=== PATIENT | male | born 1955 | race Caucasian/White ===

== ENCOUNTER → 2016-07-01 | Outpatient (REF) | payer MEDICARE ==
[~2016-07-01] MED LIST: AMLO5TAB2 PO; ASPI1TAB PO; CEPH500C PO; CIPR500T89 PO; CLEO150C PO; CLEO300C2 PO; CLON0.2T PO; DOXY150C PO; INSUHUMDS SC; INSULADS SC; JANU100T PO; LOVE1INJ SC; METF750T PO; METO50TA2 PO; MULT1TAB8 PO; MULTCAP PO; NEXI20CA PO; PERCOCET PO; SIMV40TA2 PO; SITA50TAB PO; ZOSY3INJ2 IV
== END ==
LOC: M LAB REF 16:57
PROVIDERS: ATTEND Surgery
DX: L02.611 Cutaneous abscess of right foot (principal)
CPT/HCPCS: 10060; 87070; 87077; 87186; 97597; G0463

== ENCOUNTER → 2016-10-14 | Outpatient (CLI) | payer MEDICARE ==
[~2016-10-14] MED LIST changes: +ISOVUE-300 61% 50ML VIAL (Q9967) As Ordered ONE; +LIDOCAINE 2% MDV 20 ML VIAL As Ordered ONE; +LIDOCAINE W/EPINEPHRINE 1% 20ML VIAL As Ordered ONE; +SODIUM BICARBONATE 4 % INJ 2.4MEQ 5 ML VIAL (THIS HAS A PRESERVATIVE) As Ordered ONE; +ceFAZolin 1GM INJ (J0690) As Ordered ONE; +fentaNYL 100 MCG/2 ML INJECTION (J3010) As Ordered ONE
--- NOTE | 2016-10-14 18:33 | REPKIM ---
CLINICAL HISTORY: Patient with diabetes, PVD, leg ulcer and multiple surgeries in the past has a right IJ [id number]-j-rfye over 4 years placed at an outside institution. Patient recently was seen in [place] surgical office for chest port removal. The catheter was found to be adherent and could not be removed. The referring service has asked the right IJ chest port removal/adherent catheter removal in the jugular vein. PROCEDURE PERFORMED: 1. Chest Port Removal 2. Endovascular Foreign Body Removal INTERVENTIONALIST: Queta Parks MD STRATEGIC SOURCING CONSULTANT: Gary Churchill MD MEDICATIONS: Local Lidocaine, Ancef 1gm IV and Fentanyl 125 mcg IV. Independent trained observer was present during the entire duration of the procedure for monitoring. EBL: 20 mL FLUORO TIME: 14.9 minutes DEVICES USED: [id number] Javid FURNITURE RENTAL CONSULTANT balloon, 3mm x 30mm Javid FURNITURE RENTAL CONSULTANT balloon, Lot#[id number] CONSENT: The risks, benefits and alternatives to the procedure were explained to the patient and informed written consent was obtained. PROCEDURE/FINDINGS: The patient was brought to the interventional radiology suite and was positioned supine on the table. Time out procedure was performed. The right neck and upper chest were prepped and draped in the usual sterile fashion. Fluoroscopy of the chest showed the existing chest port with its tip at the right brachiocephalic vein. The subcutaneous portion of the catheter is looped in the upper chest. There is a second looping of the catheter at the base of the neck region. The right upper chest and neck was prepped and draped in the usual sterile fashion. Local anesthesia was administered to the overlying skin and surrounding deep tissue around the existing port. Then a skin incision was made in the upper chest. The port was bluntly dissected free from the surrounding soft tissues. The catheter was confirmed to be severely adherent in the neck. A second incision was then made in the right neck. Using blunt dissection the catheter was then grasped from the neck incision site. Then the existing port was removed. The free end of the catheter in the subcutaneous tissue tract was bluntly dissected and brought out in the neck skin incision. The catheter was found to be firmly attached to the jugular vein. I dissected scar tissues to the jugular vein access site however I was not able to remove it in a conventional fashion. Multiple attempts were made to dissect the scar tissues along the catheter in the jugular vein with peelaway sheath and vascular sheath without success. Decision was then made to dilate the tract using FURNITURE RENTAL CONSULTANT balloon. A guidewire was then advanced via the catheter, into the right IJ, across the right atrium into the IVC. A javid FURNITURE RENTAL CONSULTANT balloon was then advanced coaxially via the catheter over the guidewire. With Dr. Whitley assistance, the right IJ catheter/track was dilated using 3mm Javid FURNITURE RENTAL CONSULTANT balloon. Following this, the firmly attached catheter in the right IJ/brachiocephalic was removed in its entirety over a guidewire. The catheter was confirmed to be removed in its entirety. The right upper chest deep tissue was closed with interrupted 2-0 Vicryl suture. The skin incision was closed with a running subcuticular suture of 4-0 Vicryl. The incision in the neck was closed with 4-0 Vicryl suture. Mastisol and Steri-Strips were applied. The patient tolerated the procedure well with no immediate complications. This procedure was performed using fluoroscopy. IMPRESSION: Right IJ [id number]-[id number]; with its catheter severely adherent to the right IJ vein and base of the neck region. Successful ezqdck-i-iraj removal using blunt dissection and endovascular FURNITURE RENTAL CONSULTANT technique as discussed above. Dr. Parks was present for the entire procedure as documented in the progress notes. cc: Gary Rico MD [facility]ITALKim
== END | disposition home or self-care (01) ==
LOC: M IRPRO 12:54
PROVIDERS: ATTEND Surgery
DX: T82.9XXA Unspecified complication of cardiac and vascular prosthetic device, implant and graft, initial encounter (principal); I73.9 Peripheral vascular disease, unspecified; E11.621 Type 2 diabetes mellitus with foot ulcer; L02.611 Cutaneous abscess of right foot; L97.412 Non-pressure chronic ulcer of right heel and midfoot with fat layer exposed
CPT/HCPCS: 29445; 36590; 37248; C1725; C1769; C1894; J0690; J3010; Q9967

== ENCOUNTER 2017-01-12 12:05 | Day surgery (SDC) | payer MEDICARE ==
[~2017-01-12] VITALS: Ht 177.8 cm; Wt 97.5 kg
[~2017-01-12 12:05] MED LIST changes: +ACETAMINOPHEN 325 MG TAB PO PRN; +ACETYLCHOLINE OPHTH SOLN 1% 2ML (MIOCHOL-E) As Ordered ONE; +BALANCED SALT IRRIGATION SOLUTION 500ML BAG (FOR OR EYE MACHINE) As Ordered ONE; +CEFUROXIME 1MG/0.1ML INTRACAMERAL INJ As Ordered ONE; +CIPR-249 PO; -CIPR500T89 PO; +CYCLOPENTOLATE 2% OPHTH SOLN 2ML BTL OS ONE; +HEALON DUET (HEALON 10MG/ML 0.55ML & HEALON ENDOCOAT 30MG/ML 0.85ML) As Ordered ONE; +INSUH10VL SC; +INSULADS INJ; +IRON65TA PO; -ISOVUE-300 61% 50ML VIAL (Q9967) As Ordered ONE; +LIDOCAINE 1% SDV 5 ML VIAL As Ordered ONE; -LIDOCAINE 2% MDV 20 ML VIAL As Ordered ONE; +LIDOCAINE 3.5 % 1ML OPHTH TOPICAL GEL OU ONE; -LIDOCAINE W/EPINEPHRINE 1% 20ML VIAL As Ordered ONE; +LOSA50TA20 PO; -METO50TA2 PO; +METO50TA7 PO; +OFLOXACIN 0.3 % (OCUFLOX) OPTH SOL 5ML OS ONE; +PHENYLEPHRINE 2.5% OPHTH SOL 2ML OS ONE; +POVIDONE-IODINE 5% OPHTH PREP SOL 30ML As Ordered ONE; +PROPARACAINE 0.5% OPHTH SOL 15ML OS PRN; -SODIUM BICARBONATE 4 % INJ 2.4MEQ 5 ML VIAL (THIS HAS A PRESERVATIVE) As Ordered ONE; +TROPICAMIDE 1% OPHTH SOLN 2ML OS ONE; +[UNRECOGNIZED DRUG - CODE] PO; -ceFAZolin 1GM INJ (J0690) As Ordered ONE; -fentaNYL 100 MCG/2 ML INJECTION (J3010) As Ordered ONE
[2017-01-12] MEDS ORDERED: LR 1,000 ML IV ONE (12:15)
[2017-01-12] MEDS ORDERED: fentaNYL 100 MCG/2 ML INJECTION (J3010) As Ordered ONE (13:59)
[2017-01-12] MEDS ORDERED: MIDAZOLAM INJ 2 MG/2 ML VIAL (J2250) As Ordered ONE (13:59)
[2017-01-12 14:30] VITALS: BP 123/74
[2017-01-12] MEDS ORDERED: AcetaZOLAMIDE 500 MG ER CAP PO ONE (14:30)
[2017-01-12] MEDS ORDERED: KETOROLAC 0.5% OPHTH SOLN OS ONE (14:30)
[2017-01-12] MEDS ORDERED: TRIMETHOBENZAMIDE 300 MG CAP PO PRN (14:30)
--- NOTE | 2017-01-12 17:40 | RO ---
DATE OF PROCEDURE: 01/12/2017 PREPROCEDURE DIAGNOSIS: Age-related nuclear cataract left eye. POSTPROCEDURE DIAGNOSIS: Age-related nuclear cataract left eye. PROCEDURE: Femtosecond cataract with posterior chamber intraocular lens implantation. SURGEON: Edwige Garzon MD TOLL RELIEF OPERATOR: ANESTHESIA: Topical with sedation. LENS USED: [id number] 21.0 diopter. DESCRIPTION OF PROCEDURE: The patient was brought to the operating room and put under the Femtosecond laser. A lid speculum was placed between the lids and the laser was lowered on. Docking was achieved with good suction. The laser procedure was performed with no difficulty. The laser was then removed from the eye and the lid speculum was removed. The laser was moved over to the operating microscope and prepped and draped in the usual fashion. A lid speculum was placed between the lids. The eye was fixated. The side-port incision was opened up with a spatula. 1% non-preservative Lidocaine was instilled; then viscoelastic was instilled. The main incision was then opened with the spatula. The capsulorrhexis was removed from the eye with the Utrata forceps. The lens then hydrodissected and a phacoemulsification was used to make a groove in the nucleus and one meridian. The nucleus was cracked into four quadrants and then each quadrant was removed with the phacoemulsification unit. Any remaining cortex was removed with the I and A unit. The capsular bag was refilled with viscoelastic. A posterior chamber intraocular lens was placed in the capsular bag. The remaining viscoelastic was removed. The wound was hydrated. Miochol and cefuroxime were instilled. The wound was water-tight. The patient tolerated the procedure well and went to the recovery room in stable condition.
== END 2017-01-12 14:45 | disposition home or self-care (01) ==
LOC: M SDC 12:05
PROVIDERS: ATTEND Ophthalmology
DX: H25.12 Age-related nuclear cataract, left eye (principal); I12.9 Hypertensive chronic kidney disease with stage 1 through stage 4 chronic kidney disease, or unspecified chronic kidney disease; E78.2 Mixed hyperlipidemia; I73.9 Peripheral vascular disease, unspecified; E10.621 Type 1 diabetes mellitus with foot ulcer; E10.40 Type 1 diabetes mellitus with diabetic neuropathy, unspecified; H43.12 Vitreous hemorrhage, left eye; K21.9 Gastro-esophageal reflux disease without esophagitis; D64.9 Anemia, unspecified; M86.8X7 Other osteomyelitis, ankle and foot; E66.3 Overweight; R06.02 Shortness of breath; M12.9 Arthropathy, unspecified; N18.3 Chronic kidney disease, stage 3 (moderate); D63.8 Anemia in other chronic diseases classified elsewhere; J34.2 Deviated nasal septum; K59.00 Constipation, unspecified; B35.9 Dermatophytosis, unspecified; N40.0 Benign prostatic hyperplasia without lower urinary tract symptoms; Z91.041 Radiographic dye allergy status; Z79.899 Other long term (current) drug therapy; Z79.4 Long term (current) use of insulin; Z79.82 Long term (current) use of aspirin; Z72.0 Tobacco use
CPT/HCPCS: 66984; J2250; J3010; V2632

== ENCOUNTER → 2017-01-20 | Outpatient (REF) | payer MEDICARE ==
[~2017-01-20] MED LIST changes: -ACETAMINOPHEN 325 MG TAB PO PRN; -ACETYLCHOLINE OPHTH SOLN 1% 2ML (MIOCHOL-E) As Ordered ONE; -BALANCED SALT IRRIGATION SOLUTION 500ML BAG (FOR OR EYE MACHINE) As Ordered ONE; -CEFUROXIME 1MG/0.1ML INTRACAMERAL INJ As Ordered ONE; -CYCLOPENTOLATE 2% OPHTH SOLN 2ML BTL OS ONE; -HEALON DUET (HEALON 10MG/ML 0.55ML & HEALON ENDOCOAT 30MG/ML 0.85ML) As Ordered ONE; -LIDOCAINE 1% SDV 5 ML VIAL As Ordered ONE; -LIDOCAINE 3.5 % 1ML OPHTH TOPICAL GEL OU ONE; -OFLOXACIN 0.3 % (OCUFLOX) OPTH SOL 5ML OS ONE; -PHENYLEPHRINE 2.5% OPHTH SOL 2ML OS ONE; -POVIDONE-IODINE 5% OPHTH PREP SOL 30ML As Ordered ONE; -PROPARACAINE 0.5% OPHTH SOL 15ML OS PRN; -TROPICAMIDE 1% OPHTH SOLN 2ML OS ONE
== END ==
LOC: M LAB REF 12:26
PROVIDERS: ATTEND Surgery
DX: E11.621 Type 2 diabetes mellitus with foot ulcer (principal)

== ENCOUNTER → 2017-01-27 | Outpatient (CLI) | payer MEDICARE | LOC: M RAD 10:49 | PROVIDERS: ATTEND Surgery | DX: L97.412 Non-pressure chronic ulcer of right heel and midfoot with fat layer exposed (principal); E11.621 Type 2 diabetes mellitus with foot ulcer; Z53.9 Procedure and treatment not carried out, unspecified reason ==

== ENCOUNTER → 2017-01-28 | Outpatient (CLI) | payer MEDICARE ==
--- NOTE | 2017-01-28 14:54 | REP ---
BILATERAL LOWER EXTREMITY ARTERIAL DOPPLER ULTRASOUND: History: Nonhealing ulcers bilateral feet. Peripheral vascular disease with graft on the right. Findings: The arterial vessels in the lower extremity are noncompressible therefore ankle brachial indices could not be obtained on either side. There is a greater saphenous in situ graft at the proximal superficial femoral artery to the distal tibial peroneal trunk on the right side. Monophasic flow is present within this graft at 39 cm/sec proximally, 21 cm/sec at mid graft level, and 18 cm/sec at the distal graft level. There is moderate intimal thickening seen in the graft with the lumen diameter down to 2.2 mm proximally. There is evidence of a significant "3:1 velocity" stenosis at the proximal anterior tibial artery level on the right. Triphasic flow is observed in the common femoral artery and profunda femoral artery on the right and in the superficial femoral artery on the right. Biphasic flow is seen in the popliteal and monophasic flow is seen in the tibioperoneal trunk and the distal posterior and anterior tibial arteries. Velocity chart right lower extremity: Right BUILDINGS AND GROUNDS SUPERINTENDENT 129 cm/sec, right profunda 63 cm/sec, proximal SFA 74 mid SFA 70, distal SFA 71, popliteal 63, proximal CECI 165, tibial peroneal trunk 41, proximal FRONT OFFICE ATTENDANT 35, distal FRONT OFFICE ATTENDANT 76, distal CECI 7. On the left, there is evidence of a "3:1 velocity" stenosis in the distal SFA. Biphasic flow waveforms are seen to most of the left lower extremity with monophasic in the distal posterior tibial artery and distal anterior tibial artery on the left. Significant calcifications are seen in bilateral extremity vessels. Velocity chart left lower extremity: Left BUILDINGS [employer] GROUNDS SUPERINTENDENT 104 cm/sec, profunda 115 proximal SFA 59, mid SFA 68, distal SFA 197, popliteal 171, anterior tibial artery proximal 53, tibial peroneal trunk 56, proximal FRONT OFFICE ATTENDANT 58, distal FRONT OFFICE ATTENDANT 92, distal CECI 10. Impression: 1. Patent greater saphenous vein graft from proximal SFA to distal tibial peroneal trunk. Diffuse intimal thickening moderate in degree. 2. 3:1 velocity stenosis, 50-99%, right proximal anterior tibial artery. 3. 3:1 velocity stenosis distal superficial femoral artery on the left. 4. Noncompressible vessels diffuse atherosclerotic change. Signed by Marcial Dailey MD 01/28/2017 03:05 P
== END ==
LOC: M RAD 11:16
PROVIDERS: ATTEND Surgery
DX: L97.412 Non-pressure chronic ulcer of right heel and midfoot with fat layer exposed (principal); E11.621 Type 2 diabetes mellitus with foot ulcer

== ENCOUNTER → 2017-02-07 | Outpatient (REF) | payer MEDICARE ==
[2017-02-07 13:10] LABS: BASO # 0.1 10^3/uL (0.0-0.2); BASO % 0.6 % (0.0-1.0); EOS # 0.7 10^3/uL (0.0-0.50); EOS % 5.8 % (0.0-3.0); IMMATURE GRANULOCYTE % 0.8 % (0-0); LYMPH % 25.4 % (24.0-44.0); MEAN CORPUSCULAR HEMOGLOBIN 29.3 pg (27.0-33.0); MEAN CORPUSCULAR HGB CONC 33.9 g/dl (32.0-36.5); MEAN CORPUSCULAR VOLUME 86.6 fl (80.0-96.0); MONO # 0.9 10^3/uL (0.0-0.8); MONO % 7.7 % (0.0-5.0); NEUTROPHILS % 59.7 % (36.0-66.0); PLATELET COUNT, AUTOMATED 308 10^3/uL (150-450); RED CELL DISTRIBUTION WIDTH 13.2 % (11.5-14.5); WHITE BLOOD COUNT 11.7 10^3/uL (4.0-10.0)
[2017-02-07 13:45] LABS: ERYTHROCYTE SEDIMENTATION RATE 62 mm/hr (0-20)
== END ==
LOC: M SFHCPLAZ 11:58
PROVIDERS: ATTEND Internal Medicine Infectious Disease
DX: E11.621 Type 2 diabetes mellitus with foot ulcer (principal); L97.429 Non-pressure chronic ulcer of left heel and midfoot with unspecified severity; L97.412 Non-pressure chronic ulcer of right heel and midfoot with fat layer exposed; Z28.21 Immunization not carried out because of patient refusal; Z79.4 Long term (current) use of insulin
CPT/HCPCS: 36415; 85025; 85652; 86140; G0463

== ENCOUNTER → 2017-04-14 | Outpatient (REF) | payer MEDICARE | LOC: M SFHCWAGY 14:24 | PROVIDERS: ATTEND Surgery | DX: E11.621 Type 2 diabetes mellitus with foot ulcer (principal); L97.412 Non-pressure chronic ulcer of right heel and midfoot with fat layer exposed; L97.429 Non-pressure chronic ulcer of left heel and midfoot with unspecified severity ==

== ENCOUNTER 2017-06-17 06:50 | Day surgery (SDC) | payer MEDICARE ==
[2017-06-17] MEDS ORDERED: SIMETHICONE 40MG/0.6ML DROPS 30ML As Ordered (06:55)
[2017-06-17] MEDS: NS 1,000 ML IV (07:15)
[2017-06-17] MEDS ORDERED: LIDOCAINE 2% INJ 100 MG/5 ML SDV (FOR ANES.) As Ordered (08:02)
[2017-06-17] MEDS ORDERED: PROPOFOL 500 MG/50 ML VIAL As Ordered (08:02)
[2017-06-17] MEDS ORDERED: ePHEDrine INJ 50 MG/ML VIAL As Ordered (08:14)
== END 2017-06-17 09:20 | disposition home or self-care (01) ==
LOC: M OPP 06:50
DX: D50.9 Iron deficiency anemia, unspecified (principal); R19.5 Other fecal abnormalities; D12.5 Benign neoplasm of sigmoid colon; K64.8 Other hemorrhoids; I12.9 Hypertensive chronic kidney disease with stage 1 through stage 4 chronic kidney disease, or unspecified chronic kidney disease; E78.5 Hyperlipidemia, unspecified; E10.9 Type 1 diabetes mellitus without complications; R12 Heartburn; K21.9 Gastro-esophageal reflux disease without esophagitis; L97.412 Non-pressure chronic ulcer of right heel and midfoot with fat layer exposed; M19.90 Unspecified osteoarthritis, unspecified site; G47.8 Other sleep disorders; R06.83 Snoring; I73.9 Peripheral vascular disease, unspecified; N18.3 Chronic kidney disease, stage 3 (moderate); R35.1 Nocturia; F17.220 Nicotine dependence, chewing tobacco, uncomplicated; Z95.820 Peripheral vascular angioplasty status with implants and grafts; Z91.041 Radiographic dye allergy status; Z79.82 Long term (current) use of aspirin; Z79.899 Other long term (current) drug therapy
CPT/HCPCS: 45385

== ENCOUNTER 2017-10-24 06:35 | Day surgery (SDC) | payer MEDICARE ==
[2017-10-24] MEDS ORDERED: LIDOCAINE 2% INJ 100 MG/5 ML SDV (FOR ANES.) As Ordered (07:06)
[2017-10-24] MEDS ORDERED: PROPOFOL 200 MG/20 ML VIAL As Ordered (07:06)
[2017-10-24] MEDS: NS 1,000 ML IV (07:08)
[2017-10-24] MEDS ORDERED: PHENYLephrine HCL 500 MCG/5 ML (100MCG/ML) SYRINGE (J2370) As Ordered (08:22)
== END 2017-10-24 08:39 | disposition home or self-care (01) ==
LOC: M OPP 06:35
DX: R19.5 Other fecal abnormalities (principal); K64.8 Other hemorrhoids; D12.2 Benign neoplasm of ascending colon; D12.7 Benign neoplasm of rectosigmoid junction; K57.30 Diverticulosis of large intestine without perforation or abscess without bleeding; Z86.010 Personal history of colon polyps; E10.40 Type 1 diabetes mellitus with diabetic neuropathy, unspecified; E78.5 Hyperlipidemia, unspecified; N18.3 Chronic kidney disease, stage 3 (moderate); I73.9 Peripheral vascular disease, unspecified; I12.9 Hypertensive chronic kidney disease with stage 1 through stage 4 chronic kidney disease, or unspecified chronic kidney disease; N40.0 Benign prostatic hyperplasia without lower urinary tract symptoms; F17.220 Nicotine dependence, chewing tobacco, uncomplicated; Z79.4 Long term (current) use of insulin; Z79.82 Long term (current) use of aspirin; Z79.899 Other long term (current) drug therapy; Z91.041 Radiographic dye allergy status; Z91.89 Other specified personal risk factors, not elsewhere classified; Z89.422 Acquired absence of other left toe(s); Z89.421 Acquired absence of other right toe(s); L97.412 Non-pressure chronic ulcer of right heel and midfoot with fat layer exposed; Z80.7 Family history of other malignant neoplasms of lymphoid, hematopoietic and related tissues; Z83.3 Family history of diabetes mellitus; Z86.79 Personal history of other diseases of the circulatory system; Z80.2 Family history of malignant neoplasm of other respiratory and intrathoracic organs
CPT/HCPCS: 45380

== ENCOUNTER → 2017-12-21 | Outpatient (CLI) | payer MEDICARE | LOC: M RAD 07:11 | DX: E11.621 Type 2 diabetes mellitus with foot ulcer (principal); L97.519 Non-pressure chronic ulcer of other part of right foot with unspecified severity; Z89.421 Acquired absence of other right toe(s) | CPT/HCPCS: 73718 ==

== ENCOUNTER → 2018-10-12 | Outpatient (REF) | payer MEDICARE ==
[~2018-10-12] MED LIST changes: -AMLO5TAB2 PO; +AMLO5TAB6 PO; -ASPI1TAB PO; +ASPI81TA26 PO; +COLA100C5 PO; -LOSA50TA20 PO; +LOSA50TA88 PO; -METF750T PO; +METF750T36 PO; +METO1TAB7 PO; +MIRA3350 PO; -SIMV40TA2 PO; +SIMV40TA20 PO; +TRES1INJ2 SC
== END ==
LOC: M LAB REF 16:39
PROVIDERS: ATTEND Physician Assistant
DX: E11.621 Type 2 diabetes mellitus with foot ulcer (principal)

== ENCOUNTER → 2018-12-12 | Outpatient (CLI) | payer MEDICARE ==
[~2018-12-12] MED LIST changes: +METF750T PO; -METF750T36 PO; +SIMV40TA2 PO; -SIMV40TA20 PO
--- NOTE | 2018-12-12 08:30 | REP ---
Clinical: Nonhealing ulcer. Technique: AP and lateral views of the right foot. Findings: Visualized portions of the ankle and calcaneus as well as talus demonstrate age-related changes. No prior examinations available for comparison. The osseous structures of the midfoot are completely irregular in appearance and demonstrate presumed prior amputation along with a regular heterotopic ossification and chronic erosive changes. Lateral view demonstrates subcutaneous foci of gas primarily along the underlying soft tissues below the midfoot consistent with the given history of nonhealing ulcers. Cellulitis as well as osteomyelitis cannot definitively be excluded. Impression: Irregular findings as described above. Cellulitis as well as osteomyelitis cannot be excluded. Electronically Signed by Davidson Galindo MD 12/12/2018 08:21 A
== END ==
LOC: M RAD 06:38
PROVIDERS: ATTEND Surgery
DX: L97.412 Non-pressure chronic ulcer of right heel and midfoot with fat layer exposed (principal); M79.671 Pain in right foot

== ENCOUNTER → 2018-12-12 | Outpatient (CLI) | payer MEDICARE ==
--- NOTE | 2018-12-12 08:55 | REP ---
Clinical: Type 2 diabetes with non healing ulcers . Technique: Elise scale and color Doppler evaluation using linear high frequency transducer including reflux evaluation. Findings: Ultrasound examination of the right and left lower extremity deep venous structures from the common femoral vein to the popliteal vein demonstrates normal compressibility flow and wave patterns in response to respiration and augmentation. There is no evidence for deep venous thrombosis. There is evidence for a a right lower extremity bypass graft from the proximal superficial femoral artery to the posterior tibial artery. Reflux examination was performed with the patient in the reverse Trendelenburg position as the patient was not able to stand for examination. Right lower extremity demonstrates no evidence for reflux through the deep venous system. The right greater saphenous vein is used as bypass from the proximal superficial femoral artery to the proximal posterior tibial artery and appears occluded. Left lower extremity demonstrates no evidence for reflux through the deep or superficial venous systems, and only mild reflux was noted in the mid to distal portions of the deep femoral vein. Impression: 1. No evidence for deep venous thrombosis. 2. Right greater saphenous vein being used as bypass graft from the superficial femoral artery to the proximal tibial artery and appears occluded. 3. No significant reflux disease. As above. Electronically Signed by Davidson Galindo MD 12/12/2018 08:47 A
== END ==
LOC: M RAD 06:44
PROVIDERS: ATTEND Physician Assistant
DX: E11.621 Type 2 diabetes mellitus with foot ulcer (principal); E11.610 Type 2 diabetes mellitus with diabetic neuropathic arthropathy; L97.412 Non-pressure chronic ulcer of right heel and midfoot with fat layer exposed; L97.421 Non-pressure chronic ulcer of left heel and midfoot limited to breakdown of skin; M79.671 Pain in right foot; M79.672 Pain in left foot

== ENCOUNTER → 2018-12-19 | Outpatient (POV) | payer MEDICARE ==
[~2018-12-19] VITALS: Ht 175.3 cm; Wt 102.2 kg
[2018-12-19 11:20] VITALS: BP 136/63
--- NOTE | 2018-12-19 13:30 | IRCOV ---
[facility] IR Consult Office Visit IR Consult Office Visit DATE: Dec 19, 2018 REASON FOR CONSULTATION/CHIEF COMPLAINT: Nonhealing ulcer right heel. HISTORY OF PRESENT ILLNESS: 63 male with hypertension, coronary artery disease, diabetes and peripheral vascular disease presents with clotted bypass graft and nonhealing ulcer on the heel of the right foot. Nonhealing ulcer has been an issue for 5 years. Patient had SFA to tibioperoneal trunk graft performed 7 years ago. This was performed due to the nonhealing ulcer. Patient complains of increasing leg pain since bypass graft; reports he can walk a few yards before he gets increased swelling and pain in the legs. This goes away with rest. No new ulcers since bypass graft. No new wounds since clotting of bypass graft. However, has noticed some skin color changes in the extremity in the last couple months. Denies chest pain. Denies shortness of breath. Denies orthopnea. No heart attacks or strokes in the past. ALLERGIES: Please see below. HOME MEDICATIONS: Please see below. PAST MEDICAL HISTORY: 1. Diabetes. 2. Hypertension. 3. Coronary artery disease. 4. PAD. PAST SURGICAL HISTORY: 1. SFA to tibioperoneal trunk venous bypass graft performed 7 years ago. 2. Bilateral toe amputations. FAMILY HISTORY: Heart disease. SOCIAL HISTORY: Chews tobacco. No alcohol. Independent with activities of daily living. REVIEW OF SYSTEMS: Otherwise negative. PHYSICAL EXAMINATION: VITAL SIGNS: Please see below. GENERAL APPEARANCE: Appears well. No apparent distress. HEENT: No scleral icterus. RESPIRATORY: Normal breath sounds at rest. CARDIOVASCULAR: Normal rate. ABDOMEN: Non-distended. Soft nontender. EXTREMITIES: Bilateral toe amputations. Walks unaided. Left lower extremity: S kin temperature normal. Color normal. Faint dorsalis pedis pulse. Popliteal pulse present. Right lower extremity: Toe amputations. Skin temperature normal.: Normal. Faint dorsalis pedis pulse. Popliteal pulse present. Nonhealing ulcer noted. NEUROLOGICAL: Alert and oriented. PSYCHIATRIC: Appropriate to circumstance. LABORATORY DATA: Please see below. Imaging: I personally reviewed the most recent ultrasound of the lower extremities done for venous purposes. There is occlusion of the right leg bypass graft. I also reviewed prior MRA imaging and note the right bypass graft extending from the SFA to the tibioperoneal trunk. ASSESSMENT/PLAN: 63 male with peripheral arterial disease status post bilateral toe amputations presents with nonhealing right heel ulcer and occluded right lower extremity bypass graft. This would be amenable to pharmacomechanical thrombectomy. We will schedule the patient for this procedure to be done under monitored sedation. I spent 30 minutes in consultation with the patient. Thank you for this referral. Allergies Coded Allergies: Contrast Media (Unverified Adverse Reaction, Intermediate, poor kidney function-can't have, 10/21/17) Home Medications Scheduled Aspirin (Aspirin EC), 81 MG PO DAILY, (Reported) Insulin Degludec (Tresiba Flextouch U-100), 65 UNIT SC QPM, (Reported) Insulin Human Lispro (Novolog), Unknown Dose SC AC, (Reported) Losartan Potassium (Losartan Potassium), 50 MG PO DAILY, (Reported) Metoprolol Succinate (Metoprolol Succinate), 50 MG PO QHS, (Reported) Multivitamin (Multivitamins), 1 CAP PO DAILY, (Reported) Simvastatin (Simvastatin), 40 MG PO QHS, (Reported) Scheduled PRN Polyethylene Glycol 3350 (Miralax), 17 GM PO DAILY PRN for CONSTIPATION, (Reported) VS, I&O, 24H, Fishbone Vital Signs/I&O Vital Signs Date Time Temp Pulse Resp B/P (MAP) Pulse Ox O2 Delivery O2 Flow Rate FiO2 12/19/18 11:20 97.7 76 18 136/63 (87) 97 AIDEN BERGMAN MD Dec 19, 2018 13:30
== END ==
LOC: M IRPOV 10:43
PROVIDERS: ATTEND Radiology Diagnostic Radiology
DX: I82.401 Acute embolism and thrombosis of unspecified deep veins of right lower extremity (principal); L97.418 Non-pressure chronic ulcer of right heel and midfoot with other specified severity; I73.9 Peripheral vascular disease, unspecified; I10 Essential (primary) hypertension; I25.10 Atherosclerotic heart disease of native coronary artery without angina pectoris; E11.621 Type 2 diabetes mellitus with foot ulcer; E11.51 Type 2 diabetes mellitus with diabetic peripheral angiopathy without gangrene; Z72.0 Tobacco use

== ENCOUNTER 2018-12-29 06:34 | Outpatient (CLI) | payer MEDICARE ==
[2018-12-29 07:20] LABS: HEMATOCRIT 36.1 % (42.0-52.0); MEAN CORPUSCULAR HEMOGLOBIN 28.1 pg (27.0-33.0); MEAN CORPUSCULAR HGB CONC 33.2 g/dl (32.0-36.5); MEAN CORPUSCULAR VOLUME 84.5 fl (80.0-96.0); PLATELET COUNT, AUTOMATED 230 10^3/uL (150-450); RED BLOOD COUNT 4.27 10^6/uL (4.30-6.10)
[2018-12-29] MEDS ORDERED: LIDOCAINE 1% MDV 20ML VIAL As Ordered ONE (07:23)
[2018-12-29] MEDS ORDERED: ISOVUE-300 61% 50ML VIAL (Q9967) As Ordered ONE ×2 (07:23→09:31)
[2018-12-29] MEDS ORDERED: diphenhydrAMINE INJ 50MG/ML VIAL (J1200) As Ordered ONE (07:24)
[2018-12-29] MEDS ORDERED: fentaNYL 100 MCG/2 ML INJECTION (J3010) As Ordered ONE ×2 (07:24→09:43)
[2018-12-29] MEDS ORDERED: MIDAZOLAM INJ 2 MG/2 ML VIAL (J2250) As Ordered ONE ×2 (07:25→09:43)
--- NOTE | 2018-12-29 07:32 | IRMSE ---
[facility] IR Moderate Sedation Eval. Date and Time Date: Dec 29, 2018 Time: 07:31 ASA Classification ASA Classification: III-Severe systemic dis. Mallampati Score: II NPO: Yes Obstructive Sleep Apnea: No Interval Plan: moderate sedation AIDEN BERGMAN MD Dec 29, 2018 07:32
[2018-12-29 07:34] LABS: INR 0.99; PROTHROMBIN TIME 12.8 SECONDS (11.8-14.0)
[2018-12-29 07:43] LABS: CREATININE FOR GFR 2.36 MG/DL (0.70-1.30); GLOMERULAR FILTRATION RATE 29.8 (>49); POTASSIUM SERUM 3.7 MEQ/L (3.5-5.1)
[2018-12-29] MEDS ORDERED: HEPARIN 1,000 UNITS/ML 10ML VIAL (FOR RADIOLOGY& DIALYSIS ONLY) As Ordered ONE (07:56)
--- NOTE | 2018-12-29 10:52 | POST-OPPD ---
Postoperative Procedure Note Date Of Procedure: Dec 29, 2018 Time Of Procedure: 10:48 PREOPERATIVE DIAGNOSIS: PAD POSTOPERATIVE DIAGNOSIS: PAD FINDINGS: Patent right common iliac, external iliac and common femoral artery. Multi focal stenosis in but patent SFA. Patent popliteal artery with occlusion of AT and TP trunk. Distal reconstitution of one vessel run off to foot through collaterals. PROCEDURE: right leg angiogram and angioplasty of popliteal, SFA and CF junction SURGEON: Nilsa ANESTHESIA: moderate sedation ESTIMATED BLOOD LOSS: < 15 ml COMPLICATIONS: none POSTOPERATIVE CONDITION: stable AIDEN BERGMAN MD Dec 29, 2018 10:52
--- NOTE | 2018-12-29 14:25 | REP ---
IR right leg angiogram. Selective right external iliac artery catheterization. Selective right superficial femoral artery catheterization. Sub selective right popliteal artery micro catheterization. Sub selective right anterior tibial artery micro catheterization. Superficial femoral artery angioplasty. Popliteal artery angioplasty. Common femoral artery angioplasty. Clinical Information: Non healing right foot ulcer. Prior SFA to tibioperoneal bypass graft performed 7 years ago which is occluded on recent ultrasound. Physician: Dr Ash.Procedure: The patient was advised of the benefits, risks, and alternatives of the procedure and informed consent was obtained.A time out was performed with verification of the patient's name, MRN, site of procedure, and type of procedure to be performed. The patient was positioned in the supine position on the angiographic table. The site was prepped and draped in the usual sterile fashion.Moderate sedation was performed by the physician including the presence of an independent trained observer who assisted in monitoring the patient's level of consciousness and physiological status. Following the administration of Fentanyl and Versed, the physician spent 90 minutes of continuous lqnt-xk-jpky time with the patient. A agile test lead radiograph reveals atherosclerotic calcifications along the SFA in the right thigh. Surgical clips in the soft tissues of the medial thigh. Amputation of the right mid foot. Ultrasound left groin demonstrates patent left common femoral artery. The left femoral artery was accessed using ultrasound guidance, with a micropuncture kit. A Thrive Metricsson wire was advanced into the aorta. The micropuncture sheath was exchanged over the wire for a a 5-Cambodian vascular sheath. A 5-Cambodian flush catheter was advanced over the wire and used to catheterize the abdominal aorta. A pelvic arteriogram was performed with the flush catheter located in the distal abdominal aorta. This demonstrates unremarkable distal abdominal aorta and aortic bifurcation. Patent bilateral common iliac arteries. Patent bilateral external and internal iliac arteries. There is stenosis at the origin of the right profunda femoris with post stenotic dilation and antegrade flow. Atherosclerotic disease of the left profunda femoris with irregularity. The Wilson wire in conjunction with the diagnostic catheter was used to selectively catheterize the right superficial femoral artery. An arteriogram was performed and this demonstrates multi segment stenosis within the right superficial femoral artery both proximally and distally. The right SFA is patent. The diagnostic catheter in conjunction with a Glidewire was used to selectively catheterize the distal SFA and popliteal artery. An arteriogram was performed and this demonstrates patent proximal popliteal artery. Irregularity and stenosis of the mid popliteal artery. There is distal popliteal artery occlusion and hypertrophied geniculate collaterals with resultant reconstitution of the mid anterior tibial artery. This reconstituted vessel then runs off as a single-vessel to the right foot. A micro catheter and micro wire were inserted through the diagnostic catheter and used to sub selectively catheterize the distal popliteal artery. Under fluoroscopy guidance, an attempt was made to recanaliize the occluded proximal anterior tibial artery but proved unsuccessful. The reconstituted mid and distal anterior tibial artery remains patent. In order to improve flow in the proximal right leg and collaterals, and to treat the multi focal stenosis, a 6 mm x 200 mm angioplasty balloon was advanced over the wire under fluoroscopy guidance. The angioplasty balloon was positioned at the distal SFA and popliteal artery. The vessel was angioplastied under fluoroscopy guidance. Five thousand units of heparin was administered. Under fluoroscopy guidance the angioplasty balloon was deflated and repositioned into the mid and proximal superficial femoral artery. Repeat angioplasty was performed. The angioplasty balloon was deflated under fluoroscopy guidance and retracted into the proximal superficial femoral and common femoral artery. Repeat angioplasty was performed under fluoroscopy guidance. The angioplasty balloon was removed over the wire. The diagnostic catheter was advanced over the wire to the popliteal artery and a post angioplasty arteriogram was performed. This demonstrates improved flow within the distal SFA and geniculate collaterals with reconstitution of the distal anterior tibial artery. The popliteal artery remains patent. No occlusion of distal run off vessel or collaterals. The diagnostic catheter was retracted back into the superficial femoral artery and post angioplasty arteriogram was performed, this demonstrates good forward flow in the SFA, geniculate and proximal popliteal artery. No extravasation. The catheter, wire and sheath were removed, pressure held and hemostasis achieved. A sterile dressing was applied to the site. Patient tolerated the procedure well and was transferred to PRU in stable condition. Complications: None. Estimated blood loss: Less than 15 ml. Impression: 1. Pelvic arteriogram demonstrates patent bilateral common iliac, internal and external iliac arteries. 2. Right leg angiogram demonstrates patent common femoral, superficial femoral and popliteal artery with multiple short segment stenosis within the superficial femoral artery. 3. Complete occlusion of the distal popliteal artery, proximal anterior tibial, posterior tibial and peroneal arteries with distal reconstitution of the mid anterior tibial artery through large geniculate branches. 4. Single reconstituted anterior tibial vessel run off to the foot. 5. Successful angioplasty of the common femoral, superficial femoral and popliteal artery with improved forward flow through squaxin and collateral vessels. Failed recanalization of the proximal anterior tibial artery on this occasion. 4. Patient to follow-up in IR clinic in 2 weeks. Thank you for this referral. Electronically Signed by Mis Ash MD 12/29/2018 02:23 P
[2018-12-29 16:23] VITALS: BP 155/72
== END 2018-12-29 16:25 | disposition home or self-care (01) ==
LOC: M IRPRO 06:34
PROVIDERS: ATTEND Radiology Diagnostic Radiology
DX: Z89.421 Acquired absence of other right toe(s) (principal); Z89.411 Acquired absence of right great toe
CPT/HCPCS: 37224; 75716; 75774; 80048; 85027; 85610; 99152; 99153; C1725; C1769; C1887; C1894; J2250; J3010; Q9967

== ENCOUNTER → 2019-01-09 | Outpatient (POV) | payer MEDICARE ==
[~2019-01-09] VITALS: Ht 176.5 cm; Wt 104.5 kg
[~2019-01-09] MED LIST changes: -METF750T PO; +METF750T36 PO; -SIMV40TA2 PO; +SIMV40TA20 PO
[2019-01-09 14:35] VITALS: BP 147/73
--- NOTE | 2019-01-10 10:53 | IPNPDOC ---
Text Note Date of Service The patient was seen on 01/09/19. NOTE 63-year-old male with diabetes, hyperlipidemia, hypertension and peripheral arterial disease with nonhealing ulcer of right foot. Patient has had a bypass graft several years ago but 5 years of chronic nonhealing wound of the right foot. Recent ultrasound demonstrated occluded bypass graft and angiogram was performed which demonstrated patent but stenosed SFA and proximal and mid poplit eal artery with complete occlusion of the P3 segment of the popliteal artery. There is distal reconstitution of the distal anterior tibial artery through collaterals and single vessel flow into the right foot. SFA and popliteal stenosis was treated with angioplasty. Recanalization of the P3 segment of the popliteal artery and proximal runoff was unsuccessful on that occasion. On examination: No apparent distress. Heart rate normal. Symmetric breath sounds. Lower extremities: Right lower extremity: Femoral pulse 2+ popliteal pulse 1+ Left lower extremity: Femoral pulse 2+ popliteal pulse 2+ Impression: 2 weeks status post right leg angioplasty. Will monitor the wound for a few more weeks and reattempt popliteal artery recanalization if appropriate. Follow-up in IR and wound care clinic as scheduled. Thank you for this referral. VS,Chipbone, I+O VS, Fishbone, I+O Vital Signs Date Time Temp Pulse Resp B/P (MAP) Pulse Ox O2 Delivery O2 Flow Rate FiO2 01/09/19 14:35 97.0 76 18 147/73 (97) 97 AIDEN BERGMAN MD Jan 10, 2019 10:53
== END ==
LOC: M IRPOV 14:20
PROVIDERS: ATTEND Radiology Diagnostic Radiology
DX: I70.235 Atherosclerosis of native arteries of right leg with ulceration of other part of foot (principal); L97.519 Non-pressure chronic ulcer of other part of right foot with unspecified severity; E11.51 Type 2 diabetes mellitus with diabetic peripheral angiopathy without gangrene; E78.5 Hyperlipidemia, unspecified; I10 Essential (primary) hypertension; Z98.62 Peripheral vascular angioplasty status

== ENCOUNTER → 2019-02-20 | Outpatient (POV) | payer MEDICARE ==
[~2019-02-20] VITALS: Ht 177.8 cm; Wt 104.1 kg
[~2019-02-20] MED LIST changes: +SIMV40TA2 PO; -SIMV40TA20 PO
[2019-02-20 08:15] VITALS: BP 126/62
--- NOTE | 2019-02-20 08:55 | IRPN ---
[facility] IR Progress Note IR Progress Note DATE: Feb 20, 2019 FOLLOW-UP: 2 months status post right leg diagnostic and interventional angiogram. Patient had SFA angioplasty. 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 Nonhealing right foot wound continues the same. Right leg intermittent claudication. No rest pain. On Plavix and aspirin. ON EXAMINATION: Right lower extremity: Edema 1+. Warm to touch. Hairless. Femoral pulse 2+ popliteal pulse + DP/PT negative. all toes amputated. Nonhealing ulcer on the pad of the right foot. No gangrene. Left lower extremity: No edema. Warm to touch. Hairless. Femoral pulse 2+ popliteal pulse + DP/PT negative. All toes amputated. Superficial ulcer pad of foot. IMPRESSION: Doing well status post above-knee intervention. Still requires below knee revascularization. We will schedule the patient for below-knee intervention under moderate sedation. Thank you for this referral. Allergies Coded Allergies: Contrast Media (Unverified Adverse Reaction, Intermediate, poor kidney function-can't have, 10/21/17) VS,Fishbone, I+O VS, Fishbone, I+O Vital Signs Date Time Temp Pulse Resp B/P (MAP) Pulse Ox O2 Delivery O2 Flow Rate FiO2 02/20/19 08:15 97.7 74 18 126/62 (83) 97 AIDEN BERGMAN MD Feb 20, 2019 08:55
== END ==
LOC: M IRPOV 07:57
PROVIDERS: ATTEND Radiology Diagnostic Radiology
DX: I70.211 Atherosclerosis of native arteries of extremities with intermittent claudication, right leg (principal); I70.235 Atherosclerosis of native arteries of right leg with ulceration of other part of foot; Z79.01 Long term (current) use of anticoagulants; Z79.82 Long term (current) use of aspirin

== ENCOUNTER → 2019-06-28 | Outpatient (REF) | payer MEDICARE ==
[~2019-06-28] MED LIST changes: -SIMV40TA2 PO; +SIMV40TA20 PO
== END ==
LOC: M LAB REF 12:15
PROVIDERS: ATTEND Physician Assistant
DX: E11.621 Type 2 diabetes mellitus with foot ulcer (principal); L02.612 Cutaneous abscess of left foot

== ENCOUNTER → 2019-10-26 | Outpatient (REF) | payer MEDICARE ==
[2019-11-01 08:13] LABS: PSA TOTAL 13.3 ng/mL (0.0-4.0)
== END ==
LOC: M LAB REF 17:56
PROVIDERS: ATTEND Nurse Practitioner Family
DX: N39.0 Urinary tract infection, site not specified (principal); N40.1 Benign prostatic hyperplasia with lower urinary tract symptoms; R97.20 Elevated prostate specific antigen [PSA]

== ENCOUNTER → 2019-10-29 | Outpatient (CLI) | payer MEDICARE ==
--- NOTE | 2019-10-29 12:39 | REP ---
REASON: Acute kidney injury. COMPARISON: None. Right kidney measures 14.1 x 5.3 x 6 cm. Left 13.8 x 5.7 x 6.2 cm. Mild to moderate hydronephrosis was seen bilaterally. There are no cystic or solid masses. IMPRESSION: Bilateral hydronephrosis. Electronically Signed by Lance Muro DO 10/29/2019 04:06 P
--- NOTE | 2019-10-29 12:45 | REP ---
LIMITED PELVIC ULTRASOUND: Assess urinary bladder. REASON: Acute kidney injury. The pre-void urinary bladder volume calculation is 638 mL and the post-void calculation is 532 mL. Low level echoes were seen throughout the urinary bladder particularly in the dependent portion representing a combination of debris and reverberation artifact through the technique. This could obscure a significant mucosal lesion which cannot be ruled out by ultrasound. IMPRESSION: Findings as described above. Transvesical imaging of the prostate gland showed evidence to suggest prostatomegaly and irregularity. This examination does not suffice as a dedicated prostate ultrasound examination. Consider prostate MRI. Electronically Signed by Lance Muro DO 10/29/2019 04:06 P
== END ==
LOC: M RAD 09:53
PROVIDERS: ATTEND Nurse Practitioner Family
DX: N17.9 Acute kidney failure, unspecified (principal); N40.1 Benign prostatic hyperplasia with lower urinary tract symptoms; N13.30 Unspecified hydronephrosis

== ENCOUNTER → 2019-11-09 | Outpatient (REF) | payer MEDICARE ==
[~2019-11-09] MED LIST changes: +AMLO1TAB24 PO; -AMLO5TAB6 PO; +CLOP75TA2 PO; +DOXY100C PO; +FLOM0.4C39 PO; +LEVO250T12 PO; +LEVO500T3 PO; +LORA-436 PO; +LOSA25TA14 PO; +MACR100C43 PO; +NEOM1SUS10 AU; +PHEN-593 PO; +ROSU10TA6 PO; +SODI650T PO; +TAMS1CAP17 PO; +TESS100C PO
[2019-11-09 19:10] LABS: APPEARANCE, URINE CLEAR (CLEAR); BACTERIA, URINE AUTO NEGATIVE (NEGATIVE); BILIRUBIN, URINE AUTO NEGATIVE (NEGATIVE); BLOOD, URINE BLOOD 1+ (NEGATIVE); COLOR, URINE STRAW (YELLOW); GLUCOSE, URINE (UA) AUTO 2+ mg/dL (NEGATIVE); KETONE, URINE AUTO NEGATIVE (NEGATIVE); LEUKOCYTE ESTERASE, URINE AUTO NEGATIVE (NEGATIVE); MUCUS, URINE SMALL (NEGATIVE); NITRITE, URINE AUTO NEGATIVE (NEGATIVE); PROTEIN, URINE AUTO 2+ mg/dL (NEGATIVE); RBC, URINE AUTO 1 /HPF (0-3); SPECIFIC GRAVITY URINE AUTO 1.009 (1.002-1.035); SQUAMOUS EPITHELIAL CELL UR AU 0 /HPF (0-6); UROBILINOGEN, URINE AUTO 0.2 mg/dL (0.0-2.0); WBC, URINE AUTO 0 /HPF (0-3)
== END ==
LOC: M SMT 16:41
PROVIDERS: ATTEND Nurse Practitioner Women's Health
DX: N28.89 Other specified disorders of kidney and ureter (principal)
CPT/HCPCS: 51703; 51798; 81001; 87088; 87186; G0463

== ENCOUNTER → 2019-11-21 | Outpatient (REF) | payer MEDICARE ==
[~2019-11-21] MED LIST changes: -DOXY100C PO; -LEVO250T12 PO
== END ==
LOC: M LAB REF 18:01
PROVIDERS: ATTEND Nurse Practitioner Women's Health
DX: R97.20 Elevated prostate specific antigen [PSA] (principal)

== ENCOUNTER → 2019-12-04 | Outpatient (CLI) | payer MEDICARE ==
[~2019-12-04] MED LIST changes: +DOXY100C PO; +LEVO250T12 PO
--- NOTE | 2019-12-04 12:07 | REPPI ---
Prostate sonography: History: Elevated PSA. Sonographic findings: Trans rectal prostate sonography demonstrates unremarkable seminal vesicles. Prostate gland is heterogeneously enlarged with calcifications and cystic changes noted. Glandular dimensions are measured at 5.7 x 5.4 x 6.0 cm with a calculated glandular volume of 96.4 ml. Two nodules are identified one on the right posteriorly measuring 1.2 cm and the other right lateral measuring 1.2 cm in diameter. Transrectal sonographic guidance is provided to Dr. Pinto who performed trans rectal ultrasound guided needle biopsy procedure . Electronically Signed by Marcial Dailey MD 12/04/2019 11:52 A
== END ==
LOC: M SMT PRO 09:07
PROVIDERS: ATTEND Urology
DX: R97.20 Elevated prostate specific antigen [PSA] (principal)
CPT/HCPCS: 76872; 76942; G0416

== ENCOUNTER → 2020-01-19 | Outpatient (CLI) | payer MEDICARE | LOC: M LABSMTC 08:51 | PROVIDERS: ATTEND Anesthesiology | DX: Z01.812 Encounter for preprocedural laboratory examination (principal); Z20.828 Contact with and (suspected) exposure to other viral communicable diseases | CPT/HCPCS: C9803; U0003 ==

== ENCOUNTER 2020-01-24 10:10 | Day surgery (SDC) | payer MEDICARE ==
[~2020-01-24] VITALS: Ht 175.3 cm; Wt 94.8 kg
[~2020-01-24 10:10] MED LIST changes: -DOXY100C PO; -FLOM0.4C39 PO; -LEVO250T12 PO; -LEVO500T3 PO; -LORA-436 PO; +LR 1,000 ML IV ONE; -MACR100C43 PO; -NEOM1SUS10 AU; -PHEN-593 PO; -TESS100C PO; +ceFAZolin SOD 2 GM in IV 1 EA IV ONE
[2020-01-24] MEDS ORDERED: ceFAZolin 2 GM/D5W 50 ML IV BAG (J0690 PER 500MG) As Ordered ONE (10:31)
[2020-01-24] MEDS ORDERED: LEVO500T3 PO (10:40)
[2020-01-24] MEDS ORDERED: ceFAZolin SOD 2 GM in IV 1 EA IV ONE (11:00)
[2020-01-24] MEDS ORDERED: MIDAZOLAM INJ 2MG/2ML VIAL (J2250 PER 1MG) As Ordered ONE (11:14)
[2020-01-24] MEDS ORDERED: fentaNYL 100 MCG/2 ML INJECTION (J3010) As Ordered ONE ×2 (11:15→13:02)
[2020-01-24] MEDS ORDERED: LIDOCAINE 2% 100MG/5ML SDV (FOR ANES.) As Ordered ONE (11:17)
[2020-01-24] MEDS ORDERED: HumaLOG INSULIN (NovoLOG) PER UNIT As Ordered ONE (11:39)
[2020-01-24] MEDS ORDERED: ROCURONIUM BROMIDE 50 MG/5 ML VIAL As Ordered ONE (11:51)
[2020-01-24] MEDS ORDERED: GLYCOPYRROLATE INJ 0.2 MG/ML 2 ML VIAL As Ordered ONE (12:58)
[2020-01-24] MEDS ORDERED: NEOSTIGMINE 10MG/10ML VIAL (J2710 PER 0.5MG) As Ordered ONE (12:59)
[2020-01-24] MEDS ORDERED: HumaLOG INSULIN (NovoLOG) PER UNIT SC ONE (13:00)
[2020-01-24] MEDS ORDERED: ONDANSETRON 4MG/2ML VIAL As Ordered ONE ×2 (13:00→15:34)
[2020-01-24] MEDS ORDERED: PHENYLephrine HCL 500 MCG/5 ML (100MCG/ML) SYRINGE (J2370) As Ordered ONE (13:31)
[2020-01-24] MEDS ORDERED: FUROSEMIDE 100MG/10ML VIAL (J1940) As Ordered ONE (14:34)
--- NOTE | 2020-01-24 15:12 | ROOPDOC ---
[facility] Report Of Operation Report of Operation DATE OF PROCEDURE: 01/24/20 PREPROCEDURE DIAGNOSIS: Benign prostatic hyperplasia with urinary retention. POSTPROCEDURE DIAGNOSIS: Benign prostatic hyperplasia with urinary retention. PROCEDURE: Cystoscopy, button transurethral electrovaporization of the prostate. SURGEON: Don Garrison MD NET WEB APPLICATION DEVELOPER: None. ANESTHESIA: General. OPERATIVE INDICATIONS: This is a 64 year-old male with benign prostatic hyperplasia and urinary retention who was brought to the operating room today for treatment. DESCRIPTION OF PROCEDURE: The patient was brought to the operating room and general anesthesia was induced. Prophylactic antibiotics were infused. He was placed in the dorsal lithotomy position and prepped and draped in the usual sterile fashion. At this point, I inserted a resectoscope into the urethral meatus using a visual obturator. I then advanced the resectoscope into the urethra and into the bladder. Of note, the patient had bilobar benign prostatic hyperplasia. I made note of the location of both ureteral orifices, as well as the verumontanum. At this point, I began vaporizing hyperplastic circumferentially at the bladder neck. I then vaporized hyperplastic tissue on both lateral lobes. I kept doing this until there was a clear channel established. Once there was a clear channel established, hemostasis was obtained using the coagulation current. Throughout the procedure I made sure not to vaporize close to the ureteral orifices or distal to the verumontanum. Once satisfied with hemostasis, the resectoscope was removed and an 18-Amharic Colbert catheter was inserted into the bladder. The balloon was filled with 15 mL of sterile water and then the catheter was connected to gravity drainage. This marked the conclusion of the procedure. The patient was taken out of the dorsal lithotomy position, awakened from anesthesia and transported to the recovery room in stable condition. Estimated blood loss:15 mL. Complications: None. Specimens: None. PLAN: The patient will followup in the clinic in approximately 1 week for catheter removal and a voiding trial. DON GARRISON MD Jan 24, 2020 15:12
[2020-01-24] MEDS ORDERED: PERCOCET 5MG/325MG TAB As Ordered ONE (15:34)
[2020-01-24] MEDS: PERCOCET 5MG/325MG TAB PO PRN ×2 (15:37→16:12)
[2020-01-24] MEDS ORDERED: ACETAMINOPHEN TAB 650MG DOSE (2X325MG) PO PRN (15:45)
[2020-01-24] MEDS ORDERED: METOCLOPRAMIDE INJ 10MG/2ML VIAL (J2765 PER 1) IV PRN (15:45)
[2020-01-24] MEDS ORDERED: fentaNYL 100 MCG/2 ML INJECTION (J3010) IV PRN (15:45)
[2020-01-24] MEDS ORDERED: ONDANSETRON 4MG/2ML VIAL IV PRN (15:45)
[2020-01-24] MEDS ORDERED: LR 1,000 ML IV SCH (15:45)
[2020-01-24 18:25] VITALS: BP 113/59
== END 2020-01-24 18:25 | disposition home or self-care (01) ==
LOC: M SDC 10:10
PROVIDERS: ATTEND Urology
DX: N40.1 Benign prostatic hyperplasia with lower urinary tract symptoms (principal); R33.9 Retention of urine, unspecified; R35.1 Nocturia; I12.9 Hypertensive chronic kidney disease with stage 1 through stage 4 chronic kidney disease, or unspecified chronic kidney disease; E78.5 Hyperlipidemia, unspecified; E11.319 Type 2 diabetes mellitus with unspecified diabetic retinopathy without macular edema; E11.40 Type 2 diabetes mellitus with diabetic neuropathy, unspecified; E11.22 Type 2 diabetes mellitus with diabetic chronic kidney disease; E11.51 Type 2 diabetes mellitus with diabetic peripheral angiopathy without gangrene; E11.621 Type 2 diabetes mellitus with foot ulcer; D63.1 Anemia in chronic kidney disease; N18.3 Chronic kidney disease, stage 3 (moderate); N25.81 Secondary hyperparathyroidism of renal origin; K59.00 Constipation, unspecified; K21.9 Gastro-esophageal reflux disease without esophagitis; L97.529 Non-pressure chronic ulcer of other part of left foot with unspecified severity; L97.519 Non-pressure chronic ulcer of other part of right foot with unspecified severity; R06.83 Snoring; Z79.4 Long term (current) use of insulin; Z79.82 Long term (current) use of aspirin; Z79.899 Other long term (current) drug therapy; Z86.14 Personal history of Methicillin resistant Staphylococcus aureus infection; Z87.891 Personal history of nicotine dependence; Z91.041 Radiographic dye allergy status
CPT/HCPCS: 52601; G0463; J0690; J1940; J2250; J2370; J2405; J2710; J3010

== ENCOUNTER → 2020-03-20 | Outpatient (REF) | payer MEDICARE ==
[~2020-03-20] MED LIST changes: +DOXY100C PO; +FLOM0.4C39 PO; +LEVO250T12 PO; +LEVO500T3 PO; +LORA-436 PO; -LR 1,000 ML IV ONE; +MACR100C43 PO; +NEOM1SUS10 AU; +PHEN-593 PO; +TESS100C PO; -ceFAZolin SOD 2 GM in IV 1 EA IV ONE
[2020-03-20 14:12] LABS: APPEARANCE, URINE CLOUDY (CLEAR); BACTERIA, URINE AUTO NEGATIVE (NEGATIVE); BILIRUBIN, URINE AUTO NEGATIVE (NEGATIVE); BLOOD, URINE BLOOD 2+ (NEGATIVE); COLOR, URINE YELLOW (YELLOW); GLUCOSE, URINE (UA) AUTO 3+ mg/dL (NEGATIVE); KETONE, URINE AUTO NEGATIVE (NEGATIVE); LEUKOCYTE ESTERASE, URINE AUTO 3+ (NEGATIVE); NITRITE, URINE AUTO NEGATIVE (NEGATIVE); PROTEIN, URINE AUTO 3+ mg/dL (NEGATIVE); RBC, URINE AUTO 13 /HPF (0-3); SPECIFIC GRAVITY URINE AUTO 1.011 (1.002-1.035); SQUAMOUS EPITHELIAL CELL UR AU 0 /HPF (0-6); UROBILINOGEN, URINE AUTO 0.2 mg/dL (0.0-2.0); WBC, URINE AUTO TNTC /HPF (0-3)
== END ==
LOC: M SMT 13:06
PROVIDERS: ATTEND Nurse Practitioner Women's Health
DX: N28.89 Other specified disorders of kidney and ureter (principal)

== ENCOUNTER 2020-03-25 19:31 | Inpatient (IN) | payer MEDICARE ==
[~2020-03-25] VITALS: Ht 175.3 cm; Wt 98.9 kg
[~2020-03-25 19:31] MED LIST changes: -DOXY100C PO; -FLOM0.4C39 PO; -LEVO250T12 PO; -LORA-436 PO; -MACR100C43 PO; -NEOM1SUS10 AU; -PHEN-593 PO; -TESS100C PO
[2020-03-25] MEDS ORDERED: NS 1,000 ML IV ONE (22:15)
[2020-03-25 22:27] LABS: BASO # 0.1 10^3/uL (0.0-0.2); BASO % 0.2 % (0.0-1.0); HEMATOCRIT 30.9 % (42.0-52.0); HEMOGLOBIN 10.3 g/dl (13.5-17.5); LYMPH # 1.8 10^3/uL (1.5-5.0); LYMPH % 6.4 % (24.0-44.0); MEAN CORPUSCULAR HEMOGLOBIN 27.2 pg (27.0-33.0); MEAN CORPUSCULAR HGB CONC 33.3 g/dl (32.0-36.5); MEAN CORPUSCULAR VOLUME 81.5 fl (80.0-96.0); MONO # 1.8 10^3/uL (0.0-0.8); MONO % 6.6 % (0.0-5.0); NEUTROPHILS # 23.6 10^3/uL (1.5-8.5); NEUTROPHILS % 85.4 % (36.0-66.0); PLATELET COUNT, AUTOMATED 332 10^3/uL (150-450); RED BLOOD COUNT 3.79 10^6/uL (4.30-6.10); WHITE BLOOD COUNT 27.7 10^3/uL (4.0-10.0)
[2020-03-25 23:13] LABS: ALBUMIN 2.1 GM/DL (3.2-5.2); ALT/SGPT 16 U/L (12-78); BILIRUBIN,DIRECT 0.1 MG/DL (0.0-0.2); BILIRUBIN,TOTAL 0.4 MG/DL (0.2-1.0); BLOOD UREA NITROGEN 61 MG/DL (7-18); CALCIUM LEVEL 8.7 MG/DL (8.8-10.2); CARBON DIOXIDE LEVEL 19 MEQ/L (21-32); CHLORIDE LEVEL 90 MEQ/L (98-107); CK-MB VALUE MASS < 1.0 NG/ML (<3.6); CPK CREATINE PHOSPHOKINASE 93 U/L (39-308); CREATININE FOR GFR 3.15 MG/DL (0.70-1.30); GLOMERULAR FILTRATION RATE 21.3 (>49); GLUCOSE, FASTING 475 MG/DL (70-100); LIPASE 145 U/L (73-393); MB/CK RELATIVE INDEX 1.08 (< OR =4); NT-PRO BNP 1571 PG/ML (<125); POTASSIUM SERUM 4.2 MEQ/L (3.5-5.1); SODIUM LEVEL 123 MEQ/L (136-145); TOTAL PROTEIN 6.9 GM/DL (6.4-8.2); TROPONIN I < 0.02 NG/ML (< 0.10)
--- NOTE | 2020-03-25 23:55 | REPVR ---
PROCEDURE INFORMATION: Exam: XR Chest, 1 View Exam date and time: 03/25/2020 11:34 PM Age: 64 years old Clinical indication: Cough; Additional info: Dyspnea/cough TECHNIQUE: Imaging protocol: XR of the chest Views: 1 view. COMPARISON: CR Chest, 1 view 08/28/2014 8:24 PM FINDINGS: Tubes, catheters and devices: A right Port-A-Cath has been removed since the prior study. Lungs: There is decreased inflation of the lungs. Minimal left base curvilinear scar which is unchanged from the prior study. No interval infiltrates. Pleural space: Unremarkable. No pleural effusion. No pneumothorax. Heart/Mediastinum: Unremarkable. No cardiomegaly. Bones/joints: Unremarkable. Soft tissues: There are generous overlying soft tissues. IMPRESSION: 1. Removal of right Port-A-Cath since 08/28/2014. 2. Otherwise essentially stable poor inspiratory chest. No acute interval process is identified. Electronically signed by: Kirby Patricio On 03/25/2020 23:55:01 PM
[2020-03-26] VITALS (7 sets, daily range): BP systolic 132–160; BP diastolic 68–78
[2020-03-26] MEDS ORDERED: PIPERACILLIN/TAZOBACTAM SOD 3.375 GM in D5W MINI-BAG PLUS 50 ML IV ONE (02:30)
[2020-03-26] MEDS ORDERED: HumaLOG INSULIN (NovoLOG) PER UNIT SC STA (02:48)
[2020-03-26] MEDS ORDERED: NS 1,000 ML IV ONE (03:00)
[2020-03-26] MEDS ORDERED: LEVEMIR (INSULIN DETEMIR) 1 UNITS/0.01ML SC ONE (03:00)
[2020-03-26 03:07] LABS: ACETONE/KETONE 11.46 MG/DL (<2.81)
[2020-03-26 03:11] LABS: HEMOGLOBIN A1c 11.8 %
[2020-03-26] MEDS ORDERED: SODI650T PO (03:31)
[2020-03-26] MEDS ORDERED: TESS100C PO (03:31)
[2020-03-26] MEDS ORDERED: INSUH10VL SC (03:31)
[2020-03-26] MEDS ORDERED: PHEN-593 PO (03:31)
[2020-03-26] MEDS ORDERED: MACR100C43 PO (03:31)
[2020-03-26] MEDS ORDERED: ROSU10TA6 PO (03:31)
[2020-03-26] MEDS ORDERED: LORA-436 PO (03:31)
[2020-03-26] MEDS ORDERED: FLOM0.4C39 PO (03:31)
[2020-03-26] MEDS ORDERED: NEOM1SUS10 AU (03:31)
--- NOTE | 2020-03-26 04:09 | HPEPDOC ---
[facility] Medical History & Physical Date of Admission Mar 26, 2020 Date of Service: Mar 26, 2020 History and Physical CHIEF COMPLAINT: "I feel like I'm going to ." HISTORY OF PRESENT ILLNESS: 64 y/o male with CKD3 baseline creatinine 2, UTI, DM, BPH, HTN, PAD, left LE angioplasty was in his usual state of health until a week ago when he was having urine retention, sent to urology and found to have a UTI, treated with macrodantin and pyridium. Then, 3 days ago pt c/o malaise, generalized weakness, decreased appetite, cold chills, diaphoresis, unable to get out of bed due to malaise, and uncontrolled sugar at home. In the ER, pt was found to have white count of 27, abnormal ua and stage 4 renal failure with creatinine 3 from baseline of 2, given IV zosyn. cxr: negative. Hospitalist was called to admit for sepsis due to UTI, acute on CKD now stage 4 from baseline stage 3, and uncontrolled DM2 with glucose >400. He c/o suprapubic pain, dysuria, urgency, frequency, but denies fever or malodorous urine. He denies NSAID use, sob, or LE edema. PAST MEDICAL HISTORY: DM, CKD3, UTI, HTN, dyslipidemia, PAD, angioplasty Left LE, urine retention, bph PAST SURGICAL HISTORY: left le angioplasty, rt foot transmetatarsal amuputation, left great toe amputation, left eye cataract removal, tonsillectomy, femoral artery bypass, chest wall lipoma, cystoscopy, TRUS biopsy prostate HOME MEDICATIONS: SEE BELOW ALLERGIES: SEE BELOW SOCIAL HISTORY: high school graduate, denies recreational drug use, ETOH abuse. chews tobacco FAMILY HISTORY: mother dm sister kidney problems REVIEW OF SYSTEMS: 10 point ROS negative aside from + findings on HPI. HOME MEDICATIONS: Please see below. PHYSICAL EXAMINATION: VITAL SIGNS: see below GENERAL APPEARANCE: AAOx3. no respiratory distress. able to speak in full sent ences HEENT: no JVD anicteric no jvd or cervical LAD moist mm CARDIOVASCULAR: S1S2 RRR LUNGS: AEBE CTAB ABDOMEN: soft +BS x 4quadrants. slightly tender suprapubic area. no CVAT EXTREMITIES: no pitting edema. right foot transmetatarsal amputation, left toes amputated. well healed scars in LLE LABORATORY DATA: See below. IMAGING: MICROBIOLOGY: Please see below. ASSESSMENT/PLAN: 64 y/o male with CKD3 baseline creatinine 2, UTI, DM, HTN, PAD, left LE angioplasty was in his usual state of health until a week ago when he was having urine retention, sent to urology and found to have a UTI, treated with macrodantin. Then, 3 days ago pt c/o malaise, generalized weakness, decreased appetite, cold chills, diaphoresis, unable to get out of bed due to malaise, and uncontrolled sugar at home. In the ER, pt was found to have white count of 27, abnormal ua and stage 4 renal failure with creatinine 3 from baseline of 2, given IV zosyn. Sepsis due to UTI -s/p iv zosyn. urine and blood cxs obtained. continue on iv ceftriaxone, serial cbc w diff and de-escalate abx once cx finalized. UTI -s/p iv zosyn in ER. Previous cultures grp B strep. on iv ceftriaxone. Acute on CKD due to obstructive uropathy and nephrotoxins-macrodantin. -iv fluid trial. r/o obstruction by checking renal us. strict i/o. renally dose meds, and avoid nephrotoxins. nephrology consult if clinically worsens DM, uncontrolled -start on longacting insulin and sliding scale, consistent carbs renal diet. check a1c and serum ketones. if no improvement, will need iv insulin gtt for better glycemic control HTN -controlled. PAD -chronic BPH/Urine retention -pvr residual monitoring, bladder scan. if persistent and with hydronephrosis on us renal, may need khan Pseudohyponatremia due to Uncontrolled DM -asymptomatic. correct uncontrolled DM2, but my need insulin iv gtt if no significant change. Metabolic Acidosis due to Acute on CKD -monitor w serial mp. DVT Prophylaxis -compression stockings. Vital Signs Vital Signs Date Time Temp Pulse Resp B/P (MAP) Pulse Ox O2 Delivery O2 Flow Rate FiO2 03/26/20 02:15 134/65 (88) 03/26/20 02:01 78 96 03/25/20 19:32 99.9 14 Room Air Laboratory Data Labs 24H Laboratory Tests 2 03/25/20 22:15: Immature Granulocyte % (Auto) 1.4, Neutrophils (%) (Auto) 85.4H, Lymphocytes (%) (Auto) 6.4L, Monocytes (%) (Auto) 6.6H, Eosinophils (%) (Auto) 0.0, Basophils (%) (Auto) 0.2, Neutrophils # (Auto) 23.6H, Lymphocytes # (Auto) 1.8, Monocytes # (Auto) 1.8H, Eosinophils # (Auto) 0.0, Basophils # (Auto) 0.1, Nucleated Red Blood Cells % (auto) 0.0, Anion Gap 14, Glomerular Filtration Rate 21.3L, Estimated Mean Plasma Glucose 292H, Hemoglobin A1c 11.8, Lactic Acid Level 1.2, Calcium Level 8.7L, Total Bilirubin 0.4, Direct Bilirubin 0.1, Aspartate Amino Transf (AST/SGOT) 9, Alanine Aminotransferase (ALT/SGPT) 16, Alkaline Phosphatase 148H, Total Creatine Kinase 93, Creatine Kinase MB < 1.0, Creatine Kinase MB Relative Index 1.08, Troponin I < 0.02, GR-Cfa-N-Type Natriuretic Peptide 1571H, Total Protein 6.9, Albumin 2.1L, Albumin/Globulin Ratio 0.4, Lipase 145, B-Hydroxybutyrate 11.46H 03/26/20 00:53: Urine Color YELLOW, Urine Appearance CLOUDYH, Urine pH 5.0, Urine Specific [place] 1.013, Urine Protein 3+H, Urine Glucose (UA) 3+H, Urine Ketones TRACEH, Urine Blood 2+H, Urine Nitrite NEGATIVE, Urine Bilirubin NEGATIVE, Urine Urobilinogen 0.2, Urine Leukocyte Esterase 2+H, Urine WBC (Auto) TNTCH, Urine RBC (Auto) 5H, Urine Hyaline Casts (Auto) 0, Urine Bacteria (Auto) NEGATIVE, Urine Squamous Epithelial Cells 0, Urine Mucus (Auto) SMALL, Urine Yeast-Like Cells (Auto) SMALLH, Urine Sperm (Auto) CBC/BMP Laboratory Tests 03/25/20 22:15 Microbiology Microbiology 03/26/20 Urine Culture, Received Pending 03/25/20 Respiratory Virus Panel (PCR) (EWA) - Final, Complete 03/25/20 Blood Culture, Received Pending 03/25/20 Blood Culture, Received Pending Home Medications Scheduled Clopidogrel Bisulfate (Clopidogrel) 75 Mg Tablet, 75 MG PO QHS Insulin Degludec (Tresiba Flextouch U-100) 100 Unit/Ml Inj, 70 UNIT SC QHS Insulin Human Lispro (Novolog) 100 Unit/1 Ml Vial, 1 DOSE SC AC PER SLIDING SCALE Loratadine (Loratadine) 10 Mg Tablet, 10 MG PO DAILY Metoprolol Succinate (Metoprolol Succinate) 50 Mg Tab, 50 MG PO QHS Neomycin/Polymyxin B/Hydrocort (Vapqpycy-Bobklggan-Yf Ear Susp) 10 Ml Drops.susp, 4 DROP AU QID Nitrofurantoin Monohyd/M-Cryst (Macrobid 100 mg Capsule) 100 Mg Capsule, 100 MG PO BID Phenazopyridine HCl (Phenazopyridine HCl) 100 Mg Tablet, 100 MG PO PC Rosuvastatin Calcium (Rosuvastatin Calcium) 10 Mg Tablet, 10 MG PO QHS Sodium Bicarbonate (Sodium Bicarbonate) 650 Mg Tablet, 650 MG PO BID Tamsulosin HCl (Flomax) 0.4 Mg Capsule, 0.4 MG PO DAILY Scheduled PRN Benzonatate (Tessalon Perle) 100 Mg Capsule, 100 MG PO TID PRN for COUGH Allergies Coded Allergies: Contrast Media (Unverified Adverse Reaction, Intermediate, poor kidney function-can't have, 01/24/20) A-FIB/CHADSVASC A-FIB History Current/History of A-Fib/PAF?: No Current PO Anticoag Therapy: No Age/Risk Factor Scoring CHADSVASC: CHADSVASC Response (Comments) Value Age Risk Factor Age < 65 years old 0 Gender Risk Factor Male 0 Hx of CHF No 0 Hx of HTN Yes 1 Hx of Stroke/TIA/or VTE No 0 Hx of Diabetes Yes 1 Hx of Vascular Disease Yes 1 Total 3 Treatment Treatment ordered: NONE PENELOPE SY MD Mar 26, 2020 04:05
[2020-03-26] MEDS ORDERED: DEXTROSE 50% 50 ML SYRINGE IV PRN (04:15)
[2020-03-26] MEDS ORDERED: GLUCOSE 4GM CHEW TABLET PO PRN (04:15)
[2020-03-26] MEDS ORDERED: GLUCAGON INJ 1MG VIAL SC PRN (04:15)
--- NOTE | 2020-03-26 05:07 | REPVR ---
PROCEDURE INFORMATION: Exam: US Retroperitoneal Limited, Kidneys Exam date and time: 03/26/2020 4:54 AM Age: 64 years old Clinical indication: Abnormal findings; Abnormal lab test; Abnormal kidney function lab tests; Additional info: Acute on ckd TECHNIQUE: Imaging protocol: Real-time ultrasound of the retroperitoneum with image documentation. Examination was focused on the kidneys. COMPARISON: RENAL US 10/29/2019 10:33 AM FINDINGS: Right kidney: The right kidney measures 14.2 cm in its cephalocaudad dimension and 5.6 x 5.2 cm in diameter. No mass, cyst or hydronephrosis. Left kidney: The left kidney measures 14.1 cm in its cephalocaudad dimension and 7.5 x 5.7 cm in diameter. No mass, cyst or hydronephrosis. Bladder: The urinary bladder is unremarkable. IMPRESSION: Negative renal sonogram. No hydronephrosis. Electronically signed by: Kirby Patricio On 03/26/2020 05:07:17 AM
[2020-03-26] MEDS ORDERED: ACETAMINOPHEN TAB 650MG DOSE (2X325MG) PO PRN (06:30)
[2020-03-26] MEDS ORDERED: PERCOCET 5MG/325MG TAB PO PRN (06:30)
[2020-03-26] MEDS ORDERED: BENZONATATE 100 MG CAP PO PRN (06:30)
[2020-03-26 06:40] LABS: BASO # 0.1 10^3/uL (0.0-0.2); BASO % 0.3 % (0.0-1.0); EOS # 0.1 10^3/uL (0.0-0.5); EOS % 0.6 % (0.0-3.0); HEMATOCRIT 30.3 % (42.0-52.0); HEMOGLOBIN 10.2 g/dl (13.5-17.5); LYMPH # 1.8 10^3/uL (1.5-5.0); LYMPH % 8.4 % (24.0-44.0); MEAN CORPUSCULAR HEMOGLOBIN 27.6 pg (27.0-33.0); MEAN CORPUSCULAR HGB CONC 33.7 g/dl (32.0-36.5); MEAN CORPUSCULAR VOLUME 81.9 fl (80.0-96.0); MONO # 1.5 10^3/uL (0.0-0.8); MONO % 6.8 % (0.0-5.0); NEUTROPHILS # 18.2 10^3/uL (1.5-8.5); NEUTROPHILS % 82.7 % (36.0-66.0); PLATELET COUNT, AUTOMATED 349 10^3/uL (150-450)
[2020-03-26 06:55] LABS: CALCIUM LEVEL 8.2 MG/DL (8.8-10.2); CREATININE FOR GFR 2.94 MG/DL (0.70-1.30); GLOMERULAR FILTRATION RATE 23.1 (>49); POTASSIUM SERUM 3.4 MEQ/L (3.5-5.1)
[2020-03-26] MEDS: HumaLOG INSULIN (NovoLOG) PER UNIT SC SCH ×3 (07:42→18:17)
[2020-03-26] MEDS ORDERED: POTASSIUM CHLORIDE 10 MEQ SR TABLET PO ONE (08:00)
[2020-03-26] MEDS: LEVEMIR (INSULIN DETEMIR) 1 UNITS/0.01ML SC SCH ×2 (08:39→20:17)
[2020-03-26] MEDS: PHENAZOPYRIDINE 100 MG TAB PO SCH ×3 (08:41→18:25)
[2020-03-26] MEDS: TAMSULOSIN 0.4 MG CAP PO SCH (08:42)
[2020-03-26] MEDS: SODIUM BICARBONATE 325 MG TAB PO SCH ×2 (08:43→20:19)
[2020-03-26] MEDS: LORATADINE 10 MG TAB PO SCH (08:43)
[2020-03-26] MEDS ORDERED: cefTRIAXone SOD 2 GM in D5W MINI-BAG PLUS 50 ML IV SCH (09:00)
[2020-03-26 10:27] LABS: MAGNESIUM LEVEL 1.9 MG/DL (1.8-2.4)
[2020-03-26] MEDS ORDERED: CALCIUM CARBONATE 500 MG CHEW U/D PO PRN (12:30)
[2020-03-26] MEDS: HEPARIN SOD (PORCINE) 5000UNITS/ML 1ML VIAL/SYRINGE SQ SCH ×2 (12:52→20:20)
[2020-03-26] MEDS ORDERED: CHLORASEPTIC SPRAY MT PRN (15:45)
--- NOTE | 2020-03-26 17:49 | IPNPDOC ---
Subjective Date Seen The patient was seen on 03/26/20. Subjective Chief Complaint/HPI Mr. Kirby is a 64 year old male with DM, BPH, HTN and PAD who is here for UTI. This morning, he was still not feeling well. Reports sore throat, cough, and generalized malaise. Objective Physical Examination General Exam: Positive: Alert, Cooperative Eye Exam: Positive: EOMI; Negative: Sclera icteric ENT Exam: Positive: Atraumatic Neck Exam: Positive: Supple Chest Exam: Positive: Diminished Heart Exam: Positive: Rate Normal, Regular Rhythm Abdomen Exam: Positive: Normal bowel sounds, Soft; Negative: Tenderness Extremity Exam: Negative: Cyanosis Neuro Exam: Positive: Cranial Nerves 3-12 NL Psych Exam: Positive: Mental status NL, Mood NL Assessment /Plan Assessment Mr. Kirby is a 64 year old male with uncontrolled DM and HTN here with UTI. UA culture is pending. Until then, he will be on empiric antibiotic with ceftriaxone. Otherwise, we will work on controlling his glucose and monitor renal function. Unknown what is baseline creatinine is at this time. Plan/VTE VTE Prophylaxis Ordered?: Yes Plan 1. UTI -pending cultures -empirically on ceftriaxone 2. Uncontrolled DM -HbA1c 11.8 -Levemir BID and sliding scale insulin 3. Peripheral vascular disease -Continue clopidogrel, rosuvastatin 4. BPH -Continue tamsulosin 5. DVT ppx -Heparin VS, I&O, 24H, Fishbone Vital Signs/I&O Vital Signs Date Time Temp Pulse Resp B/P (MAP) Pulse Ox O2 Delivery O2 Flow Rate FiO2 03/26/20 16:00 98.9 95 20 146/75 (98) 96 Room Air I&O- Last 24 Hours up to 6 AM 03/26/20 06:00 Intake Total 1610 ml Output Total 500 ml Balance 1110 ml Laboratory Data 24H LABS Laboratory Tests 2 03/25/20 22:15: Immature Granulocyte % (Auto) 1.4, Neutrophils (%) (Auto) 85.4H, Lymphocytes (%) (Auto) 6.4L, Monocytes (%) (Auto) 6.6H, Eosinophils (%) (Auto) 0.0, Basophils (%) (Auto) 0.2, Neutrophils # (Auto) 23.6H, Lymphocytes # (Auto) 1.8, Monocytes # (Auto) 1.8H, Eosinophils # (Auto) 0.0, Basophils # (Auto) 0.1, Nucleated Red Blood Cells % (auto) 0.0, Anion Gap 14, Glomerular Filtration Rate 21.3L, Estimated Mean Plasma Glucose 292H, Hemoglobin A1c 11.8, Lactic Acid Level 1.2, Calcium Level 8.7L, Total Bilirubin 0.4, Direct Bilirubin 0.1, Aspartate Amino Transf (AST/SGOT) 9, Alanine Aminotransferase (ALT/SGPT) 16, Alkaline Phosphatase 148H, Total Creatine Kinase 93, Creatine Kinase MB < 1.0, Creatine Kinase MB Relative Index 1.08, Troponin I < 0.02, PY-Xpf-M-Type Natriuretic Peptide 1571H, Total Protein 6.9, Albumin 2.1L, Albumin/Globulin Ratio 0.4, Lipase 145, B-Hydroxybutyrate 11.46H 03/26/20 00:53: Urine Color YELLOW, Urine Appearance CLOUDYH, Urine pH 5.0, Urine Specific [place] 1.013, Urine Protein 3+H, Urine Glucose (UA) 3+H, Urine Ketones TRACEH, Urine Blood 2+H, Urine Nitrite NEGATIVE, Urine Bilirubin NEGATIVE, Urine Urobilinogen 0.2, Urine Leukocyte Esterase 2+H, Urine WBC (Auto) TNTCH, Urine RBC (Auto) 5H, Urine Hyaline Casts (Auto) 0, Urine Bacteria (Auto) NEGATIVE, Urine Squamous Epithelial Cells 0, Urine Mucus (Auto) SMALL, Urine Yeast-Like Cells (Auto) SMALLH, Urine Sperm (Auto) 03/26/20 04:59: Bedside Glucose (Misc Panel) 351H 03/26/20 06:24: Immature Granulocyte % (Auto) 1.2, Neutrophils (%) (Auto) 82.7H, Lymphocytes (%) (Auto) 8.4L, Monocytes (%) (Auto) 6.8H, Eosinophils (%) (Auto) 0.6, Basophils (%) (Auto) 0.3, Neutrophils # (Auto) 18.2H, Lymphocytes # (Auto) 1.8, Monocytes # (Auto) 1.5H, Eosinophils # (Auto) 0.1, Basophils # (Auto) 0.1, Nucleated Red Blood Cells % (auto) 0.0, Anion Gap 12, Glomerular Filtration Rate 23.1L, Calcium Level 8.2L, Magnesium Level 1.9 03/26/20 07:32: Bedside Glucose (Misc Panel) 197H 03/26/20 12:33: Bedside Glucose (Misc Panel) 187H CBC/BMP Laboratory Tests 03/25/20 22:15 03/26/20 06:24 Microbiology Microbiology 03/26/20 Urine Culture, Received Pending 03/25/20 Respiratory Virus Panel (PCR) (EWA) - Final, Complete 03/25/20 Blood Culture, Received Pending 03/25/20 Blood Culture, Received Pending COBY RAY DO Mar 26, 2020 17:48
[2020-03-26] MEDS ORDERED: VANCOMYCIN HCL 1,000 MG, VIAL MATE ADAPTER 1 EACH in D5W 250 ML IV SCH (18:30)
[2020-03-26] MEDS: PIPERACILLIN/TAZOBACTAM SOD 2.25 GM in D5W MINI-BAG PLUS 50 ML IV SCH (19:37)
[2020-03-26] MEDS ORDERED: VANCOMYCIN HCL 1,000 MG, VIAL MATE ADAPTER 1 EACH in D5W 250 ML IV ONE (20:00)
[2020-03-26] MEDS ORDERED: ROSUVASTATIN 10 MG TAB (CRESTOR) PO SCH (21:00)
[2020-03-26] MEDS ORDERED: METOPROLOL SUCC (TopROL XL) 50MG **XL** TAB PO SCH (21:00)
[2020-03-26] MEDS ORDERED: CLOPIDOGREL 75 MG TAB PO SCH (21:00)
[2020-03-26] MEDS ORDERED: LEVEMIR (INSULIN DETEMIR) 1 UNITS/0.01ML SC SCH (21:00)
[2020-03-26] MEDS ORDERED: HumaLOG INSULIN (NovoLOG) PER UNIT SC SCH (21:00)
--- NOTE | 2020-03-26 23:01 | REPVR ---
PROCEDURE INFORMATION: Exam: US Duplex Right Lower Extremity Veins, Limited Exam date and time: 03/26/2020 10:57 PM Age: 64 years old Clinical indication: Swelling (edema) of limb; Lower extremity, right; Additional info: Erythema and swelling on right leg, R/O dvt TECHNIQUE: Imaging protocol: Real-time Duplex ultrasound of the Right Lower Extremity with 2-D massey scale, color Doppler flow and spectral waveform analysis with image documentation. Limited exam was focused on the right lower extremity veins. COMPARISON: US Duplex, Ext LOWER veins, bilat 12/12/2018 7:01 AM FINDINGS: Right deep veins: Unremarkable. The common femoral, femoral, proximal profunda femoral and popliteal veins are patent without thrombus. Normal Doppler waveforms. Normal compressibility and/or augmentation response. Right superficial veins: Unremarkable. Saphenofemoral junction is patent without thrombus. Soft tissues: Edema. IMPRESSION: Edema. No DVT. Electronically signed by: Jimmie Barbosa On 03/26/2020 23:01:11 PM
[2020-03-27] VITALS: BP 143/85
[2020-03-27] MEDS: PIPERACILLIN/TAZOBACTAM SOD 2.25 GM in D5W MINI-BAG PLUS 50 ML IV SCH ×3 (00:16→12:07)
[2020-03-27 04:00] VITALS: BP 158/86
[2020-03-27 05:58] LABS: BASO # 0.1 10^3/uL (0.0-0.2); BASO % 0.3 % (0.0-1.0); EOS # 0.2 10^3/uL (0.0-0.5); EOS % 1.3 % (0.0-3.0); HEMATOCRIT 28.5 % (42.0-52.0); HEMOGLOBIN 9.5 g/dl (13.5-17.5); LYMPH # 1.8 10^3/uL (1.5-5.0); LYMPH % 10.6 % (24.0-44.0); MEAN CORPUSCULAR HEMOGLOBIN 27.6 pg (27.0-33.0); MEAN CORPUSCULAR HGB CONC 33.3 g/dl (32.0-36.5); MEAN CORPUSCULAR VOLUME 82.8 fl (80.0-96.0); MONO # 1.4 10^3/uL (0.0-0.8); NEUTROPHILS # 13.3 10^3/uL (1.5-8.5); NEUTROPHILS % 78.6 % (36.0-66.0); PLATELET COUNT, AUTOMATED 345 10^3/uL (150-450); RED BLOOD COUNT 3.44 10^6/uL (4.30-6.10)
[2020-03-27 06:19] LABS: CALCIUM LEVEL 8.2 MG/DL (8.8-10.2); CREATININE FOR GFR 2.78 MG/DL (0.70-1.30); GLOMERULAR FILTRATION RATE 24.6 (>49); POTASSIUM SERUM 3.6 MEQ/L (3.5-5.1)
[2020-03-27] MEDS ORDERED: VANCOMYCIN HCL 750 MG, VIAL MATE ADAPTER 1 EACH in D5W 250 ML IV SCH (07:00)
[2020-03-27 08:00] VITALS: BP 158/77
[2020-03-27] MEDS: LORATADINE 10 MG TAB PO SCH (08:00)
[2020-03-27] MEDS: TAMSULOSIN 0.4 MG CAP PO SCH (08:00)
[2020-03-27] MEDS: PHENAZOPYRIDINE 100 MG TAB PO SCH ×2 (08:00→12:07)
[2020-03-27] MEDS: HumaLOG INSULIN (NovoLOG) PER UNIT SC SCH ×2 (08:00→12:06)
[2020-03-27] MEDS: HEPARIN SOD (PORCINE) 5000UNITS/ML 1ML VIAL/SYRINGE SQ SCH (08:01)
[2020-03-27] MEDS ORDERED: amLODIPine 5 MG TAB PO SCH (09:00)
[2020-03-27] MEDS: LEVEMIR (INSULIN DETEMIR) 1 UNITS/0.01ML SC SCH (10:04)
[2020-03-27] MEDS: SODIUM BICARBONATE 325 MG TAB PO SCH (10:04)
[2020-03-27 12:00] VITALS: BP 168/96
[2020-03-27 12:55] VITALS: BP 168/96
--- NOTE | 2020-03-27 13:21 | IPNPDOC ---
Subjective Date Seen The patient was seen on 03/27/20. Subjective Chief Complaint/HPI Mr. Kirby is a 64 year old male with DM, BPH, HTN and PAD who is here for UTI and diabetic foot ulcer with cellulitis of right leg. He was started on IV Vancomycin and Zosyn last night since there was report of green pus. This morning, his right leg looks better and less erythematous. I spoke with him about obtaining MRI, but patient declined. He wanted to let Dr. Rico manage it. Otherwise, denies fever, chest pain, or abdominal pain. Objective Physical Examination General Exam: Positive: Alert, Cooperative Eye Exam: Positive: EOMI ENT Exam: Positive: Atraumatic Neck Exam: Positive: Supple Chest Exam: Positive: Diminished Heart Exam: Positive: Rate Normal, Regular Rhythm Abdomen Exam: Positive: Normal bowel sounds, Soft Extremity Exam: Negative: Cyanosis Neuro Exam: Positive: Cranial Nerves 3-12 NL Psych Exam: Positive: Mental status NL, Mood NL Assessment /Plan Assessment Mr. Kirby is a 64 year old male with DM, BPH, HTN and PAD who is here for UTI and diabetic foot ulcer with cellulitis of right leg. Urine culture reported no growth of clinical significance. Wound gram stain demonstrated WBC and many gram positive cocci in pairs, chains, and clusters. US of right leg was negative for DVT. Once culture results return, will tailor antibiotics to specific pathogen. Plan/VTE VTE Prophylaxis Ordered?: Yes Plan 1. Diabetic foot ulcer with cellulitis of the right leg -Erythematous, warm, and swollen when compared to left leg -US LE negative for DVT -IV zosyn and IV vancomycin until culture results return 2. UTI -Culture resulted in no growth of clinical significance -IV zosyn 3. Uncontrolled DM -HbA1c 11.8 -Levemir BID and sliding scale insulin 4. Peripheral vascular disease -Continue clopidogrel, rosuvastatin 5. BPH -Continue tamsulosin 6. DVT ppx -Heparin VS, I&O, 24H, Fishbone Vital Signs/I&O Vital Signs Date Time Temp Pulse Resp B/P (MAP) Pulse Ox O2 Delivery O2 Flow Rate FiO2 03/27/20 12:55 168/96 03/27/20 12:00 96.8 64 18 96 Room Air 03/26/20 17:10 93.0 I&O- Last 24 Hours up to 6 AM 03/27/20 05:59 Intake Total 2110 ml Output Total 2650 ml Balance -540 ml Laboratory Data 24H LABS Laboratory Tests 2 03/26/20 17:13: Bedside Glucose (Misc Panel) 242H 03/26/20 19:47: Bedside Glucose (Misc Panel) 253H 03/27/20 05:37: Immature Granulocyte % (Auto) 1.2, Neutrophils (%) (Auto) 78.6H, Lymphocytes (%) (Auto) 10.6L, Monocytes (%) (Auto) 8.0H, Eosinophils (%) (Auto) 1.3, Basophils (%) (Auto) 0.3, Neutrophils # (Auto) 13.3H, Lymphocytes # (Auto) 1.8, Monocytes # (Auto) 1.4H, Eosinophils # (Auto) 0.2, Basophils # (Auto) 0.1, Nucleated Red Blood Cells % (auto) 0.0, Anion Gap 11, Glomerular Filtration Rate 24.6L, Calcium Level 8.2L 03/27/20 07:49: Bedside Glucose (Misc Panel) 198H 03/27/20 11:52: Bedside Glucose (Misc Panel) 197H CBC/BMP Laboratory Tests 03/27/20 05:37 Microbiology Microbiology 03/26/20 Gram Stain - Final, Resulted 03/26/20 Wound Culture, Resulted Pending 03/26/20 Urine Culture - Final, Complete 03/25/20 Respiratory Virus Panel (PCR) (EWA) - Final, Complete 03/25/20 Blood Culture - Preliminary, Resulted No growth after 24 hours . All specim... 03/25/20 Blood Culture - Preliminary, Resulted No growth after 24 hours . All specim... COBY RAY DO Mar 27, 2020 13:21
[2020-03-27] MEDS ORDERED: AMLO1TAB24 PO (15:29)
[2020-03-27] MEDS ORDERED: LEVO250T12 PO (15:29)
[2020-03-27] MEDS ORDERED: DOXY100C PO (15:29)
[2020-03-27 16:00] VITALS: BP 184/90
--- NOTE | 2020-03-27 18:47 | ECGEPIP ---
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
--- NOTE | 2020-03-27 22:09 | DS.PDOC ---
Discharge Summary General Date of Admission Mar 26, 2020 at 02:49 Date of Discharge Mar 27, 2020 Attending Physician: COBY RAY DO Discharge Summary PROCEDURES PERFORMED DURING STAY: None ADMITTING DIAGNOSES: 1. UTI 2. JELANI on CKD 3. Uncontrolled DM 4. HTN 5. PAD 6. BPH DISCHARGE DIAGNOSES: 1. Right foot diabetic ulcer with cellulitis 2. UTI 3. JELANI on CKD 4. Uncontrolled DM 5. HTN 6. PAD 7. BPH COMPLICATIONS/CHIEF COMPLAINT: Urinary Tract Infection. HISTORY OF PRESENT ILLNESS: Mr. Kirby is a 64-year-old male with diabetes mellitus, CKD stage III, hypertension, and BPH who is here for not feeling well. He is in his usual state of health until one week ago when he was having urinary retention. He was sent to urology and found to have a UTI. He was treated with Macrodantin and Pyridium. Then about 3 days ago, he started having malaise, generalized weakness, decreased appetite, cold chills, diaphoresis, and he was unable to get out of bed. His blood sugar was uncontrolled. Patient was admitted for UTI HOSPITAL COURSE: That morning I saw him, he still not feeling well. Later that evening, the nurse called me to look at as ulcer. Nurse reported that there is green pus coming from it. Comparing the right and the left leg, the right leg was red and warmer than the left. Antibiotics was switched for diabetic foot ulcer and cellulitis which was vancomycin and Zosyn. The following day, he was feeling much better. His right leg resumed normal color and his leukocytosis has started downtrending. Wound Gram stain demonstrated many gram-positive cocci in pairs, chains, and clusters. Patient was anxious to go home and see Dr. Rico as he has been managing his foot. Physical therapy cleared him for home. Patient requested help for managing medications at home. Home health referral was made. His last right foot wound culture grew MSSA, pansensitive Escherichia coli, and group B strep. I placed patient on doxycycline to cover for MSSA and group B strep as well as a possibility for MRSA. I placed patient on levofloxacin for the Escherichia coli and to cover for Pseudomonas. Levofloxacin is renally dosed. Patient was subsequently sent home DISCHARGE MEDICATIONS: Please see below. ALLERGIES: Please see below. PHYSICAL EXAMINATION ON DISCHARGE: VITAL SIGNS: Please see below. GENERAL: Comfortable, in no apparent distress. HEENT: Head normocephalic/atraumatic, EOMI, sclera clear. NECK: Supple RESPIRATORY: Diminished but otherwise clear CARDIOVASCULAR: Regular rate and rhythm. ABDOMEN: Soft, nontender, no guarding or rebound tenderness. Normal bowel sounds. MUSCLE SKELETAL: Muscle strength 5/5 in all extremities. NEUROLOGICAL: CN 312 grossly intact, no focal deficits noted. PSYCHOLOGICAL: Normal mood and affect LABORATORY DATA: Please see below. IMAGING: Ultrasound right leg Edema. No DVT. PROGNOSIS: Stable ACTIVITY: As tolerated DIET: Carbohydrate consistent DISCHARGE PLAN: Home DISPOSITION: Home, Self-Care. DISCHARGE INSTRUCTIONS: 1. Follow with her PCP within 5 days 2[address] Follow with Dr. Rico as soon as possible ITEMS TO FOLLOWUP ON ON OUTPATIENT: 1. Wound culture DISCHARGE CONDITION: Stable. Total time spent on discharge planning, discharge summary, and medication reconciliation: 45 minutes Vital Signs/I&Os Vital Signs Date Time Temp Pulse Resp B/P (MAP) Pulse Ox O2 Delivery O2 Flow Rate FiO2 03/27/20 16:00 97.1 77 20 184/90 (121) 95 Room Air 03/26/20 17:10 93.0 I&O- Last 24 Hours up to 6 AM 03/27/20 06:00 Intake Total 2050 ml Output Total 2550 ml Balance -500 ml Laboratory Data Labs 24H Laboratory Tests 2 03/27/20 05:37: Immature Granulocyte % (Auto) 1.2, Neutrophils (%) (Auto) 78.6H, Lymphocytes (%) (Auto) 10.6L, Monocytes (%) (Auto) 8.0H, Eosinophils (%) (Auto) 1.3, Basophils (%) (Auto) 0.3, Neutrophils # (Auto) 13.3H, Lymphocytes # (Auto) 1.8, Monocytes # (Auto) 1.4H, Eosinophils # (Auto) 0.2, Basophils # (Auto) 0.1, Nucleated Red Blood Cells % (auto) 0.0, Anion Gap 11, Glomerular Filtration Rate 24.6L, Calciu m Level 8.2L 03/27/20 07:49: Bedside Glucose (Misc Panel) 198H 03/27/20 11:52: Bedside Glucose (Misc Panel) 197H CBC/BMP Laboratory Tests 03/27/20 05:37 FSBS Laboratory Tests Test 03/27/20 07:49 03/27/20 11:52 Range/Units Bedside Glucose (Misc Panel) 198 197 80-115 MG/DL Microbiology Microbiology 03/26/20 Gram Stain - Final, Resulted 03/26/20 Wound Culture, Resulted Pending 03/26/20 Urine Culture - Final, Complete 03/25/20 Respiratory Virus Panel (PCR) (EWA) - Final, Complete 03/25/20 Blood Culture - Preliminary, Resulted No growth after 24 hours . All specim... 03/25/20 Blood Culture - Preliminary, Resulted No growth after 24 hours . All specim... Discharge Medications Scheduled Amlodipine Besylate (Amlodipine Besylate) 5 Mg Tablet, 5 MG PO DAILY Clopidogrel Bisulfate (Clopidogrel) 75 Mg Tablet, 75 MG PO QHS, (Reported) Doxycycline Hyclate (Doxycycline Hyclate) 100 Mg Capsule, 100 MG PO BID Insulin Degludec (Tresiba Flextouch U-100) 100 Unit/Ml Inj, 70 UNIT SC QHS, ( Reported) Insulin Human Lispro (Novolog) 100 Unit/1 Ml Vial, 1 DOSE SC AC, (Reported) PER SLIDING SCALE Levofloxacin (Levofloxacin) 250 Mg Tablet, 250 MG PO DAILY Take 2 tablets (500mg in total) on the first day, then 1 tablet daily until completion Loratadine (Loratadine) 10 Mg Tablet, 10 MG PO DAILY, (Reported) Metoprolol Succinate (Metoprolol Succinate) 50 Mg Tab, 50 MG PO QHS, (Reported) Neomycin/Polymyxin B/Hydrocort (Qmyotxsh-Avhsghixv-Le Ear Susp) 10 Ml Drops.susp, 4 DROP AU QID, (Reported) Phenazopyridine HCl (Phenazopyridine HCl) 100 Mg Tablet, 100 MG PO PC, (Reported) Rosuvastatin Calcium (Rosuvastatin Calcium) 10 Mg Tablet, 10 MG PO QHS, (Reported) Sodium Bicarbonate (Sodium Bicarbonate) 650 Mg Tablet, 650 MG PO BID, (Reported) Tamsulosin HCl (Flomax) 0.4 Mg Capsule, 0.4 MG PO DAILY, (Reported) Scheduled PRN Benzonatate (Tessalon Perle) 100 Mg Capsule, 100 MG PO TID PRN for COUGH, (Reported) Allergies Coded Allergies: Contrast Media (Unverified Adverse Reaction, Intermediate, poor kidney function-can't have, 01/24/20) COBY RAY DO Mar 27, 2020 22:09
[2020-03-28] MEDS ORDERED: AMLO1TAB24 PO (16:08)
[2020-03-28] MEDS ORDERED: LEVO250T12 PO (16:08)
[2020-03-28] MEDS ORDERED: DOXY100C PO (16:08)
== END 2020-03-27 17:33 | disposition home or self-care (01) | DRG 872 ==
LOC: M ED 19:31 → M ED INP 03-26 02:49 → ENRESERV 03-26 04:26 → M ICU 03-26 05:46 → M PCU 03-26 17:10
PROVIDERS: ADMIT General Practice; ATTEND Internal Medicine
DX: A41.9 Sepsis, unspecified organism (principal); N39.0 Urinary tract infection, site not specified; E87.2 Acidosis; N17.9 Acute kidney failure, unspecified; E87.1 Hypo-osmolality and hyponatremia; L03.115 Cellulitis of right lower limb; E11.621 Type 2 diabetes mellitus with foot ulcer; L97.519 Non-pressure chronic ulcer of other part of right foot with unspecified severity; N40.0 Benign prostatic hyperplasia without lower urinary tract symptoms; N18.30 Chronic kidney disease, stage 3 unspecified; I12.9 Hypertensive chronic kidney disease with stage 1 through stage 4 chronic kidney disease, or unspecified chronic kidney disease; B95.61 Methicillin susceptible Staphylococcus aureus infection as the cause of diseases classified elsewhere; B96.29 Other Escherichia coli [E. coli] as the cause of diseases classified elsewhere; B95.5 Unspecified streptococcus as the cause of diseases classified elsewhere; B96.5 Pseudomonas (aeruginosa) (mallei) (pseudomallei) as the cause of diseases classified elsewhere; Z79.899 Other long term (current) drug therapy; Z79.4 Long term (current) use of insulin; Z91.041 Radiographic dye allergy status

== ENCOUNTER 2020-03-28 12:03 | Inpatient (IN) | payer MEDICARE ==
[~2020-03-28] VITALS: Ht 175.3 cm; Wt 101.6 kg
[~2020-03-28 12:03] MED LIST changes: +DOXY100C PO; +FLOM0.4C39 PO; +LEVO250T12 PO; +LORA-436 PO; +MACR100C43 PO; +NEOM1SUS10 AU; +PHEN-593 PO; +TESS100C PO
[2020-03-28 14:20] VITALS: BP 145/79
[2020-03-28] MEDS ORDERED: GLUCAGON INJ 1MG VIAL SC PRN (15:15)
[2020-03-28] MEDS ORDERED: GLUCOSE 4GM CHEW TABLET PO PRN (15:15)
[2020-03-28] MEDS ORDERED: DEXTROSE 50% 50 ML SYRINGE IV PRN (15:15)
[2020-03-28] MEDS ORDERED: BENZONATATE 100 MG CAP PO PRN (16:00)
[2020-03-28] MEDS: CORTISPORIN OTIC SOLN 10 ML BTL AU SCH ×2 (16:00→20:29)
[2020-03-28] MEDS ORDERED: LEVO250T12 PO (16:08)
[2020-03-28] MEDS ORDERED: AMLO1TAB24 PO (16:08)
[2020-03-28] MEDS ORDERED: DOXY100C PO (16:08)
[2020-03-28] MEDS ORDERED: CHLORASEPTIC SPRAY MT PRN (16:45)
[2020-03-28] MEDS ORDERED: CALCIUM CARBONATE 500 MG CHEW U/D PO PRN (16:45)
[2020-03-28 17:01] LABS: HEMATOCRIT 30.7 % (42.0-52.0); MEAN CORPUSCULAR HEMOGLOBIN 27.2 pg (27.0-33.0); MEAN CORPUSCULAR HGB CONC 32.6 g/dl (32.0-36.5); MEAN CORPUSCULAR VOLUME 83.4 fl (80.0-96.0); PLATELET COUNT, AUTOMATED 393 10^3/uL (150-450); RED BLOOD COUNT 3.68 10^6/uL (4.30-6.10); WHITE BLOOD COUNT 14.4 10^3/uL (4.0-10.0)
--- NOTE | 2020-03-28 17:06 | REP ---
INDICATION: infection, charcot, history of amputation. COMPARISON: December 12, 2018.. TECHNIQUE: Four views. FINDINGS: Four views of the right ankle demonstrate transmetatarsal amputations of all 5 digits. There are surgical drains in the medial and volar soft tissues. There is soft tissue swelling and irregularity along the heel mild in degree. Some postoperative soft tissue gas is seen in the dorsal soft tissues. No acute erosive changes appreciated. Vascular calcification is noted in the distal calf.. . No opaque foreign body noted. IMPRESSION: Surgical drains in the soft tissues at the midfoot. Transmetatarsal amputation all 5 digits. Soft tissue swelling.. <Electronically signed by Bart Dailey > 03/28/20 [id number]
[2020-03-28 17:14] LABS: ALBUMIN 1.9 GM/DL (3.2-5.2); BILIRUBIN,TOTAL 0.4 MG/DL (0.2-1.0); C REACTIVE PROTEIN QUANTITATIV 12.6 MG/DL (0.00-0.30); CALCIUM LEVEL 8.5 MG/DL (8.8-10.2); CREATININE FOR GFR 2.51 MG/DL (0.70-1.30); GLOMERULAR FILTRATION RATE 27.7 (>49); POTASSIUM SERUM 4.3 MEQ/L (3.5-5.1); TOTAL PROTEIN 6.6 GM/DL (6.4-8.2)
[2020-03-28 18:02] LABS: ERYTHROCYTE SEDIMENTATION RATE 125 mm/hr (0-20)
[2020-03-28] MEDS: HumaLOG INSULIN (NovoLOG) PER UNIT SC SCH ×2 (18:23→20:45)
--- NOTE | 2020-03-28 19:34 | HPEPDOC ---
General Date of Admission Mar 28, 2020 at 14:07 Date of Service: Mar 28, 2020 Chief Complaint The patient is a 64-year-old male admitted with a reason for visit of Diabetic Foot Ulcer. Source: Patient History of Present Illness Mr. Kirby is a 64-year-old male with diabetes mellitus, CKD stage III, hypertension, and BPH who was sent here for right foot diabetic infection from Dr. Rico's office. Patient was recently here from 03/26/2020 to 03/27/2020 being treated with UTI, but then found to have right foot diabetic infection. The infection improved with IV antibiotics and he wanted to go Dr. Rico. He went to Dr. Rico's office where he did aggressive debridement of necrotic tissue. He was then recommended to return to the hospital for more IV antibiotics. Podiatry and ID were also consulted. Otherwise, today, he denies any fever/chills, chest pain, dyspnea, abdominal pain, or dysuria. Home Medications Scheduled Amlodipine Besylate (Amlodipine Besylate) 5 Mg Tablet, 5 MG PO DAILY, (Reported) Clopidogrel Bisulfate (Clopidogrel) 75 Mg Tablet, 75 MG PO QHS, (Reported) Doxycycline Hyclate (Doxycycline Hyclate) 100 Mg Capsule, 100 MG PO BID, (Reported) Insulin Degludec (Tresiba Flextouch U-100) 100 Unit/Ml Inj, 70 UNIT SC QHS, (Reported) Insulin Human Lispro (Novolog) 100 Unit/1 Ml Vial, 1 DOSE SC AC, (Reported) PER SLIDING SCALE Levofloxacin (Levofloxacin) 250 Mg Tablet, 250 MG PO QHS, (Reported) Loratadine (Loratadine) 10 Mg Tablet, 10 MG PO DAILY, (Reported) Metoprolol Succinate (Metoprolol Succinate) 50 Mg Tab, 50 MG PO QHS, (Reported) Neomycin/Polymyxin B/Hydrocort (Blarbfsy-Kbbplotsy-Zk Ear Susp) 10 Ml Drops.susp, 4 DROP AU QID, (Reported) Phenazopyridine HCl (Phenazopyridine HCl) 100 Mg Tablet, 100 MG PO PC, (Reported) Rosuvastatin Calcium (Rosuvastatin Calcium) 10 Mg Tablet, 10 MG PO QHS, (Reported) Sodium Bicarbonate (Sodium Bicarbonate) 650 Mg Tablet, 650 MG PO BID, (Reported) Tamsulosin HCl (Flomax) 0.4 Mg Capsule, 0.4 MG PO DAILY, (Reported) Scheduled PRN Benzonatate (Tessalon Perle) 100 Mg Capsule, 100 MG PO TID PRN for COUGH, (R eported) Allergies Coded Allergies: Contrast Media (Unverified Adverse Reaction, Intermediate, poor kidney function-can't have, 01/24/20) Past Medical History Medical History 1. DM 2. CKD3 3. HTN 4. Dyslipidemia 5. PAD 6. Angioplasty Left LE 7. BPH Surgical History 1. Left LE angioplasty 2. Right foot transmetatarsal amuputation 3. Left great toe amputation 4. Left eye cataract removal 5. Tonsillectomy 6. Femoral artery bypass 7. Chest wall lipoma 8. Cystoscopy 9. TRUS biopsy prostate Family History Mother: DM Sister: DM Brother: CAD Social History * Smoker: chew Alcohol: Denies Drugs: denies A-FIB/CHADSVASC A-FIB History Current/History of A-Fib/PAF?: No Review of Systems Constitutional: Denies: Chills, Fever Eyes: Denies: Redness ENT: Reports: Sore Throat Skin: Denies: Rash Pulmonary: Denies: Dyspnea, Cough Cardiovascular: Denies: Chest Pain, Palpitations Gastrointestinal: Denies: Nausea, Abdominal Pain Genitourinary: Denies: Dysuria Hematologic: Denies: Bruising Endocrine: Denies: Polydipsia, Polyphagia, Polyuria Physical Examination General Exam: Positive: Alert, Cooperative Eye Exam: Positive: EOMI; Negative: Sclera icteric ENT Exam: Positive: Atraumatic Chest Exam: Positive: Clear to auscultation Heart Exam: Positive: Rate Normal, Regular Rhythm Abdomen Exam: Positive: Normal bowel sounds, Soft; Negative: Tenderness Extremity Exam: Positive: Edema (Right leg) Skin Exam: Positive: Other skin issue (Right foot ulcer) Neuro Exam: Positive: Cranial Nerves 3-12 NL Psych Exam: Positive: Mental status NL, Mood NL Vital Signs Vital Signs Date Time Temp Pulse Resp B/P (MAP) Pulse Ox O2 Delivery O2 Flow Rate FiO2 03/28/20 14:20 98.6 79 22 145/79 (101) 98 Room Air Laboratory Data Labs 24H Laboratory Tests 2 03/28/20 14:28: Coronavirus (COVID-19)(PCR) NEGATIVE 03/28/20 16:26: Bedside Glucose (Misc Panel) 294H 11/13/20 16:33: Nucleated Red Blood Cells % (auto) 0.0, Erythrocyte Sedimentation Rate 125H, Anion Gap 10, Glomerular Filtration Rate 27.7L, Calcium Level 8.5L, Total Bilirubin 0.4, Aspartate Amino Transf (AST/SGOT) 8, Alanine Aminotransferase (ALT/SGPT) 15, Alkaline Phosphatase 162H, C-Reactive Protein, Quantitative 12.60H, Total Protein 6.6, Albumin 1.9L, Albumin/Globulin Ratio 0.4 03/28/20 18:23: CBC/BMP Laboratory Tests 03/28/20 16:33 Microbiology Microbiology 03/28/20 Gram Stain, Received Pending 03/28/20 Wound Culture, Received Pending Assessment/Plan Mr. Kirby is a 64-year-old male with diabetes mellitus, CKD stage III, hypertension, and BPH who was sent here for right foot diabetic infection from Dr. Rico's office. Podiatry and ID are following, recommendations appreciated. Patient will be here receiving IV antibiotics. Planning for MRI. Plan / VTE VTE Prophylaxis Ordered?: Yes Plan Plan 1. Diabetic foot ulcer with cellulitis of the right leg -Followed by Dr. Rico -Podiatry and ID following recommendations appreciated -Zosyn renally dosed -Pending wound culture results 2. Uncontrolled DM -HbA1c 11.8 -Levemir and sliding scale insulin 3. Peripheral vascular disease -Continue clopidogrel, rosuvastatin -Vascular study will be needed 4. Hypertension -Amlodipine 5. BPH -Continue tamsulosin 6. DVT ppx -Heparin COBY RAY DO Mar 28, 2020 19:34
[2020-03-28] MEDS: CLOPIDOGREL 75 MG TAB PO SCH (20:24)
[2020-03-28] MEDS: ROSUVASTATIN 10 MG TAB (CRESTOR) PO SCH (20:24)
[2020-03-28] MEDS: SODIUM BICARBONATE 325 MG TAB PO SCH (20:24)
[2020-03-28] MEDS: HEPARIN SOD (PORCINE) 5000UNITS/ML 1ML VIAL/SYRINGE SC SCH (20:25)
[2020-03-28] MEDS: METOPROLOL SUCC (TopROL XL) 50MG **XL** TAB PO SCH (20:26)
[2020-03-28] MEDS: DIMETHICONE 2% OINTMENT(VANICREAM) 70GM TUBE TOP SCH (20:27)
[2020-03-28] MEDS: LEVEMIR (INSULIN DETEMIR) 1 UNITS/0.01ML SC SCH (20:46)
[2020-03-28 22:00] VITALS: BP 143/77
[2020-03-28] MEDS: PIPERACILLIN/TAZOBACTAM SOD 2.25 GM in D5W MINI-BAG PLUS 50 ML IV SCH (22:09)
--- NOTE | 2020-03-28 23:11 | REPVR ---
PROCEDURE INFORMATION: Exam: MR Right Lower Extremity Other Than Joint Without Contrast; Foot Exam date and time: 03/28/2020 10:02 PM Age: 64 years old Clinical indication: Condition or disease; Prior surgery; Surgery date: 6+ months; Surgery type: Amputation; Patient HX: PT has ulcer on plantar surface of foot; Additional info: Abscess TECHNIQUE: Imaging protocol: MR of the Right lower extremity without contrast. Exam focused on the foot. COMPARISON: MRI FOOT WITHOUT CONTRAST 12/21/2017 8:33 AM FINDINGS: Patient has undergone a prior midfoot amputation with similar margins of bone compared to the prior exam. There is soft tissue ulceration over the lateral and plantar aspect of the foot with air extending down to the plantar surface of the cuboid, anterior calcaneus and midfoot bones. There is marrow replacement and marrow edema involving the calcaneus, and cuboid suggesting osteomyelitis, new since the prior MRI. I do not see an obvious drainable abscess although this is a noncontrast MRI. Soft tissue ulceration tract also extends laterally over the residual proximal 5th metatarsal with marrow edema suggesting infectious involvement. IMPRESSION: Osteomyelitis of the plantar hindfoot involving the calcaneus, cuboid and probably residual 5th metatarsal in a patient with transmetatarsal amputation and overlying plantar soft tissue phlegmon and ulceration. The osseous marrow edema and replacement involving the calcaneus and cuboid is new since the prior MRI from 2017 Electronically signed by: Berto Walker On 03/28/2020 23:10:51 PM
[2020-03-29] MEDS: PIPERACILLIN/TAZOBACTAM SOD 2.25 GM in D5W MINI-BAG PLUS 50 ML IV SCH ×4 (02:57→21:20)
[2020-03-29 06:00] VITALS: BP 137/74
[2020-03-29 07:21] LABS: HEMATOCRIT 31.4 % (42.0-52.0); HEMOGLOBIN 9.8 g/dl (13.5-17.5); MEAN CORPUSCULAR HEMOGLOBIN 27.1 pg (27.0-33.0); MEAN CORPUSCULAR HGB CONC 31.2 g/dl (32.0-36.5); PLATELET COUNT, AUTOMATED 363 10^3/uL (150-450); RED BLOOD COUNT 3.61 10^6/uL (4.30-6.10)
[2020-03-29 07:39] LABS: C REACTIVE PROTEIN QUANTITATIV 10.6 MG/DL (0.00-0.30); CALCIUM LEVEL 8.6 MG/DL (8.8-10.2); CREATININE FOR GFR 2.48 MG/DL (0.70-1.30); GLOMERULAR FILTRATION RATE 28.1 (>49); POTASSIUM SERUM 4.1 MEQ/L (3.5-5.1)
[2020-03-29] MEDS: HumaLOG INSULIN (NovoLOG) PER UNIT SC SCH ×4 (08:54→20:06)
[2020-03-29] MEDS: LORATADINE 10 MG TAB PO SCH (08:55)
[2020-03-29] MEDS: SODIUM BICARBONATE 325 MG TAB PO SCH ×2 (08:55→21:19)
[2020-03-29] MEDS: HEPARIN SOD (PORCINE) 5000UNITS/ML 1ML VIAL/SYRINGE SC SCH ×2 (08:55→21:20)
[2020-03-29] MEDS: TAMSULOSIN 0.4 MG CAP PO SCH (08:55)
[2020-03-29] MEDS: amLODIPine 5 MG TAB PO SCH (08:56)
[2020-03-29] MEDS: CORTISPORIN OTIC SOLN 10 ML BTL AU SCH ×2 (09:00→16:00)
[2020-03-29] MEDS: DIMETHICONE 2% OINTMENT(VANICREAM) 70GM TUBE TOP SCH ×2 (09:00→21:21)
[2020-03-29 14:00] VITALS: BP 140/70
--- NOTE | 2020-03-29 17:16 | IPNPDOC ---
Subjective Date Seen The patient was seen on 03/29/20. Subjective Chief Complaint/HPI Mr. Kirby is a 64-year-old male with diabetes mellitus, CKD stage III, hypertension, and BPH who was sent here for right foot diabetic infection from Dr. Rico's office. Denies any fever/chills, chest pain, dyspnea, abdominal pain, or dysuria. He is non-weight bearing on the right foot and worked with physical therapy today to be non-weight bearing on the right foot. Objective Physical Examination General Exam: Positive: Alert, Cooperative Eye Exam: Positive: EOMI; Negative: Sclera icteric ENT Exam: Positive: Atraumatic Chest Exam: Positive: Clear to auscultation Heart Exam: Positive: Rate Normal, Regular Rhythm Abdomen Exam: Positive: Normal bowel sounds, Soft; Negative: Tenderness Extremity Exam: Positive: Edema (Right leg) Skin Exam: Positive: Other skin issue (Right foot ulcer) Neuro Exam: Positive: Cranial Nerves 3-12 NL Psych Exam: Positive: Mental status NL, Mood NL Assessment /Plan Assessment Mr. Kirby is a 64-year-old male with diabetes mellitus, CKD stage III, hypertension, and BPH who was sent here for right foot diabetic infection from Dr. Rico's office. Podiatry and ID are following, recommendations appreciated. Patient will be here receiving IV antibiotics. MRI suggests osteomyelitis. Plan/VTE VTE Prophylaxis Ordered?: Yes Plan 1. Diabetic foot ulcer with cellulitis of the right leg -Followed by Dr. Rico -Podiatry and ID following recommendations appreciated -Zosyn renally dosed -Wound culture results from 03/26 demonstrate group B strep, Corynebacterium, and Serratia marcescens -Wound culture results from 03/28 is still preliminary, grew group B strep 2. Uncontrolled DM -HbA1c 11.8 -Levemir and sliding scale insulin 3. Peripheral vascular disease -Continue clopidogrel, rosuvastatin -Vascular study will be needed 4. Hypertension -Amlodipine 5. BPH -Continue tamsulosin 6. DVT ppx -Heparin VS, I&O, 24H, Fishbone Vital Signs/I&O Vital Signs Date Time Temp Pulse Resp B/P (MAP) Pulse Ox O2 Delivery O2 Flow Rate FiO2 03/29/20 14:00 97.8 70 18 140/70 (93) 98 Room Air I&O- Last 24 Hours up to 6 AM 03/29/20 06:00 Intake Total 1520 ml Output Total 1500 ml Balance 20 ml Laboratory Data 24H LABS Laboratory Tests 2 03/28/20 18:23: Methicillin-Resist S.aureus DNA PCR DETECTEDA 03/28/20 20:05: Bedside Glucose (Misc Panel) 314H 03/29/20 05:40: Nucleated Red Blood Cells % (auto) 0.0, Anion Gap 12, Glomerular Filtration Rate 28.1L, Calcium Level 8.6L, C-Reactive Protein, Quantitative 10.60H 03/29/20 12:21: Bedside Glucose (Misc Panel) 202H CBC/BMP Laboratory Tests 03/29/20 05:40 Microbiology Microbiology 03/28/20 Gram Stain - Final, Resulted 03/28/20 Wound Culture - Preliminary, Resulted Strep Agalactiae Group B COBY RAY DO Mar 29, 2020 17:16
[2020-03-29] MEDS: ROSUVASTATIN 10 MG TAB (CRESTOR) PO SCH (21:19)
[2020-03-29] MEDS: CLOPIDOGREL 75 MG TAB PO SCH (21:20)
[2020-03-29] MEDS: LEVEMIR (INSULIN DETEMIR) 1 UNITS/0.01ML SC SCH (21:23)
[2020-03-29] MEDS: METOPROLOL SUCC (TopROL XL) 50MG **XL** TAB PO SCH (21:23)
[2020-03-29 22:00] VITALS: BP 148/74
[2020-03-30] MEDS: PIPERACILLIN/TAZOBACTAM SOD 2.25 GM in D5W MINI-BAG PLUS 50 ML IV SCH ×5 (03:50→21:00)
[2020-03-30 06:00] VITALS: BP 155/74
[2020-03-30 06:55] LABS: HEMATOCRIT 30.4 % (42.0-52.0); HEMOGLOBIN 9.8 g/dl (13.5-17.5); MEAN CORPUSCULAR HGB CONC 32.2 g/dl (32.0-36.5); MEAN CORPUSCULAR VOLUME 83.7 fl (80.0-96.0); PLATELET COUNT, AUTOMATED 422 10^3/uL (150-450); RED BLOOD COUNT 3.63 10^6/uL (4.30-6.10); WHITE BLOOD COUNT 10.5 10^3/uL (4.0-10.0)
[2020-03-30 07:19] LABS: C REACTIVE PROTEIN QUANTITATIV 6.5 MG/DL (0.00-0.30); CALCIUM LEVEL 8.3 MG/DL (8.8-10.2); CREATININE FOR GFR 2.78 MG/DL (0.70-1.30); GLOMERULAR FILTRATION RATE 24.6 (>49); POTASSIUM SERUM 4.2 MEQ/L (3.5-5.1)
[2020-03-30] MEDS: HumaLOG INSULIN (NovoLOG) PER UNIT SC SCH ×4 (08:34→21:39)
[2020-03-30] MEDS: SODIUM BICARBONATE 325 MG TAB PO SCH ×2 (08:37→21:38)
[2020-03-30] MEDS: HEPARIN SOD (PORCINE) 5000UNITS/ML 1ML VIAL/SYRINGE SC SCH ×2 (08:37→21:39)
[2020-03-30] MEDS: LORATADINE 10 MG TAB PO SCH (08:37)
[2020-03-30] MEDS: TAMSULOSIN 0.4 MG CAP PO SCH (08:37)
[2020-03-30] MEDS: amLODIPine 5 MG TAB PO SCH (08:39)
[2020-03-30] MEDS: DIMETHICONE 2% OINTMENT(VANICREAM) 70GM TUBE TOP SCH ×2 (09:00→21:38)
[2020-03-30 14:00] VITALS: BP 142/73
[2020-03-30] MEDS ORDERED: LevoFLOXacin 750 MG TABLET PO SCH (18:00)
--- NOTE | 2020-03-30 21:18 | IPNPDOC ---
Subjective Date Seen The patient was seen on 03/30/20. Subjective Chief Complaint/HPI Mr. Kirby is a 64-year-old male with diabetes mellitus, CKD stage III, hypertension, and BPH who was sent here for right foot diabetic infection from Dr. Rico's office. Denies any fever/chills, chest pain, dyspnea, abdominal pain, or dysuria. This afternoon, he lost his IV and nursing has not been able to start a new IV. Switched to PO levofloxacin due to good bioavailability and coverage for group B strep and Serratia. Plan for PICC line placement for tomorrow Objective Physical Examination General Exam: Positive: Alert, Cooperative Eye Exam: Positive: EOMI; Negative: Sclera icteric ENT Exam: Positive: Atraumatic Chest Exam: Positive: Clear to auscultation Heart Exam: Positive: Rate Normal, Regular Rhythm Abdomen Exam: Positive: Normal bowel sounds, Soft; Negative: Tenderness Extremity Exam: Positive: Edema (Right leg) Skin Exam: Positive: Other skin issue (Right foot ulcer) Neuro Exam: Positive: Cranial Nerves 3-12 NL Psych Exam: Positive: Mental status NL, Mood NL Assessment /Plan Assessment Mr. Kirby is a 64-year-old male with diabetes mellitus, CKD stage III, hypertension, and BPH who was sent here for right foot diabetic infection from Dr. Rico's office. Podiatry and ID are following, recommendations appreciated. Patient will be here receiving IV antibiotics. MRI suggests osteomyelitis. Plan/VTE VTE Prophylaxis Ordered?: Yes Plan 1. Diabetic foot ulcer with cellulitis of the right leg -Followed by Dr. Rico -Podiatry and ID following recommendations appreciated -Zosyn renally dosed (Lost IV on 03/30/2020, placing PICC on 03/31/2020, in the meantime on Levofloxacin) -Wound culture results from 03/26 demonstrate group B strep, Corynebacterium, and Serratia marcescens -Wound culture results from 03/28 is still preliminary, grew group B strep 2. Uncontrolled DM -HbA1c 11.8 -Levemir and sliding scale insulin 3. Peripheral vascular disease -Continue clopidogrel, rosuvastatin -Vascular study will be needed 4. Hypertension -Amlodipine 5. BPH -Continue tamsulosin 6. DVT ppx -Heparin VS, I&O, 24H, Fishbone Vital Signs/I&O Vital Signs Date Time Temp Pulse Resp B/P (MAP) Pulse Ox O2 Delivery O2 Flow Rate FiO2 03/30/20 14:00 98.5 52 14 142/73 (96) 96 Room Air I&O- Last 24 Hours up to 6 AM 03/30/20 06:00 Intake Total 1310 ml Output Total 3300 ml Balance -1990 ml Laboratory Data 24H LABS Laboratory Tests 2 03/30/20 05:36: Nucleated Red Blood Cells % (auto) 0.0, Anion Gap 7L, Glomerular Filtration Rate 24.6L, Calcium Level 8.3L, C-Reactive Protein, Quantitative 6.50H 03/30/20 11:19: Bedside Glucose (Misc Panel) 202H 03/30/20 16:29: Bedside Glucose (Misc Panel) 274H 03/30/20 19:42: Bedside Glucose (Misc Panel) 278H CBC/BMP Laboratory Tests 03/30/20 05:36 Microbiology Microbiology 03/28/20 Gram Stain - Final, Complete 03/28/20 Wound Culture - Final, Complete Strep Agalactiae Group B COBY RAY DO Mar 30, 2020 21:18
[2020-03-30] MEDS: CLOPIDOGREL 75 MG TAB PO SCH (21:38)
[2020-03-30] MEDS: ROSUVASTATIN 10 MG TAB (CRESTOR) PO SCH (21:38)
[2020-03-30] MEDS: METOPROLOL SUCC (TopROL XL) 50MG **XL** TAB PO SCH (21:42)
[2020-03-30] MEDS: LEVEMIR (INSULIN DETEMIR) 1 UNITS/0.01ML SC SCH (21:45)
[2020-03-30 22:00] VITALS: BP 168/89
[2020-03-31] MEDS: PIPERACILLIN/TAZOBACTAM SOD 2.25 GM in D5W MINI-BAG PLUS 50 ML IV SCH (02:13)
[2020-03-31 06:00] VITALS: BP 169/93
[2020-03-31 06:07] LABS: HEMATOCRIT 31.6 % (42.0-52.0); MEAN CORPUSCULAR HEMOGLOBIN 26.5 pg (27.0-33.0); MEAN CORPUSCULAR HGB CONC 31.6 g/dl (32.0-36.5); MEAN CORPUSCULAR VOLUME 83.6 fl (80.0-96.0); PLATELET COUNT, AUTOMATED 472 10^3/uL (150-450); RED BLOOD COUNT 3.78 10^6/uL (4.30-6.10); WHITE BLOOD COUNT 9.9 10^3/uL (4.0-10.0)
[2020-03-31 06:33] LABS: CALCIUM LEVEL 8.4 MG/DL (8.8-10.2); CREATININE FOR GFR 2.78 MG/DL (0.70-1.30); GLOMERULAR FILTRATION RATE 24.6 (>49)
[2020-03-31] MEDS: HumaLOG INSULIN (NovoLOG) PER UNIT SC SCH ×4 (08:58→20:58)
[2020-03-31] MEDS: LORATADINE 10 MG TAB PO SCH (08:59)
[2020-03-31] MEDS: HEPARIN SOD (PORCINE) 5000UNITS/ML 1ML VIAL/SYRINGE SC SCH ×2 (08:59→21:01)
[2020-03-31] MEDS: SODIUM BICARBONATE 325 MG TAB PO SCH ×2 (09:00→21:00)
[2020-03-31] MEDS: amLODIPine 5 MG TAB PO SCH (09:00)
[2020-03-31] MEDS: TAMSULOSIN 0.4 MG CAP PO SCH (09:00)
--- NOTE | 2020-03-31 09:17 | CR ---
DATE OF CONSULTATION: 03/28/2020 REASON FOR CONSULTATION: Asked to consult by Dr. Leach for evaluation of diabetic foot ulcer with abscess and leukocytosis. HISTORY OF PRESENT ILLNESS: Mr. Chen is a pleasant 54-year-old gentleman with a history of diabetes, diabetic foot ulcer, status post bilateral transmetatarsal amputation. The patient has had a diabetic foot ulcer on the right foot and plantar aspect mid foot for over 5 years. He has been followed up with Dr. Rico for years. The patient was admitted on 03/25/2020 and discharged on 03/27/2020 with a urinary tract infection and dysuria. Urine culture was negative, but the patient complained of increasing leg pain and redness. He had noticed worsening foul smelling discharge of the right foot ulcer. A Gram stain was done, which showed many Gram positive cocci in pairs and clusters and also ultrasound of the right leg was done, which showed edema, but no deep venous thrombosis (DVT). Chest x-ray was negative. Renal ultrasound was negative. The patient was treated for 48 hours with IV vancomycin and Zosyn and then discharged home on by mouth levofloxacin and doxycycline as he wanted to see Dr. Rico to evaluate his foot. His white count on admission was 27.2. The patient was seen by Dr. Rico this morning, who dbrided the wound yesterday night. The patient noted that he had two wounds laterally along the 5th metatarsal with large amount of blood discharge. These were dbrided by Dr. Rico. He has multiple drains in place and was told he needed to be hospitalized to be evaluated by Dr. Gatica for further surgery. He has had some chills and diaphoresis at home with decreased appetite. He had some weakness earlier this week and had fallen, had difficulty getting up. His suprapubic pain, dysuria and urgency have all resolved. His urine is now clear. PAST MEDICAL HISTORY: Significant for diabetes, chronic kidney disease, recurrent urinary tract infection related to benign prostatic hypertrophy (BPH), status post prostatectomy in February done by Dr. Pinto, dyslipidemia, peripheral vascular disease, urinary retention. PAST SURGICAL HISTORY: Right lower extremity femoral bypass surgery, cystoscopy, biopsy of the prostate. Transmetatarsal amputation of both feet. SOCIAL HISTORY: He lives with his two sons at home. He denies any drug use. He chews tobacco and uses alcohol. FAMILY HISTORY: Mother of diabetes. Sister has kidney problems. ALLERGIES: CONTRAST MEDIA. MEDICATIONS: amlodipine 5mg by mouth daily, loratadine 10 mg by mouth daily, Flomax 0.4 mg by mouth daily, heparin 5000 subcutaneous every 12 hours, Plavix 75 mg by mouth q.h.s., Toprol 50 mg q.h.s., Crestor 10 mg q.h.s., sodium bicarbonate 650 mg by mouth b.i.d., Levemir 50 units subcutaneous q.h.s., Vanicream left foot b.i.d., calcium carbonate as needed, Cortisporin optic solution 4 drops both eyes t.i.d. LABORATORY DATA: White count 14.4, hemoglobin 10, hematocrit 30.7, platelets 393, ESR is pending. Sodium 130, potassium 4.3, chloride 101, bicarbonate 19, BUN 45, creatinine 2.5, glucose 301, hemoglobin A1c 11.8. Calcium 8.5, magnesium 0.4, AST 8, ALT 15, alkaline phosphatase 162. CRP 12.6. Total protein 6.6, albumin 1.9. Blood cultures two sets were drawn on 03/25, no growth after 48 hours. Respiratory panel was negative. Urine culture was negative on 03/26 and culture preliminary from 03/26 had group B strep, Corynebacterium and Gram negative shruti, still not fully identified and susceptibilities have not been done. IMAGING DATA: Foot x-ray shows transmetatarsal amputation, soft tissue swelling, surgical drain in place. No acute erosive changes noted. REVIEW OF SYSTEMS: The patient denies any nausea, vomiting or diarrhea. No dysuria or suprapubic pain. He states he has a cough every time he has an infection, but denies shortness of breath or history of congestive heart failure. No chest pain. No upper or lower extremity weakness. PHYSICAL EXAMINATION: Temperature is 98.6, pulse 79, respirations 22, blood pressure 145/79, O2 saturation 98% on room air. Heart: Normal S1, S2. No murmurs appreciated. No wheezes, rales or rhonchi. Lungs clear. Good air entry bilaterally. Abdomen: Soft, obese, nontender, no hepatosplenomegaly. Back: No costovertebral angle (CVA) or lumbosacral tenderness. Extremities: No edema on the left side with transmetatarsal amputation. A healed ulcer on the lateral aspect of the foot with dry skin and callous. Right foot has a large plantar ulcer measuring about 6 x 3 cm with necrotic tissues surrounding it. The ulcer pose all the way to the lateral aspect of the foot along the 5th metatarsal where there are two large ulcers with necrotic tissue and drains in place. All the three ulcers communicate. The lateral ulcers measure about, combined together, 10 cm. IMPRESSION: 64-year-old gentleman with history of diabetic foot ulcer on the plantar aspect of the mid foot, who has developed a polymicrobial infection with abscess that recently was drained. The culture is positive for group B strep, Gram negative rods and Corynebacterium. The patient had been on IV vancomycin and Zosyn for 48 hours with improvement of his white count. He had drainage procedure done by Dr. Rico. I am concerned with the extensive necrotizing infection which is already compromised by transmetatarsal amputation may not heal. He has had an open ulcer for at least 5 years. The patient is entertaining the idea of having a below-knee amputation. PLAN: Will obtain methicillin-resistant Staphylococcus aureus (MRSA) screen. Currently in the wound culture there has not been any methicillin-resistant Staphylococcus aureus (MRSA). Previous cultures were reviewed. Over the past years 5 years, the patient is known to have methicillin-susceptible Staphylococcus aureus (MSSA) on his wound cultures. Will restart Zosyn at a dose of 2.25 gm IV q 6 hours. A new wound culture aerobic and anaerobic were obtained from the wound, as well as methicillin-resistant Staphylococcus aureus (MRSA) screen. Will obtain MRI of the foot. The case has been discussed with Dr. Gatica, who is also following the patient. [facility]
--- NOTE | 2020-03-31 09:22 | CR ---
DATE OF CONSULTATION: 03/28/2020 REASON FOR CONSULTATION: Foot ulceration. Jarret Chen is a pleasant 64-year-old male who was admitted to the hospital from the wound care center. Spoke with Dr. Rico regarding the same. He has history of ulcerations, chronic on both feet. He developed infection over the last week with some abscess formation. Dr. Rico debrided and drained most of this in the office today. He is sent for intravenous (IV) antibiotics and further care. MEDICAL HISTORY: 1. Diabetes. 2. Chronic kidney disease, stage III. 3. Urinary tract infection (UTI). 4. Hypertension. 5. Dyslipidemia. 6. Peripheral arterial disease. 7. Angioplasty, left lower extremity. 8. BPH. SURGICAL HISTORY: 1. Lower extremity angioplasty. 2. Bilateral foot transmetatarsal amputations. 3. Cataract removal. 4. Tonsillectomy. 5. Femoral arterial bypass. 6. Small lipoma surgery. 7. Cystostomy. 8. Prostate biopsy. ALLERGIES: CONTRAST DYE. SOCIAL HISTORY: Denies alcohol use. Used to chew tobacco. Denies smoking. FAMILY HISTORY: Diabetes. REVIEW OF SYSTEMS: Denies nausea, vomiting, fever, or chills. Vital signs are examined. He is afebrile. LABORATORY DATA: Not yet available. Lower extremity examination: Bilateral transmetatarsal amputations are present. On the right foot there is ulceration on the plantar and medial aspect of the foot. Drains intact. There is some purulence with expression. No extending erythema. ASSESSMENT: A 64-year-old diabetic male with right foot infection, status post drainage. PLAN: Leave Obdulio drains in for 2 days, then remove. Cultures are pending. He is to be started on intravenous (IV) antibiotics. Infectious disease has been consulted. Will defer to their recommendations. Will order arterial studies and x-ray. He may require further incision and drainage, depending on progression of wound. Will reassess in a day or two. Trend labs. [facility] follow. [facility]
[2020-03-31] MEDS ORDERED: MIRALAX *UNIT DOSE* 17GM PACKET PO PRN (10:15)
[2020-03-31] MEDS: DIMETHICONE 2% OINTMENT(VANICREAM) 70GM TUBE TOP SCH ×2 (10:39→21:01)
--- NOTE | 2020-03-31 11:19 | IPNPDOC ---
Date Seen The patient was seen on 03/31/20. Progress Note SUBJECTIVE: Mr. Kirby was seen and examined at the bedside this morning. His mood is somewhat down and he is frustrated about not having any IV access. He states he had a rough night. He is not in any pain in his feet. He is anxious to learn the plan for today. It seems he is somewhat frustrated with what is going on with his foot. Otherwise he denies any chest pain, shortness of breath, abdominal pain. He does report he has not had a bowel movement in several days and requests some MiraLAX. OBJECTIVE VITAL SIGNS: see below GENERAL: alert and oriented, in no apparent distress, pleasant and conversant in full sentences. HEENT: PERRL, EOMI, Oral mucous membranes are moist without lesions. NECK: The patient has no noted JVD. No adenopathy is appreciated. No thyromegaly CHEST/LUNGS: Lungs are clear bilaterally without rhonchi, rales, or wheezes. There is no subcutaneous air appreciated. There is no tenderness to the chest wall. HEART:Regular rate and rhythm. No murmurs, rubs, or gallops are appreciated. Distal pulses are 2+. No carotid bruits appreciated. ABDOMEN: Soft, nontender, and nondistended. Bowel sounds are positive. No organomegaly is appreciated. No masses are appreciated. There are no peritoneal signs. There is no [place] sign. EXTREMITIES: Right foot has two ulcers, with bone visible. One on plantar surface and one on lateral surface covering 5th metatarsal. Nontender to palpation. No obvious drainage but there is some surrounding pus and discoloration. SKIN: The patients skin is warm and dry, without rashes or lesions. PSYCHIATRIC: AAO x 3, normal mood/affect NEUROLOGIC: The patient has 5/5 strength to the upper and lower extremities bilaterally. Deep tendon reflexes are 2+ in all four extremities. There are no deficits to the cranial nerves. LABORATORY DATA, IMAGING STUDIES, MICROBIOLOGY: Please see below. Foot XR (03/28/2020): FINDINGS: Four views of the right ankle demonstrate transmetatarsal amputations of all 5 digits. There are surgical drains in the medial and volar soft tissues. There is soft tissue swelling and irregularity along the heel mild in degree. Some postoperative soft tissue gas is seen in the dorsal soft tissues. No acute erosive changes appreciated. Vascular calcification is noted in the distal calf.. . No opaque foreign body noted. IMPRESSION: Surgical drains in the soft tissues at the midfoot. Transmetatarsal amputation all 5 digits. Soft tissue swelling.. Foot MRI (03/28/2020): FINDINGS: Patient has undergone a prior midfoot amputation with similar margins of bone compared to the prior exam. There is soft tissue ulceration over the lateral and plantar aspect of the foot with air extending down to the plantar surface of the cuboid, anterior calcaneus and midfoot bones. There is marrow replacement and marrow edema involving the calcaneus, and cuboid suggesting osteomyelitis, new since the prior MRI. I do not see an obvious drainable abscess although this is a noncontrast MRI. Soft tissue ulceration tract also extends laterally over the residual proximal 5th metatarsal with marrow edema suggesting infectious involvement. IMPRESSION: Osteomyelitis of the plantar hindfoot involving the calcaneus, cuboid and probably residual 5th metatarsal in a patient with transmetatarsal amputation and overlying plantar soft tissue phlegmon and ulceration. The osseous marrow edema and replacement involving the calcaneus and cuboid is new since the prior MRI from 2017 DVT prophylaxis ordered?: Heparin ASSESSMENT AND PLAN: This is a 64 YO M with poorly controlled T2DM complicated by repeated foot ulcers requiring amputation of all 10 toes, CKD III, peripheral vascular disease who presented from Dr. Rico's office after debridement found to have osteomyelitis of the R foot involving the calcaneus, cuboid and 5th metatarsal. Podiatry and Infectious disease are currently consulted. PROBLEMS: 1. R foot osteomyelitis: patient is afebrile, WBC down to 9.9 today -Wound culture gram stain 03/28/20: Group B Strep Agalactiae -Wound culture gram stain 03/26/20: Group B Strep Agalactiae, Corynebacterium, Serratia Marcescens -MRI foot showed osteomyelitis and overlying tissue inflammation -MRSA detected on 03/28/20 -S/p Zosyn x 3 days, patient has since lost IV access and is now on PO Levaquin day 1 -Discussed with Dr. Ramirez regarding IV abx therapy: Would like to switch to IV R ocephin after he gets PICC line today. Will need to arrange for outpatient IV abx -Discussed with Podiatry (Gavi), would like for patient to have bilateral lower extremity arterial study while inpatient. Will see patient today and determine the need for any surgical intervention. -Telemedicine consult with Dr. Rico planned for today at 12:15 -ESR 125, CRP 6.5 2. ? Cellulitis of R leg: -R leg not showing any erythema today. Likely covered with antibiotic. Will continue to monitor 3. Poorly controlled DM2: -Last HbA1c 11.8% -Levemir dosing changed to BID due to renal dysfunction and poor control. Blood sugars were ranging in the upper 200s -Continue SSI with hypoglycemic protocol 4. Peripheral vascular disease: -Continue plavix (recent stent placement), rosuvastatin -Pending lower extremity arterial study 5. CKD III: -Renal function stable -BUN/Cr 37/2.78 today -Continue Sodium Bicarb 6. HTN: -Continue Amlodipine, Metoprolol 7. BPH: -Continue Flomax 8. DVT ppx: -Heparin DISPOSITION: pending vascular study, wound care consult, PICC line VS, I&O, 24H, [facility] Vital Signs/I&O Vital Signs Date Time Temp Pulse Resp B/P (MAP) Pulse Ox O2 Delivery O2 Flow Rate FiO2 03/31/20 09:00 69 158/71 03/31/20 06:00 97.1 18 96 Room Air I&O- Last 24 Hours up to 6 AM 03/31/20 06:00 Intake Total 1785 ml Output Total 4100 ml Balance -2315 ml Laboratory Data 24H LABS Laboratory Tests 2 03/30/20 11:19: Bedside Glucose (Misc Panel) 202H 03/30/20 16:29: Bedside Glucose (Misc Panel) 274H 03/30/20 19:42: Bedside Glucose (Misc Panel) 278H 03/31/20 05:32: Nucleated Red Blood Cells % (auto) 0.0, Anion Gap 8, Glomerular Filtration Rate 24.6L, Calcium Level 8.4L CBC/BMP Laboratory Tests 03/31/20 05:32 Microbiology Microbiology 03/28/20 Gram Stain - Final, Complete 03/28/20 Wound Culture - Final, Complete Strep Agalactiae Group B GME ATTESTATION GME ATTESTATION My faculty preceptor for this patient encounter was physically present during the encounter and was fully available. All aspects of the patient interview, examination, medical decision making process, and medical care plan development were reviewed and approved by the faculty preceptor. The faculty preceptor is aware and concurs with the plan as stated in the body of this note and will attest to such by his/her cosignature. ATTENDING NOTE I, Zach Leach, saw and evaluated the patient independently from the resident. I have discussed the case with the resident and reviewed the document. I agree with the findings and the plan of care as documented in the resident's note. URBANO HAYDEN MD Mar 31, 2020 11:19 ZACH LEACH DO Mar 31, 2020 19:13
[2020-03-31] MEDS ORDERED: LIDOCAINE 1% MDV 20ML VIAL As Ordered ONE (13:49)
[2020-03-31] MEDS: cefTRIAXone SOD 2 GM in D5W MINI-BAG PLUS 50 ML IV SCH (16:13)
[2020-03-31] MEDS ORDERED: SODIUM CHLORIDE 0.9% INJ 10 ML SYR IV PRN (16:15)
--- NOTE | 2020-03-31 16:30 | REP ---
INDICATION: PVD with ulcers COMPARISON: 01/28/2017. TECHNIQUE: Real time elise scale and Duplex Doppler evaluation of the bilateral lower extremity arterial vasculature using linear high frequency transducer. FINDINGS: Elise scale and duplex doppler images demonstrate heavily calcified atherosclerotic plaque diffusely bilaterally. Right greater saphenous vein in situ graft is occluded from the midthigh to the anastomosis with the proximal posterior tibial artery. Collateral vessels reconstitute the posterior tibial artery in the mid calf. Diffuse triphasic and biphasic waveforms are seen more proximally in the right common femoral, superficial femoral and popliteal arteries with monophasic waveforms in the calf arteries. Tibioperoneal trunk appears occluded. Proximal right anterior tibial artery also appears occluded with trickle flow in the deep distal aspect at the level of the ankle. The distal left anterior tibial artery appears occluded. Diffuse biphasic waveforms are seen throughout the left lower extremity are arterial system. Peak systolic velocities (cm/sec) Common femoral artery: Right 100; Left 55 Profunda femoris: Right 92; Left 69 SFA (proximal): Right 99; Left 80 SFA (mid): Right 53; Left 58 SFA (distal): Right 51; Left 43 Popliteal artery: Right 72; Left 52 CECI (prox.): Right occluded; Left 60 Tibioperoneal trunk: Right occluded; Left 54 MOTORMAN/WOMAN (prox.): Right 36; Left 46 MOTORMAN/WOMAN (distal): Right 58; Left 68 CECI (distal): Right 12; Left occluded IMPRESSION: Occlusion of the right greater saphenous vein in situ graft from mid thigh to its anastomosis with the proximal posterior tibial artery. Reconstitution mid posterior tibial artery. Occlusion right tibioperoneal trunk and proximal anterior tibial artery. Occlusion distal left anterior tibial artery. <Electronically signed by José Elise > 03/31/20 1824
[2020-03-31] MEDS: SODIUM CHLORIDE 0.9% INJ 10 ML SYR IV SCH (17:10)
[2020-03-31 17:41] VITALS: BP 179/86
--- NOTE | 2020-03-31 18:29 | REP ---
PROCEDURE NAME: PICC LINE INSERTION W/SITERITE CLINICAL INFORMATION: Poor access. COMPARISON: None. PROCEDURE DESCRIPTION: The procedure was performed by BRIANA Brown, under the direct supervision of Dr. Elise. The risks and benefits of the procedure were explained to the patient and an informed consent was obtained both verbally and written. Directly prior to the start of the procedure a formal time-out was completed in the procedure room. The right basilic vein was localized using ultrasound guidance. The skin was prepped and draped in sterile fashion. Two mL of 1% lidocaine 10 mg/mL was used as a local anesthetic. Using ultrasound guidance the right basilic vein was cannulated, and a 0.018 guidewire was inserted and advanced to the level of SVC using fluoroscopic guidance. The needle was removed and a 5.5 Togolese dilator and peel-away sheath was inserted over the guidewire. A 5.5 Togolese dual lumen catheter was cut to a length of 40 cm. The dilator was removed and the catheter was inserted over the guidewire with the tip ending at the level of the SVC. The peel-away sheath was removed and the catheter was flushed with heparinized saline as per hospital protocol. The catheter was affixed to the skin and a sterile dressing was applied. The patient tolerated the procedure well and there were no immediate complications. CONCLUSION: PICC line insertion into the right basilic vein. 0.3 minutes of fluoroscopy time was utilized for this procedure. Some fluoroscopic images are performed with last image hold technology. These images require no additional radiation. <Electronically signed by Erika Guardado > 03/31/20 1620 <Electronically signed by José Elise > 03/31/20 [id number]
[2020-03-31] MEDS: LEVEMIR (INSULIN DETEMIR) 1 UNITS/0.01ML SC SCH (20:59)
[2020-03-31] MEDS ORDERED: LEVEMIR (INSULIN DETEMIR) 1 UNITS/0.01ML SC SCH (21:00)
[2020-03-31] MEDS: ROSUVASTATIN 10 MG TAB (CRESTOR) PO SCH (21:00)
[2020-03-31] MEDS: METOPROLOL SUCC (TopROL XL) 50MG **XL** TAB PO SCH (21:00)
[2020-03-31] MEDS: CLOPIDOGREL 75 MG TAB PO SCH (21:00)
[2020-03-31 22:00] VITALS: BP 137/69
[2020-04-01] MEDS: SODIUM CHLORIDE 0.9% INJ 10 ML SYR IV SCH ×2 (05:36→18:02)
[2020-04-01 06:00] VITALS: BP 132/67
[2020-04-01 06:00] LABS: HEMATOCRIT 31.8 % (42.0-52.0); MEAN CORPUSCULAR HEMOGLOBIN 26.3 pg (27.0-33.0); MEAN CORPUSCULAR HGB CONC 31.4 g/dl (32.0-36.5); MEAN CORPUSCULAR VOLUME 83.7 fl (80.0-96.0); PLATELET COUNT, AUTOMATED 464 10^3/uL (150-450); WHITE BLOOD COUNT 9.2 10^3/uL (4.0-10.0)
[2020-04-01 06:18] LABS: C REACTIVE PROTEIN QUANTITATIV 4.21 MG/DL (0.00-0.30); CALCIUM LEVEL 8.7 MG/DL (8.8-10.2); CREATININE FOR GFR 2.63 MG/DL (0.70-1.30); GLOMERULAR FILTRATION RATE 26.2 (>49)
[2020-04-01] MEDS: amLODIPine 5 MG TAB PO SCH (09:23)
[2020-04-01] MEDS: HumaLOG INSULIN (NovoLOG) PER UNIT SC SCH ×4 (09:24→21:00)
[2020-04-01] MEDS: TAMSULOSIN 0.4 MG CAP PO SCH (09:24)
[2020-04-01] MEDS: LORATADINE 10 MG TAB PO SCH (09:24)
[2020-04-01] MEDS: HEPARIN SOD (PORCINE) 5000UNITS/ML 1ML VIAL/SYRINGE SC SCH ×2 (09:24→20:58)
[2020-04-01] MEDS: LEVEMIR (INSULIN DETEMIR) 1 UNITS/0.01ML SC SCH ×2 (09:25→21:01)
[2020-04-01] MEDS: DIMETHICONE 2% OINTMENT(VANICREAM) 70GM TUBE TOP SCH ×2 (09:25→21:01)
[2020-04-01] MEDS: SODIUM BICARBONATE 325 MG TAB PO SCH ×2 (09:40→21:00)
--- NOTE | 2020-04-01 10:50 | CR ---
ADVANCED WOUND CARE CONSULTATION NOTE: Dictated via Telemedicine. DATE OF CONSULTATION: 03/31/2020 REQUESTING PHYSICIAN: Zach Leach DO. REASON FOR CONSULTATION: Advanced neuropathic diabetic foot ulcer involving the right foot. HISTORY OF PRESENT ILLNESS: 64-year-old male with a long standing history of Charcot foot deformity involving both right and left feet status post total transmetatarsal amputations of right and left toes, has been treated at our Wound Center for recalcitrant wounds involving the plantar aspect of both left and right feet. Patient has undergone multiple treatment modalities including hyperbaric oxygen, advanced tissue products, off-loading and more recently a WIYOT walker boot for off-loading purposes. He has had angioplasty performed bilaterally and more recently has had prostate surgery. The patient gave a history of a 2 day low grade fever for which he consulted his urology service who indicated that he should go to the Emergency Room and he was admitted with a presumptive urinary tract infection. Patient had dressings involving his right and left feet at that time. He was admitted with abnormal laboratory values including a hemoglobin A1c of 11.8 and an elevated white count. Urine cultures were positive and the patient was started on I.V. antibiotics. He was admitted on 03/26/2020. From the Hospital Notes on 03/27/2020 dressing changes were performed on his right foot which indicated foul smelling purulent greenish drainage. He was discharged on 03/28 and was evaluated at our clinic for an advanced diabetic foot ulcer which showed significant changes from his recent evaluation the week before in our clinic. This included a deep plantar wound with palpable bone and disruption of the plantar fascia and 2 lateral mid-foot wounds which connected to each other and to the plantar wound itself. The foot was edematous, erythematous and there was purulent drainage. Because of this his wound was extensively debrided, Obdulio drains were inserted and the patient was returned to the hospital for admission. His work-up has included I.V. antibiotics, evaluation by podiatry, dressing changes with appropriate wound care dressings and strict bedrest. An arterial ultrasound has been ordered. PHYSICAL EXAMINATION: When see today there was significant improvement in the appearance of his right diabetic multiple foot ulcers. The wound involving the plantar surface of the left foot has now closed demonstrating that off-loading plays a significant role in his treatment. When inspecting the right foot on via telemedicine, the plantar surface shows a mid-foot wound measuring 3.0 cm x 1.5 cm with a wound depth of 1.5 cm. The drainage is moderate and serosanguineous. The wound base shows some areas of granulation tissue and some areas of superficial necrotic tissue. There is palpable bone at the base. Lateral to this at the mid-foot there are 2 wounds. The distal wound measures 5.0 cm x 3.5 cm with a depth of 1.5 cm. There is a connecting tunnel between the distal wound and the plantar wound. The tunnel starts at the 5:00 o'clock position of the distal wound and enters into the 10:00 o'clock position of the plantar wound and measures 4.0 cm in length. Proximal to the lateral distal wound on the right foot there is a wound measuring 3.5 cm x 2.0cm. There is a tunnel of 2.0 cm. and acting the 2 lateral wounds. The proximal wound base shows a similar presentation with edematous tissue, small areas of granulation tissue and superficial necrotic tissue. Original [place] drains inserted by myself have been removed at my request by podiatry. ASSESSMENT AND PLAN: Patient has been seen by infectious disease and a diagnosis of osteomyelitis has been made appropriately and the treatment will be chcf antibiotics. In terms of dressing changes the wounds should be cleansed with Vashe wound cleanser for 10 minutes utilizing 4 x 4 gauze pads, then the wound should be dressed with alginate placed into the wound base avoiding contact to the guillaume-wound and covered with a foam dressing. This is to be done on a daily basis. Protective foam can be used for the left plantar wound. Patient's blood sugars today are running in the low 200s and it was indicated that it is mandatory that the patient have adequate diabetic control as the inflammatory cells do not function with a glucose greater than 180. Arterial ultrasound is pending to ensure that there is appropriate vascularity to his right foot. When the patient is suitable for discharge he can be followed up at our Wound Care Center as he is an established patient. Patient does have a WIYOT walker shoe boot which is important for off-loading purposes. Thank you for this consultation. ИВАН
--- NOTE | 2020-04-01 10:52 | IPN ---
DATE: 03/31/2020 SUBJECTIVE: Patient seen and examined at the bedside. He denies complaints. He states that his foot is feeling better. PHYSICAL EXAMINATION: VITAL SIGNS: Vitals are reviewed, he has remained afebrile. LOWER EXTREMITY EXAMINATION: Erythema and edema essentially resolved. There is trace purulence remaining in the wound, some nonviable tissue surrounding. LABS: Labs are reviewed. White blood cell count is 9.9. His recent CRP is 6.5, all improving. ASSESSMENT: A 64-year-old diabetic male with osteomyelitis. PLAN: He is scheduled for PICC line today with plans for Rocephin per Dr. Ramirez. He has a telemedicine visit with Dr. Rico later this afternoon, wound care per his orders. At this time no viable surgical options exist for his osteomyelitis in his foot. If he fails to heal with conservative measures, he would require below knee amputation. ИВАН
--- NOTE | 2020-04-01 10:59 | IPN ---
DATE: 03/31/2020 SUBJECTIVE: Jarret is doing better. He denies any nausea, vomiting, diarrhea, fever or chills. He is anxious to go home. He lives with his two sons and he has three kids that can come and help him with his IV antibiotics. He had a bowel movement today which was normal. No nausea, vomiting, diarrhea, abdominal pain. PHYSICAL EXAMINATION: VITAL SIGNS: Temperature is 96.7, pulse 79, respirations 20, 02 sat 98% on room air. Blood pressure 158/71. HEART: Normal S1, S2. No murmurs, rubs or gallops. LUNGS: Clear. No rales, rhonchi or wheezes. ABDOMEN: Soft, nontender. EXTREMITIES: Bilateral metatarsal amputation. Right foot has three open lesions, one on the bottom of the foot, in the middle which was the original ulcer and two along the lateral metatarsals, fifth metatarsal which were in the area where the abscess drain. The drains were removed. I did not get to see foot today as the patient had a consult with Dr. Rico this afternoon, and the dressing was just changed. LABORATORY STUDIES: White count is 9.9, hemoglobin 10, hematocrit 31.6, platelets 472. Sodium 472, sodium 131, potassium 4, chloride 100, bicarbonate 23, creatinine 2.78, glucose 230, calcium 8.4, CRP 6.5, down from 12.6. Wound culture Group B strep, heavy growth and few serratia marcescens which probably is colonization. IMAGING: Study shows osteomyelitis of the fifth metatarsal with marrow edema, suggestive of infectious involvement of the calcaneus cuboid. IMPRESSION: Acute osteomyelitis of the right foot including the fifth metatarsal with Group B strep on culture. TREATMENT PLAN: 1. The patient will be treated with IV Ceftriaxone for a total of 6 weeks. 2. He will be discharged home with a PICC line. 3. Discontinue Levofloxacin. 4. Discontinue IV Zosyn. 5. Please consult PFS for home antibiotics. 6. Labs to be done weekly including CBC, CMP, SRCRP. 7. The patient to follow up in my office in 2 weeks. 8. He will follow up with Dr. Rico weekly for wound debridement. [facility]
[2020-04-01 14:00] VITALS: BP 131/60
[2020-04-01] MEDS: cefTRIAXone SOD 2 GM in D5W MINI-BAG PLUS 50 ML IV SCH (16:30)
--- NOTE | 2020-04-01 17:38 | IPNPDOC ---
Text Note Date of Service The patient was seen on 04/01/20. NOTE Subjective: Patient was seen and examined this morning at bedside. Nurse tells me there was no overnight events. Patient tells me his feeling better and continues to his IV antibiotics daily. Patient understands plan for follow-up upon discharge and his need for 6 weeks of IV antibiotics. Patient is somewhat frustrated and wants to go home soon. Objective: Constitutional: Awake and alert, in no apparent distress ENT: Sclera are clear. Mucosa is moist. Respiratory: Lungs CTA bilaterally. No respiratory distress. No use of accessory muscles. Cardiovascular: RRR S1 and S2 are normal, no murmur Gastrointestinal: Abdomen is soft, non distended, non tender, BS present. Musculoskeletal: Right lower extremity stump with dressing in place. Neurologic: No focal neurological deficit. Mental Status: A&O x3, normal affect Skin: Warm, dry Assessment/plan: This is a 64 YO M with poorly controlled T2DM complicated by repeated foot ulcers requiring amputation of all 10 toes, CKD III, peripheral vascular disease who presented from Dr. Rico's office after debridement found to have osteomyelitis of the R foot involving the calcaneus, cuboid and 5th metatarsal. Podiatry and Infectious disease are currently consulted. Patient was found to have confirmed possible myelitis of his right foot on MRI and was recommended by ID to have 6 weeks of IV antibiotics. Patient obtain a PICC line and will be receiving IV ceftriaxone up until 05/12/2020. Patient will be following up with Dr. Rico wound care weekly in his office for wound debridement and with podiatry in the clinic as well as with infectious disease in 2 weeks after discharge. Patient is medically cleared and ready for discharge to home with home IV abx. # R Foot osteomyelitis: Afebrile. Leukocytosis resolved. ID consulted Dr Ramirez, recommends 6 weeks of IV ceftriaxone (end date May 12 2020). PICC line in place 03/31/2020. Fu with Dr Ramirez at office 2 in weeks. Weekly labs CBC, CMP, SRCRP. Fu with Dr Rico weekly for wound debridement. Fu with Dr amaya in clinic. # Poorly controlled DM2: Last HbA1c 11.8%. Levemir BID. Frequent Accu-Cheks. Hypoglycemic precautions # PAD: continue Plavix, statin. # CKD III: avoid nephrotoxins # HTN: Continue Amlodipine, Metoprolol # BPH: continue Flomax # DVT ppx: Heparin [facility] Oswald ATKINSON, I+O Oswald ATKINSON I+O Laboratory Tests 04/01/20 05:30 Vital Signs Date Time Temp Pulse Resp B/P (MAP) Pulse Ox O2 Delivery O2 Flow Rate FiO2 04/01/20 14:00 98.3 78 18 131/60 (83) 94 Room Air I&O- Last 24 Hours up to 6 AM 04/01/20 06:00 Intake Total 1220 ml Output Total 1900 ml Balance -680 ml ERIKA ESCOBAR MD Apr 01, 2020 17:38
[2020-04-01] MEDS: ROSUVASTATIN 10 MG TAB (CRESTOR) PO SCH (21:00)
[2020-04-01] MEDS: METOPROLOL SUCC (TopROL XL) 50MG **XL** TAB PO SCH (21:01)
[2020-04-01] MEDS: CLOPIDOGREL 75 MG TAB PO SCH (21:01)
[2020-04-01 22:00] VITALS: BP 147/72
[2020-04-02] MEDS: SODIUM CHLORIDE 0.9% INJ 10 ML SYR IV SCH ×2 (05:39→17:22)
[2020-04-02 05:59] LABS: HEMOGLOBIN 10.1 g/dl (13.5-17.5); MEAN CORPUSCULAR HEMOGLOBIN 26.4 pg (27.0-33.0); MEAN CORPUSCULAR HGB CONC 31.6 g/dl (32.0-36.5); MEAN CORPUSCULAR VOLUME 83.6 fl (80.0-96.0); PLATELET COUNT, AUTOMATED 461 10^3/uL (150-450); RED BLOOD COUNT 3.83 10^6/uL (4.30-6.10); WHITE BLOOD COUNT 10.1 10^3/uL (4.0-10.0)
[2020-04-02 06:00] VITALS: BP 158/79
[2020-04-02 06:16] LABS: C REACTIVE PROTEIN QUANTITATIV 3.66 MG/DL (0.00-0.30); CALCIUM LEVEL 8.4 MG/DL (8.8-10.2); CREATININE FOR GFR 2.6 MG/DL (0.70-1.30); GLOMERULAR FILTRATION RATE 26.6 (>49); POTASSIUM SERUM 3.7 MEQ/L (3.5-5.1)
[2020-04-02] MEDS: SODIUM BICARBONATE 325 MG TAB PO SCH (08:55)
[2020-04-02] MEDS: HEPARIN SOD (PORCINE) 5000UNITS/ML 1ML VIAL/SYRINGE SC SCH (08:55)
[2020-04-02] MEDS: HumaLOG INSULIN (NovoLOG) PER UNIT SC SCH ×2 (08:55→13:27)
[2020-04-02] MEDS: TAMSULOSIN 0.4 MG CAP PO SCH (08:55)
[2020-04-02 08:56] VITALS: BP 120/66
[2020-04-02] MEDS: amLODIPine 5 MG TAB PO SCH (08:56)
[2020-04-02] MEDS: LORATADINE 10 MG TAB PO SCH (08:56)
[2020-04-02] MEDS: LEVEMIR (INSULIN DETEMIR) 1 UNITS/0.01ML SC SCH (08:56)
--- NOTE | 2020-04-02 10:18 | IPN ---
DATE: 04/01/2020 Jarret is doing well. He is irritated because he wants to go home, and physical therapy recommended some rehabilitation. Patient has a scooter at home and has two sons who are home all the time with him. He denies any nausea, vomiting, diarrhea, abdominal pain. No fever or chills. This morning there was some increased drainage around the wound. Optifoam was changed to Optilock to decrease the moisture, and the wound looks much better this afternoon according to nursing. He feels ready for discharge. LABORATORY DATA: White count is 9.2, hemoglobin 10, hematocrit 31.8, platelets 464. Sodium 132, potassium 4, chloride 102, bicarbonate 23, BUN 38, creatinine 2.63, glucose 262, calcium 8.7, CRP 4.21. Wound culture on March 28 had group B streptococcus. MEDICATIONS: Intravenous (IV) Rocephin 2 grams every 24, he receives at 4:30. PHYSICAL EXAMINATION: HEART: Normal S1, S2 with a systolic ejection murmur, 2/6, at the left upper sternal border. LUNGS: Clear. No wheezes, rhonchi or rales. ABDOMEN: Soft, obese, nontender. No hepatosplenomegaly. EXTREMITIES: No clubbing or cyanosis. He has trace edema on the right leg with an ulcer on the plantar aspect of the foot, which measures abut 4 x 2 cm with some maceration around the border and serosanguineous discharge. Two other lateral ulcers laterally along the 5th metatarsal with also some serosanguineous discharge. No surrounding cellulitis. IMPRESSION: 1. Acute osteomyelitis of the right foot with group B streptococcus, on IV Rocephin, doing better. Patient will be treated with IV antibiotics for at total of 6 weeks with end of therapy being May 08. He will be discharged home on IV Rocephin tomorrow with [employer] infusion. He will have labs, including complete blood count (CBC), comprehensive metabolic profile (CMP), erythrocyte sedimentation rate (ESR), C-reactive protein (CRP) weekly. He will followup with Dr. Gatica and Dr. Rico for wound care. 2. Poorly controlled diabetes. Patient states that usually he takes 10 units of NovoLog three times a day with every meal, and he has been getting much lower dose in the hospital. He also uses 70 units of Levemir once a day at night, and he has only been receiving 25 units twice a day in the hospital. PLAN: Discharge patient home tomorrow with Rocephin 2 grams IV every 24 hours with an end of therapy anticipated May 08. Weekly labs, CBC, CMP, ESR, CRP. Followup I my office in 2 weeks. Please call office for an appointment, . ANGELICAD
[2020-04-02] MEDS: DIMETHICONE 2% OINTMENT(VANICREAM) 70GM TUBE TOP SCH (11:29)
--- NOTE | 2020-04-02 13:21 | IPN ---
DATE: 04/02/2020 SUBJECTIVE: Patient seen and examined. Denies new complaints. He is anxious to go home. States he does have wound care appointment tomorrow. Vitals are reviewed. He has been afebrile. Labs reveal white blood cell count 10.1. CRP is continuing to trend down 3.66. Lower extremity examination erythema is improved. There is minimal necrotic tissue along the lateral and plantar wounds. There is no maceration. ASSESSMENT: A 64-year-old diabetic male with cellulitis, abscess, osteomyelitis. PLAN: Patient will be discharged with PICC line, antibiotics per infectious disease. He has follow-up with wound care center tomorrow. He should be discharged today. ИВАН
[2020-04-02 14:00] VITALS: BP 116/64
--- NOTE | 2020-04-02 15:55 | DS.PDOC ---
Discharge Summary General Date of Admission Mar 28, 2020 at 14:07 Date of Discharge 04/02/2020 Discharge Summary PROCEDURES PERFORMED DURING STAY: [None]. ADMITTING DIAGNOSES: 1. Diabetic foot ulcer with cellulitis of the right leg DISCHARGE DIAGNOSES: 1. R Foot osteomyelitis COMPLICATIONS/CHIEF COMPLAINT: Diabetic Foot Ulcer. HISTORY OF PRESENT ILLNESS: From admitting providers H&P: Mr. Kirby is a 64-year-old male with diabetes mellitus, CKD stage III, hypertension, and BPH who was sent here for right foot diabetic infection from Dr. Rico's office. Patient was recently here from 03/26/2020 to 03/27/2020 being treated with UTI, but then found to have right foot diabetic infection. The infection improved with IV antibiotics and he wanted to go Dr. Rcio. He went to Dr. Rico's office where he did aggressive debridement of necrotic tissue. He was then recommended to return to the hospital for more IV antibiotics. Podiatry and ID were also consulted. Otherwise, today, he denies any fever/chills, chest pain, dyspnea, abdominal pain, or dysuria. HOSPITAL COURSE: This is a 64 YO M with poorly controlled T2DM complicated by repeated foot ulcers requiring amputation of all 10 toes, CKD III, peripheral vascular disease who presented from Dr. Rico's office after debridement found to have osteomyelitis of the R foot involving the calcaneus, cuboid and 5th metatarsal. Podiatry and Infectious disease are currently consulted. Patient was found to have confirmed possible myelitis of his right foot on MRI and was recommended by ID to have 6 weeks of IV antibiotics. Patient obtain a PICC line and will be receiving IV ceftriaxone up until 05/12/2020. Patient will be fo llowing up with Dr. Rico wound care weekly in his office for wound debridement and with podiatry in the clinic as well as with infectious disease in 2 weeks after discharge. Patient is medically cleared and ready for discharge to home with home IV abx. # R Foot osteomyelitis: Afebrile. Leukocytosis resolved. ID consulted Dr Ramirez, recommends 6 weeks of IV ceftriaxone (end date May 12 2020). PICC line in place 03/31/2020. Fu with Dr Ramirez at office 2 in weeks. Weekly labs CBC, CMP, SRCRP. Fu with Dr Rico weekly for wound debridement (next appointment 04/03/2020). Fu with Dr amaya in clinic. # Poorly controlled DM2: Last HbA1c 11.8%. Levemir BID. Frequent Accu-Cheks. Hypoglycemic precautions # PAD: continue Plavix, statin. # CKD III: avoid nephrotoxins # HTN: Continue Amlodipine, Metoprolol # BPH: continue Flomax DISCHARGE MEDICATIONS: Please see below. ALLERGIES: Please see below. PHYSICAL EXAMINATION ON DISCHARGE: VITAL SIGNS: Please see below. Constitutional: Awake and alert, in no apparent distress ENT: Sclera are clear. Mucosa is moist. Respiratory: Lungs CTA bilaterally. No respiratory distress. No use of accessory muscles. Cardiovascular: RRR S1 and S2 are normal, no murmur Gastrointestinal: Abdomen is soft, non distended, non tender, BS present. Musculoskeletal: Right lower extremity stump with dressing in place. Neurologic: No focal neurological deficit. Mental Status: A&O x3, normal affect Skin: Warm, dry LABORATORY DATA: Please see below. IMAGING: EXAMINATION : BILAT LOWER EXTREM ARTERIAL Occlusion of the right greater saphenous vein in situ graft from mid thigh to its anastomosis with the proximal posterior tibial artery. Reconstitution mid posterior tibial artery. Occlusion right tibioperoneal trunk and proximal anterior tibial artery.Occlusion distal left anterior tibial artery Exam: MR Right Lower Extremity Other Than Joint Without Contrast; Foot Exam date and time: 03/28/2020 10:02 PM Osteomyelitis of the plantar hindfoot involving the calcaneus, cuboid and probably residual 5th metatarsal in a patient with transmetatarsal amputation and overlying plantar soft tissue phlegmon and ulceration. The osseous marrow edema and replacement involving the calcaneus and cuboid is new since the prior MRI from 2018 PROGNOSIS: fair ACTIVITY: [As tolerated]. DIET: diabetic diet DISPOSITION: home with home antibiotics DISCHARGE INSTRUCTIONS: Please follow up with your primary care physician within 1 week from discharge. If you do not have one, please follow up with us to schedule an appointment. Please keep all of your follow up appointments. Please call central to book your appointments with hospital specialists. Please take all your medications as prescribed. Please call/come to Clinic or go to the Emergency Department if - Temp >101, intractable Nausea/Vomiting, Diarrhea, Mouth sores, Headaches, Altered mental status, Seizures, sudden onset of swelling, bleeding, shortness of breath or chest pain. ITEMS TO FOLLOWUP ON ON OUTPATIENT: Follow-up with Dr. Stillerman wound care weekly for debridement Follow-up with infectious disease Dr. Ramirez in our office in 2 weeks DISCHARGE CONDITION: [Stable]. TIME SPENT ON DISCHARGE: Greater than 46 minutes. Vital Signs/I&Os Vital Signs Date Time Temp Pulse Resp B/P (MAP) Pulse Ox O2 Delivery O2 Flow Rate FiO2 04/02/20 14:00 98.3 87 18 116/64 (81) 95 Room Air I&O- Last 24 Hours up to 6 AM 04/02/20 06:00 Intake Total 2375 ml Output Total 2475 ml Balance -100 ml Laboratory Data Labs 24H Laboratory Tests 2 04/01/20 16:31: Bedside Glucose (Misc Panel) 212H 04/01/20 19:54: Bedside Glucose (Misc Panel) 310H 04/02/20 05:29: Nucleated Red Blood Cells % (auto) 0.0, Anion Gap 8, Glomerular Filtration Rate 26.6L, Calcium Level 8.4L, C-Reactive Protein, Quantitative 3.66H 04/02/20 11:33: Bedside Glucose (Misc Panel) 254H CBC/BMP Laboratory Tests 04/02/20 05:29 FSBS Laboratory Tests Test 04/01/20 16:31 04/01/20 19:54 04/02/20 11:33 Range/Units Bedside Glucose (Misc Panel) 212 310 254 80-115 MG/DL Microbiology Microbiology 03/28/20 Gram Stain - Final, Complete 03/28/20 Wound Culture - Final, Complete Strep Agalactiae Group B Discharge Medications Scheduled Amlodipine Besylate (Amlodipine Besylate) 5 Mg Tablet, 5 MG PO DAILY, (Reported) Clopidogrel Bisulfate (Clopidogrel) 75 Mg Tablet, 75 MG PO QHS, (Reported) Doxycycline Hyclate (Doxycycline Hyclate) 100 Mg Capsule, 100 MG PO BID, (Reported) Insulin Degludec (Tresiba Flextouch U-100) 100 Unit/Ml Inj, 70 UNIT SC QHS, (Reported) Insulin Human Lispro (Novolog) 100 Unit/1 Ml Vial, 1 DOSE SC AC, (Reported) PER SLIDING SCALE Levofloxacin (Levofloxacin) 250 Mg Tablet, 250 MG PO QHS, (Reported) Loratadine (Loratadine) 10 Mg Tablet, 10 MG PO DAILY, (Reported) Metoprolol Succinate (Metoprolol Succinate) 50 Mg Tab, 50 MG PO QHS, (Reported) Neomycin/Polymyxin B/Hydrocort (Jqqlzgxd-Bjttkyfvx-Hq Ear Susp) 10 Ml Drops.susp, 4 DROP AU QID, (Reported) Phenazopyridine HCl (Phenazopyridine HCl) 100 Mg Tablet, 100 MG PO PC, (Reported) Rosuvastatin Calcium (Rosuvastatin Calcium) 10 Mg Tablet, 10 MG PO QHS, (Reported) Sodium Bicarbonate (Sodium Bicarbonate) 650 Mg Tablet, 650 MG PO BID, (Reported) Tamsulosin HCl (Flomax) 0.4 Mg Capsule, 0.4 MG PO DAILY, (Reported) Scheduled PRN Benzonatate (Tessalon Perle) 100 Mg Capsule, 100 MG PO TID PRN for COUGH, (Reported) Allergies Coded Allergies: Contrast Media (Unverified Adverse Reaction, Intermediate, poor kidney function-can't have, 01/24/20) ERIKA ESCOBAR MD Apr 02, 2020 15:55
[2020-04-02] MEDS: cefTRIAXone SOD 2 GM in D5W MINI-BAG PLUS 50 ML IV SCH (16:08)
== END 2020-04-02 18:25 | disposition home health service (06) | DRG 638 ==
LOC: M MSPAV 14:07
PROVIDERS: ADMIT Internal Medicine; ATTEND Family Medicine
PROC: 02HV33Z Insertion of Infusion Device into Superior Vena Cava, Percutaneous Approach (ICD-10-PCS; principal; 2020-03-31 11:30)
DX: E11.621 Type 2 diabetes mellitus with foot ulcer (principal); M86.171 Other acute osteomyelitis, right ankle and foot; L03.115 Cellulitis of right lower limb; E11.69 Type 2 diabetes mellitus with other specified complication; E11.51 Type 2 diabetes mellitus with diabetic peripheral angiopathy without gangrene; I12.9 Hypertensive chronic kidney disease with stage 1 through stage 4 chronic kidney disease, or unspecified chronic kidney disease; N18.30 Chronic kidney disease, stage 3 unspecified; N40.0 Benign prostatic hyperplasia without lower urinary tract symptoms; L97.519 Non-pressure chronic ulcer of other part of right foot with unspecified severity; Z79.899 Other long term (current) drug therapy; Z79.4 Long term (current) use of insulin; Z91.041 Radiographic dye allergy status; E78.5 Hyperlipidemia, unspecified; Z89.421 Acquired absence of other right toe(s); Z89.422 Acquired absence of other left toe(s)

== ENCOUNTER → 2020-06-27 | Outpatient (REF) | payer MEDICARE ==
[~2020-06-27] MED LIST changes: -LORA-436 PO; +LORA-930 PO; -PHEN-593 PO; +PHEN1TAB73 PO
== END ==
LOC: M LAB REF 12:06
PROVIDERS: ATTEND Surgery
DX: E11.621 Type 2 diabetes mellitus with foot ulcer (principal); L03.115 Cellulitis of right lower limb

== ENCOUNTER → 2021-02-04 | Outpatient (REF) | payer MEDICARE ==
[~2021-02-04] MED LIST changes: -DOXY100C PO; +DOXY100C3 PO
== END ==
LOC: M LAB REF 16:10
PROVIDERS: ATTEND Surgery
DX: E11.621 Type 2 diabetes mellitus with foot ulcer (principal)

== ENCOUNTER → 2021-03-20 | Outpatient (REF) | payer MEDICARE ==
[~2021-03-20] MED LIST changes: -LEVO250T12 PO; +LEVO250T3 PO; -LEVO500T3 PO; +LEVO500T4 PO; +LOSA25TA13 PO; -LOSA25TA14 PO; +LOSA50TA28 PO; -LOSA50TA88 PO; +ROSU20TA5 PO; +TRES1INJ SQ
== END ==
LOC: M LAB REF 11:30
PROVIDERS: ATTEND Physician Assistant
DX: E11.621 Type 2 diabetes mellitus with foot ulcer (principal); L97.412 Non-pressure chronic ulcer of right heel and midfoot with fat layer exposed; L97.423 Non-pressure chronic ulcer of left heel and midfoot with necrosis of muscle

== ENCOUNTER 2021-03-25 12:11 | Inpatient (IN) | payer MEDICARE ==
[~2021-03-25] VITALS: Ht 177.8 cm; Wt 98.9 kg
[~2021-03-25 12:11] MED LIST changes: -ROSU20TA5 PO; -TRES1INJ SQ
[2021-03-25 12:45] VITALS: BP 151/83
[2021-03-25] MEDS ORDERED: PIPERACILLIN/TAZOBACTAM SOD 3.375 GM in D5W MINI-BAG PLUS 50 ML IV SCH (14:20)
[2021-03-25] MEDS ORDERED: VANCOMYCIN HCL 1,000 MG, VIAL MATE ADAPTER 1 EACH in NS 250 ML IV SCH (14:20)
[2021-03-25 14:22] LABS: HEMATOCRIT 31.1 % (42.0-52.0); HEMOGLOBIN 10.6 g/dl (13.5-17.5); MEAN CORPUSCULAR HEMOGLOBIN 28.4 pg (27.0-33.0); MEAN CORPUSCULAR HGB CONC 34.1 g/dl (32.0-36.5); MEAN CORPUSCULAR VOLUME 83.4 fl (80.0-96.0); PLATELET COUNT, AUTOMATED 378 10^3/uL (150-450); RED BLOOD COUNT 3.73 10^6/uL (4.30-6.10); WHITE BLOOD COUNT 24.5 10^3/uL (4.0-10.0)
[2021-03-25 14:32] LABS: INR 1.26; PROTHROMBIN TIME 16.3 SECONDS (12.7-14.5)
[2021-03-25 15:04] LABS: CREATININE FOR GFR 4.03 MG/DL (0.70-1.30); POTASSIUM SERUM 4.1 MEQ/L (3.5-5.1)
[2021-03-25 15:05] LABS: BILIRUBIN,TOTAL 0.4 MG/DL (0.2-1.0); CALCIUM LEVEL 9.1 MG/DL (8.8-10.2); TOTAL PROTEIN 6.9 GM/DL (6.4-8.2)
[2021-03-25] MEDS ORDERED: LIDOCAINE 1% MDV 20ML VIAL As Ordered ONE (15:28)
[2021-03-25] MEDS ORDERED: propofoL 200 MG/20 ML VIAL As Ordered ONE (15:28)
[2021-03-25] MEDS ORDERED: ONDANSETRON 4MG/2ML VIAL As Ordered ONE (15:28)
[2021-03-25] MEDS ORDERED: LIDOCAINE 2% 100MG/5ML SDV (FOR ANES.) As Ordered ONE (15:28)
[2021-03-25] MEDS ORDERED: fentaNYL 100 MCG/2 ML INJECTION As Ordered ONE (15:28)
[2021-03-25] MEDS ORDERED: METOCLOPRAMIDE INJ 10MG/2ML VIAL (J2765 PER 1) As Ordered ONE (15:29)
[2021-03-25] MEDS ORDERED: BUPIVACAINE HCL 0.5% 10ML VIAL As Ordered ONE (15:29)
[2021-03-25] MEDS ORDERED: MIDAZOLAM INJ 2MG/2ML VIAL (J2250 PER 1MG) As Ordered ONE (15:29)
[2021-03-25 18:00] VITALS: BP 147/69
[2021-03-25] MEDS ORDERED: TRES1INJ SQ (18:59)
[2021-03-25] MEDS ORDERED: ROSU20TA5 PO (18:59)
[2021-03-25] MEDS ORDERED: HOME MED LIST COMPLETE! XX SCH (19:00)
[2021-03-25] MEDS ORDERED: GLUCAGON INJ 1MG VIAL SC PRN (19:20)
[2021-03-25] MEDS ORDERED: DEXTROSE 50% 50 ML SYRINGE IV PRN (19:20)
[2021-03-25] MEDS ORDERED: GLUCOSE 4GM CHEW TABLET PO PRN (19:20)
[2021-03-25] MEDS: NS 1,000 ML IV SCH (20:20)
[2021-03-25] MEDS ORDERED: VANCOMYCIN HCL 1,000 MG, VIAL MATE ADAPTER 1 EACH in NS 250 ML IV ONE ×2 (21:00→22:00)
[2021-03-25] MEDS: HumaLOG INSULIN (NovoLOG) PER UNIT SC SCH (21:43)
[2021-03-25] MEDS: HEPARIN SOD (PORCINE) 5000UNITS/ML 1ML VIAL/SYRINGE SQ SCH (21:44)
[2021-03-25] MEDS: ROSUVASTATIN 10 MG TAB (CRESTOR) PO SCH (21:44)
[2021-03-25] MEDS: PIPERACILLIN/TAZOBACTAM SOD 2.25 GM in D5W MINI-BAG PLUS 50 ML IV SCH (21:44)
[2021-03-25] MEDS: LEVEMIR (INSULIN DETEMIR) 1 UNITS/0.01ML SC SCH (21:44)
[2021-03-25] MEDS: METOPROLOL SUCC (TopROL XL) 50MG **XL** TAB PO SCH (21:44)
[2021-03-25 22:00] VITALS: BP 140/75
[2021-03-25] MEDS ORDERED: VANCOMYCIN HCL 750 MG, VIAL MATE ADAPTER 1 EACH in NS 250 ML IV ONE (23:00)
[2021-03-26] MEDS ORDERED: VANCOMYCIN HCL 750 MG, VIAL MATE ADAPTER 1 EACH in NS 250 ML IV ONE ×3
[2021-03-26] MEDS: NS 1,000 ML IV SCH (03:51)
[2021-03-26] MEDS: PIPERACILLIN/TAZOBACTAM SOD 2.25 GM in D5W MINI-BAG PLUS 50 ML IV SCH ×4 (03:51→22:46)
[2021-03-26 06:38] LABS: HEMATOCRIT 26.3 % (42.0-52.0); MEAN CORPUSCULAR HEMOGLOBIN 28.9 pg (27.0-33.0); MEAN CORPUSCULAR HGB CONC 34.2 g/dl (32.0-36.5); MEAN CORPUSCULAR VOLUME 84.6 fl (80.0-96.0); NEUTROPHILS % 76.8 % (36.0-66.0); PLATELET COUNT, AUTOMATED 356 10^3/uL (150-450); RED BLOOD COUNT 3.11 10^6/uL (4.30-6.10); WHITE BLOOD COUNT 20.4 10^3/uL (4.0-10.0)
[2021-03-26 06:39] LABS: BASO # 0.1 10^3/uL (0.0-0.2); BASO % 0.2 % (0.0-1.0); EOS # 0.1 10^3/uL (0.0-0.5); EOS % 0.5 % (0.0-3.0); MONO # 1.7 10^3/uL (0.0-0.8); MONO % 8.3 % (2.0-8.0); NEUTROPHILS # 15.6 10^3/uL (1.5-8.5)
[2021-03-26 06:55] LABS: CALCIUM LEVEL 8.3 MG/DL (8.8-10.2); CREATININE FOR GFR 4.12 MG/DL (0.70-1.30); GLOMERULAR FILTRATION RATE 15.6 (>49); POTASSIUM SERUM 3.9 MEQ/L (3.5-5.1); VANCOMYCIN RANDOM 20.6 UG/ML
[2021-03-26 07:39] LABS: LYMPH # 2.6 10^3/uL (1.5-5.0)
[2021-03-26] MEDS: HumaLOG INSULIN (NovoLOG) PER UNIT SC SCH ×4 (08:06→21:00)
[2021-03-26] MEDS: HEPARIN SOD (PORCINE) 5000UNITS/ML 1ML VIAL/SYRINGE SQ SCH ×2 (08:07→21:24)
[2021-03-26] MEDS: LEVEMIR (INSULIN DETEMIR) 1 UNITS/0.01ML SC SCH ×2 (08:07→21:23)
[2021-03-26] MEDS ORDERED: LIDOCAINE 1% MDV 20ML VIAL As Ordered ONE (11:47)
[2021-03-26] MEDS: VANCOMYCIN HCL 500 MG in D5W MINI-BAG PLUS 100 ML IV SCH (12:52)
[2021-03-26 14:00] VITALS: BP 151/78
[2021-03-26] MEDS: SODIUM CHLORIDE 0.9% INJ 10 ML SYR IV SCH (17:07)
[2021-03-26 20:18] VITALS: BP 139/62
[2021-03-26] MEDS: ROSUVASTATIN 10 MG TAB (CRESTOR) PO SCH (21:24)
[2021-03-26] MEDS: METOPROLOL SUCC (TopROL XL) 50MG **XL** TAB PO SCH (21:24)
[2021-03-27] MEDS ORDERED: CALCIUM CARBONATE 500 MG CHEW U/D PO PRN (00:15)
[2021-03-27] MEDS: PIPERACILLIN/TAZOBACTAM SOD 2.25 GM in D5W MINI-BAG PLUS 50 ML IV SCH ×4 (04:14→21:39)
[2021-03-27] MEDS: SODIUM CHLORIDE 0.9% INJ 10 ML SYR IV SCH ×2 (05:48→17:10)
[2021-03-27 05:59] LABS: BASO # 0.1 10^3/uL (0.0-0.2); BASO % 0.4 % (0.0-1.0); EOS # 0.2 10^3/uL (0.0-0.5); EOS % 1.1 % (0.0-3.0); HEMATOCRIT 24.8 % (42.0-52.0); HEMOGLOBIN 8.3 g/dl (13.5-17.5); LYMPH # 2.2 10^3/uL (1.5-5.0); LYMPH % 13.3 % (24.0-44.0); MEAN CORPUSCULAR HEMOGLOBIN 28.8 pg (27.0-33.0); MEAN CORPUSCULAR HGB CONC 33.5 g/dl (32.0-36.5); MEAN CORPUSCULAR VOLUME 86.1 fl (80.0-96.0); MONO # 1.3 10^3/uL (0.0-0.8); NEUTROPHILS # 12.3 10^3/uL (1.5-8.5); NEUTROPHILS % 76.3 % (36.0-66.0); PLATELET COUNT, AUTOMATED 334 10^3/uL (150-450); RED BLOOD COUNT 2.88 10^6/uL (4.30-6.10); WHITE BLOOD COUNT 16.1 10^3/uL (4.0-10.0)
[2021-03-27 06:08] VITALS: BP 116/59
[2021-03-27 06:32] LABS: CALCIUM LEVEL 7.9 MG/DL (8.8-10.2); GLOMERULAR FILTRATION RATE 16.1 (>49); POTASSIUM SERUM 3.5 MEQ/L (3.5-5.1)
[2021-03-27] MEDS: LEVEMIR (INSULIN DETEMIR) 1 UNITS/0.01ML SC SCH (09:09)
[2021-03-27] MEDS: HumaLOG INSULIN (NovoLOG) PER UNIT SC SCH ×4 (09:10→21:00)
[2021-03-27] MEDS: HEPARIN SOD (PORCINE) 5000UNITS/ML 1ML VIAL/SYRINGE SQ SCH ×2 (09:10→21:39)
[2021-03-27] MEDS: VANCOMYCIN HCL 500 MG in D5W MINI-BAG PLUS 100 ML IV SCH (13:53)
[2021-03-27 15:00] VITALS: BP 148/80
[2021-03-27] MEDS ORDERED: POTASSIUM CHLORIDE 10MEQ SR TABLET PO ONE (18:15)
[2021-03-27 20:10] LABS: PERCENT SATURATION 17.5 % (19.7-50.0)
[2021-03-27] MEDS: ROSUVASTATIN 10 MG TAB (CRESTOR) PO SCH (21:39)
[2021-03-27] MEDS: METOPROLOL SUCC (TopROL XL) 50MG **XL** TAB PO SCH (21:39)
[2021-03-27 22:00] VITALS: BP 144/70
[2021-03-28] MEDS: PIPERACILLIN/TAZOBACTAM SOD 2.25 GM in D5W MINI-BAG PLUS 50 ML IV SCH (04:31)
[2021-03-28] MEDS: SODIUM CHLORIDE 0.9% INJ 10 ML SYR IV SCH ×2 (05:18→18:07)
[2021-03-28 05:34] LABS: BASO # 0.1 10^3/uL (0.0-0.2); BASO % 0.4 % (0.0-1.0); EOS # 0.2 10^3/uL (0.0-0.5); EOS % 1.7 % (0.0-3.0); HEMATOCRIT 25.4 % (42.0-52.0); HEMOGLOBIN 8.4 g/dl (13.5-17.5); LYMPH # 1.9 10^3/uL (1.5-5.0); LYMPH % 14.1 % (24.0-44.0); MEAN CORPUSCULAR HEMOGLOBIN 28.6 pg (27.0-33.0); MEAN CORPUSCULAR HGB CONC 33.1 g/dl (32.0-36.5); MEAN CORPUSCULAR VOLUME 86.4 fl (80.0-96.0); MONO # 0.8 10^3/uL (0.0-0.8); MONO % 6.4 % (2.0-8.0); NEUTROPHILS # 10.1 10^3/uL (1.5-8.5); NEUTROPHILS % 76.3 % (36.0-66.0); PLATELET COUNT, AUTOMATED 342 10^3/uL (150-450); RED BLOOD COUNT 2.94 10^6/uL (4.30-6.10); WHITE BLOOD COUNT 13.2 10^3/uL (4.0-10.0)
[2021-03-28 05:54] LABS: CALCIUM LEVEL 7.9 MG/DL (8.8-10.2); CREATININE FOR GFR 3.74 MG/DL (0.70-1.30); GLOMERULAR FILTRATION RATE 17.4 (>49); POTASSIUM SERUM 4.2 MEQ/L (3.5-5.1)
[2021-03-28 06:00] VITALS: BP 141/69
[2021-03-28] MEDS: cefTRIAXone SOD 2 GM in D5W MINI-BAG PLUS 50 ML IV SCH (08:54)
[2021-03-28] MEDS: HEPARIN SOD (PORCINE) 5000UNITS/ML 1ML VIAL/SYRINGE SQ SCH ×2 (08:54→21:02)
[2021-03-28] MEDS: HumaLOG INSULIN (NovoLOG) PER UNIT SC SCH ×4 (08:55→21:00)
[2021-03-28] MEDS: LEVEMIR (INSULIN DETEMIR) 1 UNITS/0.01ML SC SCH (08:55)
[2021-03-28 14:00] VITALS: BP 160/83
[2021-03-28] MEDS: ROSUVASTATIN 10 MG TAB (CRESTOR) PO SCH (21:02)
[2021-03-28] MEDS: METOPROLOL SUCC (TopROL XL) 50MG **XL** TAB PO SCH (21:03)
[2021-03-28 22:00] VITALS: BP 166/83
[2021-03-29] MEDS: SODIUM CHLORIDE 0.9% INJ 10 ML SYR IV SCH ×2 (05:20→17:30)
[2021-03-29 05:39] LABS: BASO # 0.1 10^3/uL (0.0-0.2); BASO % 0.4 % (0.0-1.0); EOS # 0.3 10^3/uL (0.0-0.5); EOS % 1.9 % (0.0-3.0); HEMATOCRIT 27.2 % (42.0-52.0); HEMOGLOBIN 9.1 g/dl (13.5-17.5); LYMPH # 2.2 10^3/uL (1.5-5.0); LYMPH % 14.3 % (24.0-44.0); MEAN CORPUSCULAR HEMOGLOBIN 28.5 pg (27.0-33.0); MEAN CORPUSCULAR HGB CONC 33.5 g/dl (32.0-36.5); MEAN CORPUSCULAR VOLUME 85.3 fl (80.0-96.0); MONO # 1.1 10^3/uL (0.0-0.8); MONO % 6.8 % (2.0-8.0); NEUTROPHILS # 11.8 10^3/uL (1.5-8.5); NEUTROPHILS % 75.8 % (36.0-66.0); PLATELET COUNT, AUTOMATED 390 10^3/uL (150-450); RED BLOOD COUNT 3.19 10^6/uL (4.30-6.10); WHITE BLOOD COUNT 15.5 10^3/uL (4.0-10.0)
[2021-03-29 06:00] VITALS: BP 159/73
[2021-03-29 06:05] LABS: CALCIUM LEVEL 7.9 MG/DL (8.8-10.2); CREATININE FOR GFR 3.3 MG/DL (0.70-1.30); GLOMERULAR FILTRATION RATE 20.1 (>49); POTASSIUM SERUM 3.9 MEQ/L (3.5-5.1)
[2021-03-29 07:36] LABS: C REACTIVE PROTEIN QUANTITATIV 9.07 MG/DL (0.00-0.30); MAGNESIUM LEVEL 1.6 MG/DL (1.8-2.4); PHOSPHORUS LEVEL 3.5 MG/DL (2.5-4.9)
[2021-03-29] MEDS: cefTRIAXone SOD 2 GM in D5W MINI-BAG PLUS 50 ML IV SCH (07:50)
[2021-03-29] MEDS: LEVEMIR (INSULIN DETEMIR) 1 UNITS/0.01ML SC SCH ×2 (07:50→20:43)
[2021-03-29] MEDS: HEPARIN SOD (PORCINE) 5000UNITS/ML 1ML VIAL/SYRINGE SQ SCH ×2 (07:51→20:43)
[2021-03-29] MEDS: HumaLOG INSULIN (NovoLOG) PER UNIT SC SCH ×4 (07:51→20:35)
[2021-03-29] MEDS ORDERED: NS 1,000 ML IV ONE (08:00)
[2021-03-29 14:00] VITALS: BP 166/85
[2021-03-29] MEDS: ACETAMINOPHEN TAB 650MG DOSE (2X325MG) PO PRN (20:43)
[2021-03-29] MEDS: METOPROLOL SUCC (TopROL XL) 50MG **XL** TAB PO SCH (20:44)
[2021-03-29] MEDS: ONDANSETRON 4 MG ORAL DISINTEGRATING TAB PO PRN (20:44)
[2021-03-29] MEDS: ROSUVASTATIN 10 MG TAB (CRESTOR) PO SCH (20:44)
[2021-03-29 21:40] VITALS: BP 172/85
[2021-03-30] MEDS: SODIUM CHLORIDE 0.9% INJ 10 ML SYR IV SCH ×2 (05:38→17:55)
[2021-03-30 06:00] VITALS: BP 164/84
[2021-03-30 06:12] LABS: BASO # 0.1 10^3/uL (0.0-0.2); BASO % 0.5 % (0.0-1.0); EOS # 0.3 10^3/uL (0.0-0.5); EOS % 2.5 % (0.0-3.0); HEMATOCRIT 28.1 % (42.0-52.0); HEMOGLOBIN 9.2 g/dl (13.5-17.5); LYMPH # 2.2 10^3/uL (1.5-5.0); LYMPH % 16.6 % (24.0-44.0); MEAN CORPUSCULAR HEMOGLOBIN 28.2 pg (27.0-33.0); MEAN CORPUSCULAR HGB CONC 32.7 g/dl (32.0-36.5); MEAN CORPUSCULAR VOLUME 86.2 fl (80.0-96.0); MONO % 7.6 % (2.0-8.0); NEUTROPHILS # 9.4 10^3/uL (1.5-8.5); NEUTROPHILS % 71.8 % (36.0-66.0); PLATELET COUNT, AUTOMATED 375 10^3/uL (150-450); RED BLOOD COUNT 3.26 10^6/uL (4.30-6.10); WHITE BLOOD COUNT 13.2 10^3/uL (4.0-10.0)
[2021-03-30 06:32] LABS: CALCIUM LEVEL 8.6 MG/DL (8.8-10.2); CREATININE FOR GFR 3.05 MG/DL (0.70-1.30); MAGNESIUM LEVEL 1.8 MG/DL (1.8-2.4); POTASSIUM SERUM 3.8 MEQ/L (3.5-5.1)
[2021-03-30] MEDS: cefTRIAXone SOD 2 GM in D5W MINI-BAG PLUS 50 ML IV SCH (08:53)
[2021-03-30] MEDS: LEVEMIR (INSULIN DETEMIR) 1 UNITS/0.01ML SC SCH ×2 (08:55→21:19)
[2021-03-30] MEDS: HumaLOG INSULIN (NovoLOG) PER UNIT SC SCH ×4 (08:55→21:00)
[2021-03-30] MEDS: HEPARIN SOD (PORCINE) 5000UNITS/ML 1ML VIAL/SYRINGE SQ SCH ×2 (08:56→21:20)
[2021-03-30 14:00] VITALS: BP 150/76
[2021-03-30] MEDS: ROSUVASTATIN 10 MG TAB (CRESTOR) PO SCH (21:20)
[2021-03-30] MEDS: METOPROLOL SUCC (TopROL XL) 50MG **XL** TAB PO SCH (21:20)
[2021-03-30 22:00] VITALS: BP 157/81
[2021-03-31] MEDS: SODIUM CHLORIDE 0.9% INJ 10 ML SYR IV SCH ×2 (05:02→09:27)
[2021-03-31 05:31] LABS: BASO # 0.1 10^3/uL (0.0-0.2); BASO % 0.4 % (0.0-1.0); EOS # 0.5 10^3/uL (0.0-0.5); EOS % 3.6 % (0.0-3.0); HEMATOCRIT 27.9 % (42.0-52.0); HEMOGLOBIN 9.1 g/dl (13.5-17.5); LYMPH # 2.6 10^3/uL (1.5-5.0); LYMPH % 19.8 % (24.0-44.0); MEAN CORPUSCULAR HEMOGLOBIN 28.3 pg (27.0-33.0); MEAN CORPUSCULAR HGB CONC 32.6 g/dl (32.0-36.5); MEAN CORPUSCULAR VOLUME 86.6 fl (80.0-96.0); MONO % 7.9 % (2.0-8.0); NEUTROPHILS # 8.7 10^3/uL (1.5-8.5); NEUTROPHILS % 66.9 % (36.0-66.0); PLATELET COUNT, AUTOMATED 400 10^3/uL (150-450); RED BLOOD COUNT 3.22 10^6/uL (4.30-6.10); WHITE BLOOD COUNT 13.1 10^3/uL (4.0-10.0)
[2021-03-31 05:51] LABS: CALCIUM LEVEL 8.3 MG/DL (8.8-10.2); CREATININE FOR GFR 2.87 MG/DL (0.70-1.30); GLOMERULAR FILTRATION RATE 23.6 (>49); POTASSIUM SERUM 4.2 MEQ/L (3.5-5.1)
[2021-03-31 06:00] VITALS: BP 149/77
[2021-03-31] MEDS: HumaLOG INSULIN (NovoLOG) PER UNIT SC SCH ×4 (08:22→21:00)
[2021-03-31] MEDS: LEVEMIR (INSULIN DETEMIR) 1 UNITS/0.01ML SC SCH ×2 (08:22→21:15)
[2021-03-31] MEDS: HEPARIN SOD (PORCINE) 5000UNITS/ML 1ML VIAL/SYRINGE SQ SCH ×2 (08:23→21:16)
[2021-03-31] MEDS: cefTRIAXone SOD 2 GM in D5W MINI-BAG PLUS 50 ML IV SCH (08:23)
[2021-03-31 14:00] VITALS: BP 137/76
[2021-03-31] MEDS: METOPROLOL SUCC (TopROL XL) 50MG **XL** TAB PO SCH (21:15)
[2021-03-31] MEDS: ROSUVASTATIN 10 MG TAB (CRESTOR) PO SCH (21:16)
[2021-03-31 22:00] VITALS: BP_SYST 158; BP_SYST 159; BP_DIAS 67; BP_DIAS 77
[2021-04-01] MEDS: ACETAMINOPHEN TAB 650MG DOSE (2X325MG) PO PRN (01:52)
[2021-04-01] MEDS: SODIUM CHLORIDE 0.9% INJ 10 ML SYR IV SCH ×2 (05:19→08:28)
[2021-04-01 05:38] LABS: BASO # 0.1 10^3/uL (0.0-0.2); BASO % 0.6 % (0.0-1.0); EOS # 0.4 10^3/uL (0.0-0.5); EOS % 3.1 % (0.0-3.0); HEMATOCRIT 27.4 % (42.0-52.0); HEMOGLOBIN 8.9 g/dl (13.5-17.5); LYMPH # 2.3 10^3/uL (1.5-5.0); MEAN CORPUSCULAR HEMOGLOBIN 27.8 pg (27.0-33.0); MEAN CORPUSCULAR HGB CONC 32.5 g/dl (32.0-36.5); MEAN CORPUSCULAR VOLUME 85.6 fl (80.0-96.0); MONO # 0.9 10^3/uL (0.0-0.8); MONO % 8.3 % (2.0-8.0); NEUTROPHILS # 7.3 10^3/uL (1.5-8.5); NEUTROPHILS % 65.5 % (36.0-66.0); PLATELET COUNT, AUTOMATED 390 10^3/uL (150-450); WHITE BLOOD COUNT 11.1 10^3/uL (4.0-10.0)
[2021-04-01 06:00] VITALS: BP 147/72
[2021-04-01 06:01] LABS: C REACTIVE PROTEIN QUANTITATIV 7.82 MG/DL (0.00-0.30); CALCIUM LEVEL 8.7 MG/DL (8.8-10.2); CREATININE FOR GFR 2.75 MG/DL (0.70-1.30); GLOMERULAR FILTRATION RATE 24.8 (>49); POTASSIUM SERUM 3.9 MEQ/L (3.5-5.1)
[2021-04-01] MEDS: HumaLOG INSULIN (NovoLOG) PER UNIT SC SCH ×4 (08:28→21:00)
[2021-04-01] MEDS: cefTRIAXone SOD 2 GM in D5W MINI-BAG PLUS 50 ML IV SCH (08:28)
[2021-04-01] MEDS: HEPARIN SOD (PORCINE) 5000UNITS/ML 1ML VIAL/SYRINGE SQ SCH ×2 (08:28→21:45)
[2021-04-01] MEDS: LEVEMIR (INSULIN DETEMIR) 1 UNITS/0.01ML SC SCH ×2 (08:28→21:46)
[2021-04-01 13:32] VITALS: BP 150/78
[2021-04-01] MEDS: LACTOBACILLUS ACIDOPHILUS CAP (BACID) PO SCH (21:45)
[2021-04-01] MEDS: ROSUVASTATIN 10 MG TAB (CRESTOR) PO SCH (21:45)
[2021-04-01] MEDS: METOPROLOL SUCC (TopROL XL) 50MG **XL** TAB PO SCH (21:45)
[2021-04-01 22:00] VITALS: BP 158/78
[2021-04-02 06:00] VITALS: BP 148/76
[2021-04-02] MEDS: SODIUM CHLORIDE 0.9% INJ 10 ML SYR IV SCH ×2 (06:37→18:12)
[2021-04-02] MEDS: cefTRIAXone SOD 2 GM in D5W MINI-BAG PLUS 50 ML IV SCH (08:43)
[2021-04-02] MEDS: HumaLOG INSULIN (NovoLOG) PER UNIT SC SCH ×4 (08:43→21:00)
[2021-04-02] MEDS: LEVEMIR (INSULIN DETEMIR) 1 UNITS/0.01ML SC SCH ×2 (08:44→22:11)
[2021-04-02] MEDS: HEPARIN SOD (PORCINE) 5000UNITS/ML 1ML VIAL/SYRINGE SQ SCH ×2 (09:05→21:00)
[2021-04-02 09:34] LABS: BASO # 0.1 10^3/uL (0.0-0.2); BASO % 0.6 % (0.0-1.0); EOS # 0.3 10^3/uL (0.0-0.5); HEMOGLOBIN 9.7 g/dl (13.5-17.5); LYMPH # 2.3 10^3/uL (1.5-5.0); LYMPH % 19.6 % (24.0-44.0); MEAN CORPUSCULAR HGB CONC 32.3 g/dl (32.0-36.5); MEAN CORPUSCULAR VOLUME 86.7 fl (80.0-96.0); MONO # 0.9 10^3/uL (0.0-0.8); MONO % 8.1 % (2.0-8.0); NEUTROPHILS # 7.7 10^3/uL (1.5-8.5); NEUTROPHILS % 66.9 % (36.0-66.0); PLATELET COUNT, AUTOMATED 436 10^3/uL (150-450); RED BLOOD COUNT 3.46 10^6/uL (4.30-6.10); WHITE BLOOD COUNT 11.5 10^3/uL (4.0-10.0)
[2021-04-02] MEDS: LACTOBACILLUS ACIDOPHILUS CAP (BACID) PO SCH ×2 (09:35→22:11)
[2021-04-02 10:05] LABS: CALCIUM LEVEL 8.9 MG/DL (8.8-10.2); CREATININE FOR GFR 2.84 MG/DL (0.70-1.30); GLOMERULAR FILTRATION RATE 23.9 (>49); POTASSIUM SERUM 4.3 MEQ/L (3.5-5.1)
[2021-04-02 14:00] VITALS: BP 141/74
[2021-04-02 22:00] VITALS: BP 161/74
[2021-04-02] MEDS: METOPROLOL SUCC (TopROL XL) 50MG **XL** TAB PO SCH (22:11)
[2021-04-02] MEDS: ROSUVASTATIN 10 MG TAB (CRESTOR) PO SCH (22:11)
[2021-04-03] VITALS (12 sets, daily range): BP systolic 102–172; BP diastolic 53–83
[2021-04-03] MEDS: SODIUM CHLORIDE 0.9% INJ 10 ML SYR IV SCH ×2 (05:11→18:26)
[2021-04-03 05:30] LABS: BASO # 0.1 10^3/uL (0.0-0.2); BASO % 0.6 % (0.0-1.0); EOS # 0.4 10^3/uL (0.0-0.5); EOS % 3.5 % (0.0-3.0); HEMATOCRIT 28.4 % (42.0-52.0); HEMOGLOBIN 9.2 g/dl (13.5-17.5); LYMPH # 2.4 10^3/uL (1.5-5.0); LYMPH % 23.7 % (24.0-44.0); MEAN CORPUSCULAR HEMOGLOBIN 27.9 pg (27.0-33.0); MEAN CORPUSCULAR HGB CONC 32.4 g/dl (32.0-36.5); MEAN CORPUSCULAR VOLUME 86.1 fl (80.0-96.0); MONO # 0.8 10^3/uL (0.0-0.8); MONO % 8.1 % (2.0-8.0); NEUTROPHILS # 6.4 10^3/uL (1.5-8.5); NEUTROPHILS % 62.6 % (36.0-66.0); PLATELET COUNT, AUTOMATED 388 10^3/uL (150-450); WHITE BLOOD COUNT 10.2 10^3/uL (4.0-10.0)
[2021-04-03 05:58] LABS: CALCIUM LEVEL 8.7 MG/DL (8.8-10.2); GLOMERULAR FILTRATION RATE 22.5 (>49); POTASSIUM SERUM 4.5 MEQ/L (3.5-5.1)
[2021-04-03] MEDS: HumaLOG INSULIN (NovoLOG) PER UNIT SC SCH ×4 (07:30→20:28)
[2021-04-03] MEDS: HEPARIN SOD (PORCINE) 5000UNITS/ML 1ML VIAL/SYRINGE SQ SCH ×2 (07:55→20:31)
[2021-04-03] MEDS: LEVEMIR (INSULIN DETEMIR) 1 UNITS/0.01ML SC SCH ×2 (08:50→20:30)
[2021-04-03] MEDS: LACTOBACILLUS ACIDOPHILUS CAP (BACID) PO SCH ×2 (08:50→20:30)
[2021-04-03] MEDS: cefTRIAXone SOD 2 GM in D5W MINI-BAG PLUS 50 ML IV SCH (08:50)
[2021-04-03] MEDS ORDERED: NS 1,000 ML IV SCH ×2 (09:00→16:30)
[2021-04-03] MEDS ORDERED: HYDROmorphone HCL 2MG/ML 1ML VIAL As Ordered ONE (13:18)
[2021-04-03] MEDS ORDERED: MIDAZOLAM INJ 2MG/2ML VIAL (J2250 PER 1MG) As Ordered ONE (13:18)
[2021-04-03] MEDS ORDERED: fentaNYL 100 MCG/2 ML INJECTION As Ordered ONE (13:18)
[2021-04-03] MEDS ORDERED: LIDOCAINE 2% 100MG/5ML SDV (FOR ANES.) As Ordered ONE (13:19)
[2021-04-03] MEDS ORDERED: ROCURONIUM BROMIDE 50 MG/5 ML VIAL As Ordered ONE ×2 (13:19→14:56)
[2021-04-03] MEDS ORDERED: propofoL 200 MG/20 ML VIAL As Ordered ONE (13:21)
[2021-04-03] MEDS ORDERED: fentaNYL 250 MCG/5 ML INJECTION As Ordered ONE (15:01)
[2021-04-03] MEDS ORDERED: PHENYLephrine 500MCG 5ML (100MCG/ML) SYRINGE As Ordered ONE ×2 (15:04→15:17)
[2021-04-03] MEDS ORDERED: METOCLOPRAMIDE INJ 10MG/2ML VIAL (J2765 PER 1) As Ordered ONE (15:13)
[2021-04-03] MEDS ORDERED: ACETAMINOPHEN 1000MG 100ML IV BTL (OFIRMEV) (J0131 PER 10MG) As Ordered ONE (15:15)
[2021-04-03] MEDS ORDERED: ePHEDrine SULFATE 25 MG/5 ML(5MG/ML) SYRINGE As Ordered ONE (15:17)
[2021-04-03] MEDS ORDERED: SUGAMMADEX SODIUM 500 MG/5 ML VIAL (BRIDION) As Ordered ONE (15:25)
[2021-04-03] MEDS ORDERED: ONDANSETRON 4MG/2ML VIAL As Ordered ONE (15:26)
[2021-04-03] MEDS ORDERED: fentaNYL 100 MCG/2 ML INJECTION IV PRN (16:30)
[2021-04-03] MEDS ORDERED: METOCLOPRAMIDE INJ 10MG/2ML VIAL (J2765 PER 1) IV PRN (16:30)
[2021-04-03] MEDS ORDERED: oxyCODONE 5MG TAB PO PRN (16:30)
[2021-04-03] MEDS ORDERED: ONDANSETRON 4MG/2ML VIAL IV PRN (16:30)
[2021-04-03] MEDS: ROSUVASTATIN 10 MG TAB (CRESTOR) PO SCH (20:30)
[2021-04-03] MEDS: METOPROLOL SUCC (TopROL XL) 50MG **XL** TAB PO SCH (20:31)
[2021-04-04 02:00] VITALS: BP 116/55
[2021-04-04] MEDS: SODIUM CHLORIDE 0.9% INJ 10 ML SYR IV SCH ×2 (05:05→16:48)
[2021-04-04 05:23] LABS: BASO # 0.1 10^3/uL (0.0-0.2); BASO % 0.6 % (0.0-1.0); EOS # 0.3 10^3/uL (0.0-0.5); HEMATOCRIT 27.3 % (42.0-52.0); HEMOGLOBIN 8.9 g/dl (13.5-17.5); LYMPH # 2.4 10^3/uL (1.5-5.0); LYMPH % 23.7 % (24.0-44.0); MEAN CORPUSCULAR HEMOGLOBIN 28.2 pg (27.0-33.0); MEAN CORPUSCULAR HGB CONC 32.6 g/dl (32.0-36.5); MEAN CORPUSCULAR VOLUME 86.4 fl (80.0-96.0); MONO # 0.8 10^3/uL (0.0-0.8); MONO % 8.1 % (2.0-8.0); NEUTROPHILS # 6.4 10^3/uL (1.5-8.5); NEUTROPHILS % 62.9 % (36.0-66.0); PLATELET COUNT, AUTOMATED 383 10^3/uL (150-450); RED BLOOD COUNT 3.16 10^6/uL (4.30-6.10); WHITE BLOOD COUNT 10.1 10^3/uL (4.0-10.0)
[2021-04-04 05:43] LABS: CALCIUM LEVEL 8.2 MG/DL (8.8-10.2); CREATININE FOR GFR 3.04 MG/DL (0.70-1.30); GLOMERULAR FILTRATION RATE 22.1 (>49); POTASSIUM SERUM 4.1 MEQ/L (3.5-5.1)
[2021-04-04 05:52] VITALS: BP 151/78
[2021-04-04] MEDS: HumaLOG INSULIN (NovoLOG) PER UNIT SC SCH ×4 (07:30→20:39)
[2021-04-04] MEDS: LEVEMIR (INSULIN DETEMIR) 1 UNITS/0.01ML SC SCH ×2 (09:00→20:39)
[2021-04-04] MEDS: LACTOBACILLUS ACIDOPHILUS CAP (BACID) PO SCH ×2 (10:17→20:39)
[2021-04-04] MEDS: cefTRIAXone SOD 2 GM in D5W MINI-BAG PLUS 50 ML IV SCH (10:18)
[2021-04-04] MEDS: HEPARIN SOD (PORCINE) 5000UNITS/ML 1ML VIAL/SYRINGE SQ SCH ×2 (10:18→20:42)
[2021-04-04] MEDS ORDERED: FERRIC CARBOXYMALTOSE INJ 750 MG, VIAL MATE ADAPTER 1 EACH in NS 250 ML IV ONE (12:00)
[2021-04-04 14:00] VITALS: BP 133/68
[2021-04-04] MEDS: METOPROLOL SUCC (TopROL XL) 50MG **XL** TAB PO SCH (20:40)
[2021-04-04] MEDS: ROSUVASTATIN 10 MG TAB (CRESTOR) PO SCH (20:40)
[2021-04-04 22:00] VITALS: BP 172/81
[2021-04-05] MEDS: SODIUM CHLORIDE 0.9% INJ 10 ML SYR IV SCH ×2 (05:18→17:58)
[2021-04-05 06:00] VITALS: BP 138/71
[2021-04-05 06:13] LABS: BASO # 0.1 10^3/uL (0.0-0.2); BASO % 0.7 % (0.0-1.0); EOS # 0.3 10^3/uL (0.0-0.5); EOS % 3.2 % (0.0-3.0); HEMATOCRIT 27.3 % (42.0-52.0); HEMOGLOBIN 8.8 g/dl (13.5-17.5); LYMPH # 2.5 10^3/uL (1.5-5.0); LYMPH % 22.9 % (24.0-44.0); MEAN CORPUSCULAR HGB CONC 32.2 g/dl (32.0-36.5); MEAN CORPUSCULAR VOLUME 86.9 fl (80.0-96.0); MONO % 8.9 % (2.0-8.0); NEUTROPHILS # 6.7 10^3/uL (1.5-8.5); NEUTROPHILS % 62.2 % (36.0-66.0); PLATELET COUNT, AUTOMATED 398 10^3/uL (150-450); RED BLOOD COUNT 3.14 10^6/uL (4.30-6.10); WHITE BLOOD COUNT 10.7 10^3/uL (4.0-10.0)
[2021-04-05 06:41] LABS: CALCIUM LEVEL 8.7 MG/DL (8.8-10.2); CREATININE FOR GFR 3.05 MG/DL (0.70-1.30); POTASSIUM SERUM 4.2 MEQ/L (3.5-5.1)
[2021-04-05] MEDS: HumaLOG INSULIN (NovoLOG) PER UNIT SC SCH ×4 (08:08→20:23)
[2021-04-05] MEDS: LEVEMIR (INSULIN DETEMIR) 1 UNITS/0.01ML SC SCH ×2 (08:28→20:23)
[2021-04-05] MEDS: HEPARIN SOD (PORCINE) 5000UNITS/ML 1ML VIAL/SYRINGE SQ SCH ×2 (08:28→20:24)
[2021-04-05] MEDS: cefTRIAXone SOD 2 GM in D5W MINI-BAG PLUS 50 ML IV SCH (08:29)
[2021-04-05] MEDS: LACTOBACILLUS ACIDOPHILUS CAP (BACID) PO SCH ×2 (08:29→20:22)
[2021-04-05] MEDS: SODIUM CHLORIDE 0.9% INJ 10 ML SYR IV PRN (08:29)
[2021-04-05] MEDS: ROSUVASTATIN 10 MG TAB (CRESTOR) PO SCH (20:23)
[2021-04-05] MEDS: METOPROLOL SUCC (TopROL XL) 50MG **XL** TAB PO SCH (20:23)
[2021-04-05 22:00] VITALS: BP 158/74
[2021-04-06] MEDS: SODIUM CHLORIDE 0.9% INJ 10 ML SYR IV SCH ×2 (05:15→17:59)
[2021-04-06 05:31] LABS: BASO # 0.1 10^3/uL (0.0-0.2); BASO % 0.6 % (0.0-1.0); EOS # 0.4 10^3/uL (0.0-0.5); EOS % 3.5 % (0.0-3.0); HEMATOCRIT 28.2 % (42.0-52.0); HEMOGLOBIN 9.1 g/dl (13.5-17.5); LYMPH # 2.7 10^3/uL (1.5-5.0); LYMPH % 21.3 % (24.0-44.0); MEAN CORPUSCULAR HEMOGLOBIN 28.1 pg (27.0-33.0); MEAN CORPUSCULAR HGB CONC 32.3 g/dl (32.0-36.5); MONO # 1.1 10^3/uL (0.0-0.8); MONO % 8.4 % (2.0-8.0); NEUTROPHILS % 64.7 % (36.0-66.0); PLATELET COUNT, AUTOMATED 389 10^3/uL (150-450); RED BLOOD COUNT 3.24 10^6/uL (4.30-6.10); WHITE BLOOD COUNT 12.5 10^3/uL (4.0-10.0)
[2021-04-06 05:54] LABS: CALCIUM LEVEL 8.7 MG/DL (8.8-10.2); CREATININE FOR GFR 2.95 MG/DL (0.70-1.30); GLOMERULAR FILTRATION RATE 22.9 (>49); POTASSIUM SERUM 4.2 MEQ/L (3.5-5.1)
[2021-04-06 06:00] VITALS: BP 113/67
[2021-04-06] MEDS: HEPARIN SOD (PORCINE) 5000UNITS/ML 1ML VIAL/SYRINGE SQ SCH ×2 (08:35→21:13)
[2021-04-06] MEDS: LACTOBACILLUS ACIDOPHILUS CAP (BACID) PO SCH ×2 (08:36→21:12)
[2021-04-06] MEDS: LEVEMIR (INSULIN DETEMIR) 1 UNITS/0.01ML SC SCH ×2 (08:37→21:00)
[2021-04-06] MEDS: HumaLOG INSULIN (NovoLOG) PER UNIT SC SCH ×4 (08:37→18:00)
[2021-04-06] MEDS: cefTRIAXone SOD 2 GM in D5W MINI-BAG PLUS 50 ML IV SCH (08:38)
[2021-04-06 13:23] LABS: C REACTIVE PROTEIN QUANTITATIV 2.37 MG/DL (0.00-0.30)
[2021-04-06 14:00] VITALS: BP 147/69
[2021-04-06] MEDS: D5W/0.9% SODIUM CHLORIDE 1,000 ML IV SCH (21:11)
[2021-04-06] MEDS: ROSUVASTATIN 10 MG TAB (CRESTOR) PO SCH (21:12)
[2021-04-06] MEDS: METOPROLOL SUCC (TopROL XL) 50MG **XL** TAB PO SCH (21:13)
[2021-04-06 22:00] VITALS: BP 146/71
[2021-04-07] MEDS: HumaLOG INSULIN (NovoLOG) PER UNIT SC SCH ×3 (00:09→12:00)
[2021-04-07 05:48] LABS: BASO # 0.1 10^3/uL (0.0-0.2); BASO % 0.6 % (0.0-1.0); EOS # 0.4 10^3/uL (0.0-0.5); EOS % 3.5 % (0.0-3.0); HEMATOCRIT 28.1 % (42.0-52.0); HEMOGLOBIN 9.1 g/dl (13.5-17.5); LYMPH # 2.6 10^3/uL (1.5-5.0); LYMPH % 24.2 % (24.0-44.0); MEAN CORPUSCULAR HEMOGLOBIN 28.1 pg (27.0-33.0); MEAN CORPUSCULAR HGB CONC 32.4 g/dl (32.0-36.5); MEAN CORPUSCULAR VOLUME 86.7 fl (80.0-96.0); MONO # 0.9 10^3/uL (0.0-0.8); MONO % 8.5 % (2.0-8.0); NEUTROPHILS # 6.5 10^3/uL (1.5-8.5); NEUTROPHILS % 60.7 % (36.0-66.0); PLATELET COUNT, AUTOMATED 382 10^3/uL (150-450); RED BLOOD COUNT 3.24 10^6/uL (4.30-6.10); WHITE BLOOD COUNT 10.8 10^3/uL (4.0-10.0)
[2021-04-07 06:00] VITALS: BP 135/72
[2021-04-07] MEDS: SODIUM CHLORIDE 0.9% INJ 10 ML SYR IV SCH ×2 (06:00→18:00)
[2021-04-07 06:12] LABS: CALCIUM LEVEL 8.4 MG/DL (8.8-10.2); CREATININE FOR GFR 2.92 MG/DL (0.70-1.30); GLOMERULAR FILTRATION RATE 23.2 (>49); POTASSIUM SERUM 4.3 MEQ/L (3.5-5.1)
[2021-04-07] MEDS: HEPARIN SOD (PORCINE) 5000UNITS/ML 1ML VIAL/SYRINGE SQ SCH ×2 (07:45→20:47)
[2021-04-07] MEDS: LEVEMIR (INSULIN DETEMIR) 1 UNITS/0.01ML SC SCH ×2 (07:47→21:22)
[2021-04-07] MEDS: LACTOBACILLUS ACIDOPHILUS CAP (BACID) PO SCH ×2 (08:11→20:45)
[2021-04-07] MEDS: D5W/0.9% SODIUM CHLORIDE 1,000 ML IV SCH (08:12)
[2021-04-07] MEDS: cefTRIAXone SOD 2 GM in D5W MINI-BAG PLUS 50 ML IV SCH (08:13)
[2021-04-07] MEDS: MIRALAX *UNIT DOSE* 17GM PACKET PO SCH (08:41)
[2021-04-07 14:00] VITALS: BP 161/87
[2021-04-07] MEDS ORDERED: BUPIVACAINE/EPIN 0.5% 30 ML VIAL As Ordered ONE (15:16)
[2021-04-07] MEDS ORDERED: LIDOCAINE 2% 100MG/5ML SDV (FOR ANES.) As Ordered ONE (16:08)
[2021-04-07] MEDS ORDERED: propofoL 200 MG/20 ML VIAL As Ordered ONE (16:08)
[2021-04-07] MEDS ORDERED: ROCURONIUM BROMIDE 50 MG/5 ML VIAL As Ordered ONE (16:08)
[2021-04-07] MEDS ORDERED: ONDANSETRON 4MG/2ML VIAL As Ordered ONE (16:08)
[2021-04-07] MEDS ORDERED: MIDAZOLAM INJ 2MG/2ML VIAL (J2250 PER 1MG) As Ordered ONE (16:09)
[2021-04-07] MEDS ORDERED: fentaNYL 250 MCG/5 ML INJECTION As Ordered ONE (16:09)
[2021-04-07] MEDS ORDERED: ePHEDrine SULFATE 25 MG/5 ML(5MG/ML) SYRINGE As Ordered ONE (16:54)
[2021-04-07] MEDS ORDERED: PHENYLephrine 500MCG 5ML (100MCG/ML) SYRINGE As Ordered ONE (17:33)
[2021-04-07] MEDS ORDERED: ACETAMINOPHEN 1000MG 100ML IV BTL (OFIRMEV) (J0131 PER 10MG) As Ordered ONE (18:05)
[2021-04-07] MEDS ORDERED: LACRILUBE (AKWA TEARS) OPHTH OINT 3.5 GM As Ordered ONE (18:07)
[2021-04-07] MEDS ORDERED: HYDROmorphone HCL 2MG/ML 1ML VIAL As Ordered ONE (18:21)
[2021-04-07] MEDS ORDERED: ONDANSETRON 4MG/2ML VIAL IV PRN (19:15)
[2021-04-07] MEDS ORDERED: LR 1,000 ML IV SCH (19:15)
[2021-04-07] MEDS ORDERED: oxyCODONE 5MG TAB PO PRN (19:15)
[2021-04-07] MEDS ORDERED: fentaNYL 100 MCG/2 ML INJECTION IV PRN (19:15)
[2021-04-07 20:00] VITALS: BP_SYST 150; BP_SYST 155; BP_DIAS 86
[2021-04-07] MEDS: ROSUVASTATIN 10 MG TAB (CRESTOR) PO SCH (20:45)
[2021-04-07] MEDS: METOPROLOL SUCC (TopROL XL) 50MG **XL** TAB PO SCH (20:46)
[2021-04-07] MEDS: ONDANSETRON 4 MG ORAL DISINTEGRATING TAB PO PRN (20:51)
[2021-04-07 21:00] VITALS: BP 149/80
[2021-04-07] MEDS: ACETAMINOPHEN TAB 650MG DOSE (2X325MG) PO PRN (21:22)
[2021-04-07 22:00] VITALS: BP 139/72
[2021-04-07 23:00] VITALS: BP 135/70
[2021-04-08] VITALS (7 sets, daily range): BP systolic 135–146; BP diastolic 75–81
[2021-04-08] MEDS: oxyCODONE 5MG TAB PO PRN ×3 (01:06→17:40)
[2021-04-08] MEDS: ACETAMINOPHEN TAB 650MG DOSE (2X325MG) PO PRN (03:42)
[2021-04-08] MEDS: SODIUM CHLORIDE 0.9% INJ 10 ML SYR IV SCH ×2 (05:13→17:40)
[2021-04-08 05:30] LABS: BASO # 0.1 10^3/uL (0.0-0.2); BASO % 0.5 % (0.0-1.0); EOS # 0.3 10^3/uL (0.0-0.5); EOS % 2.2 % (0.0-3.0); HEMATOCRIT 26.8 % (42.0-52.0); HEMOGLOBIN 8.6 g/dl (13.5-17.5); LYMPH # 2.7 10^3/uL (1.5-5.0); LYMPH % 17.6 % (24.0-44.0); MEAN CORPUSCULAR HGB CONC 32.1 g/dl (32.0-36.5); MEAN CORPUSCULAR VOLUME 87.3 fl (80.0-96.0); MONO # 1.1 10^3/uL (0.0-0.8); MONO % 6.9 % (2.0-8.0); NEUTROPHILS # 10.9 10^3/uL (1.5-8.5); NEUTROPHILS % 71.5 % (36.0-66.0); PLATELET COUNT, AUTOMATED 386 10^3/uL (150-450); RED BLOOD COUNT 3.07 10^6/uL (4.30-6.10); WHITE BLOOD COUNT 15.2 10^3/uL (4.0-10.0)
[2021-04-08 05:54] LABS: CALCIUM LEVEL 8.3 MG/DL (8.8-10.2); GLOMERULAR FILTRATION RATE 22.5 (>49); POTASSIUM SERUM 4.3 MEQ/L (3.5-5.1)
[2021-04-08] MEDS ORDERED: DARBEPOETIN 100 MCG/0.5 ML *NON-DIALYSIS* SYRINGE (J0881) SC SCH (09:00)
[2021-04-08] MEDS: HEPARIN SOD (PORCINE) 5000UNITS/ML 1ML VIAL/SYRINGE SQ SCH ×2 (09:56→20:56)
[2021-04-08] MEDS: MIRALAX *UNIT DOSE* 17GM PACKET PO SCH (09:56)
[2021-04-08] MEDS: cefTRIAXone SOD 2 GM in D5W MINI-BAG PLUS 50 ML IV SCH (09:56)
[2021-04-08] MEDS: LACTOBACILLUS ACIDOPHILUS CAP (BACID) PO SCH ×2 (09:57→20:55)
[2021-04-08] MEDS: LEVEMIR (INSULIN DETEMIR) 1 UNITS/0.01ML SC SCH ×2 (09:57→20:54)
[2021-04-08] MEDS: HumaLOG INSULIN (NovoLOG) PER UNIT SC SCH ×4 (09:58→21:00)
[2021-04-08] MEDS: MORPHINE 2 MG/ML 1ML VIAL (J2270) IV PRN ×2 (13:27→20:57)
[2021-04-08] MEDS: ROSUVASTATIN 10 MG TAB (CRESTOR) PO SCH (20:55)
[2021-04-08] MEDS: METOPROLOL SUCC (TopROL XL) 50MG **XL** TAB PO SCH (20:55)
[2021-04-08] MEDS: SODIUM CHLORIDE 0.9% INJ 10 ML SYR IV PRN (20:56)
[2021-04-09] MEDS: SODIUM CHLORIDE 0.9% INJ 10 ML SYR IV SCH ×2 (05:18→17:32)
[2021-04-09 05:28] LABS: BASO # 0.1 10^3/uL (0.0-0.2); BASO % 0.6 % (0.0-1.0); EOS # 0.4 10^3/uL (0.0-0.5); HEMATOCRIT 25.6 % (42.0-52.0); LYMPH # 2.4 10^3/uL (1.5-5.0); LYMPH % 18.8 % (24.0-44.0); MEAN CORPUSCULAR HGB CONC 31.3 g/dl (32.0-36.5); MEAN CORPUSCULAR VOLUME 89.5 fl (80.0-96.0); MONO # 1.2 10^3/uL (0.0-0.8); MONO % 9.1 % (2.0-8.0); NEUTROPHILS # 8.6 10^3/uL (1.5-8.5); NEUTROPHILS % 67.2 % (36.0-66.0); PLATELET COUNT, AUTOMATED 363 10^3/uL (150-450); RED BLOOD COUNT 2.86 10^6/uL (4.30-6.10); WHITE BLOOD COUNT 12.8 10^3/uL (4.0-10.0)
[2021-04-09] MEDS: oxyCODONE 5MG TAB PO PRN ×2 (05:35→18:21)
[2021-04-09 05:56] LABS: CALCIUM LEVEL 8.2 MG/DL (8.8-10.2); CREATININE FOR GFR 3.2 MG/DL (0.70-1.30); GLOMERULAR FILTRATION RATE 20.9 (>49); POTASSIUM SERUM 4.4 MEQ/L (3.5-5.1)
[2021-04-09 06:00] VITALS: BP 137/73
[2021-04-09] MEDS: HumaLOG INSULIN (NovoLOG) PER UNIT SC SCH ×4 (06:56→20:45)
[2021-04-09] MEDS: MORPHINE 2 MG/ML 1ML VIAL (J2270) IV PRN (09:00)
[2021-04-09] MEDS: LEVEMIR (INSULIN DETEMIR) 1 UNITS/0.01ML SC SCH ×2 (09:00→20:45)
[2021-04-09] MEDS: MIRALAX *UNIT DOSE* 17GM PACKET PO SCH (09:04)
[2021-04-09] MEDS: LACTOBACILLUS ACIDOPHILUS CAP (BACID) PO SCH ×2 (09:05→20:44)
[2021-04-09] MEDS: HEPARIN SOD (PORCINE) 5000UNITS/ML 1ML VIAL/SYRINGE SQ SCH ×2 (09:06→20:46)
[2021-04-09] MEDS: cefTRIAXone SOD 2 GM in D5W MINI-BAG PLUS 50 ML IV SCH (09:08)
[2021-04-09 14:00] VITALS: BP 134/71
[2021-04-09] MEDS: METOPROLOL SUCC (TopROL XL) 50MG **XL** TAB PO SCH (20:44)
[2021-04-09] MEDS: ROSUVASTATIN 10 MG TAB (CRESTOR) PO SCH (20:45)
[2021-04-09 22:00] VITALS: BP 148/68
[2021-04-10 06:00] VITALS: BP 127/66
[2021-04-10] MEDS: SODIUM CHLORIDE 0.9% INJ 10 ML SYR IV SCH ×2 (06:14→17:55)
[2021-04-10] MEDS: HumaLOG INSULIN (NovoLOG) PER UNIT SC SCH ×4 (07:30→20:46)
[2021-04-10] MEDS: cefTRIAXone SOD 2 GM in D5W MINI-BAG PLUS 50 ML IV SCH (09:19)
[2021-04-10] MEDS: LEVEMIR (INSULIN DETEMIR) 1 UNITS/0.01ML SC SCH ×2 (09:19→20:45)
[2021-04-10] MEDS: LACTOBACILLUS ACIDOPHILUS CAP (BACID) PO SCH ×2 (09:20→20:46)
[2021-04-10] MEDS: HEPARIN SOD (PORCINE) 5000UNITS/ML 1ML VIAL/SYRINGE SQ SCH ×2 (09:20→20:47)
[2021-04-10] MEDS: MIRALAX *UNIT DOSE* 17GM PACKET PO SCH (09:22)
[2021-04-10 09:59] LABS: BASO # 0.1 10^3/uL (0.0-0.2); BASO % 0.5 % (0.0-1.0); EOS # 0.4 10^3/uL (0.0-0.5); HEMATOCRIT 24.7 % (42.0-52.0); HEMOGLOBIN 7.7 g/dl (13.5-17.5); LYMPH # 2.1 10^3/uL (1.5-5.0); LYMPH % 16.1 % (24.0-44.0); MEAN CORPUSCULAR HEMOGLOBIN 28.2 pg (27.0-33.0); MEAN CORPUSCULAR HGB CONC 31.2 g/dl (32.0-36.5); MEAN CORPUSCULAR VOLUME 90.5 fl (80.0-96.0); MONO # 1.2 10^3/uL (0.0-0.8); MONO % 9.1 % (2.0-8.0); NEUTROPHILS % 69.8 % (36.0-66.0); PLATELET COUNT, AUTOMATED 364 10^3/uL (150-450); RED BLOOD COUNT 2.73 10^6/uL (4.30-6.10); WHITE BLOOD COUNT 12.9 10^3/uL (4.0-10.0)
[2021-04-10] MEDS: SODIUM CHLORIDE 0.9% INJ 10 ML SYR IV PRN (10:33)
[2021-04-10 10:37] LABS: CALCIUM LEVEL 8.3 MG/DL (8.8-10.2); CREATININE FOR GFR 3.15 MG/DL (0.70-1.30); GLOMERULAR FILTRATION RATE 21.2 (>49); MAGNESIUM LEVEL 1.8 MG/DL (1.8-2.4); POTASSIUM SERUM 4.7 MEQ/L (3.5-5.1)
[2021-04-10] MEDS: SENOKOT S TAB PO SCH ×2 (13:25→20:46)
[2021-04-10 14:05] VITALS: BP 135/75
[2021-04-10] MEDS: METOPROLOL SUCC (TopROL XL) 50MG **XL** TAB PO SCH (20:46)
[2021-04-10] MEDS: ROSUVASTATIN 10 MG TAB (CRESTOR) PO SCH (20:46)
[2021-04-10 22:00] VITALS: BP 139/74
[2021-04-11] MEDS: SODIUM CHLORIDE 0.9% INJ 10 ML SYR IV SCH ×2 (05:31→18:00)
[2021-04-11 05:46] LABS: HEMATOCRIT 25.2 % (42.0-52.0); MEAN CORPUSCULAR HEMOGLOBIN 28.5 pg (27.0-33.0); MEAN CORPUSCULAR HGB CONC 31.7 g/dl (32.0-36.5); MEAN CORPUSCULAR VOLUME 89.7 fl (80.0-96.0); PLATELET COUNT, AUTOMATED 370 10^3/uL (150-450); RED BLOOD COUNT 2.81 10^6/uL (4.30-6.10); WHITE BLOOD COUNT 13.4 10^3/uL (4.0-10.0)
[2021-04-11 06:00] VITALS: BP 125/75
[2021-04-11 06:05] LABS: CALCIUM LEVEL 8.5 MG/DL (8.8-10.2); CREATININE FOR GFR 3.07 MG/DL (0.70-1.30); GLOMERULAR FILTRATION RATE 21.9 (>49); POTASSIUM SERUM 4.4 MEQ/L (3.5-5.1)
[2021-04-11] MEDS: LEVEMIR (INSULIN DETEMIR) 1 UNITS/0.01ML SC SCH ×2 (08:48→20:22)
[2021-04-11] MEDS: cefTRIAXone SOD 2 GM in D5W MINI-BAG PLUS 50 ML IV SCH (08:49)
[2021-04-11] MEDS: HumaLOG INSULIN (NovoLOG) PER UNIT SC SCH ×4 (08:49→20:22)
[2021-04-11] MEDS: SENOKOT S TAB PO SCH ×2 (08:49→20:22)
[2021-04-11] MEDS: HEPARIN SOD (PORCINE) 5000UNITS/ML 1ML VIAL/SYRINGE SQ SCH ×2 (08:49→20:23)
[2021-04-11] MEDS: MIRALAX *UNIT DOSE* 17GM PACKET PO SCH (08:50)
[2021-04-11] MEDS: LACTOBACILLUS ACIDOPHILUS CAP (BACID) PO SCH ×2 (08:51→20:24)
[2021-04-11] MEDS: SODIUM CHLORIDE 0.9% INJ 10 ML SYR IV PRN (09:36)
[2021-04-11] MEDS ORDERED: FERRIC CARBOXYMALTOSE INJ 750 MG, VIAL MATE ADAPTER 1 EACH in NS 250 ML IV ONE (13:00)
[2021-04-11 13:34] VITALS: BP 126/69
[2021-04-11 14:00] VITALS: BP 117/69
[2021-04-11] MEDS: ROSUVASTATIN 10 MG TAB (CRESTOR) PO SCH (20:22)
[2021-04-11] MEDS: METOPROLOL SUCC (TopROL XL) 50MG **XL** TAB PO SCH (20:23)
[2021-04-11 22:00] VITALS: BP 133/69
[2021-04-12] MEDS: SODIUM CHLORIDE 0.9% INJ 10 ML SYR IV SCH ×2 (04:53→17:06)
[2021-04-12 05:07] LABS: HEMATOCRIT 25.9 % (42.0-52.0); HEMOGLOBIN 8.4 g/dl (13.5-17.5); MEAN CORPUSCULAR HGB CONC 32.4 g/dl (32.0-36.5); MEAN CORPUSCULAR VOLUME 89.3 fl (80.0-96.0); PLATELET COUNT, AUTOMATED 403 10^3/uL (150-450); WHITE BLOOD COUNT 11.3 10^3/uL (4.0-10.0)
[2021-04-12 05:45] LABS: CREATININE FOR GFR 2.93 MG/DL (0.70-1.30); GLOMERULAR FILTRATION RATE 23.1 (>49); MAGNESIUM LEVEL 2.1 MG/DL (1.8-2.4); POTASSIUM SERUM 4.2 MEQ/L (3.5-5.1)
[2021-04-12] MEDS: LEVEMIR (INSULIN DETEMIR) 1 UNITS/0.01ML SC SCH ×2 (08:09→20:29)
[2021-04-12] MEDS: LACTOBACILLUS ACIDOPHILUS CAP (BACID) PO SCH ×2 (08:10→20:30)
[2021-04-12] MEDS: HEPARIN SOD (PORCINE) 5000UNITS/ML 1ML VIAL/SYRINGE SQ SCH ×2 (08:10→20:30)
[2021-04-12] MEDS: SENOKOT S TAB PO SCH ×2 (08:10→20:30)
[2021-04-12] MEDS: MIRALAX *UNIT DOSE* 17GM PACKET PO SCH (08:10)
[2021-04-12] MEDS: HumaLOG INSULIN (NovoLOG) PER UNIT SC SCH ×4 (08:11→20:28)
[2021-04-12 14:00] VITALS: BP 143/71
[2021-04-12] MEDS: METOPROLOL SUCC (TopROL XL) 50MG **XL** TAB PO SCH (20:29)
[2021-04-12] MEDS: ROSUVASTATIN 10 MG TAB (CRESTOR) PO SCH (20:30)
[2021-04-12 22:00] VITALS: BP 136/76
[2021-04-13] MEDS: SODIUM CHLORIDE 0.9% INJ 10 ML SYR IV SCH (05:34)
[2021-04-13 05:46] LABS: HEMATOCRIT 26.7 % (42.0-52.0); HEMOGLOBIN 8.8 g/dl (13.5-17.5); MEAN CORPUSCULAR HEMOGLOBIN 29.4 pg (27.0-33.0); MEAN CORPUSCULAR VOLUME 89.3 fl (80.0-96.0); PLATELET COUNT, AUTOMATED 391 10^3/uL (150-450); RED BLOOD COUNT 2.99 10^6/uL (4.30-6.10); WHITE BLOOD COUNT 11.1 10^3/uL (4.0-10.0)
[2021-04-13 06:00] VITALS: BP 140/79
[2021-04-13 06:11] LABS: CALCIUM LEVEL 8.7 MG/DL (8.8-10.2); CREATININE FOR GFR 2.96 MG/DL (0.70-1.30); GLOMERULAR FILTRATION RATE 22.8 (>49); MAGNESIUM LEVEL 1.8 MG/DL (1.8-2.4); POTASSIUM SERUM 4.1 MEQ/L (3.5-5.1)
[2021-04-13] MEDS: LEVEMIR (INSULIN DETEMIR) 1 UNITS/0.01ML SC SCH (08:12)
[2021-04-13] MEDS: HumaLOG INSULIN (NovoLOG) PER UNIT SC SCH (08:13)
[2021-04-13] MEDS: MIRALAX *UNIT DOSE* 17GM PACKET PO SCH (08:14)
[2021-04-13] MEDS: LACTOBACILLUS ACIDOPHILUS CAP (BACID) PO SCH (08:14)
[2021-04-13] MEDS: HEPARIN SOD (PORCINE) 5000UNITS/ML 1ML VIAL/SYRINGE SQ SCH (08:14)
[2021-04-13] MEDS: SENOKOT S TAB PO SCH (08:14)
[2021-04-13 08:15] VITALS: BP 140/79
[2021-04-15] MEDS ORDERED: DARBEPOETIN 200MCG/0.4ML *NON-DIALYSIS* SYRINGE (J0881 PER 1MCG) SC SCH (09:00)
== END 2021-04-13 11:35 | DRG 617 ==
LOC: M MS5PR 12:29
PROVIDERS: ADMIT Internal Medicine Nephrology; ATTEND Family Medicine
PROC: 0QBL0ZZ Excision of Right Tarsal, Open Approach (ICD-10-PCS; 2021-03-25)
PROC: 02HV33Z Insertion of Infusion Device into Superior Vena Cava, Percutaneous Approach (ICD-10-PCS; 2021-03-26)
PROC: 0Y6H0Z1 Detachment at Right Lower Leg, High, Open Approach (ICD-10-PCS; principal; 2021-04-07 16:00)
DX: E11.621 Type 2 diabetes mellitus with foot ulcer (principal); M86.9 Osteomyelitis, unspecified; E87.1 Hypo-osmolality and hyponatremia; E11.69 Type 2 diabetes mellitus with other specified complication; E11.42 Type 2 diabetes mellitus with diabetic polyneuropathy; E11.618 Type 2 diabetes mellitus with other diabetic arthropathy; L97.519 Non-pressure chronic ulcer of other part of right foot with unspecified severity; N18.4 Chronic kidney disease, stage 4 (severe); E11.22 Type 2 diabetes mellitus with diabetic chronic kidney disease; I12.9 Hypertensive chronic kidney disease with stage 1 through stage 4 chronic kidney disease, or unspecified chronic kidney disease; E78.5 Hyperlipidemia, unspecified; N40.0 Benign prostatic hyperplasia without lower urinary tract symptoms; I73.9 Peripheral vascular disease, unspecified; Z79.4 Long term (current) use of insulin; Z79.899 Other long term (current) drug therapy; Z91.041 Radiographic dye allergy status; Z20.822 Contact with and (suspected) exposure to COVID-19; Z89.421 Acquired absence of other right toe(s); Z89.422 Acquired absence of other left toe(s); Z98.41 Cataract extraction status, right eye; Z98.42 Cataract extraction status, left eye; Z90.49 Acquired absence of other specified parts of digestive tract; Z95.828 Presence of other vascular implants and grafts; F17.290 Nicotine dependence, other tobacco product, uncomplicated; E11.36 Type 2 diabetes mellitus with diabetic cataract; N17.9 Acute kidney failure, unspecified; E87.6 Hypokalemia; D63.1 Anemia in chronic kidney disease; R05.9 Cough, unspecified; R19.7 Diarrhea, unspecified

== ENCOUNTER 2021-04-08 11:40 | Inpatient (IN) | payer MEDICARE ==
[~2021-04-08] VITALS: Ht 177.8 cm; Wt 95.3 kg
[~2021-04-08 11:40] MED LIST changes: +LEVO250T12 PO; -LEVO250T3 PO; +LEVO500T3 PO; -LEVO500T4 PO; -LOSA25TA13 PO; +LOSA25TA14 PO; -LOSA50TA28 PO; +LOSA50TA88 PO; +ROSU20TA5 PO; +TRES1INJ SQ
--- OUTSIDE RECORDS SUMMARY | 2021-04-13 11:50 | CCD | Continuity of Care Document ---
Author Author Jarret LEVY MD Organization Unknown Address [address], [address] [place] [address] Phone [phone] Care Team Providers Care Audit Partner Name Role Phone Victorina Ramirez AUTM [phone] Problems Active Problems Provider Date Essential hypertension Onset: 04/22/2017 Social History Type Date Description Comments Sex Unknown ETOH Use Denies alcohol use Tobacco Use Start: Unknown End: Unknown Patient is a former smoker QUIT OVER 10 YEARS AGO Allergies and adverse reactions Active Allergies Criticality Reaction | Severity Comments Date IVP Dye Unable to assess criticality 04/22/2017 Medications Active Medications SIG Qnty Indications Ordering Provide r Date Suprep Bowel Prep Kit 17.5-3.13-1.6GM/180ML Solution use as directed for the colonoscopy preparation. 354ml D12.5 Martin Bruner M.D. 10/17/[address] take 4 tablets together as per bowel preparation instructions. 4tabs D12.5 Martin Bruner M.D. 10/17/2017 Colace 100mg Capsules 1 tab by mouth twice a day before meal. avoid if having diarrhea. 60caps K59.00 Martin Bruner M.D. 04/28/2017 Miralax 3350NF Packet take 17 gm per dose mixed with 8 ounces of water -- 1 or 2 times a day. avoid/ stop if having diarrhea. 36units K59.00 Martin Bruner M.D. 2016 Aspir-[address] 1tab po qd Unknown Tresiba Flextouch 50 Unit/ML Solution Pen-Inject use as directed 65 units qd Unknown Novolog 100Unit/ML Solution use as directed sliding scale Unknown 0 Multi Vitamin Daily Tablets 1tab po qd Unknown Simvastatin 40mg Tablets 1tab po qhs Unknown Losartan Potassium 25mg Tablets 1tab po qam Unknown Ferrous Sulfate 325(65Fe) mg Table ts 1tab po qhs Unknown Metoprolol Tartrate 50mg Tablets 1 by mouth twice a day Unknown Crestor 10mg Tablets 1 by mouth every day Unknown Doxycycline Hyclate 100mg Tablets take one tablet by mouth every 12 hours Unknown 0 Immunizations Description No Information Available Vital Signs Date Vital Result Comment 10/17/2017 8:26am BP Systolic 118 mmHg BP Diastolic 76 mmHg Height 69.5 inches 5'9.50" Weight 229.00 lb BMI (Body Mass Index) 33.3 kg/m2 Edgar Body Weight 160 lb Weight 103.874 kg BSA (Body Surface Area) 2.20 m2 04/28/2017 10:21am BP Systolic 144 mmHg BP Diastolic 76 mmHg Height 69.5 inches 5'9.50" Weight 215.00 lb BMI (Body Mass Index) 31.3 kg/m2 Edgar Body Weight 160 lb Weight 97.524 kg BSA (Body Surface Area) 2.14 m2 Results Description No Information Available Procedures Date Code Description Status 04/07/2021 82682 Re-Amputation Leg Completed 04/03/2021 36820 Amputation Leg Open/Circular (Gu illotine) Completed Medical Devices Description No Information Available Encounters Description No Information Available Assessments Date Code Description Provider 04/07/2021 M86.171 Other acute osteomyelitis, right ankle and foot Deondre Levy MD 04/07/2021 E11.621 Type 2 diabetes mellitus with fo ot ulcer Deondre Levy MD 04/07/2021 L97.519 Non-pressure chronic ulcer of other part of right foot with unspecified severity Deondre Levy MD 04/03/2021 E11.621 Type 2 diabetes mellitus with fo ot ulcer Deondre Levy MD 04/03/2021 L97.519 Non-pressure chronic ulcer of other part of right foot with unspecified severity Deondre Levy MD 04/03/2021 M86.171 Other acute osteomyelitis, right ankle and foot Deondre MD Jen Plan of Treatment 10/17/2017 - Martin Bruner M.D.* D12.5 Benign neoplasm of sigmoid colon * K63.5 Polyp of colon * D64.9 Anemia, unspecified * Z12.11 Encounter for screening for malignant neoplasm of colon * Z86.010 Personal history of colonic polyps * * New Medication:* Suprep Bowel Prep Kit 17.5-3.13-1.6 GM/180ML * Dulcolax 5 mg * New Orders:* Colonoscopy, Ordered: 10/17/17 * Comments:* Impression:-- Chronic constipation -- controlled with current medications or dietray changes. -- High risk polyp and prior fair prep and positive Cologuard -- needs surveillance Colonoscopy. -- Anemia -- normocytic -- Could be related to CKD. Needs follow up at PCP clinic. * Recommendations:* -- Patient is educated aobut the prior test results and all possible differential diagnoses. All questions answered. -- Continue with current laxatives dialy colace with intermittent miralax. -- Will schedule for surveillance colonoscopy. The procedure, indications, risks (bleeding, perforation, infection, hypotension, respiratory depression, allergy, need for endotracheal intubation, surgery, colostomy, cardiac arrest, even ), benefits, limitations (e.g., missing a lesion), and all other alternatives (including no intervention) were explained to the patient who understood and agreed for the procedure. -- Patient educated about the strict control of Diabetes in general. -- Telephone Gi clinic 2 weeks after the above procedures. -- follow up with PMD for routine medical care and other age appropriate health maintenance. Functional Status Description No Information Available Mental Status Description No Information Available Referrals Description No Information Available
--- OUTSIDE RECORDS SUMMARY | 2021-04-13 11:50 | CCD ---
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 Active confirmed 311119423 Problem Abscess of right thigh L02.415 Active confirmed 0207695 Problem 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 Active confirmed 512428486 Problem MSSA infection, non-invasive A49.01 Active confirme d 584104350 Problem Abscess of right foot excluding toes L02.611 Act geetha confirmed 94568395 Problem Non-pressure chronic ulcer o f other part of right foot with unspecified severity L97.519 Active confirmed 578640313 Problem 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 Active confirmed 449251082 Problem Non-pressure chronic ulcer of right ankle with u nspecified severity L97.319 Active confirmed 648245695 Problem Cellulitis of right leg L03.115 Active confirme d 42923393782171410 Problem Non-pressure chronic ulcer o f left heel and midfoot limited to breakdown of skin L97.421 Active confirmed 095293495 Problem Type 2 diabetes mellitus wit h diabetic peripheral angiopathy with gangrene E11.52 Active confirmed 435404351 Problem Cellulitis of right lower extremity L03.115 Acti ve confirmed [id number] Problem GBS (group B streptococcus) infection A49.1 Ac tive confirmed 325565613 Problem Type 2 diabetes mellitus with foot ulcer E11.621 Active confirmed 083578007 Problem Charcot foot due to diabetes mellitus E11.610 Ac tive confirmed 80224592 Problem Type 2 diabetes mellitus with other skin ulcer E11 .622 Active confirmed 920293493 Problem Abscess of left foot excluding toes L02.612 Acti ve confirmed 84410264 Problem Urinary retention due to benign prostatic hyperplasia N28.89 Active confirmed 770152282 Problem Elevated PSA R97.20 Active confirmed 7209525 05 ALLERGIES Allergen (clinical drug ingredient) Drug/Non Drug Allergy do cumented on EMR Reaction Allergy Type Onset Date Status IV dye Unknown Non Drug Allergy Active ENCOUNTERS from 1955 to 2021-03-26 Encounter Location Date Provider Diagnosis [facility] [address] [phone] [place] [address] Mar, Kadi Hoover Type 2 diabetes mellitus wit h foot ulcer E11.621 ; Non- pressure chronic ulcer of right heel and midfoot with fat layer exposed L97.412 ; Charcot foot due to diabetes mellitus E11.610 ; Non-pressure chronic ulcer of left heel and midfoot with necrosis of muscle L97.423 and Cellulitis of right lower extremity L03.115 IMMUNIZATIONS Vaccine Route Administration Date Status Influenza Pharmacy Given Unknown Feb 28, 2020 Refused Influenza Pharmacy Given Unknown May 11, 2019 Refused Influenza 18 yrs & older Flublok Unknown Mar 27, 2018 Refused Influenza 6mo & up Fluzone Unknown Feb 07, 2017 Refus ed SOCIAL HISTORY Tobacco Use: Social History Observation Description Date Details (start date - stop date) Uses tobacco in other forms Sex Assigned At : Social History Observation Description Sex Assigned At Unknown Education: Question Answer Notes Level of Education: Finished High School Tobacco Use: Question Answer Notes Are you a: Uses tobacco in other forms chews REASON FOR REFERRAL No Information VITAL SIGNS Weight 222 lbs Mar, Weight-kg 100.7 kg Mar, Height 70 in Mar, BMI 31.85 kg/m2 Mar, Heart Rate 82 /min Mar, Respiratory Rate 18 /min Mar, Temperature 97.0 degrees Fahrenheit Mar, Oximetry 97 Mar, MEDICATIONS Medication SIG (Take, Route, Frequency, Duration) Notes Start Da te End Date Status Clopidogrel Bisulfate 75 MG 1 tablet Orally Once a day for 30 day(s) Active Loratadine 10 MG 1 tablet Orally Once a day for 30 day(s) Active Tessalon Perles 100 MG 1 capsule as needed Orally Three times a day Active Doxycycline Hyclate 100 MG 1 tablet Orally twice a day for 10 da y(s) Jun, Not-Taking Sodium Bicarbonate 650 MG as directed Orally twice daily Active Rosuvastatin Calcium 10 MG 1 tablet Orally Once a day for 30 day(s) Active Doxycycline Hyclate 100 MG 1 tablet Orally twice a day for 10 da y(s) Jan, Active Doxycycline Hyclate 100 MG 1 tablet Orally twice a day for 10 da y(s) Jan, Active Doxycycline Hyclate 100 MG 1 tablet Orally twice a day for 10 da y(s) Jul, Not-Taking HumaLOG 100 UNIT/ML 68 units Subcutaneous 10 units TID sliding scale Active cefTRIAXone Sodium 2 GM as directed Injection Not-Taking Flomax 0.4 MG 1 capsule Orally Once a day for 30 day(s) Oct, Active Metoprolol Succinate 50 MG 1 capsule Orally Once a day for 30 day(s) Active Gluduhcu-Lckgriosl-QF - 4 drops Ophthalmic four times per day Active Tresiba FlexTouch 200 UNIT/ML 70 units Subcutaneous before bedtime Active PROCEDURES from 1955 to 2021-03-26 Procedure Date Ordered Result Body Site Medication: 4% Lidocaine topical cream (Anecream) 5gm 2021-03-20 N/A RESULTS Component Value Reference Range WOUND CULTURE Reviewed date:03/25/2021 11:31:06 Interpretation: Performing Lab:[facility], [facility] [id number] , ,[place] [id number] WOUND CULTURE FULL REPORT IN LAB NOTES (eCW and Medent). WOUND CULTURE WOUND CULTURE ORGANISM 1: PROTEUS MIRABILIS WOUND CULTURE WOUND CULTURE QUANTITY OF GROWTH MODERATE WOUND CULTURE WOUND CULTURE ORGANISM 2: STREPTOCOCCUS GROUP G WOUND CULTURE WOUND CULTURE QUANTITY OF GROWTH MODERATE WOUND CULTURE WOUND CULTURE ORGANISM 3: STAPHYLOCOCCUS AUREUS WOUND CULTURE WOUND CULTURE QUANTITY OF GROWTH FEW WOUND CULTURE WOUND CULTURE WOUND CULTURE ORGANISM 1: PROTEUS MIRABILIS WOUND CULTURE ORGANISM 2: STREPTOCOCCUS GROUP G WOUND CULTURE ORGANISM 3: STAPHYLOCOCCUS AUREUS WOUND CULTURE WOUND CULTURE PROTEUS MIRABILIS: REACTION WOUND CULTURE TRIMETHOPRIM/SULFAMETHOXAZ OLE IV 160mg TMP & 800mg SMXq6h <=20 WOUND CULTURE TRIMETHOPRIM/SULFAMETHOXAZ OLE PO Bactrim DS Bid <=20 WOUND CULTURE AMPICILLIN IV 500mg q6h <=2 WOUND CULTURE AMPICILLIN PO 500mg q6h fasting <=2 WOUND CULTURE GENTAMICIN IV 80mg q8h <=1 WOUND CULTURE CEFAZOLIN IV 1gm q8h <=4 WOUND CULTURE LEVOFLOXACIN IV 500mg qd <=0.12 WOUND CULTURE LEVOFLOXACIN PO 250mg qd <=0.12 WOUND CULTURE LEVOFLOXACIN PO 500mg qd <=0.12 WOUND CULTURE TOBRAMYCIN IV 80mg q8h <=1 WOUND CULTURE CEFTRIAXONE IV 1gm q24h <=1 WOUND CULTURE CEFTAZIDIME IV 1gm q8h <=1 WOUND CULTURE AMPICILLIN/SULBACTAM IV 1.5g q6h <=2 WOUND CULTURE PIPERACILLIN/TAZOBACTAM IV 2.25 gm q6h <=4 WOUND CULTURE AZTREONAM IV 1gm q8h <=1 WOUND CULTURE ERTAPENEM IV 1gm qd <=0.5 WOUND CULTURE MEROPENEM IV 1 gm q8h <=0.25 WOUND CULTURE MEROPENEM IV 500 mg q8h <=0.25 WOUND CULTURE TIGECYCLINE IV 50mg q12h 4 WOUND CULTURE CEFEPIME IV 1 gm q12h <=1 WOUND CULTURE CEFEPIME IV 2 gm q12h <=1 WOUND CULTURE WOUND CULTURE STREPTOCOCCUS GROUP G: REACTION WOUND CULTURE TETRACYCLINE PO 250 mg qid >=16 WOUND CULTURE PENICILLIN G IV 1 mu q6h <=0.06 WOUND CULTURE PENICILLIN G PO 250mg q6h fasting <=0.06 WOUND CULTURE AMPICILLIN IV 500mg q6h <=0.25 WOUND CULTURE AMPICILLIN PO 500mg q6h fasting <=0.25 WOUND CULTURE ERYTHROMYCIN IV 500mg q6h <=0.12 WOUND CULTURE ERYTHROMYCIN PO 500mg q6h <=0.12 WOUND CULTURE CLINDAMYCIN IV 600mg q6h <=0.25 WOUND CULTURE CLINDAMYCIN PO 150mg q6h <=0.25 WOUND CULTURE LEVOFLOXACIN IV 500mg qd 1 WOUND CULTURE LEVOFLOXACIN PO 250mg qd 1 WOUND CULTURE LEVOFLOXACIN PO 500mg qd 1 WOUND CULTURE VANCOMYCIN IV 500mg q8h 0.25 WOUND CULTURE MOXIFLOXACIN (AVELOX) IV 400MG QD 0.25 WOUND CULTURE MOXIFLOXACIN (AVELOX) PO 400MG QD 0.25 WOUND CULTURE CEFTRIAXONE IV 1gm q24h <=0.12 WOUND CULTURE CEFOTAXIME IV 1gm q8h <=0.12 WOUND CULTURE WOUND CULTURE STAPHYLOCOCCUS AUREUS: REACTION WOUND CULTURE ICR (INDUCIBLE CC RESISTANCE) IV ICR TEST RESULT WOUND CULTURE TETRACYCLINE PO 250 mg qid <=1 WOUND CULTURE PENICILLIN G IV 1 mu q6h 0.06 WOUND CULTURE PENICILLIN G PO 250mg q6h fasting 0.06 WOUND CULTURE TRIMETHOPRIM/SULFAMETHOXAZ OLE IV 160mg TMP & 800mg SMXq6h <=10 WOUND CULTURE TRIMETHOPRIM/SULFAMETHOXAZ OLE PO Bactrim DS Bid <=10 WOUND CULTURE ERYTHROMYCIN IV 500mg q6h <=0.25 WOUND CULTURE ERYTHROMYCIN PO 500mg q6h <=0.25 WOUND CULTURE GENTAMICIN IV 80mg q8h <=0.5 WOUND CULTURE CLINDAMYCIN IV 600mg q6h 0.25 WOUND CULTURE CLINDAMYCIN PO 150mg q6h 0.25 WOUND CULTURE OXACILLIN IV 500mg q6h <=0.25 WOUND CULTURE VANCOMYCIN IV 500mg q8h 1 WOUND CULTURE LINEZOLID (ZYVOX) IV 600MG Q12HR 2 WOUND CULTURE LINEZOLID (ZYVOX) PO 600MG Q12HR 2 WOUND CULTURE An isolate with a (+) POSITIVE ICR test is considered WOUND CULTURE CLINDAMYCIN RESISTANT; however, clindamy alexi may still WOUND CULTURE be effective in some patients. WOUND CULTURE An isolate with a (-) NEGATIVE ICR test is considered WOUND CULTURE CLIDAMYCIN SENSITIVE. WOUND CULTURE Oxacillin result predicts jaime sceptibility to all penicillinase-stable WOUND CULTURE penicillins (Nafcillin, Dicl oxacilin), Cephalosporins, Carbapenems, WOUND CULTURE Amoxicillin/Clavulanate & Am picillin/Sulbactam per CSLI standards. Pathology Request For Service Reviewed date:03/25/2021 11:30:55 Interpretation: Performing Lab:[facility], [facility] [address] [address] , ,[place] [address] SKELETAL REASON FOR VISIT BLE wounds MEDICAL (GENERAL) HISTORY Type Description Date Medical History DM Medical History HTN Medical History High Cholesterol Medical History Angioplasty left leg Surgical History R foot transmetarsal amputation Surgical History L great toe amputation 2010 Surgical History L foot surgery all toes amputated Surgical History R foot transmetarsal amputation 08/28 Surgical History Left foot infection with I&D 03/2015 Surgical History Cataract removed left eye 01/12/17 Surgical History tonsillectomy Surgical History Femoral artery bypass Surgical History Lipoma removal from chest wall Surgical History angioplasty Surgical History cataracts Surgical History CYSTOSCOPY 11/21/2019 Surgical History TRUS BIOPSY (PROSTATE) 12/04/2019 Surgical History button TURP 01/24/2020 Hospitalization History R foot infection 08/28 Hospitalization History Left foot infection at [facility] a nd transferred to [facility] for angioplasty 03/2015 Hospitalization History UTI 03/2020 Goals Section No Information Health Concerns No Information MEDICAL EQUIPMENT No Information MENTAL STATUS No Information FUNCTIONAL STATUS No Information ASSESSMENTS Encounter Date Diagnosis Assessment Notes Treatment Notes Treatm ent Clinical Notes Mar, Type 2 diabetes mellitus with foot ulcer (ICD-10 - E11.621) Dressing changes 3x a week. The dressing should follow those documented in the procedure note HYDROGEL LOT 56085 EXP 04/[address] 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 The dressing should follow those documented in the procedure note HYDROGEL LOT [id number] 04/[address] BELLO WITH EPIFIX Next Appt Details 1 Week Reason: Insurance Providers Payer Name Payer Address Payer Phone Insured Name Patient Relati onship to Insured Coverage Start Date Coverage End Date MEDICARE Part A and B [address] [facility] [id number] DON GUEVARA [facility] CLAIM [facility] [address] [facility] [phone] DON GUEVARA self
--- OUTSIDE RECORDS SUMMARY | 2021-04-13 11:50 | CCD ---
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 Active confirmed 702628883 Problem Abscess of right thigh L02.415 Active confirmed 4983342 Problem 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 Active confirmed 934607357 Problem MSSA infection, non-invasive A49.01 Active confirme d 307571697 Problem Abscess of right foot excluding toes L02.611 Act geetha confirmed 41588086 Problem Non-pressure chronic ulcer o f other part of right foot with unspecified severity L97.519 Active confirmed 791504249 Problem 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 Active confirmed 134820771 Problem Non-pressure chronic ulcer of right ankle with u nspecified severity L97.319 Active confirmed 537461066 Problem Cellulitis of right leg L03.115 Active confirme d 94813479415435150 Problem Non-pressure chronic ulcer o f left heel and midfoot limited to breakdown of skin L97.421 Active confirmed 435860982 Problem Type 2 diabetes mellitus wit h diabetic peripheral angiopathy with gangrene E11.52 Active confirmed 376373745 Problem Cellulitis of right lower extremity L03.115 Acti ve confirmed 17049828908317396 Problem GBS (group B streptococcus) infection A49.1 Ac tive confirmed 187290515 Problem Type 2 diabetes mellitus with foot ulcer E11.621 Active confirmed 462091594 Problem Charcot foot due to diabetes mellitus E11.610 Ac tive confirmed 12028886 Problem Type 2 diabetes mellitus with other skin ulcer E11 .622 Active confirmed 276236704 Problem Abscess of left foot excluding toes L02.612 Acti ve confirmed 99143280 Problem Urinary retention due to benign prostatic hyperplasia N28.89 Active confirmed 513401307 Problem Elevated PSA R97.20 Active confirmed 7468024 05 ALLERGIES Allergen (clinical drug ingredient) Drug/Non Drug Allergy do cumented on EMR Reaction Allergy Type Onset Date Status IV dye Unknown Non Drug Allergy Active ENCOUNTERS from 1955 to 2021-03-04 Encounter Location Date Provider Diagnosis [facility] [address] [facility] [phone] [place] [address] Feb, Gary Rico Type 2 diabetes mellitus wit h foot [...] No Information VITAL SIGNS Weight 222 lbs Feb, Height 70 in Feb, BMI 31.85 kg/m2 Feb, Heart Rate 86 /min Feb, Respiratory Rate 18 /min Feb, Temperature 98.0 degrees Fahrenheit 15 Feb, 2021 Oximetry 97 15 Feb, 2021 Blood pressure systolic 180 mm Hg Feb, Blood pressure diastolic 79 mm Hg Feb, MEDICATIONS Medication SIG (Take, Route, Frequency, Duration) Notes Start Da te End Date Status Tresiba FlexTouch 200 UNIT/ML 70 units Subcutaneous before bedtime Active Lyqcfwsk-Qykrgdlwa-IM - 4 drops Ophthalmic four times per day Active Metoprolol Succinate 50 MG 1 capsule Orally Once a day for 30 day(s) Active Tessalon Perles 100 MG 1 capsule as needed Orally Three times a day Active Doxycycline Hyclate 100 MG 1 tablet Orally twice a day for 10 da y(s) Jul, Not-Taking Doxycycline Hyclate 100 MG 1 tablet Orally twice a day for 10 da y(s) Jun, Not-Taking Loratadine 10 MG 1 tablet Orally Once a day for 30 day(s) Active cefTRIAXone Sodium 2 GM as directed Injection Not-Taking Rosuvastatin Calcium 10 MG 1 tablet Orally Once a day for 30 day(s) Active Clopidogrel Bisulfate 75 MG 1 tablet Orally Once a day for 30 day(s) Active Flomax 0.4 MG 1 capsule Orally Once a day for 30 day(s) Oct, Active Doxycycline Hyclate 100 MG 1 tablet Orally twice a day for 10 da y(s) Jan, Active Sodium Bicarbonate 650 MG as directed Orally twice daily Active Doxycycline Hyclate 100 MG 1 tablet Orally twice a day for 10 da y(s) Jan, Active HumaLOG 100 UNIT/ML 68 units Subcutaneous 10 units TID sliding scale Active PROCEDURES from 1955 to 2021-03-04 Procedure Date Ordered Result Body Site Medication: Silver Nitrate Stick topically 2021-02-27 N/A RESULTS No Results REASON FOR VISIT BLE WOUNDS MEDICAL (GENERAL) HISTORY Type Description Date Medical [...] 08/28 Hospitalization History Left foot infection at [facility] a nd transferred to [facility] for angioplasty 03/2015 Hospitalization History UTI 03/2020 Goals Section No Information Health Concerns No Information MEDICAL EQUIPMENT No Information MENTAL STATUS No Information FUNCTIONAL STATUS No Information ASSESSMENTS Encounter Date Diagnosis Assessment Notes Treatment Notes Treatm ent Clinical Notes Feb, Type 2 diabetes mellitus with foot ulcer (ICD-10 - E11.621) Feb, Non-pressure chronic ulcer o f right heel and midfoot with fat layer exposed (ICD-10 - L97.412) Feb, Charcot foot due to diabetes mellitus (ICD-10 - E11.610) Feb, 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 (ICD-10 - L97.423) Feb, Cellulitis of right lower extremity (ICD-10 - L0 3.115) PLAN OF TREATMENT Next Appt Details 1 Week Reason: Provider Name:Gary Rico, 08:30:00 AM, [address], , [place], [address], Provider Name:Kadi Hoover, 03-13 08:30:00 AM, [address], , [place], [address], Provider Name:Kadi Hoover, 03-20 08:30:00 AM, [address], , [place], [address], Provider Name:Kadi Hoover, 03-27 08:30:00 AM, [address], , [place], [address], Insurance Providers Payer Name Payer Address Payer Phone Insured Name Patient Relati onship to Insured Coverage Start Date Coverage End Date [employer] [facility] CLAIM DIV [address] [facility] [phone] DON GUEVARA MEDICARE Part A and B [address] [facility] [id number] DON GUEVARA self
--- OUTSIDE RECORDS SUMMARY | 2021-04-13 11:50 | CCD | Continuity of Care Document ---
Author Author Jarret LEVY MD Organization Unknown Address [address], [address] [place] [address] Phone [phone] Care Team Providers Care Supervisor Vendor Quality Name Role Phone Victorina Ramirez AUTM [phone] Problems Active Problems Provider Date Essential hypertension [...] lb BMI (Body Mass Index) 33.3 kg/m2 [place] Body Weight 160 lb Weight 103.874 kg BSA (Body Surface Area) 2.20 m2 04/28/2017 10:21am BP Systolic 144 mmHg BP Diastolic 76 mmHg Height 69.5 inches 5'9.50" Weight 215.00 lb BMI (Body Mass Index) 31.3 kg/m2 [place] Body Weight 160 lb Weight 97.524 kg BSA (Body Surface Area) 2.14 m2 Results Description No Information Available Procedures Date Code Description Status 04/07/2021 39102 Re-Amputation Leg Completed 04/03/2021 88562 Amputation Leg Open/Circular (Gu illotine) Completed Medical [...]
--- OUTSIDE RECORDS SUMMARY | 2021-04-13 11:54 | CCD ---
Author Author [facility] Organization [facility] Address Unknown Phone Unavailable Support Name Relationship Address Phone DISABLED Next Of Kin Unknown Unavailable Jeremiah Guevar[place] [address] Unavailable Dana GUEVARA Next Of Kin [address] [place] [phone] RETIRED Next Of Kin Unknown DAVID SALAZAR Next Of Kin [address] [place] [address] Torsten GUEVARA Next Of Kin [address] [place] [phone] Unavailable RE Next Of Kin Unknown Unavailable UE Next Of Kin Unknown Unavailable [place] [address] DAVID GUEVARA Next Of Kin [address] [place] [id number] SAILAJA GUEVARA Next Of Kin NUMBER [address] [place] [phone] ALKA SMITH Next Of Kin [address] [place] [phone] Jake SMITH Next Of Kin [address] [place] [phone] [facility] [place] [address] - NONE, PATIENT PER Next Of Kin - - -, [place] - - CAT GUEVARA Next Of Kin [address] [place] [phone] [place] [address] Unavailable david salazar ECON [address] [place] [phone] Unavailable Jeremiah Guevara ECON Unknown Unavailable Care Team Providers Care Data Visualization Developer Name Role Phone Doctor Provided, Family PHYS No Family Unavailable U navailable ANDRÉS, B EDELMIRA PNEUMATIC SYSTEM CONVEYOR OPERATOR Unavailable Unavailable ANDRÉS, B EDELMIRA PNEUMATIC SYSTEM CONVEYOR OPERATOR Unavailable Unavailable ANDRÉS, B EDELMIRA PNEUMATIC SYSTEM CONVEYOR OPERATOR Unavailable Unavailable ANDRÉS, B EDELMIRA PNEUMATIC SYSTEM CONVEYOR OPERATOR Unavailable Unavailable ANDRÉS, B EDELMIRA PNEUMATIC SYSTEM CONVEYOR OPERATOR Unavailable Unavailable ANDRÉS, B EDELMIRA PNEUMATIC SYSTEM CONVEYOR OPERATOR Unavailable Unavailable ANDRÉS, B EDELMIRA PNEUMATIC SYSTEM CONVEYOR OPERATOR Unavailable Unavailable ANDRÉS, B EDELMIRA PNEUMATIC SYSTEM CONVEYOR OPERATOR Unavailable Unavailable ANDRÉS, B EDELMIRA PNEUMATIC SYSTEM CONVEYOR OPERATOR Unavailable Unavailable ANDRÉS, B EDELMIRA PNEUMATIC SYSTEM CONVEYOR OPERATOR Unavailable Unavailable ANDRÉS, B EDELMIRA PNEUMATIC SYSTEM CONVEYOR OPERATOR Unavailable Unavailable ANDRÉS, B EDELMIRA PNEUMATIC SYSTEM CONVEYOR OPERATOR Unavailable Unavailable ANDRÉS, B EDELMIRA PNEUMATIC SYSTEM CONVEYOR OPERATOR Unavailable Unavailable ANDRÉS, B EDELMIRA PNEUMATIC SYSTEM CONVEYOR OPERATOR Unavailable Unavailable ANDRÉS, B EDELMIRA PNEUMATIC SYSTEM CONVEYOR OPERATOR Unavailable Unavailable ANDRÉS, B EDELMIRA PNEUMATIC SYSTEM CONVEYOR OPERATOR Unavailable Unavailable ANDRÉS, B EDELMIRA PNEUMATIC SYSTEM CONVEYOR OPERATOR Unavailable Unavailable ANDRÉS, B EDELMIRA PNEUMATIC SYSTEM CONVEYOR OPERATOR Unavailable Unavailable ANDRÉS, B EDELMIRA PNEUMATIC SYSTEM CONVEYOR OPERATOR Unavailable Unavailable ANDRÉS, B EDELMIRA PNEUMATIC SYSTEM CONVEYOR OPERATOR Unavailable Unavailable ANDRÉS, B EDELMIRA PNEUMATIC SYSTEM CONVEYOR OPERATOR Unavailable Unavailable ANDRÉS, B EDELMIRA PNEUMATIC SYSTEM CONVEYOR OPERATOR Unavailable Unavailable ANDRÉS, B EDELMIRA PNEUMATIC SYSTEM CONVEYOR OPERATOR Unavailable Unavailable ANDRÉS, B EDELMIRA PNEUMATIC SYSTEM CONVEYOR OPERATOR Unavailable Unavailable ANDRÉS, B EDELMIRA PNEUMATIC SYSTEM CONVEYOR OPERATOR Unavailable Unavailable ANDRÉS, B EDELMIRA PNEUMATIC SYSTEM CONVEYOR OPERATOR Unavailable Unavailable ANDRÉS, B EDELMIRA PNEUMATIC SYSTEM CONVEYOR OPERATOR Unavailable Unavailable ANDRÉS, B EDELMIRA PNEUMATIC SYSTEM CONVEYOR OPERATOR Unavailable Unavailable ANDRÉS, B EDELMIRA PNEUMATIC SYSTEM CONVEYOR OPERATOR Unavailable Unavailable ANDRÉS, B EDELMIRA PNEUMATIC SYSTEM CONVEYOR OPERATOR Unavailable Unavailable ANDRÉS, B EDELMIRA PNEUMATIC SYSTEM CONVEYOR OPERATOR Unavailable Unavailable ANDRÉS, B EDELMIRA PNEUMATIC SYSTEM CONVEYOR OPERATOR Unavailable Unavailable ANDRÉS, B EDELMIRA PNEUMATIC SYSTEM CONVEYOR OPERATOR Unavailable Unavailable ANDRÉS, B EDELMIRA PNEUMATIC SYSTEM CONVEYOR OPERATOR Unavailable Unavailable ANDRÉS, B EDELMIRA PNEUMATIC SYSTEM CONVEYOR OPERATOR Unavailable Unavailable ANDRÉS, B EDELMIRA PNEUMATIC SYSTEM CONVEYOR OPERATOR Unavailable Unavailable ANDRÉS, B EDELMIRA PNEUMATIC SYSTEM CONVEYOR OPERATOR Unavailable Unavailable ANDRÉS, B EDELMIRA PNEUMATIC SYSTEM CONVEYOR OPERATOR Unavailable Unavailable ANDRÉS, B EDELMIRA PNEUMATIC SYSTEM CONVEYOR OPERATOR Unavailable Unavailable ANDRÉS, B EDELMIRA PNEUMATIC SYSTEM CONVEYOR OPERATOR Unavailable Unavailable ANDRÉS, B EDELMIRA PNEUMATIC SYSTEM CONVEYOR OPERATOR Unavailable Unavailable ANDRÉS, B EDELMIRA PNEUMATIC SYSTEM CONVEYOR OPERATOR Unavailable Unavailable ANDRÉS, B EDELMIRA PNEUMATIC SYSTEM CONVEYOR OPERATOR Unavailable Unavailable ANDRÉS, B EDELMIRA PNEUMATIC SYSTEM CONVEYOR OPERATOR Unavailable Unavailable ANDRÉS, B EDELMIRA PNEUMATIC SYSTEM CONVEYOR OPERATOR Unavailable Unavailable ANDRÉS, B EDELMIRA PNEUMATIC SYSTEM CONVEYOR OPERATOR Unavailable Unavailable ANDRÉS, B EDELMIRA PNEUMATIC SYSTEM CONVEYOR OPERATOR Unavailable Unavailable ANDRÉS, B EDELMIRA PNEUMATIC SYSTEM CONVEYOR OPERATOR Unavailable Unavailable ANDRÉS, B EDELMIRA PNEUMATIC SYSTEM CONVEYOR OPERATOR Unavailable Unavailable ANDRÉS, B EDELMIRA PNEUMATIC SYSTEM CONVEYOR OPERATOR Unavailable Unavailable ANDRÉS, B EDELMIRA PNEUMATIC SYSTEM CONVEYOR OPERATOR Unavailable Unavailable ANDRÉS, B EDELMIRA PNEUMATIC SYSTEM CONVEYOR OPERATOR Unavailable Unavailable ANDRÉS, B EDELMIRA PNEUMATIC SYSTEM CONVEYOR OPERATOR Unavailable Unavailable ANDRÉS, B EDELMIRA PNEUMATIC SYSTEM CONVEYOR OPERATOR Unavailable Unavailable ANDRÉS, B EDELMIRA PNEUMATIC SYSTEM CONVEYOR OPERATOR Unavailable Unavailable ANDRÉS, B EDELMIRA PNEUMATIC SYSTEM CONVEYOR OPERATOR Unavailable Unavailable ANDRÉS, B EDELMIRA PNEUMATIC SYSTEM CONVEYOR OPERATOR Unavailable Unavailable ANDRÉS, B EDELMIRA PNEUMATIC SYSTEM CONVEYOR OPERATOR Unavailable Unavailable ANDRÉS, B EDELMIRA PNEUMATIC SYSTEM CONVEYOR OPERATOR Unavailable Unavailable ANDRÉS, B EDELMIRA PNEUMATIC SYSTEM CONVEYOR OPERATOR Unavailable Unavailable ANDRÉS, B EDELMIRA PNEUMATIC SYSTEM CONVEYOR OPERATOR Unavailable Unavailable ANDRÉS, B EDELMIRA PNEUMATIC SYSTEM CONVEYOR OPERATOR Unavailable Unavailable Melissa, E Patsy MD Unavailable Unavailable Melissa, E Patsy MD Unavailable Unavailable Melissa, E Patsy MD Unavailable Unavailable Melissa, E Patsy MD Unavailable Unavailable Meilssa, E Patsy MD Unavailable Unavailable Melissa, E Patsy MD Unavailable Unavailable Melissa, E Patsy MD Unavailable Unavailable Melissa, E Patsy MD Unavailable Unavailable Melissa, E Patsy MD Unavailable Unavailable Melissa, E Patsy MD Unavailable Unavailable Melissa, E Patsy MD Unavailable Unavailable Melissa, E Patsy MD Unavailable Unavailable Melissa, E Patsy MD Unavailable Unavailable Melissa, E Patsy MD Unavailable Unavailable Melissa, E Patsy MD Unavailable Unavailable Melissa, E Patsy MD Unavailable Unavailable Melissa, E Patsy MD Unavailable Unavailable Melissa, E Patsy MD Unavailable Unavailable Melissa, E Patsy MD Unavailable Unavailable Melissa, E Patsy MD Unavailable Unavailable Melissa, E Patsy MD Unavailable Unavailable Melissa, E Patsy MD Unavailable Unavailable Melissa, E Patsy MD Unavailable Unavailable Melissa, E Patsy MD Unavailable Unavailable Melissa, E Patsy MD Unavailable Unavailable Melissa, E Patsy MD Unavailable Unavailable Melissa, E Patsy MD Unavailable Unavailable Melissa, E Patsy MD Unavailable Unavailable Melissa, E Patsy MD Unavailable Unavailable Melissa, E Patsy MD Unavailable Unavailable Melissa, E Patsy MD Unavailable Unavailable Melissa, E Patsy MD Unavailable Unavailable Melissa, E Patsy MD Unavailable Unavailable Melissa, E Patsy MD Unavailable Unavailable Melissa, E Patsy MD Unavailable Unavailable Melissa, E Patsy MD Unavailable Unavailable Melissa, E Patsy MD Unavailable Unavailable Melissa, E Patsy MD Unavailable Unavailable Melissa, E Patsy MD Unavailable Unavailable Melissa, E Patsy MD Unavailable Unavailable Melissa, E Patsy MD Unavailable Unavailable Melissa, E Patsy MD Unavailable Unavailable Melissa, E Patsy MD Unavailable Unavailable Melissa, E Patsy MD Unavailable Unavailable Melissa, E Patsy MD Unavailable Unavailable Melissa, E Patsy MD Unavailable Unavailable Melissa, E Patsy MD Unavailable Unavailable Melissa, E Patsy MD Unavailable Unavailable Melissa, E Patsy MD Unavailable Unavailable Melissa, E Patsy MD Unavailable Unavailable Melissa, E Patsy MD Unavailable Unavailable Melissa, E Patsy MD Unavailable Unavailable Melissa, E Patsy MD Unavailable Unavailable Melissa, E Patsy MD Unavailable Unavailable Melissa, E Patsy MD Unavailable Unavailable Melissa, E Patsy MD Unavailable Unavailable MAR, A COBY DO Unavailable Unavailable Re-disclosure Warning The records that you are about to access may contain information from federally-assisted alcohol or drug abuse programs. If such information is present, then the following federally mandated warning applies: This information has been disclosed to you from records protected by federal confidentiality rules (42 CFR part 2). The federal rules prohibit you from making any further disclosure of this information unless further disclosure is expressly permitted by the written consent of the person to whom it pertains or as otherwise permitted by 42 CFR part 2. A general authorization for the release of medical or other information is NOT sufficient for this purpose. The Federal rules restrict any use of the information to criminally investigate or prosecute any alcohol or drug abuse patient.The records that you are about to access may contain highly sensitive health information, the redisclosure of which is protected by Article 27-F of the [facility] Public Health law. If you continue you may have access to information: Regarding HIV / AIDS; Provided by facilities licensed or operated by the [facility] Office of Mental Health; or Provided by the [facility] Office for People With Developmental Disabilities. If such information is present, then the following [facility] mandated warning applies: This information has been disclosed to you from confidential records which are protected by state law. State law prohibits you from making any further disclosure of this information without the specific written consent of the person to whom it pertains, or as otherwise permitted by law. Any unauthorized further disclosure in violation of state law may result in a fine or senior living sentence or both. A general authorization for the release of medical or other information is NOT sufficient authorization for further disc losure. Family History Family Member Name Family Member Gender Family Member Status Date o f Status Description Data Source(s) Unknown Unknown Problem [facility] ([facility], ) Encounters Encounter Providers Location Date Indications Data Source(s ) [place] [address] [facility] [address] 03/20/2021 12:00:00 AM EDT eCW1 ([facility]) [place] [address] [facility] [address] 03/13/2021 12:00:00 AM EDT eCW1 ([facility]) [place] [address] [facility] [address] 03/06/2021 12:00:00 AM EDT eCW1 ([facility]) Outpatient<td ID="encounterTypeDescripti onID0">Chronic Care Mgt - Phone Call</td><td>Patsy Torres MD</td><td>[facility], [facility]</td><td>03/03/2021</td><td>12:23PM</td><td>12:32PM</td><td><content ID="encounterDiagnosisID0-0">Amputation of Limb</content>, <content ID="encounterDiagnosisID0-1">Anemia of Chronic Disease</content>, <content ID="encounterDiagnosisID0-2">Chronic Kidney Disease Stage 3</content>, <content ID="encounterDiagnosisID0-3">Chronic Sinusitis</content>, <content ID="encounterDiagnosisID0-4">Complication of Amputation Stump</content>, <content ID="encounterDiagnosisID0-5">Constipation</content>, <content ID="encounterDiagnosisID0-6">Dermatophytosis Nails</content>, <content ID="encounterDiagnosisID0-7">Diabetes Mellitus with Skin Ulcer</content>, <content ID="encounterDiagnosisID0-8">Diabetes with Renal Manifestations Uncontrolled</content>, <content ID="encounterDiagnosisID0-9">Essential Hypertension</content>, <content ID="encounterDiagnosisID0-10">Familial Combined Hyperlipidemia</content>, <content ID="encounterDiagnosisID0-11"> Hyperparathyroidism</content>, <content ID="encounterDiagnosisID0-12">Male Erectile Dysfunction</content>, <content ID="encounterDiagnosisID0-13">Nicotine Dependence</content>, <content ID="encounterDiagnosisID0- 14">Overweight</content>, <content ID="encounterDiagnosisID0-15">Peripheral Vascular Disease</content>, <content ID="encounterDiagnosisID0-16">Vitreous Hemorrhage Left Eye</content></td> Attender: Patsy Torres MD [facility], [facility] 03/03/2021 12:23:00 PM EDT - 03/03/2021 12:32:00 PM ED T Complication of Amputation StumpHyperparathyroidismDiabetes Mellitus with Skin UlcerChronic Kidney Disease Stage 3Anemia of Chronic DiseaseAmputation of LimbVitreous Hemorrhage Left EyeEssential HypertensionPeripheral Vascular DiseaseOverweightNicotine DependenceMale Erectile DysfunctionFamilial Combined HyperlipidemiaDiabetes with Renal Manifestations UncontrolledDermatophytosis NailsConstipationChronic Sinusitis DURAN ([facility]) Complication of Amputation Stump Hyperparathyroidism Diabetes Mellitus with Skin Ulcer Chronic Kidney Disease Stage 3 Anemia of Chronic Disease Amputation of Limb Vitreous Hemorrhage Left Eye Essential Hypertension Peripheral Vascular Disease Overweight Nicotine Dependence Male Erectile Dysfunction 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 trolled Dermatophytosis Nails Constipation Chronic Sinusitis ([id number]) For [facility] [place] [address] 02/27/2021 12:00:00 AM EDT eCW1 ([facility]) ([id number]) For [facility] [place] [address] 02/20/2021 12:00:00 AM EDT eCW1 ([facility]) Outpatient [address] [place] [address], [place] [address] 02/13/2021 12:00:00 AM EDT eCW1 ([facility]) [place] [address] [facility] [address] 02/04/2021 12:00:00 AM EDT eCW1 ([facility]) Unknown [address] [facility] [address] 02/04/2021 12:00:00 AM EDT eCW1 ([facility]) ([id number]) For [facility] [place] [address] 01/30/2021 12:00:00 AM EDT eCW1 ([facility]) ([id number]) For [facility] [place] [address] 01/23/2021 12:00:00 AM EDT eCW1 ([facility]) ([id number]) For [facility] [place] [address] 01/16/2021 12:00:00 AM EDT eCW1 ([facility]) <td ID="encounterTypeDescriptionID1">[facility]</td><td>Patsy Torres MD</td><td>[facility], [facility]</td><td>01/12/2021</td><td>8:33AM</td><td>8:54AM</td><td><content ID="encounterDiagnosisID1-0">Allergic Rhinitis</content>, <content ID="encounterDiagnosisID1-1">Nicotine Dependence</content>, <content ID="encounterDiagnosisID1-2">Essential Hypertension</content>, <content ID="encounterDiagnosisID1-3">Peripheral Vascular Disease</content>, <content ID="encounterDiagnosisID1-4">Diabetes with Diabetic Retinopathy</content>, <content ID="encounterDiagnosisID1-5">Complication of Amputation Stump</content>, <content ID="encounterDiagnosisID1-6">Overweight</content>, <content ID="encounterDiagnosisID1-7">Chronic Kidney Disease Stage 4</content>, <content ID="encounterDiagnosisID1-8">Hyperlipoproteinemia Mixed</content>, <content ID="encounterDiagnosisID1-9">Diabetes with Renal Manifestations Uncontrolled</content>, <content ID="encounterDiagnosisID1-10">Amputation of Limb</content></td>Outpatient Attender: Patsy Torres MD [facility], P 01/12/2021 08:33:00 AM EDT - 01/12/2021 08:54:00 AM ED T Hyperlipoproteinemia MixedChronic Kidney Disease Stage 4Diabetes with Diabetic RetinopathyAllergic RhinitisComplication of Amputation StumpAmputation of LimbEssential HypertensionPeripheral Vascular DiseaseDiabetes with Renal Manifestations UncontrolledOverweightNicotine Dependence DURAN ([facility]) Hyperlipoproteinemia Mixed Chronic Kidney Disease Stage 4 Diabetes with Diabetic Retinopathy Allergic Rhinitis Complication of Amputation Stump Amputation of Limb Essential Hypertension Peripheral Vascular Disease Diabetes with Renal Manifestations Uncon trolled Overweight Nicotine Dependence ([id number]) For [facility] [address] [place] [phone] 01/09/2021 12:00:00 AM EDT eCW1 ([facility]) ([id number]) For [facility] [address] [place] [phone] 01/02/2021 12:00:00 AM EDT eCW1 ([facility]) ([id number]) For [facility] [address] [place] [address] 12/26/2020 12:00:00 AM EDT eCW1 ([facility]) ([id number]) For [facility] [address] [place] [phone] 12/19/2020 12:00:00 AM EDT eCW1 ([facility]) ([id number]) For [facility] [address] [place] [address] 12/12/2020 12:00:00 AM EDT eCW1 ([facility]) ([id number]) For [facility] [place] [address] 12/05/2020 12:00:00 AM EDT eCW1 ([facility]) ([id number]) For [facility] [place] [address] 11/28/2020 12:00:00 AM EDT eCW1 ([facility]) ([id number]) For [facility] [place] [address] 11/21/2020 12:00:00 AM EDT eCW1 ([facility]) Unknown [facility] [address] 11/21/2020 12:00:00 AM EDT eCW1 ([facility]) ([id number]) For [facility] [place] [address] 11/14/2020 12:00:00 AM EDT eCW1 ([facility]) Outpatient [address] [facility], [place] [address] 11/07/2020 12:00:00 AM EDT eCW1 ([facility]) Outpatient [address] [place] [phone] 10/31/2020 12:00:00 AM EDT eCW1 ([facility]) ([id number]) For [facility] [address] [place] [phone] 10/24/2020 12:00:00 AM EDT eCW1 ([facility]) <td ID="encounterTypeDescriptionID2">fol alyson</td><td>Patsy Torres MD</td><td>[facility], [facility]</td><td>10/09/2020</td><td>9:17AM</td><td>9:37AM</td><td><content ID="encounterDiagnosisID2-0">Allergic Rhinitis</content>, <content ID="encounterDiagnosisID2-1">Nicotine Dependence</content>, <content ID="encounterDiagnosisID2-2">Essential Hypertension</content>, <content ID="encounterDiagnosisID2-3">Peripheral Vascular Disease</content>, <content ID="encounterDiagnosisID2-4">Diabetes with Diabetic Retinopathy</content>, <content ID="encounterDiagnosisID2-5">Complication of Amputation Stump</content>, <content ID="encounterDiagnosisID2-6">Overweight</content>, <content ID="encounterDiagnosisID2-7">Chronic Kidney Disease Stage 4</content>, <content ID="encounterDiagnosisID2-8">Hyperlipoproteinemia Mixed</content>, <content ID="encounterDiagnosisID2-9">Diabetes with Renal Manifestations Uncontrolled</content>, <content ID="encounterDiagnosisID2-10">Amputation of Limb</content></td>Outpatient Attender: Patsy Torres MD [facility], [facility] 10/09/2020 09:17:00 AM EDT - 10/09/2020 09:37:00 AM ED T Hyperlipoproteinemia MixedChronic Kidney Disease Stage 4Diabetes with Diabetic RetinopathyAllergic RhinitisComplication of Amputation StumpAmputation of LimbEssential HypertensionPeripheral Vascular DiseaseDiabetes with Renal Manifestations UncontrolledOverweightNicotine Dependence DURAN ([facility]) Hyperlipoproteinemia Mixed Chronic Kidney Disease Stage 4 Diabetes with Diabetic Retinopathy Allergic Rhinitis Complication of Amputation Stump Amputation of Limb Essential Hypertension Peripheral Vascular Disease Diabetes with Renal Manifestations Uncon trolled Overweight Nicotine Dependence ([id number]) For [employer] [facility] [address] [place] [phone] 10/03/2020 12:00:00 AM EDT eCW1 ([facility]) Outpatient<td ID="encounterTypeDescripti onID3">Chronic Care Mgt - Phone Call</td><td>Patsy Torres MD</td><td>[facility], [facility]</td><td>09/26/2020</td><td>12:00PM</td><td>12:26PM</td><td><content ID="encounterDiagnosisID3-0">Amputation of Limb</content>, <content ID="encounterDiagnosisID3-1">Anemia of Chronic Disease</content>, <content ID="encounterDiagnosisID3-2">Chronic Kidney Disease Stage 3</content>, <content ID="encounterDiagnosisID3-3">Chronic Sinusitis</content>, <content ID="encounterDiagnosisID3-4">Complication of Amputation Stump</content>, <content ID="encounterDiagnosisID3-5">Constipation</content>, <content ID="encounterDiagnosisID3-6">Dermatophytosis Nails</content>, <content ID="encounterDiagnosisID3-7">Diabetes Mellitus with Skin Ulcer</content>, <content ID="encounterDiagnosisID3-8">Diabetes with Renal Manifestations Uncontrolled</content>, <content ID="encounterDiagnosisID3-9">Essential Hypertension</content>, <content ID="encounterDiagnosisID3-10">Familial Combined Hyperlipidemia</content>, <content ID="encounterDiagnosisID3-11"> Hyperparathyroidism</content>, <content ID="encounterDiagnosisID3-12">Male Erectile Dysfunction</content>, <content ID="encounterDiagnosisID3-13">Nicotine Dependence</content>, <content ID="encounterDiagnosisID3- 14">Overweight</content>, <content ID="encounterDiagnosisID3-15">Peripheral Vascular Disease</content>, <content ID="encounterDiagnosisID3-16">Vitreous Hemorrhage Left Eye</content></td> Attender: Patsy Torres MD [facility], [facility] 09/26/2020 12:00:00 PM EDT - 09/26/2020 12:26:00 PM ED T Complication of Amputation StumpHyperparathyroidismDiabetes Mellitus with Skin UlcerChronic Kidney Disease Stage 3Anemia of Chronic DiseaseAmputation of LimbVitreous Hemorrhage Left EyeEssential HypertensionPeripheral Vascular DiseaseOverweightNicotine DependenceMale Erectile DysfunctionFamilial Combined HyperlipidemiaDiabetes with Renal Manifestations UncontrolledDermatophytosis NailsConstipationChronic Sinusitis RUSK ([facility]) Complication of Amputation Stump Hyperparathyroidism Diabetes Mellitus with Skin Ulcer Chronic Kidney Disease Stage 3 Anemia of Chronic Disease Amputation of Limb Vitreous Hemorrhage Left Eye Essential Hypertension Peripheral Vascular Disease Overweight Nicotine Dependence Male Erectile Dysfunction 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 [address] 09/19/2020 12:00:00 AM EDT eCW1 ([facility]) ([id number]) For [facility] [place] [address] 09/05/2020 12:00:00 AM EDT eCW1 ([facility]) Unknown [address] [facility] [address] 08/25/2020 12:00:00 AM EDT eCW1 ([facility]) ([id number]) For [facility] [place] [address] 08/22/2020 12:00:00 AM EDT eCW1 ([facility]) ([id number]) For [facility] [address] [place] [phone] 08/15/2020 12:00:00 AM EDT eCW1 ([facility]) ([id number]) For Template Keyes [facility] [place] [address] 08/08/2020 12:00:00 AM EDT eCW1 ([facility]) ([id number]) For Template [place] [facility] [place] [address] 08/01/2020 12:00:00 AM EDT eCW1 ([facility]) Unknown [address] [facility] [id number] 08/01/2020 12:00:00 AM EDT eCW1 ([facility]) ([id number]) For Template [place] [facility] [place] [address] 07/25/2020 12:00:00 AM EST eCW1 ([facility]) ([id number]) For Template [place] [facility] [place] [address] 07/18/2020 12:00:00 AM EST eCW1 ([facility]) ([id number]) For Template [place] [facility] [place] [phone] 07/11/2020 12:00:00 AM EST eCW1 ([facility]) ([id number]) For Template [place]es [address] [place] [address] 07/04/2020 12:00:00 AM EST eCW1 ([facility]) ([id number]) For Template [place]es [address] [place] [address] 07/01/2020 12:00:00 AM EST eCW1 ([facility]) ([id number]) For Template [place] [facility] [place] [address] 06/27/2020 12:00:00 AM EST eCW1 ([facility]) ([id number]) For Template [place] [address] [place] [address] 06/20/2020 12:00:00 AM EST eCW1 ([facility]) ([id number]) For Template [place] [facility] [place] [address] 06/16/2020 12:00:00 AM EST eCW1 ([facility]) Outpatient [facility] [place] [address] 06/13/2020 12:00:00 AM EST eCW1 ([facility]) Outpatient [facility] [address] 06/06/2020 12:00:00 AM EST eCW1 ([facility]) ([id number]) For Template [place] [address] [place] [address] 05/30/2020 12:00:00 AM EST eCW1 ([facility]) ([id number]) For Template [place]es [address] [place] [address] 05/23/2020 12:00:00 AM EST eCW1 ([facility]) Outpatient [address] [facility] [id number] 05/15/2020 12:00:00 AM EST eCW1 ([facility]) ([id number]) For Template [place] [address] [place] [address] 05/08/2020 12:00:00 AM EST eCW1 ([facility]) Unknown [address] [facility] [address] 05/07/2020 12:00:00 AM EST eCW1 ([facility]) Outpatient Attender: COBY RAY DO 05/06/2020 12:20:00 PM EST M86.9 [facility] M86.9 ([id number]) For Template [place] [address] [place] [address] 05/02/2020 12:00:00 AM EST eCW1 ([facility]) Unknown [address] [facility] [address] 05/02/2020 12:00:00 AM EST eCW1 ([facility]) Unknown [address] [facility] [address] 05/01/2020 12:00:00 AM EST eCW1 ([facility]) Unknown [address] [place] [address] 04/30/2020 12:00:00 AM EST eCW1 ([facility]) Outpatient Attender: COBY RAY DO 04/28/2020 10:10:00 AM EST M86.9 [facility] M86.9 TeleMedicine Phone E/M by Phys 11-20 Min [address] [place] [address] 04/28/2020 12:00:00 AM EST eCW1 ([facility]) Unknown [address] [facility] [place] [address] 04/24/2020 12:00:00 AM EST eCW1 ([facility]) Outpatient Attender: COBY RAY DO 04/22/2020 10:25:00 AM EST M86.9 [facility] M86.9 Outpatient [address] [facility] [place] [address] 04/21/2020 12:00:00 AM EST eCW1 ([facility]) Outpatient Attender: COBY RAY DO 04/15/2020 11:08:00 AM EST M86.9 [facility] M86.9 ([id number]) For Template [place] [address] [place] [address] 04/14/2020 12:00:00 AM EST eCW1 ([facility]) Outpatient Attender: COBY RAY DOAttender: No Family Docto r Provided 04/08/2020 09:50:00 AM EST M86.9 [facility] M86.9 ([id number]) For Template [place] [address] [place] [address] 04/03/2020 12:00:00 AM EST eCW1 ([facility]) <td ID="encounterTypeDescriptionID4">[facility] Phone Call</td><td>Patsy Torres MD</td><td>[facility], [facility]</td><td>03/28/2020</td><td>10:43AM</td><td>10:43AM</td><td><content ID="encounterDiagnosisID4-0">Amputation of Limb</content>, <content ID="encounterDiagnosisID4-1">Anemia of Chronic Disease</content>, <content ID="encounterDiagnosisID4-2">Chronic Kidney Disease Stage 3</content>, <content ID="encounterDiagnosisID4-3">Chronic Sinusitis</content>, <content ID="encounterDiagnosisID4-4">Complication of Amputation Stump</content>, <content ID="encounterDiagnosisID4-5">Constipation</content>, <content ID="encounterDiagnosisID4-6">Dermatophytosis Nails</content>, <content ID="encounterDiagnosisID4-7">Diabetes Mellitus with Skin Ulcer</content>, <content ID="encounterDiagnosisID4-8">Diabetes with Renal Manifestations Uncontrolled</content>, <content ID="encounterDiagnosisID4-9">Essential Hypertension</content>, <content ID="encounterDiagnosisID4-10">Familial Combined Hyperlipidemia</content>, <content ID="encounterDiagnosisID4-11">Hyperparathyroidism</content>, <content ID="encounterDiagnosisID4-12">Male Erectile Dysfunction</content>, <content ID="encounterDiagnosisID4-13">Nicotine Dependence</content>, <content ID="encounterDiagnosisID4-14">Overweight</content>, <content ID="encounterDiagnosisID4-15">Peripheral Vascular Disease</content>, <content ID="encounterDiagnosisID4-16">Vitreous Hemorrhage Left Eye</content></td>Outpatient Attender: Patsy Torres MD [facility], [facility] 03/28/2020 10:43:00 AM EST - 03/28/2020 10:43:00 AM ES T Complication of Amputation StumpComplication of Amputation StumpHyperparathyroidismHyperparathyroidismDiabetes Mellitus with Skin UlcerDiabetes Mellitus with Skin UlcerChronic Kidney Disease Stage 3Anemia of Chronic DiseaseChronic Kidney Disease Stage 3Anemia of Chronic DiseaseAmputation of LimbAmputation of LimbVitreous Hemorrhage Left EyeVitreous Hemorrhage - Left EyeEssential HypertensionEssential HypertensionPeripheral Vascular Disease Peripheral Vascular DiseaseOverweightNicotine DependenceMale Erectile DysfunctionFamilial Combined HyperlipidemiaDiabetes with Renal Manifestations UncontrolledDermatophytosis NailsConstipationChronic SinusitisOverweightNicotine DependenceMale Erectile DysfunctionFamilial Combined HyperlipidemiaDiabetes with Renal Manifestations UncontrolledDermatophytosis NailsConstipationChronic Sinusitis DURAN ([facility]) Complication of Amputation Stump Complication of Amputation Stump Hyperparathyroidism Hyperparathyroidism 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 Chronic Kidney Disease Stage 3 Anemia of Chronic Disease Chronic Kidney Disease Stage 3 Anemia of Chronic Disease Amputation of Limb Amputation of Limb Vitreous Hemorrhage Left Eye Vitreous Hemorrhage - Left Eye Essential Hypertension Essential Hypertension Peripheral Vascular Disease Peripheral Vascular Disease Overweight Nicotine Dependence Male Erectile Dysfunction 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 trolled Dermatophytosis Nails Constipation Chronic Sinusitis Overweight Nicotine Dependence Male Erectile Dysfunction 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 trolled Dermatophytosis Nails Constipation Chronic Sinusitis Outpatient [address] [facility] [address] 03/28/2020 12:00:00 AM EST eCW1 ([facility]) Unknown [address] [facility] [address] 03/28/2020 12:00:00 AM EST eCW1 ([facility]) Unknown [address] [facility] [address] 03/27/2020 12:00:00 AM EST eCW1 ([facility]) Unknown [address] [facility] [address] 03/26/2020 12:00:00 AM EST eCW1 ([facility]) ([id number]) For Template [place] [address] [place] [address] 03/20/2020 12:00:00 AM EST eCW1 ([facility]) Unknown [address] [facility] [address] 03/20/2020 12:00:00 AM EST eCW1 [facility] Outpatient [address] [facility] [address] 03/20/2020 12:00:00 AM EST eCW1 ([facility]) <td ID="encounterTypeDescriptionID6">[facility]</td><td>Patsy Torres MD</td><td>[facility]</td><td>03/18/2020</td><td>8:46AM</td><td>9:40AM</td><td><content ID="encounterDiagnosisID6-0">Nicotine Dependence</content>, <content ID="encounterDiagnosisID6-1">Essential Hypertension</content>, <content ID="encounterDiagnosisID6-2">Peripheral Vascular Disease</content>, <content ID="encounterDiagnosisID6-3">Diabetes with Diabetic Retinopathy</content>, <content ID="encounterDiagnosisID6-4">Complication of Amputation Stump</content> , <content ID="encounterDiagnosisID6-5">Overweight</content>, <content ID="encounterDiagnosisID6-6">Chronic Kidney Disease Stage 4</content>, <content ID="encounterDiagnosisID6-7">Hyperlipoproteinemia Mixed</content>, <content ID="encounterDiagnosisID6-8">Diabetes with Renal Manifestations Uncontrolled</content>, <content ID="encounterDiagnosisID6-9">Amputation of Limb</content>, <content ID="encounterDiagnosisID6-10">Allergic Rhinitis</content>, <content ID="encounterDiagnosisID6-11">Otitis Externa</content></td>Outpatient Attender: Patsy Torres MD [facility], [facility] 03/18/2020 08:46:00 AM EST - 03/18/2020 09:40:00 AM ES T Otitis ExternaAllergic RhinitisHyperlipoproteinemia MixedChronic Kidney Disease Stage 4Diabetes with Diabetic RetinopathyOtitis ExternaAllergic RhinitisHyperlipoproteinemia MixedChronic Kidney Disease Stage 4Diabetes with Diabetic RetinopathyOtitis ExternaAllergic RhinitisHyperlipoproteinemia MixedChronic Kidney Disease Stage 4Diabetes with Diabetic RetinopathyOtitis ExternaAllergic RhinitisHyperlipoproteinemia MixedChronic Kidney Disease Stage 4Diabetes with Diabetic RetinopathyComplication of Amputation StumpComplication of Amputation StumpComplication of Amputation StumpComplication of Amputation StumpAmputation of LimbAmputation of LimbAmputation of LimbAmputation of Limb Essential HypertensionEssential HypertensionEssential HypertensionEssential HypertensionPeripheral Vascular DiseasePeripheral Vascular DiseasePeripheral Vascular DiseasePeripheral Vascular DiseaseDiabetes with Renal Manifestations UncontrolledOverweightNicotine DependenceDiabetes with Renal Manifestations UncontrolledOverweightNicotine DependenceDiabetes with Renal Manifestations UncontrolledOverweightNicotine DependenceDiabetes with Renal Manifestations UncontrolledOverweightNicotine Dependence RUSK ([facility]) Otitis Externa Allergic Rhinitis Hyperlipoproteinemia Mixed Chronic Kidney Disease Stage 4 Diabetes with Diabetic Retinopathy Otitis Externa Allergic Rhinitis Hyperlipoproteinemia Mixed Chronic Kidney Disease Stage 4 Diabetes with Diabetic Retinopathy Otitis Externa Allergic Rhinitis Hyperlipoproteinemia Mixed Chronic Kidney Disease Stage 4 Diabetes with Diabetic Retinopathy Otitis Externa Allergic Rhinitis Hyperlipoproteinemia Mixed Chronic Kidney Disease Stage 4 Diabetes with Diabetic Retinopathy Complication of Amputation Stump Complication of Amputation Stump Complication of Amputation Stump Complication of Amputation Stump Amputation of Limb Amputation of Limb Amputation of Limb Amputation of Limb Essential Hypertension Essential Hypertension Essential Hypertension Essential Hypertension Peripheral Vascular Disease Peripheral Vascular Disease Peripheral Vascular Disease Peripheral Vascular Disease Diabetes with Renal Manifestations Uncon trolled Overweight Nicotine Dependence Diabetes with Renal Manifestations Uncon trolled Overweight Nicotine Dependence Diabetes with Renal Manifestations Uncon trolled Overweight Nicotine Dependence Diabetes with Renal Manifestations Uncon trolled Overweight Nicotine Dependence Outpatient<td ID="encounterTypeDescripti onID5"> Annual Wellness SUBSEQUENT visi t(> 1yr since prev.</td><td>Patsy Torres MD</td><td>[facility], [facility]</td><td>03/18/2020</td><td> 8:46AM</td><td>9:40AM</td><td><content ID="encounterDiagnosisID5-0">Routine History and Physical Senior Citizen (65-80 Yrs)</content></td> Attender: Patsy Torres MD [facility] 03/18/2020 08:46:00 A M EST - 03/18/2020 09:40:00 AM EST Routine History and Physical Senior Citi maikol (65-80 Yrs)Routine History and Physical Senior Citizen (65-80 Yrs)Routine History and Physical Senior Citizen (65-80 Yrs) RUSK ([facility]) Routine History and Physical Senior Citi maikol (65-80 Yrs) Routine History and Physical Senior Citi maikol (65-80 Yrs) Routine History and Physical Senior Citi maikol (65-80 Yrs) Unknown [address] [facility] [address] 03/18/2020 12:00:00 AM EST eCW1 ([facility]) Unknown [address] [facility] [address] 03/17/2020 12:00:00 AM EST eCW1 ([facility]) Outpatient Attender: EDELMIRA 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 11:30:00 AM EDT MEDENT ([facility]) ([id number]) For Template [place]es [address] [place] [address] 03/13/2020 12:00:00 AM EDT eCW1 ([facility]) ([id number]) For Template [place] [address] [place] [address] 03/06/2020 12:00:00 AM EDT eCW1 ([facility]) ([id number]) For Template [place] [address] [place] [address] 02/28/2020 12:00:00 AM EDT eCW1 ([facility]) ([id number]) For Template [place] [address] [place] [address] 02/21/2020 12:00:00 AM EDT eCW1 ([facility]) ([id number]) For Template [place] [address] [place] [address] 02/14/2020 12:00:00 AM EDT eCW1 ([facility]) Postop visit [address] [facility] [address] 02/13/2020 12:00:00 AM EDT eCW1 ([facility]) Immunizations Vaccine Date Status Description Data Source(s) COVID-19 VACCINE Moderna 09/08/2020 12:00:00 AM EDT completed [facility] Vaccine Series Complete: YESThis Data wa s Submitted to [facility] Via [employer]. COVID-19 VACCINE Moderna 08/01/2020 12:00:00 AM EDT completed [facility] Vaccine Series Complete: NOThis Data was Submitted to [facility] [employer]. IIV3. This is one of two codes replacing CVX 15, which is being retired. 02/28/2020 08:51:00 AM EDT completed eCW1 ([facility]) IIV3. This is one of two codes replacing CVX 15, which is being retired. 02/28/2020 08:51:00 AM EDT completed eCW1 ([facility]) IIV3. This is one of two codes replacing CVX 15, which is being retired. 02/28/2020 08:51:00 AM EDT completed eCW1 ([facility]) IIV3. This is one of two codes replacing CVX 15, which is being retired. 02/28/2020 08:51:00 AM EDT completed eCW1 ([facility]) IIV3. This is one of two codes replacing CVX 15, which is being retired. 02/28/2020 08:51:00 AM EDT completed eCW1 ([facility]) IIV3. This is one of two codes replacing CVX 15, which is being retired. 02/28/2020 08:51:00 AM EDT completed eCW1 ([facility]) IIV3. This is one of two codes replacing CVX 15, which is being retired. 02/28/2020 08:51:00 AM EDT completed eCW1 ([facility]) IIV3. This is one of two codes replacing CVX 15, which is being retired. 02/28/2020 08:51:00 AM EDT completed eCW1 ([facility]) IIV3. This is one of two codes replacing CVX 15, which is being retired. 02/28/2020 08:51:00 AM EDT completed eCW1 ([facility]) IIV3. This is one of two codes replacing CVX 15, which is being retired. 02/28/2020 08:51:00 AM EDT completed eCW1 ([facility]) IIV3. This is one of two codes replacing CVX 15, which is being retired. 02/28/2020 08:51:00 AM EDT completed eCW1 ([facility]) IIV3. This is one of two codes replacing CVX 15, which is being retired. 02/28/2020 08:51:00 AM EDT completed eCW1 ([facility]) IIV3. This is one of two codes replacing CVX 15, which is being retired. 02/28/2020 08:51:00 AM EDT completed eCW1 ([facility]) IIV3. This is one of two codes replacing CVX 15, which is being retired. 02/28/2020 08:51:00 AM EDT completed eCW1 ([facility]) IIV3. This is one of two codes replacing CVX 15, which is being retired. 02/28/2020 08:51:00 AM EDT completed eCW1 ([facility]) IIV3. This is one of two codes replacing CVX 15, which is being retired. 02/28/2020 08:51:00 AM EDT completed eCW1 ([facility]) IIV3. This is one of two codes replacing CVX 15, which is being retired. 02/28/2020 08:51:00 AM EDT completed eCW1 ([facility]) IIV3. This is one of two codes replacing CVX 15, which is being retired. 02/28/2020 08:51:00 AM EDT completed eCW1 ([facility]) IIV3. This is one of two codes replacing CVX 15, which is being retired. 02/28/2020 08:51:00 AM EDT completed eCW1 ([facility]) IIV3. This is one of two codes replacing CVX 15, which is being retired. 02/28/2020 08:51:00 AM EDT completed eCW1 ([facility]) IIV3. This is one of two codes replacing CVX 15, which is being retired. 02/28/2020 08:51:00 AM EDT completed eCW1 ([facility]) IIV3. This is one of two codes replacing CVX 15, which is being retired. 02/28/2020 08:51:00 AM EDT completed eCW1 ([facility]) IIV3. This is one of two codes replacing CVX 15, which is being retired. 02/28/2020 08:51:00 AM EDT completed eCW1 ([facility]) IIV3. This is one of two codes replacing CVX 15, which is being retired. 02/28/2020 08:51:00 AM EDT completed eCW1 ([facility]) IIV3. This is one of two codes replacing CVX 15, which is being retired. 02/28/2020 08:51:00 AM EDT completed eCW1 ([facility]) IIV3. This is one of two codes replacing CVX 15, which is being retired. 02/28/2020 08:51:00 AM EDT completed eCW1 ([facility]) IIV3. This is one of two codes replacing CVX 15, which is being retired. 02/28/2020 08:51:00 AM EDT completed eCW1 ([facility]) IIV3. This is one of two codes replacing CVX 15, which is being retired. 02/28/2020 08:51:00 AM EDT completed eCW1 ([facility]) IIV3. This is one of two codes replacing CVX 15, which is being retired. 02/28/2020 08:51:00 AM EDT completed eCW1 ([facility]) IIV3. This is one of two codes replacing CVX 15, which is being retired. 02/28/2020 08:51:00 AM EDT completed eCW1 ([facility]) IIV3. This is one of two codes replacing CVX 15, which is being retired. 02/28/2020 08:51:00 AM EDT completed eCW1 ([facility]) IIV3. This is one of two codes replacing CVX 15, which is being retired. 02/28/2020 08:51:00 AM EDT completed eCW1 ([facility]) IIV3. This is one of two codes replacing CVX 15, which is being retired. 02/28/2020 08:51:00 AM EDT completed eCW1 ([facility]) IIV3. This is one of two codes replacing CVX 15, which is being retired. 02/28/2020 08:51:00 AM EDT completed eCW1 ([facility]) IIV3. This is one of two codes replacing CVX 15, which is being retired. 02/28/2020 08:51:00 AM EDT completed eCW1 ([facility]) IIV3. This is one of two codes replacing CVX 15, which is being retired. 02/28/2020 08:51:00 AM EDT completed eCW1 ([facility]) IIV3. This is one of two codes replacing CVX 15, which is being retired. 02/28/2020 08:51:00 AM EDT completed eCW1 ([facility]) IIV3. This is one of two codes replacing CVX 15, which is being retired. 02/28/2020 08:51:00 AM EDT completed eCW1 ([facility]) IIV3. This is one of two codes replacing CVX 15, which is being retired. 02/28/2020 08:51:00 AM EDT completed eCW1 ([facility]) IIV3. This is one of two codes replacing CVX 15, which is being retired. 02/28/2020 08:51:00 AM EDT completed eCW1 ([facility]) IIV3. This is one of two codes replacing CVX 15, which is being retired. 02/28/2020 08:51:00 AM EDT completed eCW1 ([facility]) IIV3. This is one of two codes replacing CVX 15, which is being retired. 02/28/2020 08:51:00 AM EDT completed eCW1 ([facility]) IIV3. This is one of two codes replacing CVX 15, which is being retired. 02/28/2020 08:51:00 AM EDT completed eCW1 ([facility]) IIV3. This is one of two codes replacing CVX 15, which is being retired. 02/28/2020 08:51:00 AM EDT completed eCW1 ([facility]) IIV3. This is one of two codes replacing CVX 15, which is being retired. 02/28/2020 08:51:00 AM EDT completed eCW1 ([facility]) IIV3. This is one of two codes replacing CVX 15, which is being retired. 02/28/2020 08:51:00 AM EDT completed eCW1 ([facility]) IIV3. This is one of two codes replacing CVX 15, which is being retired. 02/28/2020 08:51:00 AM EDT completed eCW1 ([facility]) IIV3. This is one of two codes replacing CVX 15, which is being retired. 02/28/2020 08:51:00 AM EDT completed eCW1 ([facility]) IIV3. This is one of two codes replacing CVX 15, which is being retired. 02/28/2020 08:51:00 AM EDT completed eCW1 ([facility]) IIV3. This is one of two codes replacing CVX 15, which is being retired. 02/28/2020 08:51:00 AM EDT completed eCW1 ([facility]) IIV3. This is one of two codes replacing CVX 15, which is being retired. 02/28/2020 08:51:00 AM EDT completed eCW1 ([facility]) IIV3. This is one of two codes replacing CVX 15, which is being retired. 02/28/2020 08:51:00 AM EDT completed eCW1 ([facility]) IIV3. This is one of two codes replacing CVX 15, which is being retired. 02/28/2020 08:51:00 AM EDT completed eCW1 ([facility]) IIV3. This is one of two codes replacing CVX 15, which is being retired. 02/28/2020 08:51:00 AM EDT completed eCW1 ([facility]) IIV3. This is one of two codes replacing CVX 15, which is being retired. 02/28/2020 08:51:00 AM EDT completed eCW1 ([facility]) IIV3. This is one of two codes replacing CVX 15, which is being retired. 02/28/2020 08:51:00 AM EDT completed eCW1 ([facility]) IIV3. This is one of two codes replacing CVX 15, which is being retired. 02/28/2020 08:51:00 AM EDT completed eCW1 ([facility]) IIV3. This is one of two codes replacing CVX 15, which is being retired. 02/28/2020 08:51:00 AM EDT completed eCW1 ([facility]) IIV3. This is one of two codes replacing CVX 15, which is being retired. 02/28/2020 08:51:00 AM EDT completed eCW1 ([facility]) IIV3. This is one of two codes replacing CVX 15, which is being retired. 02/28/2020 08:51:00 AM EDT completed eCW1 ([facility]) IIV3. This is one of two codes replacing CVX 15, which is being retired. 02/28/2020 08:51:00 AM EDT completed eCW1 ([facility]) IIV3. This is one of two codes replacing CVX 15, which is being retired. 02/28/2020 08:51:00 AM EDT completed eCW1 ([facility]) IIV3. This is one of two codes replacing CVX 15, which is being retired. 02/28/2020 08:51:00 AM EDT completed eCW1 ([facility]) IIV3. This is one of two codes replacing CVX 15, which is being retired. 02/28/2020 08:51:00 AM EDT completed eCW1 ([facility]) IIV3. This is one of two codes replacing CVX 15, which is being retired. 02/28/2020 08:51:00 AM EDT completed eCW1 ([facility]) IIV3. This is one of two codes replacing CVX 15, which is being retired. 02/28/2020 08:51:00 AM EDT completed eCW1 ([facility]) IIV3. This is one of two codes replacing CVX 15, which is being retired. 02/28/2020 08:51:00 AM EDT completed eCW1 ([facility]) IIV3. This is one of two codes replacing CVX 15, which is being retired. 02/28/2020 08:51:00 AM EDT completed eCW1 ([facility]) IIV3. This is one of two codes replacing CVX 15, which is being retired. 02/28/2020 08:51:00 AM EDT completed eCW1 ([facility]) IIV3. This is one of two codes replacing CVX 15, which is being retired. 02/28/2020 08:51:00 AM EDT completed eCW1 ([facility]) IIV3. This is one of two codes replacing CVX 15, which is being retired. 02/28/2020 08:51:00 AM EDT completed eCW1 ([facility]) IIV3. This is one of two codes replacing CVX 15, which is being retired. 02/28/2020 08:51:00 AM EDT completed eCW1 ([facility]) Medications Medication Brand Name Start Date Product Form Dose Route Admi nistrative Instructions Pharmacy Instructions Status Indications Reaction Description Data Source(s) doxycycline hyclate 100 MG Oral Tablet Doxycycline Hyc late 100 MG Doxycycline Hyclate 100 MG 02/04/2021 12:00:00 AM EDT 1.0 {tablet} active Doxycycline Hyclate 100 MG eCW1 ([facility]) doxycycline hyclate 100 MG Oral Tablet Doxycycline Hyc late 100 MG Doxycycline Hyclate 100 MG 02/04/2021 12:00:00 AM EDT 1.0 {tablet} active Doxycycline Hyclate 100 MG eCW1 ([facility]) doxycycline hyclate 100 MG Oral Tablet Doxycycline Hyc late 100 MG Doxycycline Hyclate 100 MG 02/04/2021 12:00:00 AM EDT 1.0 {tablet} active Doxycycline Hyclate 100 MG eCW1 ([facility]) doxycycline hyclate 100 MG Oral Tablet Doxycycline Hyc late 100 MG Doxycycline Hyclate 100 MG 02/04/2021 12:00:00 AM EDT 1.0 {tablet} active Doxycycline Hyclate 100 MG eCW1 ([facility]) doxycycline hyclate 100 MG Oral Tablet Doxycycline Hyc late 100 MG Doxycycline Hyclate 100 MG 02/04/2021 12:00:00 AM EDT 1.0 {tablet} active Doxycycline Hyclate 100 MG eCW1 ([facility]) doxycycline hyclate 100 MG Oral Tablet Doxycycline Hyc late 100 MG Doxycycline Hyclate 100 MG 02/04/2021 12:00:00 AM EDT 1.0 {tablet} active Doxycycline Hyclate 100 MG eCW1 ([facility]) doxycycline hyclate 100 MG Oral Tablet Doxycycline Hyc late 100 MG Doxycycline Hyclate 100 MG 02/04/2021 12:00:00 AM EDT 1.0 {tablet} active Doxycycline Hyclate 100 MG eCW1 ([facility]) doxycycline hyclate 100 MG Oral Tablet Doxycycline Hyc late 100 MG Doxycycline Hyclate 100 MG 02/04/2021 12:00:00 AM EDT 1.0 {tablet} active Doxycycline Hyclate 100 MG eCW1 ([facility]) doxycycline hyclate 100 MG Oral Tablet Doxycycline Hyc late 100 MG Doxycycline Hyclate 100 MG 02/04/2021 12:00:00 AM EDT 1.0 {tablet} active Doxycycline Hyclate 100 MG eCW1 ([facility]) doxycycline hyclate 100 MG Oral Tablet Doxycycline Hyc late 100 MG Doxycycline Hyclate 100 MG 02/04/2021 12:00:00 AM EDT 1.0 {tablet} active Doxycycline Hyclate 100 MG eCW1 ([facility]) doxycycline hyclate 100 MG Oral Tablet Doxycycline Hyc late 100 MG Doxycycline Hyclate 100 MG 02/04/2021 12:00:00 AM EDT 1.0 {tablet} active Doxycycline Hyclate 100 MG eCW1 ([facility]) doxycycline hyclate 100 MG Oral Tablet Doxycycline Hyc late 100 MG Doxycycline Hyclate 100 MG 02/04/2021 12:00:00 AM EDT 1.0 {tablet} active Doxycycline Hyclate 100 MG eCW1 ([facility]) doxycycline hyclate 100 MG Oral Tablet Doxycycline Hyc late 100 MG Doxycycline Hyclate 100 MG 02/04/2021 12:00:00 AM EDT 1.0 {tablet} active Doxycycline Hyclate 100 MG eCW1 ([facility]) doxycycline hyclate 100 MG Oral Tablet Doxycycline Hyc late 100 MG Doxycycline Hyclate 100 MG 02/04/2021 12:00:00 AM EDT 1.0 {tablet} active Doxycycline Hyclate 100 MG eCW1 ([facility]) doxycycline hyclate 100 MG Oral Tablet Doxycycline Hyc late 100 MG Doxycycline Hyclate 100 MG 02/04/2021 12:00:00 AM EDT 1.0 {tablet} active Doxycycline Hyclate 100 MG eCW1 ([facility]) doxycycline hyclate 100 MG Oral Tablet Doxycycline Hyc late 100 MG Doxycycline Hyclate 100 MG 02/04/2021 12:00:00 AM EDT 1.0 {tablet} active Doxycycline Hyclate 100 MG eCW1 ([facility]) Aspirin 81 MG Delayed Release Oral Table t Aspirin 81 MG Oral Tablet Delayed Release Aspirin 81 MG Oral Tablet Delayed Release 01/12/2021 12:00:00 AM EDT 1 active aspirin 81 MG Delayed Re lease Oral Tablet RUSK ([facility]) Rosuvastatin calcium 20 MG Oral Tablet Rosuvastatin Ca lcium 20 MG Oral Tablet Rosuvastatin Calcium 20 MG Oral Tablet 01/12/2021 12:00:00 AM EDT 1 active rosuvastatin calcium 20 MG Oral Tablet RUSK ([facility]) Tresiba FlexTouch 200 UNIT/ML Subcutaneous Solution Pe n-injector Tresiba FlexTouch 200 UNIT/ML Subcutaneous Solution Pen-injector 10/09/2020 12:00:00 AM EDT active 3 ML ins ulin degludec 200 UNT/ML Pen Injector [Tresiba] RUSK ([facility]) Loratadine 10 MG Oral Capsule Loratadine 10 MG Oral Capsule 09/17/2020 12:00:00 AM EDT 1 active loratadine 10 MG Oral Capsule RUSK ([facility]) clopidogrel 75 MG Oral Tablet Clopidogrel Bisulfate 75 MG Oral Tablet Clopidogrel Bisulfate 75 MG Oral Tablet 09/17/2020 12:00:00 AM EDT 1 active clopidogrel 75 MG Oral [facility]t [facility] Rosuvastatin calcium 10 MG Oral Tablet [Crestor] Crest or 10 MG Oral Tablet Crestor 10 MG Oral Tablet 08/04/2020 12:00:00 AM EDT 1 aborted rosuvastatin calcium 10 MG Oral Tablet [Crestor] RUSK ([facility]) doxycycline hyclate 100 MG Oral Tablet Doxycycline Hyc late 100 MG Doxycycline Hyclate 100 MG 08/01/2020 12:00:00 AM EDT 1.0 {tablet} suspended Doxycycline Hyclate 100 MG eCW1 ([facility]) doxycycline hyclate 100 MG Oral Tablet Doxycycline Hyc late 100 MG Doxycycline Hyclate 100 MG 08/01/2020 12:00:00 AM EDT 1.0 {tablet} active Doxycycline Hyclate 100 MG eCW1 ([facility]) doxycycline hyclate 100 MG Oral Tablet Doxycycline Hyc late 100 MG Doxycycline Hyclate 100 MG 08/01/2020 12:00:00 AM EDT 1.0 {tablet} suspended Doxycycline Hyclate 100 MG eCW1 ([facility]) doxycycline hyclate 100 MG Oral Tablet Doxycycline Hyc late 100 MG Doxycycline Hyclate 100 MG 08/01/2020 12:00:00 AM EDT 1.0 {tablet} suspended Doxycycline Hyclate 100 MG eCW1 ([facility]) doxycycline hyclate 100 MG Oral Tablet Doxycycline Hyc late 100 MG Doxycycline Hyclate 100 MG 08/01/2020 12:00:00 AM EDT 1.0 {tablet} suspended Doxycycline Hyclate 100 MG eCW1 ([facility]) doxycycline hyclate 100 MG Oral Tablet Doxycycline Hyc late 100 MG Doxycycline Hyclate 100 MG 08/01/2020 12:00:00 AM EDT 1.0 {tablet} suspended Doxycycline Hyclate 100 MG eCW1 ([facility]) doxycycline hyclate 100 MG Oral Tablet Doxycycline Hyc late 100 MG Doxycycline Hyclate 100 MG 08/01/2020 12:00:00 AM EDT 1.0 {tablet} suspended Doxycycline Hyclate 100 MG eCW1 ([facility]) doxycycline hyclate 100 MG Oral Tablet Doxycycline Hyc late 100 MG Doxycycline Hyclate 100 MG 08/01/2020 12:00:00 AM EDT 1.0 {tablet} suspended Doxycycline Hyclate 100 MG eCW1 ([facility]) doxycycline hyclate 100 MG Oral Tablet Doxycycline Hyc late 100 MG Doxycycline Hyclate 100 MG 08/01/2020 12:00:00 AM EDT 1.0 {tablet} suspended Doxycycline Hyclate 100 MG eCW1 ([facility]) doxycycline hyclate 100 MG Oral Tablet Doxycycline Hyc late 100 MG Doxycycline Hyclate 100 MG 08/01/2020 12:00:00 AM EDT 1.0 {tablet} suspended Doxycycline Hyclate 100 MG eCW1 ([facility]) doxycycline hyclate 100 MG Oral Tablet Doxycycline Hyc late 100 MG Doxycycline Hyclate 100 MG 08/01/2020 12:00:00 AM EDT 1.0 {tablet} suspended Doxycycline Hyclate 100 MG eCW1 ([facility]) doxycycline hyclate 100 MG Oral Tablet Doxycycline Hyc late 100 MG Doxycycline Hyclate 100 MG 08/01/2020 12:00:00 AM EDT 1.0 {tablet} suspended Doxycycline Hyclate 100 MG eCW1 ([facility]) doxycycline hyclate 100 MG Oral Tablet Doxycycline Hyc late 100 MG Doxycycline Hyclate 100 MG 08/01/2020 12:00:00 AM EDT 1.0 {tablet} suspended Doxycycline Hyclate 100 MG eCW1 ([facility]) doxycycline hyclate 100 MG Oral Tablet Doxycycline Hyc late 100 MG Doxycycline Hyclate 100 MG 08/01/2020 12:00:00 AM EDT 1.0 {tablet} active Doxycycline Hyclate 100 MG eCW1 ([facility]) doxycycline hyclate 100 MG Oral Tablet Doxycycline Hyc late 100 MG Doxycycline Hyclate 100 MG 08/01/2020 12:00:00 AM EDT 1.0 {tablet} suspended Doxycycline Hyclate 100 MG eCW1 ([facility]) doxycycline hyclate 100 MG Oral Tablet Doxycycline Hyc late 100 MG Doxycycline Hyclate 100 MG 08/01/2020 12:00:00 AM EDT 1.0 {tablet} active Doxycycline Hyclate 100 MG eCW1 ([facility]) doxycycline hyclate 100 MG Oral Tablet Doxycycline Hyc late 100 MG Doxycycline Hyclate 100 MG 08/01/2020 12:00:00 AM EDT 1.0 {tablet} active Doxycycline Hyclate 100 MG eCW1 ([facility]) doxycycline hyclate 100 MG Oral Tablet Doxycycline Hyc late 100 MG Doxycycline Hyclate 100 MG 08/01/2020 12:00:00 AM EDT 1.0 {tablet} active Doxycycline Hyclate 100 MG eCW1 ([facility]) doxycycline hyclate 100 MG Oral Tablet Doxycycline Hyc late 100 MG Doxycycline Hyclate 100 MG 08/01/2020 12:00:00 AM EDT 1.0 {tablet} suspended Doxycycline Hyclate 100 MG eCW1 ([facility]) doxycycline hyclate 100 MG Oral Tablet Doxycycline Hyc late 100 MG Doxycycline Hyclate 100 MG 08/01/2020 12:00:00 AM EDT 1.0 {tablet} suspended Doxycycline Hyclate 100 MG eCW1 ([facility]) doxycycline hyclate 100 MG Oral Tablet Doxycycline Hyc late 100 MG Doxycycline Hyclate 100 MG 08/01/2020 12:00:00 AM EDT 1.0 {tablet} suspended Doxycycline Hyclate 100 MG eCW1 ([facility]) doxycycline hyclate 100 MG Oral Tablet Doxycycline Hyc late 100 MG Doxycycline Hyclate 100 MG 08/01/2020 12:00:00 AM EDT 1.0 {tablet} active Doxycycline Hyclate 100 MG eCW1 ([facility]) doxycycline hyclate 100 MG Oral Tablet Doxycycline Hyc late 100 MG Doxycycline Hyclate 100 MG 08/01/2020 12:00:00 AM EDT 1.0 {tablet} suspended Doxycycline Hyclate 100 MG eCW1 ([facility]) doxycycline hyclate 100 MG Oral Tablet Doxycycline Hyc late 100 MG Doxycycline Hyclate 100 MG 08/01/2020 12:00:00 AM EDT 1.0 {tablet} active Doxycycline Hyclate 100 MG eCW1 ([facility]) doxycycline hyclate 100 MG Oral Tablet Doxycycline Hyc late 100 MG Doxycycline Hyclate 100 MG 08/01/2020 12:00:00 AM EDT 1.0 {tablet} a ctive eCW1 ([facility]) doxycycline hyclate 100 MG Oral Tablet Doxycycline Hyc late 100 MG Doxycycline Hyclate 100 MG 08/01/2020 12:00:00 AM EDT 1.0 {tablet} suspended Doxycycline Hyclate 100 MG eCW1 ([facility]) doxycycline hyclate 100 MG Oral Tablet Doxycycline Hyc late 100 MG Doxycycline Hyclate 100 MG 08/01/2020 12:00:00 AM EDT 1.0 {tablet} suspended Doxycycline Hyclate 100 MG eCW1 ([facility]) doxycycline hyclate 100 MG Oral Tablet Doxycycline Hyc late 100 MG Doxycycline Hyclate 100 MG 08/01/2020 12:00:00 AM EDT 1.0 {tablet} suspended Doxycycline Hyclate 100 MG eCW1 ([facility]) doxycycline hyclate 100 MG Oral Tablet Doxycycline Hyc late 100 MG Doxycycline Hyclate 100 MG 08/01/2020 12:00:00 AM EDT 1.0 {tablet} suspended Doxycycline Hyclate 100 MG eCW1 ([facility]) doxycycline hyclate 100 MG Oral Tablet Doxycycline Hyc late 100 MG Doxycycline Hyclate 100 MG 08/01/2020 12:00:00 AM EDT 1.0 {tablet} suspended Doxycycline Hyclate 100 MG eCW1 ([facility]) doxycycline hyclate 100 MG Oral Tablet Doxycycline Hyc late 100 MG Doxycycline Hyclate 100 MG 08/01/2020 12:00:00 AM EDT 1.0 {tablet} suspended Doxycycline Hyclate 100 MG eCW1 ([facility]) doxycycline hyclate 100 MG Oral Tablet Doxycycline Hyc late 100 MG Doxycycline Hyclate 100 MG 08/01/2020 12:00:00 AM EDT 1.0 {tablet} active Doxycycline Hyclate 100 MG eCW1 ([facility]) doxycycline hyclate 100 MG Oral Tablet Doxycycline Hyc late 100 MG Doxycycline Hyclate 100 MG 08/01/2020 12:00:00 AM EDT 1.0 {tablet} active Doxycycline Hyclate 100 MG eCW1 ([facility]) doxycycline hyclate 100 MG Oral Tablet Doxycycline Hyc late 100 MG Doxycycline Hyclate 100 MG 08/01/2020 12:00:00 AM EDT 1.0 {tablet} active Doxycycline Hyclate 100 MG eCW1 ([facility]) doxycycline hyclate 100 MG Oral Tablet Doxycycline Hyc late 100 MG Doxycycline Hyclate 100 MG 08/01/2020 12:00:00 AM EDT 1.0 {tablet} active Doxycycline Hyclate 100 MG eCW1 ([facility]) doxycycline hyclate 100 MG Oral Tablet Doxycycline Hyc late 100 MG Doxycycline Hyclate 100 MG 08/01/2020 12:00:00 AM EDT 1.0 {tablet} suspended Doxycycline Hyclate 100 MG eCW1 ([facility]) Tresiba FlexTouch 200 UNIT/ML Subcutaneous Solution Pe n-injector Tresiba FlexTouch 200 UNIT/ML Subcutaneous Solution Pen-injector 07/25/2020 12:00:00 AM EST aborted 3 ML ins ulin degludec 200 UNT/ML Pen Injector [Tresiba] DURAN ([facility]) Tresiba FlexTouch 200 UNIT/ML Subcutaneous Solution Pe n-injector Tresiba FlexTouch 200 UNIT/ML Subcutaneous Solution Pen-injector 07/22/2020 12:00:00 AM EST aborted 3 ML ins ulin degludec 200 UNT/ML Pen Injector [Tresiba] DURAN ([facility]) doxycycline hyclate 100 MG Oral Tablet Doxycycline Hyc late 100 MG Doxycycline Hyclate 100 MG 06/16/2020 12:00:00 AM EST 1.0 {tablet} suspended Doxycycline Hyclate 100 MG eCW1 ([facility]) doxycycline hyclate 100 MG Oral Tablet Doxycycline Hyc late 100 MG Doxycycline Hyclate 100 MG 06/16/2020 12:00:00 AM EST 1.0 {tablet} suspended Doxycycline Hyclate 100 MG eCW1 ([facility]) doxycycline hyclate 100 MG Oral Tablet Doxycycline Hyc late 100 MG Doxycycline Hyclate 100 MG 06/16/2020 12:00:00 AM EST 1.0 {tablet} suspended Doxycycline Hyclate 100 MG eCW1 ([facility]) doxycycline hyclate 100 MG Oral Tablet Doxycycline Hyc late 100 MG Doxycycline Hyclate 100 MG 06/16/2020 12:00:00 AM EST 1.0 {tablet} active Doxycycline Hyclate 100 MG eCW1 ([facility]) doxycycline hyclate 100 MG Oral Tablet Doxycycline Hyc late 100 MG Doxycycline Hyclate 100 MG 06/16/2020 12:00:00 AM EST 1.0 {tablet} suspended Doxycycline Hyclate 100 MG eCW1 ([facility]) doxycycline hyclate 100 MG Oral Tablet Doxycycline Hyc late 100 MG Doxycycline Hyclate 100 MG 06/16/2020 12:00:00 AM EST 1.0 {tablet} suspended Doxycycline Hyclate 100 MG eCW1 ([facility]) doxycycline hyclate 100 MG Oral Tablet Doxycycline Hyc late 100 MG Doxycycline Hyclate 100 MG 06/16/2020 12:00:00 AM EST 1.0 {tablet} suspended Doxycycline Hyclate 100 MG eCW1 ([facility]) doxycycline hyclate 100 MG Oral Tablet Doxycycline Hyc late 100 MG Doxycycline Hyclate 100 MG 06/16/2020 12:00:00 AM EST 1.0 {tablet} suspended Doxycycline Hyclate 100 MG eCW1 ([facility]) doxycycline hyclate 100 MG Oral Tablet Doxycycline Hyc late 100 MG Doxycycline Hyclate 100 MG 06/16/2020 12:00:00 AM EST 1.0 {tablet} suspended Doxycycline Hyclate 100 MG eCW1 ([facility]) doxycycline hyclate 100 MG Oral Tablet Doxycycline Hyc late 100 MG Doxycycline Hyclate 100 MG 06/16/2020 12:00:00 AM EST 1.0 {tablet} suspended Doxycycline Hyclate 100 MG eCW1 ([facility]) doxycycline hyclate 100 MG Oral Tablet Doxycycline Hyc late 100 MG Doxycycline Hyclate 100 MG 06/16/2020 12:00:00 AM EST 1.0 {tablet} suspended Doxycycline Hyclate 100 MG eCW1 ([facility]) doxycycline hyclate 100 MG Oral Tablet Doxycycline Hyc late 100 MG Doxycycline Hyclate 100 MG 06/16/2020 12:00:00 AM EST 1.0 {tablet} suspended Doxycycline Hyclate 100 MG eCW1 ([facility]) doxycycline hyclate 100 MG Oral Tablet Doxycycline Hyc late 100 MG Doxycycline Hyclate 100 MG 06/16/2020 12:00:00 AM EST 1.0 {tablet} active Doxycycline Hyclate 100 MG eCW1 ([facility]) doxycycline hyclate 100 MG Oral Tablet Doxycycline Hyc late 100 MG Doxycycline Hyclate 100 MG 06/16/2020 12:00:00 AM EST 1.0 {tablet} suspended Doxycycline Hyclate 100 MG eCW1 ([facility]) doxycycline hyclate 100 MG Oral Tablet Doxycycline Hyc late 100 MG Doxycycline Hyclate 100 MG 06/16/2020 12:00:00 AM EST 1.0 {tablet} suspended Doxycycline Hyclate 100 MG eCW1 ([facility]) doxycycline hyclate 100 MG Oral Tablet Doxycycline Hyc late 100 MG Doxycycline Hyclate 100 MG 06/16/2020 12:00:00 AM EST 1.0 {tablet} suspended Doxycycline Hyclate 100 MG eCW1 ([facility]) doxycycline hyclate 100 MG Oral Tablet Doxycycline Hyc late 100 MG Doxycycline Hyclate 100 MG 06/16/2020 12:00:00 AM EST 1.0 {tablet} suspended Doxycycline Hyclate 100 MG eCW1 ([facility]) doxycycline hyclate 100 MG Oral Tablet Doxycycline Hyc late 100 MG Doxycycline Hyclate 100 MG 06/16/2020 12:00:00 AM EST 1.0 {tablet} suspended Doxycycline Hyclate 100 MG eCW1 ([facility]) doxycycline hyclate 100 MG Oral Tablet Doxycycline Hyc late 100 MG Doxycycline Hyclate 100 MG 06/16/2020 12:00:00 AM EST 1.0 {tablet} suspended Doxycycline Hyclate 100 MG eCW1 ([facility]) doxycycline hyclate 100 MG Oral Tablet Doxycycline Hyc late 100 MG Doxycycline Hyclate 100 MG 06/16/2020 12:00:00 AM EST 1.0 {tablet} suspended Doxycycline Hyclate 100 MG eCW1 ([facility]) doxycycline hyclate 100 MG Oral Tablet Doxycycline Hyc late 100 MG Doxycycline Hyclate 100 MG 06/16/2020 12:00:00 AM EST 1.0 {tablet} suspended Doxycycline Hyclate 100 MG eCW1 ([facility]) doxycycline hyclate 100 MG Oral Tablet Doxycycline Hyc late 100 MG Doxycycline Hyclate 100 MG 06/16/2020 12:00:00 AM EST 1.0 {tablet} suspended Doxycycline Hyclate 100 MG eCW1 ([facility]) doxycycline hyclate 100 MG Oral Tablet Doxycycline Hyc late 100 MG Doxycycline Hyclate 100 MG 06/16/2020 12:00:00 AM EST 1.0 {tablet} active Doxycycline Hyclate 100 MG eCW1 ([facility]) doxycycline hyclate 100 MG Oral Tablet Doxycycline Hyc late 100 MG Doxycycline Hyclate 100 MG 06/16/2020 12:00:00 AM EST 1.0 {tablet} suspended Doxycycline Hyclate 100 MG eCW1 ([facility]) doxycycline hyclate 100 MG Oral Tablet Doxycycline Hyc late 100 MG Doxycycline Hyclate 100 MG 06/16/2020 12:00:00 AM EST 1.0 {tablet} suspended Doxycycline Hyclate 100 MG eCW1 ([facility]) doxycycline hyclate 100 MG Oral Tablet Doxycycline Hyc late 100 MG Doxycycline Hyclate 100 MG 06/16/2020 12:00:00 AM EST 1.0 {tablet} suspended Doxycycline Hyclate 100 MG eCW1 ([facility]) doxycycline hyclate 100 MG Oral Tablet Doxycycline Hyc late 100 MG Doxycycline Hyclate 100 MG 06/16/2020 12:00:00 AM EST 1.0 {tablet} suspended Doxycycline Hyclate 100 MG eCW1 ([facility]) doxycycline hyclate 100 MG Oral Tablet Doxycycline Hyc late 100 MG Doxycycline Hyclate 100 MG 06/16/2020 12:00:00 AM EST 1.0 {tablet} suspended Doxycycline Hyclate 100 MG eCW1 ([facility]) doxycycline hyclate 100 MG Oral Tablet Doxycycline Hyc late 100 MG Doxycycline Hyclate 100 MG 06/16/2020 12:00:00 AM EST 1.0 {tablet} suspended Doxycycline Hyclate 100 MG eCW1 ([facility]) doxycycline hyclate 100 MG Oral Tablet Doxycycline Hyc late 100 MG Doxycycline Hyclate 100 MG 06/16/2020 12:00:00 AM EST 1.0 {tablet} s uspended eCW1 ([facility]) doxycycline hyclate 100 MG Oral Tablet Doxycycline Hyc late 100 MG Doxycycline Hyclate 100 MG 06/16/2020 12:00:00 AM EST 1.0 {tablet} suspended Doxycycline Hyclate 100 MG eCW1 ([facility]) doxycycline hyclate 100 MG Oral Tablet Doxycycline Hyc late 100 MG Doxycycline Hyclate 100 MG 06/16/2020 12:00:00 AM EST 1.0 {tablet} suspended Doxycycline Hyclate 100 MG eCW1 ([facility]) doxycycline hyclate 100 MG Oral Tablet Doxycycline Hyc late 100 MG Doxycycline Hyclate 100 MG 06/16/2020 12:00:00 AM EST 1.0 {tablet} suspended Doxycycline Hyclate 100 MG eCW1 ([facility]) doxycycline hyclate 100 MG Oral Tablet Doxycycline Hyc late 100 MG Doxycycline Hyclate 100 MG 06/16/2020 12:00:00 AM EST 1.0 {tablet} suspended Doxycycline Hyclate 100 MG eCW1 ([facility]) doxycycline hyclate 100 MG Oral Tablet Doxycycline Hyc late 100 MG Doxycycline Hyclate 100 MG 06/16/2020 12:00:00 AM EST 1.0 {tablet} active Doxycycline Hyclate 100 MG eCW1 ([facility]) doxycycline hyclate 100 MG Oral Tablet Doxycycline Hyc late 100 MG Doxycycline Hyclate 100 MG 06/16/2020 12:00:00 AM EST 1.0 {tablet} suspended Doxycycline Hyclate 100 MG eCW1 ([facility]) doxycycline hyclate 100 MG Oral Tablet Doxycycline Hyc late 100 MG Doxycycline Hyclate 100 MG 06/16/2020 12:00:00 AM EST 1.0 {tablet} active Doxycycline Hyclate 100 MG eCW1 ([facility]) doxycycline hyclate 100 MG Oral Tablet Doxycycline Hyc late 100 MG Doxycycline Hyclate 100 MG 06/16/2020 12:00:00 AM EST 1.0 {tablet} active Doxycycline Hyclate 100 MG eCW1 ([facility]) doxycycline hyclate 100 MG Oral Tablet Doxycycline Hyc late 100 MG Doxycycline Hyclate 100 MG 06/16/2020 12:00:00 AM EST 1.0 {tablet} suspended Doxycycline Hyclate 100 MG eCW1 ([facility]ly [facility]) doxycycline hyclate 100 MG Oral Tablet Doxycycline Hyc late 100 MG Doxycycline Hyclate 100 MG 06/16/2020 12:00:00 AM EST 1.0 {tablet} suspended Doxycycline Hyclate 100 MG eCW1 ([facility]) doxycycline hyclate 100 MG Oral Tablet Doxycycline Hyc late 100 MG Doxycycline Hyclate 100 MG 06/16/2020 12:00:00 AM EST 1.0 {tablet} suspended Doxycycline Hyclate 100 MG eCW1 ([facility]) doxycycline hyclate 100 MG Oral Tablet Doxycycline Hyc late 100 MG Doxycycline Hyclate 100 MG 06/16/2020 12:00:00 AM EST 1.0 {tablet} suspended Doxycycline Hyclate 100 MG eCW1 ([facility]) doxycycline hyclate 100 MG Oral Tablet Doxycycline Hyc late 100 MG Doxycycline Hyclate 100 MG 06/16/2020 12:00:00 AM EST 1.0 {tablet} suspended Doxycycline Hyclate 100 MG eCW1 ([facility]) 24 HR metoprolol succinate 50 MG Extende d Release Oral Tablet Metoprolol Succinate ER 50 MG Oral Tablet Extended Release 24 Hour Metoprolol Succinate ER 50 MG Oral Tablet Extended Release 24 Hour 06/02/2020 12:00:00 AM EST 1 active 24 HR metoprolol succinate 50 MG Extended Release Oral Tablet DURAN ([facility]) 3 ML Insulin, Aspart, Human 100 UNT/ML P en Injector [NovoLog] NovoLOG FlexPen 100 UNIT/ML Subcutaneous Solution Pen-injector NovoLOG FlexPen 100 UNIT/ML Subcutaneous Solution Pen-injector 06/02/2020 12:00:00 AM EST active 3 ML insulin aspart, human 100 UNT/ML Pe n Injector [NovoLog] RUSK ([facility]) 3 ML Insulin, Aspart, Human 100 UNT/ML P en Injector [NovoLog] NovoLOG FlexPen 100 UNIT/ML Subcutaneous Solution Pen-injector NovoLOG FlexPen 100 UNIT/ML Subcutaneous Solution Pen-injector 05/30/2020 12:00:00 AM EST aborted 3 ML insulin aspart, human 100 UNT/ML Pe n Injector [NovoLog] RUSK ([facility]) Ceftriaxone 100 MG/ML Injectable Solutio n cefTRIAXone Sodium 2 GM Intravenous Solution Reconstituted cefTRIAXone Sodium 2 GM Intravenous Solu tion Reconstituted 04/02/2020 12:00:00 AM EST abor sergey ceftriaxone 100 MG/ML Injectable Solution RUSK ([facility]) Amlodipine 5 MG Oral Tablet amLODIPine Besylate 5 MG O ral Tablet amLODIPine Besylate 5 MG Oral Tablet 03/27/2020 12:00:00 AM EST active amlodipine 5 MG Oral Tablet RUSK ([facility]) doxycycline hyclate 100 MG Oral Capsule Doxycycline Hy clate 100 MG Oral Capsule Doxycycline Hyclate 100 MG Oral Capsule 03/27/2020 12:00:00 AM EST aborted doxycycline hyclate 100 MG Oral Capsule RUSK ([facility]) Fluconazole 200 MG Oral Tablet [Diflucan] Diflucan 200 MG Di flucan 200 MG 03/20/2020 12:00:00 AM EST 1.0 {tablet} suspended Diflucan 200 MG eCW1 ([facility]) Phenazopyridine hydrochloride 200 MG Oral Tablet [Pyri dium] Pyridium 200 MG Pyridium 200 MG 03/20/2020 12:00:00 AM EST 1.0 {tablet_after_meals} suspended Pyridium 200 MG eCW1 ([facility]) Phenazopyridine hydrochloride 200 MG Oral Tablet [Pyri dium] Pyridium 200 MG Pyridium 200 MG 03/20/2020 12:00:00 AM EST 1.0 {tablet_after_meals} active Pyridium 200 MG eCW1 ([facility]) NITROFURANTOIN, MACROCRYSTALS 25 MG / Ni trofurantoin, Monohydrate 75 MG Oral Capsule [Macrobid] Macrobid 100 MG Macrobid 100 MG 03/20/2020 12:00:00 AM EST active Macrobid 100 MG eCW1 ([facility]) Phenazopyridine hydrochloride 200 MG Oral Tablet [Pyri dium] Pyridium 200 MG Pyridium 200 MG 03/20/2020 12:00:00 AM EST 1.0 {tablet_after_meals} active Pyridium 200 MG eCW1 ([facility]) Fluconazole 200 MG Oral Tablet [Diflucan] Diflucan 200 MG Di flucan 200 MG 03/20/2020 12:00:00 AM EST 1.0 {tablet} active Diflucan 200 MG eCW1 ([facility]) Fluconazole 200 MG Oral Tablet [Diflucan] Diflucan 200 MG Di flucan 200 MG 03/20/2020 12:00:00 AM EST 1.0 {tablet} suspended Diflucan 200 MG eCW1 ([facility]) Fluconazole 200 MG Oral Tablet [Diflucan] Diflucan 200 MG Di flucan 200 MG 03/20/2020 12:00:00 AM EST 1.0 {tablet} active Diflucan 200 MG eCW1 ([facility]) Phenazopyridine hydrochloride 200 MG Oral Tablet [Pyri dium] Pyridium 200 MG Pyridium 200 MG 03/20/2020 12:00:00 AM EST 1.0 {tablet_after_meals} suspended Pyridium 200 MG eCW1 ([facility]) Phenazopyridine hydrochloride 200 MG Oral Tablet [Pyri dium] Pyridium 200 MG Pyridium 200 MG 03/20/2020 12:00:00 AM EST 1.0 {tablet_after_meals} suspended Pyridium 200 MG eCW1 ([facility]) Phenazopyridine hydrochloride 200 MG Oral Tablet [Pyri dium] Pyridium 200 MG Pyridium 200 MG 03/20/2020 12:00:00 AM EST 1.0 {tablet_after_meals} suspended Pyridium 200 MG eCW1 ([facility]) NITROFURANTOIN, MACROCRYSTALS 25 MG / Ni trofurantoin, Monohydrate 75 MG Oral Capsule [Macrobid] Macrobid 100 MG Macrobid 100 MG 03/20/2020 12:00:00 AM EST suspended Macrobid 100 MG eCW1 ( [facility]) NITROFURANTOIN, MACROCRYSTALS 25 MG / Ni trofurantoin, Monohydrate 75 MG Oral Capsule [Macrobid] Macrobid 100 MG Macrobid 100 MG 03/20/2020 12:00:00 AM EST active Macrobid 100 MG eCW1 ([facility]) NITROFURANTOIN, MACROCRYSTALS 25 MG / Ni trofurantoin, Monohydrate 75 MG Oral Capsule [Macrobid] Macrobid 100 MG Macrobid 100 MG 03/20/2020 12:00:00 AM EST active Macrobid 100 MG eCW1 ([facility]) Fluconazole 200 MG Oral Tablet [Diflucan] Diflucan 200 MG Di flucan 200 MG 03/20/2020 12:00:00 AM EST 1.0 {tablet} suspended Diflucan 200 MG eCW1 ([facility]) Fluconazole 200 MG Oral Tablet [Diflucan] Diflucan 200 MG Di flucan 200 MG 03/20/2020 12:00:00 AM EST 1.0 {tablet} active Diflucan 200 MG eCW1 ([facility]) NITROFURANTOIN, MACROCRYSTALS 25 MG / Ni trofurantoin, Monohydrate 75 MG Oral Capsule [Macrobid] Macrobid 100 MG Macrobid 100 MG 03/20/2020 12:00:00 AM EST suspended Macrobid 100 MG eCW1 ( [facility]) NITROFURANTOIN, MACROCRYSTALS 25 MG / Ni trofurantoin, Monohydrate 75 MG Oral Capsule [Macrobid] Macrobid 100 MG Macrobid 100 MG 03/20/2020 12:00:00 AM EST suspended Macrobid 100 MG eCW1 ( [facility]) Fluconazole 200 MG Oral Tablet [Diflucan] Diflucan 200 MG Di flucan 200 MG 03/20/2020 12:00:00 AM EST 1.0 {tablet} suspended Diflucan 200 MG eCW1 ([facility]) NITROFURANTOIN, MACROCRYSTALS 25 MG / Ni trofurantoin, Monohydrate 75 MG Oral Capsule [Macrobid] Macrobid 100 MG Macrobid 100 MG 03/20/2020 12:00:00 AM EST suspended Macrobid 100 MG eCW1 ( [facility]) NITROFURANTOIN, MACROCRYSTALS 25 MG / Ni trofurantoin, Monohydrate 75 MG Oral Capsule [Macrobid] Macrobid 100 MG Macrobid 100 MG 03/20/2020 12:00:00 AM EST suspended Macrobid 100 MG eCW1 ( [facility]) Phenazopyridine hydrochloride 200 MG Oral Tablet [Pyri dium] Pyridium 200 MG Pyridium 200 MG 03/20/2020 12:00:00 AM EST 1.0 {tablet_after_meals} suspended Pyridium 200 MG eCW1 ([facility]) Phenazopyridine hydrochloride 200 MG Oral Tablet [Pyri dium] Pyridium 200 MG Pyridium 200 MG 03/20/2020 12:00:00 AM EST 1.0 {tablet_after_meals} suspended Pyridium 200 MG eCW1 ([facility]) Fluconazole 200 MG Oral Tablet [Diflucan] Diflucan 200 MG Di flucan 200 MG 03/20/2020 12:00:00 AM EST 1.0 {tablet} suspended Diflucan 200 MG eCW1 ([facility]) NITROFURANTOIN, MACROCRYSTALS 25 MG / Ni trofurantoin, Monohydrate 75 MG Oral Capsule [Macrobid] Macrobid 100 MG Macrobid 100 MG 03/20/2020 12:00:00 AM EST suspended Macrobid 100 MG eCW1 ( [facility]) Phenazopyridine hydrochloride 200 MG Oral Tablet [Pyri dium] Pyridium 200 MG Pyridium 200 MG 03/20/2020 12:00:00 AM EST 1.0 {tablet_after_meals} active Pyridium 200 MG eCW1 ([facility]) NITROFURANTOIN, MACROCRYSTALS 25 MG / Ni trofurantoin, Monohydrate 75 MG Oral Capsule [Macrobid] Macrobid 100 MG Macrobid 100 MG 03/20/2020 12:00:00 AM EST active Macrobid 100 MG eCW1 ([facility]) Phenazopyridine hydrochloride 200 MG Oral Tablet [Pyri dium] Pyridium 200 MG Pyridium 200 MG 03/20/2020 12:00:00 AM EST 1.0 {tablet_after_meals} active Pyridium 200 MG eCW1 ([facility]) Fluconazole 200 MG Oral Tablet [Diflucan] Diflucan 200 MG Di flucan 200 MG 03/20/2020 12:00:00 AM EST 1.0 {tablet} active Diflucan 200 MG eCW1 ([facility]) Fluconazole 200 MG Oral Tablet [Diflucan] Diflucan 200 MG Di flucan 200 MG 03/20/2020 12:00:00 AM EST 1.0 {tablet} suspended Diflucan 200 MG eCW1 ([facility]) Hydrocortisone 10 MG/ML / Neomycin 3.5 M G/ML / Polymyxin B 58858 UNT/ML Otic Suspension Jkjtwauo-Vgdyrqhvm-QT 3.5-96069-0 Otic Suspension Eejhymhj-Uhlazuigz-IX 3.5-41827-7 Otic Suspension 03/19/2020 12:00:00 AM EST completed hydrocorti sone 10 MG/ML / neomycin 3.5 MG/ML / polymyxin B 35195 UNT/ML Otic Suspension [facility]) Colistin 3 MG/ML / Hydrocortisone 10 MG/ ML / Neomycin 3.3 MG/ML / THONZONIUM BROMIDE 0.5 MG/ML Otic Suspension [Cortisporin-TC] Cortisporin-TC 3.3-3-10-0.5 MG/ML Otic Suspension Cortisporin-TC 3.3-3-10-0.5 MG/ML Otic Suspension 03/18/2020 12:00:00 AM EST completed colistin 3 MG/ML / hydrocortisone 10 MG/ML / neomycin 3.3 MG/ML / thonzonium bromide 0.5 MG/ML Otic Suspension [Cortisporin-TC] RUSK ([facility]) benzonatate 100 MG Oral Capsule [Tessalo n Perles] Tessalon Perles 100 MG Oral Capsule Tessalon Perles 100 MG Oral Capsule 03/18/2020 12:00:00 AM EST aborted benzonatate 100 MG Oral Caps ule [Tessalon Perles] RUSK ([facility]) Loratadine 10 MG Oral Capsule Loratadine 10 MG Oral Capsule 03/18/2020 12:00:00 AM EST 1 aborted loratadine 10 MG Oral Capsule RUSK ([facility]) Aspirin 81 MG Delayed Release Oral Table t Aspirin 81 MG Oral Tablet Delayed Release Aspirin 81 MG Oral Tablet Delayed Release 01/15/2020 12:00:00 AM EDT 1 completed aspirin 81 MG Delayed Release Oral Tablet RUSK ([facility]) Tresiba FlexTouch 200 UNIT/ML Subcutaneous Solution Pe n-injector Tresiba FlexTouch 200 UNIT/ML Subcutaneous Solution Pen-injector 01/15/2020 12:00:00 AM EDT aborted 3 ML ins ulin degludec 200 UNT/ML Pen Injector [Tresiba] RUSK ([facility]) 24 HR metoprolol succinate 50 MG Extende d Release Oral Tablet Metoprolol Succinate ER 50 MG Oral Tablet Extended Release 24 Hour Metoprolol Succinate ER 50 MG Oral Tablet Extended Release 24 Hour 11/27/2019 12:00:00 AM EDT 1 aborted 24 HR metoprolol succinate 50 MG Extended Release Oral Tablet [facility]) clopidogrel 75 MG Oral Tablet Clopidogrel Bisulfate 75 MG Oral Tablet Clopidogrel Bisulfate 75 MG Oral Tablet 10/17/2019 12:00:00 AM EDT 1 aborted clopidogrel 75 MG Oral [facility]t [facility] Rosuvastatin calcium 10 MG Oral Tablet [Crestor] Crest or 10 MG Oral Tablet Crestor 10 MG Oral Tablet 07/24/2019 12:00:00 AM EDT 1 aborted rosuvastatin calcium 10 MG Oral Tablet [Crestor] RUSK ([facility]) Tresiba FlexTouch 200 UNIT/ML Subcutaneous Solution Pe n-injector Tresiba FlexTouch 200 UNIT/ML Subcutaneous Solution Pen-injector 05/21/2019 12:00:00 AM EST aborted 3 ML ins ulin degludec 200 UNT/ML Pen Injector [Tresiba] RUSK ([facility]) 3 ML Insulin, Aspart, Human 100 UNT/ML P en Injector [NovoLog] NovoLOG FlexPen 100 UNIT/ML Subcutaneous Solution Pen-injector NovoLOG FlexPen 100 UNIT/ML Subcutaneous Solution Pen-injector 05/21/2019 12:00:00 AM EST aborted 3 ML insulin aspart, human 100 UNT/ML Pe n Injector [NovoLog] RUSK ([facility]) Tresiba FlexTouch 200UNIT/ML Subcutaneous Solution Pen -injector Tresiba FlexTouch 200UNIT/ML Subcutaneous Solution Pen-injector 05/17/2018 12:00:00 AM EST aborted 3 ML ins ulin degludec 200 UNT/ML Pen Injector [Tresiba] DURAN ([facility]) Insurance Providers Payer name Policy type / Coverage type Policy ID Covered alliance party ID Covered alliance party's relationship to keyes Policy Keyes Plan Information [place] [place] [id number] SELF [id number] [place] [place] [place] [id number] SELF [id number] [employer] [id number] Mai YND [id number] MEDICARE [id number] SP [id number] A MEDICARE [id number] SP [id number] A AARP HEALTH CARE OPTIONS [id number] SP [id number] AARP HEALTH CARE OPTIONS [id number] SP [id number] AARP HEALTH CARE OPTIONS [id number] SP [id number] Medicare Part B of [facility] Other 0 [id number] Self 0 Medicare Part B of [facility] Other 0 [id number] Self 0 Medicare Part B of [facility] Other 0 [id number] Self 0 Medicare Part B of [facility] Other 0 [id number] Self 0 Medicare Part B of [facility] Other 0 [id number] Self 0 Medicare Part B of [facility] Other 0 [id number] Self 0 Medicare Part B of [facility] Other 0 [id number] Self 0 Medicare Part B of [facility] Other 0 [id number] Self 0 Medicare Part B of [facility] Other 0 [id number] Self 0 Medicare Part B of [facility] Other 0 [id number] Self 0 ANSI-Commercial [id number] ANSI-Not a Secondary Insurance [id number] ANSI-Medicare Part B [id number] ANSI-Commercial [id number] ANSI-Not a Secondary Insurance [id number] ANSI-Commercial [id number] ANSI-Medicare Part B [id number] ANSI-Commercial [id number] ANSI-Commercial [id number] ANSI-Medicare Part B [id number] ANSI-Not a Secondary Insurance [id number] ANSI-Commercial [id number]-5047-[id number] ANSI-Commercial [id number] ANSI-Not a Secondary Insurance [id number] ANSI-Medicare Part B [id number] ANSI-Commercial [id number]-2otg-[id number] ANSI-Commercial [id number] u39tjg08-666g-[id number] ANSI-Medicare Part B [id number] ANSI-Not a Secondary Insurance [id number] [id number] ANSI-Commercial 346ko20f-2ymt-00eb-qgg9-72y5269ntuil 270sl65r-7ikw-82tr-[id number] ANSI-Medicare Part B [id number] ANSI-Commercial [id number]-[id number] ANSI-Commercial [id number]-ewaw-11gw-4v6f-[id number] [id number]-hjye-50hb-5n2j-[id number] ANSI-Not a Secondary Insurance [id number] ANSI-Commercial [id number]-[id number]-[id number] 36z105m1-a759-02c0-831g-[id number] ANSI-Not a Secondary Insurance [id number] [id number]-a5il-4irw-[id number] ANSI-Medicare Part B [id number] ANSI-Commercial [id number]-bpc3-5317-2s4c-393ce04189sc i8mj04a5-hnb2-8066-3y8m-[id number] ANSI-Medicare Part B [id number] ANSI-Not a Secondary Insurance [id number] [id number] pwzz313q-4860-9qk9-9z1y-[id number] ANSI-Commercial [id number] l4l0dn89-9wv4-2y31-8r44-[id number] ANSI-Commercial [id number]-[id number] [id number]-1652-12z8-[id number] Medicare Part B [facility] Other 0 [id number] Self 0 ANSI-Commercial [id number]-g9so-1t5j-[id number] [id number]-w4vw-8c5c-j102-6483066rh917 ANSI-Commercial [id number] pf25gs8[id number] ANSI-Not a Secondary Insurance [id number]-[id number]-1880-202q-049f-3s0hx5777846 ANSI-Medicare Part B [id number] ANSI-Commercial [id number]-8p13-z88z-[id number] 44000h43-884q-9g17-w55f-660201c8vv35 ANSI-Medicare Part B [id number] ANSI-Not a Secondary Insurance [id number]-muw1-8o6gg [id number] [id number]-c9d8-26o2-knv3-9n4rrf191717 ANSI-Commercial [id number]-8046-3987-n727-5721g0fdo13s dd357j4x-3678-7076-c386-4886v1ept81t ANSI-Not a Secondary Insurance [id number] 77pdt3f8-u20u-15p7-48c0-5urx682963ge ANSI-Medicare Part B [id number] ANSI-Commercial [id number]-o6po-[id number]-co7c-00d6-j9ub-[id number] ANSI-Commercial 14tm0kh4-1d5m-673t-4xg6-[id number] 33wa2mm2-1s3u-245z-6fb0-t23v2h384677 ANSI-Commercial [id number]-1887-78db-1pjf-[id number] 1977f22f-8630-54nz-3dpx-s7e1l46n8247 ANSI-Commercial rj17fi5r-cq4q-246x-6827-it33808j26xu ax24iu0j-et4e-238k-5619-ok92246m53oa ANSI-Not a Secondary Insurance [id number]-23570 [id number] [id number]-4rd8-6n2l-[id number] ANSI-Medicare Part B [id number] Medicare Part B [facility] Other 0 [id number] Self 0 ANSI-Medicare Part B [id number] ANSI-Not a Secondary Insurance [id number]-[id number] ANSI-Commercial 1597n0uq-zf6h-55k9-047b-li80j29331tl 8770u5hg-ic8x-22h2-365i-ga02h34887pz ANSI-Commercial [id number]-4im2-414o-0h9i3ejkubzr 2283pw03-35tj-4ho8-281r-3u5x1mdkswtj ANSI-Commercial [id number]-fx79-840e-t3u3-jbqx6x2q7s46 g696867d-dt40-025b-i8o3-rfpc3b2i6d38 ANSI-Commercial 4685u3e5-7085-14pw-0jj4-r8mhx9snu65q 9035n5d4-9813-57rl-1cm7-z1ymq0nho33b ANSI-Medicare Part B [id number] ANSI-Not a Secondary Insurance [id number]-[id number] [id number]-kk8v-15z5-502i-[id number] ANSI-Commercial 168io976-3aa2-10lk-[id number] 180qt701-1vr4-73cl-u886-50n38r6yb596 ANSI-Medicare Part B [id number] ANSI-Not a Secondary Insurance [id number]-[id number] 5ltexws2-t44d-4q9n-z299-[id number] ANSI-Commercial [id number]-6585-429z-z34ju32x22ir [id number]-9742-538c-g06fw05q25wu Medicare Part B [facility] Other 0 [id number] Self 0 ANSI-Commercial [id number]-[id number] q9dc82a3-2u99-848b-b2x3-17c078f2g3j2 ANSI-Medicare Part B [id number] ANSI-Not a Secondary Insurance [id number]-9p70-7kd00 7bvi09v 97093x88-2950-523h-3j07-7bh689qjy50f ANSI-Commercial 21471f79-2x82-4z2c-4151-bc51vy6u98y9 90455g60-3q82-7z0u-6287-lg74qw0g11w8 ANSI-Medicare Part B [id number] ANSI-Not a Secondary Insurance [id number]-79fo-x2jn-7r803 93b64r8 35139723-jj8h-57oy-l2zy-5m41139h23c9 ANSI-Commercial v22421w1-6455-39bi-h9x5-r7xq56v5kvfv g51495e2-1893-78rd-j7q4-r5zf19i1qvaq ANSI-Commercial h17yf880-[id number] [id number] Medicare Part B [facility] Other 0 [id number] Self 0 Medicare Part B [facility] Other 0 [id number] Self 0 Medicare Part B [facility] Other 0 [id number] Self 0 ANSI-Commercial [id number]-[id number]-79cb-4d22-z2px-8jxma3m0ma98 ANSI-Medicare Part B [id number] ANSI-Commercial 9ox708ym-m6t2-87t9-mqg7-lu9t7he62998 9cy613rf-h8e5-87o9-gwg5-gw5n1wz95295 ANSI-Not a Secondary Insurance 373v34tc-9p95-422g-1103-8906s 5t6p1y6 128n12xu-2b00-273v-9966-5687a7h5h5i5 Medicare Part B [facility] Other 0 [id number] Self 0 ANSI-Not a Secondary Insurance [id number] pb8ka9f [id number]-c86k-76z45td7sw2z ANSI-Commercial 6u0ei343-6421-990q-1928-ip689xlgvqha 2n1ng118-3675-520z-3995-yg409cjngwyw ANSI-Medicare Part B [id number] ANSI-Commercial 1720s180-r419-099k-l696-021x2995l105 2552y882-e038-013m-c819-711h5403u808 ANSI-Not a Secondary Insurance [id number]-3q64-479f-2j99s 56mvg2e 6m4t0995-4z8s-1j42-865c-1c69e96pti3m ANSI-Medicare Part B [id number]-39tb-[id number] ANSI-Commercial 4243m84c-j4e8-463w-tg5d-57lmj88a8605 4756v38j-c5v6-643b-sw9t-82qgn65m5522 ANSI-Commercial 817ft7h3-y74b-13k9-cy14-14pixz942498 930mt2m7-o92v-71e2-ar06-35abwz176335 ANSI-Not a Secondary Insurance 30ky66h9-z9bw-9939-f476-g688i 0xg346m 27nv26e9-q1pg-9474-z423-h119d3va711e ANSI-Medicare Part B [id number] e4wa6r14-v2dl-8784-b4c0-4i623ac0ay0o ANSI-Commercial 98534a76-82k8-8j52-s32j-1o06259qd4v9 64590u88-03u3-5h68-c15a-0m82984xh0r7 ANSI-Commercial 9k97u606-682a-7073-04q6-62nd40l8ua92 5w51c291-356d-4702-95d6-36ss02k0fj25 ANSI-Commercial 2dhw41zo-c310-678r-2s22-04jrtl598531 1tas90rm-u197-426p-1c73-37xser291021 ANSI-Not a Secondary Insurance 1808r5u5-4hr6-1w95-8sx2-ia88j e12t5f5 8918u4b3-4ee3-9b73-3ah7-ob22zi56b9r2 ANSI-Medicare Part B [id number] 13x86d89-9i66-0633-5018-[id number] ANSI-Commercial 47c30r42-7j70-8540-ioif-279n07i879hc 77g70k95-6d71-7772-ungq-556t14d885kh ANSI-Medicare Part B [id number]-3883-33p6-5r2mxw76eza9 ANSI-Not a Secondary Insurance l76ql7r3-5279-30f4-dp5k-dc0n4 [id number] k85by3u6-0490-14x1-vq0c-hs5c1j468723 ANSI-Commercial 72uyfr52-067l-4841-4726-88y2737t0dj4 34roci00-951c-4004-1272-84z1782s9rm1 ANSI-Commercial 5q327h1c-l50s-4vix-jy06-n4812sb68o9w 1e200q4y-u02g-5oxs-sq45-a9659dz85x9w ANSI-Medicare Part B [id number]-435j-51l5-zd3e-fh1870k1m936 ANSI-Not a Secondary Insurance 4090xs93-n8u4-3849-9234-4d5z6 8d52fee 4758fa49-x8d1-9496-3038-0p7r60a34xdt ANSI-Commercial 5212a004-tfbt-547x-37j6-463471020z62 6954l331-mqpz-374p-89a3-764948519k73 ANSI-Commercial 85i4f53v-9mae-46kx-89a4-t60gim363688 99l3o81u-1klk-68jy-01m7-z39jko149549 ANSI-Commercial 7k4o5q35-0z3s-9y56-4os0-sppk08c4j3j8 5g5v5u14-4y4i-4k86-3it2-gbwr21i3w4t8 ANSI-Not a Secondary Insurance 6v81m001-91n1-742l-bbhk-4156o pzd8p6c 8b72z756-06g5-976k-afpz-7376njml6g1x ANSI-Medicare Part B [id number] ANSI-Commercial 7o7xw6uo-7w64-0945-f559-90mg90963880 3y9wi1yg-6h34-5202-s180-37iz32411589 ANSI-Commercial ltt08o33-47s0-1157-e853-bf24n9s3t0r7 qwq21h39-16n9-2207-p770-si81b6r4r9n6 ANSI-Medicare Part B [id number] cm7r2t92-37w5-7b7x-6v31-z317v8480udm ANSI-Commercial y1at973l-0pm9-6f01-0469-7z5u852p755u k0uh964o-7fa6-9j34-4733-4z0c217e403p ANSI-Not a Secondary Insurance a8b7qo6u-r618-540w-1884-72d6x [id number] i0w7tz3r-e429-759o-3046-29y9s1167406 ANSI-Commercial 821n02a0-9q5i-0o3y-f8rg-b2z09qwa0130 650y98a0-0a0i-3e1a-a9oj-a5r56dif8056 ANSI-Commercial k75k9191-xr37-06zi-108w-2753bji6t987 g17p9550-qu49-83jq-132e-9843ufd9v290 ANSI-Medicare Part B [id number] ANSI-Not a Secondary Insurance g8cq6y2n-h5u7-2ita-3mrg-1dvqh 38f0is1 r8zo9v0x-w9o9-3ypy-9sov-5vrdl03v5hd0 ANSI-Medicare Part B [id number] [id number]-d54m-1sf3-537b-4o64dgt136j4 ANSI-Not a Secondary Insurance d29v334s-87c9-6v03-r7kr-400i8 l7807bm g25g274a-82s6-6a31-a4os-975v2f2530wx ANSI-Commercial 5472qe1t-2n21-381c-l888-957l4m7v50v7 9450hd8h-6c09-019d-d439-324t5l3y97l4 ANSI-Commercial hvaa36pj-5wr2-12x2-16r3-rf23l9p28nrc mkvl61pz-3kn9-20i1-57a1-gg61v6x50lua Medicare Part B [facility] Other 0 [id number] Self 0 ANSI-Not a Secondary Insurance [id number]-4q912 la132i5 [id number]-xwi3-8995-74of-8l306xk631d8 ANSI-Medicare Part B [id number] ANSI-Commercial [id number]-3255-d6y2-3514c3yz9937 4204h163-6j4s-8261-t0q3-7480b0hk3624 ANSI-Commercial 1020m158-87a7-3943-noa2-547102g436q8 5178l933-83w2-7661-dkb7-371711z262y4 ANSI-Commercial 383hr320-r267-0282-ory2-819t4m4d6doa 102fj291-q949-4883-okf4-797b6a7i6pnt ANSI-Not a Secondary Insurance ny13p02u-9707-0wdw-ezq0-16qw1 w820p4t cm78w01q-6061-5rlm-xfz5-08sb8q988x4i ANSI-Commercial x18gd6k7-9m84-98c1-1677-5k84y907d723 d95wz2f1-9t69-25s4-6089-0n47i099e801 ANSI-Medicare Part B [id number]-7502-[id number] ANSI-Medicare Part B [id number]-[id number]-[id number] ANSI-Commercial h58rld21-42pr-1wl1-8ro6-85x59u245951 c25xja30-65xi-4uf4-2zl1-31y01d927785 ANSI-Commercial 31tv6s20-0xqh-7747-47lb-oh9m1482z022 62bq0d94-8yoy-6973-36sp-ol5p5147t002 ANSI-Not a Secondary Insurance fn6s0lh6-4m7k-4085-95b0-levw1 65o1k0z vn3h1qy9-8w1g-0847-58b5-aglw672d9n8h ANSI-Commercial 5f34215z-yz69-32rn-yj5o-5401gj7m4d6i 0e58073d-rq17-99wy-en4e-4128bn0v0u0h ANSI-Commercial qv26c2uk-1803-49wx-qit3-779570333d8y ee18i3hb-4167-48nt-zha3-257569369b5g ANSI-Medicare Part B [id number]-6b58-2859-d14c-60j8h1e70cx6 ANSI-Not a Secondary Insurance [id number]-i219-9geb-l0l4-1717z 7o7ol2s hh594368-b795-1ysb-p2y1-1562c2d0fd8o ANSI-Medicare Part B [id number]-ng7h-7q02-n2gy-8js3e2wpz4g5 ANSI-Commercial 042b12ju-2cl1-2mhi-1wk2-lkw83qu55306 076f05he-8al1-7oum-0py5-mlv20mr75984 ANSI-Commercial 2no0a17w-9d47-3u9j-637c-293o19zf7404 9bn0v31i-4b54-8o8j-879p-895v04zp5195 ANSI-Not a Secondary Insurance m2i8pn92-5326-2304-s09t-84448 3m35p87 r6r9bs29-6840-2613-z40u-982274c14c12 ANSI-Commercial 5uo2i337-6h95-9905-m4w0-zu7g40546440 5do1t208-2e62-0845-l6n3-gz4s17189903 ANSI-Not a Secondary Insurance 00lw68vl-9c6f-144u-7503-4bym8 5g36t80 85rv14dx-3t6x-884k-8052-1lio35l64h60 ANSI-Medicare Part B [id number]-ol8w-7w30-hm75-l5nd2639tf09 ANSI-Commercial z5ot6to2-6w93-93ql-eyzr-0r41fve8955e j5eg4oh4-1v39-62pt-llnh-9l01uli2462y ANSI-Commercial 6ne08147-1147-8f87-4c28-uxc715m97787 4hr14640-9985-2c51-7s42-stq105g75103 ANSI-Not a Secondary Insurance ntg43673-g96e-91w9-9qr0-4fwi7 ujs9754 bzj79364-c25c-49o1-9gs4-8rio2ldk9789 ANSI-Commercial 6n632m87-8vf5-27vn-79wd-15q0kv427n85 8l361c09-7gq2-28ei-08bc-33s3ft780e16 ANSI-Medicare Part B [id number] Medicare Part B [facility] Other 0 [id number] Self 0 Medicare Part B [facility] Other 0 [id number] Self 0 ANSI-Commercial [id number]-[id number] h9989x37-788u-9w37-an81-55zo02r35380 ANSI-Not a Secondary Insurance 42078j1y-1974-327h-hl4x-0gx5n 2u70e3w 47820x6a-9291-194j-xp8h-3xw9o4x55x8k ANSI-Medicare Part B [id number] ANSI-Commercial d4uhk345-0266-301l-rdom-n88rcw480e7j l5bws808-2909-088o-kgnq-l46lok638f9d Medicare Part B [facility] Other 0 [id number] Self 0 ANSI-Medicare Part B [id number]-[id number] ANSI-Not a Secondary Insurance 80jztvaq-2t36-360t8g50-487w-5fq1-61842 u271y09 80xuevlu-2l71-121k6p65-585w-0up7-71298v653h54 ANSI-Commercial aj470n06-9i90-8hu4-rs07-s67330l4w057 lj921w15-2i41-5cg3-wu05-v97454s7g380 ANSI-Commercial 60h2762v-d738-2767-udi9-275j216q1mw9 66a2173q-z560-6401-dpq8-024k665i1df4 ANSI-Medicare Part B [id number]-2cst-4a11-79r55l8kal9g ANSI-Commercial s815461l-q2l5-926q-z8o8-017n6215542h k548378t-z6k4-189p-x5h9-667i7342103o ANSI-Commercial y9r3acp3-6r24-9e80-kq54-cj276ku11w7j c1b4fwi8-1h23-9n19-dg00-dl468sz41g0s ANSI-Not a Secondary Insurance 72260g79-1855-3hq9-u042-73a74 q544h51 74593s46-1378-3qy4-x035-63s42n431i63 ANSI-Medicare Part B [id number]-x35q-i32h086l6a42 ANSI-Commercial 653090xy-0z8q-0781-5747-16i2f51j0h32 067728us-0j4n-3849-3501-66e8b51b3i97 ANSI-Not a Secondary Insurance uaz1fn49-98v1-4l2a-23bu-177j5 h40sg3b bxq0zi14-37p7-4h3t-59pr-199p7z05mx0p ANSI-Commercial zn21n51e-o37y-0370-6x63-83g5c50052z0 dr55h75b-w08g-5685-7j31-33q4e22208w5 ANSI-Medicare Part B [id number] jc0bdj43-nkub-6ak9-242m-4d207j5z595s ANSI-Commercial 9jwja030-u9x9-228c-xvd2-i08by2y122ua 7tmee270-d8r1-630f-qaz1-k59cu1m018di ANSI-Not a Secondary Insurance 1cnq849u-s8yv-39xd-e963-c2dd4 p78t335 0usv953v-p3ji-85mj-z949-n7ak1w86j281 ANSI-Commercial 6h8cv425-w7c5-1y2d-490t-s83156ptz47c 8d6xd547-n4c5-8m7l-722k-j24874hzd15i ANSI-Commercial 470v8439-s848-5272-9o3d-kpc3878jsug0 371y8732-p834-5101-2r9q-vat5354epng4 ANSI-Commercial o2c25f38-qx19-2zm7-w398-p58l06p95632 e0n69d10-si39-9xa7-k717-y50z46l59224 ANSI-Not a Secondary Insurance v313a71k-477f-30j5-38t9-j87r3 u2i2622 d507a15b-362r-74k8-64p6-s67c1d8v4193 ANSI-Medicare Part B [id number] MEDICARE [id number] ANSI-Commercial 8500t191-06h5-95l6-989r-3v7583j64a92 1474r482-45a3-79l6-054k-0n6116e58i55 ANSI-Commercial o5ia6b39-523y-02a0-44y1-q375z4797rg3 i5bh0k69-843c-90m9-16b0-g725d3819iq7 ANSI-Medicare Part B [id number]-qfu4-50p8-4f0f-66t1s35x3520 ANSI-Not a Secondary Insurance 2025653l-cm2u-370o-b89m-6tq9c 4a382si 8200410r-yd2p-213v-q48m-2th0f8z204xy ANSI-Medicare Part B [id number]-7c7a-3584-xj4y-w7277xh0v0d3 ANSI-Commercial q61jot9t-s74q-188a-a853-5hp66745n629 h99fkb1s-c48x-616i-w726-5ig34071j046 ANSI-Not a Secondary Insurance 26h3q2ih-5265-00j3-w811-zvre1 20jzcc1 86p7b5au-7286-79g1-q897-lstm909iwxr8 ANSI-Commercial 2161h4w1-0z31-6wwp-16i6-6ra35ok2v998 3159v9z4-5c28-3izu-61i7-5qs23ad4a253 ANSI-Commercial 210900ae-we12-021b-i5w5-3s809290b120 324486eo-eo77-182z-h5r7-7r582568g426 ANSI-Medicare Part B [id number] ANSI-Commercial 79r10krj-4262-7zn7-1t0s-8hl6e085wdd2 91d72sna-2921-4ix5-6m8k-7vw3c382qdx3 ANSI-Not a Secondary Insurance 1xp4ife5-2491-8120-dsum-i2h07 548zp1c 0wx3eja4-4450-1178-ufcg-q2b49220ap9o ANSI-Not a Secondary Insurance jd5sk049-d5dd-6860-8126-29le5 s46ei18 af3xs702-z8nr-0141-2697-70ko7q40or23 ANSI-Commercial 6f114451-88vn-2234-7y65-gkgpm5t184fx 9p368905-01ml-8148-1g78-fipol7x454ed ANSI-Commercial 1wk605mo-0172-700b-qu98-788uc8a648p4 8dz150ob-4263-588x-dt13-744wr3w418n5 MEDICARE [id number] SP [id number] Medicare Part B of [facility] Other 0 [id number] S elf 0 [employer] [id number] SP [id number] Aar Mediosborne Part B [id number] Self [id number] Medicare [facility] Medicare Primary [id number] Self [id number] Medicare Part B of [facility] Other 0 [id number] S elf 0 Aar Medigap Part B [id number] Self [id number] [place] Medicare Primary [id number] Self [id number] Medicare Part B of [facility] Other 0 [id number] S elf 0 Medicare Part B of [facility] Other 0 [id number] S elf 0 Medicare Part B of [facility] Other 0 [id number] S elf 0 Medicare Part B of [facility] Other 0 [id number] S elf 0 Medicare Part B of [facility] Other 0 [id number] S elf 0 UNAVAILABLE [place] AAR HEA [id number] MEDICARE MCA [id number] MEDICARE MCA [id number] [facility] [id number] SP [id number] [facility] [id number] SP [id number] [place]BS [place] PPO 302/307 [id number] SP [id number] BS [place] Commercial [id number] Self BLUE CROSS O [id number] S [id number] ANSI-Medicare Part B [id number] [employer] OPTIONS [id number] SP [id number] [employer] OPTIONS [id number] SP [id number] Medicare Part B [facility] Other 0 [id number] Self 0 AARP O [id number] S [id number] MEDICARE C [id number] S [id number] Medicare Part B [facility] Other 0 [id number] Self 0 Medicare Part B [facility] Other 0 [id number] Self 0 Problems, Conditions, and Diagnoses Code Display Name Description Problem Type Effective Dates Data Source(s) L03.115 [id number] Cellulitis of right lower extremity Problem 02/04/2021 12:00:00 AM EDT eCW1 ([facility]) L03.115 [id number] Cellulitis of right leg Problem 06/16/2020 12:00:00 AM EST eCW1 ([facility]) Surgeries/Procedures Procedure Description Date Indications Data Source(s) AMP LEG THRU TIBIA&FIBULA RE-AMPUTATION 04/07/2021 12: 00:00 AM EST [facility] ([facility], ) AMPUTATION LEG THRU TIBIA&FIBULA OPEN CIRCULAR 021 12:00:00 AM EST [facility] ([facility], ) FINE NEEDLE ASPIRATION W/O IMAGING GUIDANCE 03/20/2021 12:00:00 AM EDT eCW1 ([facility]) Medication: Silver Nitrate Stick topically 03/06/2021 12:00:00 AM EDT eCW1 ([facility]) Medication: Silver Nitrate Stick topically 02/27/2021 12:00:00 AM EDT eCW1 ([facility]) Medication: Silver Nitrate Stick topically 02/20/2021 12:00:00 AM EDT eCW1 ([facility]) FINE NEEDLE ASPIRATION W/O IMAGING GUIDANCE 02/13/2021 12:00:00 AM EDT eCW1 ([facility]) Medication: Silver Nitrate Stick topically 02/13/2021 12:00:00 AM EDT eCW1 ([facility]) Medication: Silver Nitrate Stick topically 02/04/2021 12:00:00 AM EDT eCW1 ([facility]) Medication: Silver Nitrate Stick topically 01/30/2021 12:00:00 AM EDT eCW1 ([facility]) Medication: Silver Nitrate Stick topically 01/23/2021 12:00:00 AM EDT eCW1 ([facility]) Medication: Silver Nitrate Stick topically 01/16/2021 12:00:00 AM EDT eCW1 ([facility]) Venipuncture (routine) Venipuncture (routine) 01/12/2021 12:00:00 A M EDT DURAN ([facility]) HgbA1C HgbA1C 01/12/2021 12:00:00 AM EDT Yogesh CÁRDENAS ([facility]) CMP-Complete Metabolic Profile CMP-Complete Metabolic Profil e 01/12/2021 12:00:00 AM EDT [facility] Medication: Silver Nitrate Stick topically 12/19/2020 12:00:00 AM EDT eCW1 ([facility]) Medication: Silver Nitrate Stick topically 12/12/2020 12:00:00 AM EDT eCW1 ([facility]) Medication: Silver Nitrate Stick topically 11/28/2020 12:00:00 AM EDT eCW1 ([facility]) Medication: Silver Nitrate Stick topically 11/14/2020 12:00:00 AM EDT eCW1 ([facility]) FINE NEEDLE ASPIRATION W/O IMAGING GUIDANCE 11/07/2020 12:00:00 AM EDT eCW1 ([facility]) 10/03/2020 12:00:00 AM EDT e CW1 ([facility]) Venipuncture (routine) Venipuncture (routine) 09/17/2020 12:00:00 A M EDT DURAN ([facility]) HgbA1C HgbA1C 09/17/2020 12:00:00 AM EDT Yogesh CÁRDENAS ([facility]) CMP-Complete Metabolic Profile CMP-Complete Metabolic Profil e 09/17/2020 12:00:00 AM EDT [facility] Med: Cadexomer Iodine gel topical IODOSORB 10gm 2020 12:00:00 AM EDT eCW1 ([facility]) Medication: Silver Nitrate Stick topically 07/11/2020 12:00:00 AM EST eCW1 ([facility]) Medication: Silver Nitrate Stick topically 07/04/2020 12:00:00 AM EST eCW1 ([facility]) Medication: Silver Nitrate Stick topically 07/01/2020 12:00:00 AM EST eCW1 ([facility]) Medication: Silver Nitrate Stick topically 06/20/2020 12:00:00 AM EST eCW1 ([facility]) Medication: Silver Nitrate Stick topically 06/16/2020 12:00:00 AM EST eCW1 ([facility]) FINE NEEDLE ASPIRATION W/O IMAGING GUIDANCE 05/15/2020 12:00:00 AM EST eCW1 ([facility]) FINE NEEDLE ASPIRATION W/O IMAGING GUIDANCE 04/14/2020 12:00:00 AM EST eCW1 ([facility]) Physician certification for medicare-cov ered home health services under a home health plan of care (patient not present), including contacts with home health agency and review of reports of patient status required by physicians to affirm the initial implementation of the plan of care that meets patient's needs, per certification period Plan of Care Certification of Home Health/Hospice Pat ient 04/04/2020 12:00:00 AM EST DURAN ([facility]) FINE NEEDLE ASPIRATION W/O IMAGING GUIDANCE 04/03/2020 12:00:00 AM EST eCW1 ([facility]) CCM- *(MC code)*[place] [address] (2nd 20 min.) CCM- *([place] code)*[place] [address] (2nd 20 min.) 03/28/2020 12:00:00 AM EST Yogesh CÁRDENAS ([facility]) FINE NEEDLE ASPIRATION W/O IMAGING GUIDANCE 03/20/2020 12:00:00 AM EST eCW1 ([facility]) uro PVR (Post Voiding Residual) Bladder Scan 0 12:00:00 AM EST eCW1 ([facility]) Annual wellness visit, includes a person alized prevention plan of service (pps), subsequent visit - subseq't annual wellness exam(1 yr after Initial) 03/18/2020 12:00:00 AM [facility] ([facility]) Annual depression screening, 15 minutes MC-Annual depression screening- 15 min. 03/18/2020 12:00:00 AM [facility] ([facility]) Venipuncture (routine) Venipuncture (routine) 03/18/2020 12:00:00 A M EST RUSK ([facility]) CBC CBC 03/18/2020 12:00:00 AM [facility] CMP-Complete Metabolic Profile CMP-Complete Metabolic Profil e 03/18/2020 12:00:00 AM [facility] ([facility]) Fasting Lipid Profile Fasting Lipid Profile 03/18/2020 12:00:00 AM [facility] ([facility]) TSH- Thyroid Stimulating Hormone TSH- Thyroid Stimulating Ho rmone 03/18/2020 12:00:00 AM [facility] ([facility]) Annual depression screening, 15 minutes MC-Annual depression screening- 15 min. 03/18/2020 12:00:00 AM [facility] ([facility]) Annual wellness visit, includes a person alized prevention plan of service (pps), subsequent visit - subseq't annual wellness exam(1 yr after Initial) 03/18/2020 12:00:00 AM EST RUSK ([facility]) FINE NEEDLE ASPIRATION W/O IMAGING GUIDANCE 02/28/2020 12:00:00 AM EDT eCW1 ([facility]) FINE NEEDLE ASPIRATION W/O IMAGING GUIDANCE 02/21/2020 12:00:00 AM EDT eCW1 ([facility]) FINE NEEDLE ASPIRATION W/O IMAGING GUIDANCE 02/14/2020 12:00:00 AM EDT eCW1 ([facility]) uro PVR (Post Voiding Residual) Bladder Scan 0 12:00:00 AM EDT eCW1 ([facility]) Results ID Date Data Source [id number] 04/03/2021 09:09:00 AM EST [facility] Name Value Range Interpretation Code Description Data Steffi rce(s) Supporting Document(s) SARS coronavirus 2 RNA [Presence] in Res piratory specimen by AMINAH with probe detection NEGATIVE [facility] This lab was ordered by [facility] a nd reported by [facility]. ID Date Data Source [id number] 03/25/2021 12:49:00 PM EST [facility] Name Value Range Interpretation Code Description Data Steffi rce(s) Supporting Document(s) SARS coronavirus 2 RNA [Presence] in Res piratory specimen by AMINAH with probe detection NEGATIVE [facility] This lab was ordered by [facility] a nd reported by [facility]. ID Date Data Source Pathology Request For Service 03/20/2021 12:00:00 AM EDT eCW 1 ([facility]) Name Value Range Interpretation Code Description Data Steffi rce(s) Supporting Document(s) SKELETAL eCW1 (Count includes the [facility]) ID Date Data Source WOUND CULTURE 03/20/2021 12:00:00 AM EDT eCW1 ([facility]) Name Value Range Interpretation Code Description Data Steffi rce(s) Supporting Document(s) FULL REPORT IN LAB NOTES (eCW and [facility]). WOUND CULTURE eCW1 ([facility], [facility]) ID Date Data Source [id number] 01/12/2021 08:10:00 AM EDT RUSK ([facility]) Name Value Range Interpretation Code Description Data Steffi rce(s) Supporting Document(s) Hemoglobin A1c/Hemoglobin.total in Blood 9.2 na Above high normal Hgba1c RUSK ([facility]) Note: Responsible Observer: KM ID Date Data Source [id number] 01/12/2021 08:10:00 AM EDT RUSK ([facility]) Name Value Range Interpretation Code Description Data Steffi rce(s) Supporting Document(s) Alkaline Phos 94 IU/L Alkaline Phos RUSK ([facility]) Note: Responsible Observer: [place] Albumin [Mass/volume] in Blood by Bromocresol purple ( BCP) dye binding method 4.1 g/dl Albumin DURAN ([facility]) Note: Responsible Observer: KM ALT 11 IU/L ALT DURAN ([facility]) Note: Responsible Observer: KM AST 10 IU/L AST RUSK ([facility]) Note: Responsible Observer: KM Calcium [Moles/volume] in Urine collected for unspecified durati on 9.2 mg/dl Calcium RUSK ([facility]) Note: Responsible Observer: KM Urea nitrogen [Moles/volume] in Blood 41 mg/dl Abo ve high normal Urea Nitrogen RUSK ([facility]) Note: Responsible Observer: KM Chloride [Moles/volume] in Serum, Plasma or Blood 106 mmol/L Chloride RUSK ([facility]) Note: Responsible Observer: KM CO2 18 mmol/L Below low normal CO2 RUSK ([facility]) Note: Responsible Observer: KM Creatinine [Moles/volume] in Vitreous fluid 2.6 mg/dl Above high normal Creatinine RUSK ([facility]) Note: Responsible Observer: KM EGFR - AfricanAm 30 N/A Above high normal EGFR - Afric Su RUSK ([facility]) Note: Responsible Observer: KM EGFR - Non AF AM 25 N/A Above high normal EGFR - Non A F AM RUSK ([facility]) Note: Responsible Observer: KM Glucose [Mass/volume] in Urine collected for unspecified duratio n 160 mg/dl Above high normal Glucose RUSK ([facility]) Note: Responsible Observer: KM Potassium [Mass/volume] in Blood 4.3 mmol/L Pot assium RUSK ([facility]) Note: Responsible Observer: KM Sodium [Moles/volume] in Serum, Plasma or Blood 136 mmol/L Sodium RUSK ([facility]) Note: Responsible Observer: KM Total Bilirubin 0 mg/dl Total Bilirubin [facility] ([facility]) Note: Flagged as Linear LowResponsible O bserver: KM Total Protein 6.5 g/dl Total Protein RUSK ([facility]) Note: Responsible Observer: KM ID Date Data Source [id number] 09/17/2020 11:04:00 AM EDT RUSK ([facility]) Name Value Range Interpretation Code Description Data Steffi rce(s) Supporting Document(s) Hemoglobin A1c/Hemoglobin.total in Blood 9.1 na Above high normal Hgba1c RUSK ([facility]) Note: Responsible Observer: KM ID Date Data Source [id number] 09/17/2020 11:04:00 AM EDT RUSK ([facility]) Name Value Range Interpretation Code Description Data Steffi rce(s) Supporting Document(s) Albumin [Mass/volume] in Blood by Bromocresol purple ( BCP) dye binding method 3.9 g/dl Albumin RUSK ([facility]) Note: Responsible Observer: KM ALT 18 IU/L ALT DURAN ([facility]) Note: Responsible Observer: KM Alkaline Phos 115 IU/L Alkaline Phos DURAN ([facility]) Note: Responsible Observer: KM AST 13 IU/L AST RUSK ([facility]) Note: Responsible Observer: KM Urea nitrogen [Moles/volume] in Blood 43 mg/dl Abo ve high normal Urea Nitrogen RUSK ([facility]) Note: Responsible Observer: KM Calcium [Moles/volume] in Urine collected for unspecified durati on 10.4 mg/dl Above high normal Calcium RUSK ([facility]) Note: Responsible Observer: KM Chloride [Moles/volume] in Serum, Plasma or Blood 103 mmol/L Chloride RUSK ([facility]) Note: Responsible Observer: KM Creatinine [Moles/volume] in Vitreous fluid 2.4 mg/dl Above high normal Creatinine RUSK ([facility]) Note: Responsible Observer: KM CO2 24 mmol/L CO2 RUSK ([facility]) Note: Responsible Observer: KM EGFR - AfricanAm 33 N/A Above high normal EGFR - Afric Su RUSK ([facility]) Note: Responsible Observer: KM EGFR - Non AF AM 27 N/A Above high normal EGFR - Non A F AM RUSK ([facility]) Note: Responsible Observer: KM Potassium [Mass/volume] in Blood 4.4 mmol/L Pot assium RUSK ([facility]) Note: Responsible Observer: KM Glucose [Mass/volume] in Urine collected for unspecified duratio n 162 mg/dl Above high normal Glucose RUSK ([facility]) Note: Responsible Observer: KM Sodium [Moles/volume] in Serum, Plasma or Blood 138 mmol/L Sodium RUSK ([facility]) Note: Responsible Observer: [place] Total Bilirubin 0.3 mg/dl Total Bilirubin MANOLOE FORTINO ([facility]) Note: Responsible Observer: [place] Total Protein 6.9 g/dl Total Protein RUSK ([facility]) Note: Responsible Observer: [place] ID Date Data Source [id number] 05/06/2020 01:32:00 PM EST [facility] Name Value Range Interpretation Code Description Data Steffi rce(s) Supporting Document(s) Urea nitrogen [Mass/volume] in Serum or Plasma 47 mg/dL 9-23 Above high normal [facility] Sodium [Moles/volume] in Serum or Plasma 141 mmol/L 132-146 N [facility] Potassium [Moles/volume] in Serum or Plasma 4.8 mmol/L 3.5-5.5 N [facility] Chloride [Moles/volume] in Serum or Plasma 107 mmol/L 99-109 N [facility] Carbon dioxide, total [Moles/volume] in Serum or Plasma 26 mmol/L 20 -31 N [facility] Anion gap in Serum or Plasma 13 mmol/L 8-[address] [facility] Glucose [Mass/volume] in Serum or Plasma 130 mg/dL 74-106 Above high normal [facility] Creatinine 2.5 mg/dL 0.5-1.1 Above high normal [facility] Glomerular filtration rate/1.73 sq M.pre dicted [Volume Rate/Area] in Serum or Plasma 26 ml/min ABOVE 60 [facility] ital Alanine aminotransferase [Enzymatic acti vity/volume] in Serum or Plasma by With P-5'-P 23 U/L 10-49 N [facility] ital Aspartate aminotransferase [Enzymatic ac tivity/volume] in Serum or Plasma by With P-5'-P 12 U/L 0-33 N [facility] pital Alkaline phosphatase [Enzymatic activity/volume] in Serum or Plasma 115 U/L 45-129 N [facility] Calcium [Mass/volume] in Serum or Plasma 9.2 mg/dL 8.5-10.1 [facility] Bilirubin.total [Mass/volume] in Serum or Plasma 0.3 mg/dL 0.3-1.2 N [facility] Albumin [Mass/volume] in Serum or Plasma by Bromocresol purple (BCP) dye binding method 3.2 g/dL 3.2-4.8 N [facility] ital Protein [Mass/volume] in Serum or Plasma 7.4 g/dL 5.7-8.2 N [facility] ID Date Data Source [id number] 05/06/2020 01:56:00 PM EST [facility] Name Value Range Interpretation Code Description Data Steffi rce(s) Supporting Document(s) Leukocytes [#/volume] in Blood by Automated count 9.9 10*3/uL 4.45-10 .71 N [facility] Erythrocytes [#/volume] in Blood by Automated count 4.34 10*6/uL 4.3- 6.1 N [facility] Hemoglobin [Moles/volume] in Blood 12.1 g/dL 13-18 Below low no rmal [facility] Hematocrit [Volume Fraction] of Blood by Automated count 38.0 % 42-52 Below low normal [facility] Erythrocyte mean corpuscular volume [Ent itic volume] in Cord blood by Automated count 87.6 fL 80-96 N [facility] ital Erythrocyte mean corpuscular hemoglobin [Entitic mass] by Automated count 27.9 pg 27-31 N [facility] Erythrocyte mean corpuscular hemoglobin concentration [Mass/volume] in Cord blood 31.8 g/dL 33-37 Below low normal [facility] Erythrocyte distribution width [Entitic volume] by Automated cou nt 16 % 11-15 Above high normal [facility] Platelets [#/volume] in Blood by Automated count 254 10*3/uL 130-472 N [facility] Platelet mean volume [Entitic volume] in Blood 9.7 fL 9.1-13.1 N [facility] Neutrophils/100 leukocytes in Blood by Automated count 51.4 % 41- 77 N [facility] Neutrophils [#/volume] in Blood by Automated count 5.1 U 1.7-7.6 N [facility] Lymphocytes/100 leukocytes in Blood by Automated count 34.8 % 14- 46 N [facility] Lymphocytes [#/volume] in Blood by Automated count 3.4 U 0.6-4.6 N [facility] Monocytes/100 leukocytes in Blood by Automated count 7.9 % 4-12 N [facility] Monocytes [#/volume] in Blood by Automated count 0.8 U 0.2-1.2 N [facility] Eosinophils/100 leukocytes in Blood by Automated count 4.6 % 0-7 N [facility] Eosinophils [#/volume] in Blood by Automated count 0.5 U 0.0-0.5 N [facility] Basophils/100 leukocytes in Blood by Automated count 0.7 % 0.4-1 .3 N [facility] Basophils [#/volume] in Blood by Automated count 0.1 U 0.0-0.2 N [facility] NUCLEATED RED BLOOD CELL 0 % [facility] NUCLEATED RED BLOOD CELL# 0 U [facility] Immature granulocytes [Presence] in Blood by Automated count 0-2 N [facility] Immature granulocytes [#/volume] in Blood by Automated count 0.1 U 0-0.1 N [facility] Manual Differential panel - Blood NO [facility] ID Date Data Source [id number] 05/06/2020 01:32:00 PM [facility] Name Value Range Interpretation Code Description Data Steffi rce(s) Supporting Document(s) C reactive protein [Mass/volume] in Serum or Plasma Less Than 2.9 0.0 -5.0 N [facility] @Report as less than lower limit ID Date Data Source [id number] 05/06/2020 01:56:00 PM [facility] Name Value Range Interpretation Code Description Data Steffi rce(s) Supporting Document(s) Erythrocyte sedimentation rate by Westergren method 57 mm/hr 0-20 Above high normal [facility] @Reenter manual test result: 57@by Mali Calix at 05/06/20 1356. ID Date Data Source [id number] 04/28/2020 11:31:00 AM [facility] COLLECTED BY [facility] COLLECTED BY [facility] BY [facility] Name Value Range Interpretation Code Description Data Steffi rce(s) Supporting Document(s) Urea nitrogen [Mass/volume] in Serum or Plasma 45 mg/dL 9-23 Above high normal [facility] Sodium [Moles/volume] in Serum or Plasma 140 mmol/L 132-146 N [facility] Potassium [Moles/volume] in Serum or Plasma 4.7 mmol/L 3.5-5.5 N [facility] Chloride [Moles/volume] in Serum or Plasma 107 mmol/L 99-109 N [facility] Carbon dioxide, total [Moles/volume] in Serum or Plasma 25 mmol/L 20 -31 N [facility] Anion gap in Serum or Plasma 13 mmol/L 8-[address] [facility] Glucose [Mass/volume] in Serum or Plasma 196 mg/dL 74-106 Above high normal [facility] Creatinine 2.6 mg/dL 0.5-1.1 Above high normal [facility] Glomerular filtration rate/1.73 sq M.pre dicted [Volume Rate/Area] in Serum or Plasma 25 ml/min ABOVE 60 [facility] ital Alanine aminotransferase [Enzymatic acti vity/volume] in Serum or Plasma by With P-5'-P 27 U/L 10-49 [facility] ital Aspartate aminotransferase [Enzymatic ac tivity/volume] in Serum or Plasma by With P-5'-P 14 U/L 0-33 [facility] pital Alkaline phosphatase [Enzymatic activity/volume] in Serum or Plasma 135 U/L 45-129 Above high normal [facility] Calcium [Mass/volume] in Serum or Plasma 8.9 mg/dL 8.5-10.1 [facility] Bilirubin.total [Mass/volume] in Serum or Plasma 0.2 mg/dL 0.3-1.2 Below low normal [facility] Albumin [Mass/volume] in Serum or Plasma by Bromocresol purple (BCP) dye binding method 3.1 g/dL 3.2-4.8 Below low normal [facility] Protein [Mass/volume] in Serum or Plasma 7.5 g/dL 5.7-8.2 [facility] ID Date Data Source [id number] 04/28/2020 12:16:00 PM EST [facility]ED BY [facility] COL[facility]ED BY [facility] Name Value Range Interpretation Code Description Data Steffi rce(s) Supporting Document(s) Leukocytes [#/volume] in Blood by Automated count 8.7 10*3/uL 4.45-10 .71 [facility] Erythrocytes [#/volume] in Blood by Automated count 4.28 10*6/uL 4.3-6.1 Below low normal [facility] Hemoglobin [Moles/volume] in Blood 11.7 g/dL 13-18 Below low no rmal [facility] Hematocrit [Volume Fraction] of Blood by Automated count 37.6 % 42-52 Below low normal [facility] Erythrocyte mean corpuscular volume [Ent itic volume] in Cord blood by Automated count 87.9 fL 80-96 N [facility] Erythrocyte mean corpuscular hemoglobin [Entitic mass] by Automated count 27.3 pg 27-31 N [facility] Erythrocyte mean corpuscular hemoglobin concentration [Mass/volume] in Cord blood 31.1 g/dL 33-37 Below low normal [facility] Erythrocyte distribution width [Entitic volume] by Automated cou nt 16 % 11-15 Above high normal [facility] Platelets [#/volume] in Blood by Automated count 255 10*3/uL 130-472 N [facility] Platelet mean volume [Entitic volume] in Blood 10.0 fL 9.1-13.1 N [facility] Neutrophils/100 leukocytes in Blood by Automated count 50.7 % 41- 77 N [facility] Neutrophils [#/volume] in Blood by Automated count 4.4 U 1.7-7.6 N [facility] Lymphocytes/100 leukocytes in Blood by Automated count 35.1 % 14- 46 N [facility] Lymphocytes [#/volume] in Blood by Automated count 3.0 U 0.6-4.6 N [facility] Monocytes/100 leukocytes in Blood by Automated count 7.5 % 4-12 N [facility] Monocytes [#/volume] in Blood by Automated count 0.7 U 0.2-1.2 [facility] Eosinophils/100 leukocytes in Blood by Automated count 5.2 % 0-7 N [facility] Eosinophils [#/volume] in Blood by Automated count 0.5 U 0.0-0.5 N [facility] Basophils/100 leukocytes in Blood by Automated count 0.8 % 0.4-1 .3 N [facility] Basophils [#/volume] in Blood by Automated count 0.1 U 0.0-0.2 N [facility] NUCLEATED RED BLOOD CELL 0 % [facility] NUCLEATED RED BLOOD CELL# 0 U [facility] Immature granulocytes [Presence] in Blood by Automated count 0-2 N [facility] Immature granulocytes [#/volume] in Blood by Automated count 0.1 U 0-0.1 N [facility] Manual Differential panel - Blood NO [facility] ID Date Data Source [id number] 04/28/2020 11:31:00 AM [facility] Name Value Range Interpretation Code Description Data Steffi rce(s) Supporting Document(s) C reactive protein [Mass/volume] in Serum or Plasma 3.8 mg/L 0.0-5. 0 N [facility] ID Date Data Source [id number] 04/28/2020 12:16:00 PM EST [facility] Name Value Range Interpretation Code Description Data Steffi rce(s) Supporting Document(s) Erythrocyte sedimentation rate by Westergren method 59 mm/hr 0-20 Above high normal [facility] @Reenter manual test result: 59@by Jr Valdez at 04/28/20 1216. ID Date Data Source [id number] 04/22/2020 12:18:00 PM [facility] Name Value Range Interpretation Code Description Data Steffi rce(s) Supporting Document(s) Urea nitrogen [Mass/volume] in Serum or Plasma 37 mg/dL 9-23 Above high normal [facility] Sodium [Moles/volume] in Serum or Plasma 141 mmol/L 132-146 N [facility] Potassium [Moles/volume] in Serum or Plasma 4.4 mmol/L 3.5-5.5 [facility] Chloride [Moles/volume] in Serum or Plasma 108 mmol/L 99-109 [facility] Carbon dioxide, total [Moles/volume] in Serum or Plasma 26 mmol/L 20 -31 N [facility] Anion gap in Serum or Plasma 11 mmol/L 8-[address] [facility] Glucose [Mass/volume] in Serum or Plasma 107 mg/dL 74-106 Above high normal [facility] Creatinine 2.4 mg/dL 0.5-1.1 Above high normal [facility] Glomerular filtration rate/1.73 sq M.pre dicted [Volume Rate/Area] in Serum or Plasma 27 ml/min ABOVE 60 [facility] ital Alanine aminotransferase [Enzymatic acti vity/volume] in Serum or Plasma by With P-5'-P 23 U/L 10-49 N [facility] ital Aspartate aminotransferase [Enzymatic ac tivity/volume] in Serum or Plasma by With P-5'-P 12 U/L 0-33 N [facility] pital Alkaline phosphatase [Enzymatic activity/volume] in Serum or Plasma 132 U/L 45-129 Above high normal [facility] Calcium [Mass/volume] in Serum or Plasma 8.9 mg/dL 8.5-10.1 N [facility] Bilirubin.total [Mass/volume] in Serum or Plasma 0.2 mg/dL 0.3-1.2 Below low normal [facility] Albumin [Mass/volume] in Serum or Plasma by Bromocresol purple (BCP) dye binding method 3.0 g/dL 3.2-4.8 Below low normal [facility] Protein [Mass/volume] in Serum or Plasma 7.3 g/dL 5.7-8.2 [facility] ID Date Data Source [id number] 04/22/2020 12:26:00 PM EST [facility] Name Value Range Interpretation Code Description Data Steffi rce(s) Supporting Document(s) Leukocytes [#/volume] in Blood by Automated count 8.9 10*3/uL 4.45-10 .71 [facility] Erythrocytes [#/volume] in Blood by Automated count 3.91 10*6/uL 4.3-6.1 Below low normal [facility] Hemoglobin [Moles/volume] in Blood 11.0 g/dL 13-18 Below low no rmal [facility] Hematocrit [Volume Fraction] of Blood by Automated count 34.1 % 42-52 Below low normal [facility] Erythrocyte mean corpuscular volume [Ent itic volume] in Cord blood by Automated count 87.2 fL 80-96 N [facility] ital Erythrocyte mean corpuscular hemoglobin [Entitic mass] by Automated count 28.1 pg 27-[address] [facility] l Erythrocyte mean corpuscular hemoglobin concentration [Mass/volume] in Cord blood 32.3 g/dL 33-37 Below low normal [facility] Erythrocyte distribution width [Entitic volume] by Automated cou nt 16 % 11-15 Above high normal [facility] Platelets [#/volume] in Blood by Automated count 270 10*3/uL 130-472 N [facility] Platelet mean volume [Entitic volume] in Blood 9.9 fL 9.1-13.1 N [facility] Neutrophils/100 leukocytes in Blood by Automated count 50.6 % 41- 77 N [facility] Neutrophils [#/volume] in Blood by Automated count 4.5 U 1.7-7.6 N [facility] Lymphocytes/100 leukocytes in Blood by Automated count 32.4 % 14- 46 N [facility] Lymphocytes [#/volume] in Blood by Automated count 2.9 U 0.6-4.6 N [facility] Monocytes/100 leukocytes in Blood by Automated count 9.7 % 4-12 N [facility] Monocytes [#/volume] in Blood by Automated count 0.9 U 0.2-1.2 N [facility] Eosinophils/100 leukocytes in Blood by Automated count 6.0 % 0-7 N [facility] Eosinophils [#/volume] in Blood by Automated count 0.5 U 0.0-0.5 N [facility] Basophils/100 leukocytes in Blood by Automated count 0.7 % 0.4-1 .3 N [facility] Basophils [#/volume] in Blood by Automated count 0.1 U 0.0-0.2 N [facility] NUCLEATED RED BLOOD CELL 0 % [facility] NUCLEATED RED BLOOD CELL# 0 U [facility] Immature granulocytes [Presence] in Blood by Automated count 0-2 N [facility] Immature granulocytes [#/volume] in Blood by Automated count 0.1 U 0-0.1 N [facility] Manual Differential panel - Blood NO [facility] ID Date Data Source [id number] 04/22/2020 12:18:00 PM EST [facility] Name Value Range Interpretation Code Description Data Steffi rce(s) Supporting Document(s) C reactive protein [Mass/volume] in Serum or Plasma 7.6 mg/L 0.0-5.0 Above high normal [facility] ID Date Data Source [id number] 04/22/2020 12:26:00 PM EST [facility] Name Value Range Interpretation Code Description Data Steffi rce(s) Supporting Document(s) Erythrocyte sedimentation rate by Westergren method 69 mm/hr 0-20 Above high normal [facility] @Reenter manual test result: 69@by Lea Portillo at 04/22/20 1226. ID Date Data Source [id number] 04/15/2020 02:23:00 PM EST [facility] Name Value Range Interpretation Code Description Data Steffi [facility](s) Supporting Document(s) Urea nitrogen [Mass/volume] in Serum or Plasma 39 mg/dL 9-23 Above high normal [facility] Sodium [Moles/volume] in Serum or Plasma 138 mmol/L 132-146 N [facility] Potassium [Moles/volume] in Serum or Plasma 4.4 mmol/L 3.5-5.5 [facility] Chloride [Moles/volume] in Serum or Plasma 106 mmol/L 99-109 [facility] Carbon dioxide, total [Moles/volume] in Serum or Plasma 27 mmol/L 20 -31 [facility] Anion gap in Serum or Plasma 9 mmol/L 8-[address] [facility] Glucose [Mass/volume] in Serum or Plasma 136 mg/dL 74-106 Above high normal [facility] Creatinine 2.4 mg/dL 0.5-1.1 Above high [facility] Glomerular filtration rate/1.73 sq M.pre dicted [Volume Rate/Area] in Serum or Plasma 27 ml/min ABOVE 60 [facility] ital Alanine aminotransferase [Enzymatic acti vity/volume] in Serum or Plasma by With P-5'-P 22 U/L 10-49 [facility] ital Aspartate aminotransferase [Enzymatic ac tivity/volume] in Serum or Plasma by With P-5'-P 14 U/L 0-33 [facility] pital Alkaline phosphatase [Enzymatic activity/volume] in Serum or Plasma 126 U/L 45-129 [facility] Calcium [Mass/volume] in Serum or Plasma 8.5 mg/dL 8.5-10.1 [facility] Bilirubin.total [Mass/volume] in Serum or Plasma 0.2 mg/dL 0.3-1.2 Below low normal [facility] Albumin [Mass/volume] in Serum or Plasma by Bromocresol purple (BCP) dye binding method 2.8 g/dL 3.2-4.8 Below low normal [facility] Protein [Mass/volume] in Serum or Plasma 7.3 g/dL 5.7-8.2 N [facility] ID Date Data Source [id number] 04/15/2020 02:49:00 PM EST [facility] Name Value Range Interpretation Code Description Data Steffi rce(s) Supporting Document(s) Leukocytes [#/volume] in Blood by Automated count 9.1 10*3/uL 4.45-10 .71 N [facility] Erythrocytes [#/volume] in Blood by Automated count 4.06 10*6/uL 4.3-6.1 Below low normal [facility] Hemoglobin [Moles/volume] in Blood 11.1 g/dL 13-18 Below low no rmal [facility] Hematocrit [Volume Fraction] of Blood by Automated count 35.6 % 42-52 Below low normal [facility] Erythrocyte mean corpuscular volume [Ent itic volume] in Cord blood by Automated count 87.7 fL 80-96 N [facility] Erythrocyte mean corpuscular hemoglobin [Entitic mass] by Automated count 27.3 pg 27-31 N [facility] Erythrocyte mean corpuscular hemoglobin concentration [Mass/volume] in Cord blood 31.2 g/dL 33-37 Below low normal [facility] Erythrocyte distribution width [Entitic volume] by Automated cou nt 16 % 11-15 Above high normal [facility] Platelets [#/volume] in Blood by Automated count 392 10*3/uL 130-472 N [facility] Platelet mean volume [Entitic volume] in Blood 10.0 fL 9.1-13.1 N [facility] Neutrophils/100 leukocytes in Blood by Automated count 54.7 % 41- 77 N [facility] Neutrophils [#/volume] in Blood by Automated count 5.0 U 1.7-7.6 N [facility] Lymphocytes/100 leukocytes in Blood by Automated count 30.3 % 14- 46 N [facility] Lymphocytes [#/volume] in Blood by Automated count 2.8 U 0.6-4.6 N [facility] Monocytes/100 leukocytes in Blood by Automated count 7.5 % 4-12 N [facility] Monocytes [#/volume] in Blood by Automated count 0.7 U 0.2-1.2 N [facility] Eosinophils/100 leukocytes in Blood by Automated count 6.1 % 0-7 N [facility] Eosinophils [#/volume] in Blood by Automated count 0.6 U 0.0-0.5 Above high normal [facility] Basophils/100 leukocytes in Blood by Automated count 0.7 % 0.4-1 .3 N [facility] Basophils [#/volume] in Blood by Automated count 0.1 U 0.0-0.2 N [facility] NUCLEATED RED BLOOD CELL 0 % [facility] NUCLEATED RED BLOOD CELL# 0 U [facility] Immature granulocytes [Presence] in Blood by Automated count 0-2 N [facility] Immature granulocytes [#/volume] in Blood by Automated count 0.1 U 0-0.1 N [facility] Manual Differential panel - Blood NO [facility] ID Date Data Source [id number] 04/15/2020 02:23:00 PM [facility] Name Value Range Interpretation Code Description Data Steffi rce(s) Supporting Document(s) C reactive protein [Mass/volume] in Serum or Plasma 5.4 mg/L 0.0-5.0 Above high normal [facility] ID Date Data Source [id number] 04/15/2020 02:49:00 PM [facility] Name Value Range Interpretation Code Description Data Steffi rce(s) Supporting Document(s) Erythrocyte sedimentation rate by Westergren method 82 mm/hr 0-20 Above high normal [facility] @Reenter manual test result: 82@by Jr Valdez at 04/15/20 1449. ID Date Data Source [id number] 04/08/2020 01:01:00 PM [facility] @ Ordering doctor for CBC edited from NO PCP to MARJIM@ by COMMD at 04/08/20 1225@ Ordering doctor for ESR edited from NOPCP to MARJIM@ by COMMD at 04/08/20 1225@ Submitting doctor edited from NOPCP to MARJIM@ by COMMD at 04/08/20 1225 @ Ordering doctor for CMP edited from NO PCP to MARJIM@ by COMMD at 04/08/20 1225@ Ordering doctor for CRP edited from NOPCP to MARJIM@ by COMMD at 04/08/20 1225@ Submitting doctor edited from NOPCP to MARJIM@ by COMMD at 04/08/20 1225 @ Ordering doctor for CBC edited from NO PCP to MARJIM@ by COMMD at 04/08/20 1225@ Ordering doctor for ESR edited from NOPCP to MARJIM@ by COMMD at 04/08/20 1225@ Submitting doctor edited from NOPCP to MARJIM@ by COMMD at 04/08/20 1225 @ Ordering doctor for CMP edited from NO PCP to MARJIM@ by COMMD at 04/08/20 1225@ Ordering doctor for CRP edited from NOPCP to MARJIM@ by COMMD at 04/08/20 1225@ Submitting doctor edited from NOPCP to MARJIM@ by COMMD at 04/08/20 1225 Name Value Range Interpretation Code Description Data Steffi rce(s) Supporting Document(s) Leukocytes [#/volume] in Blood by Automated count 9.9 10*3/uL 4.45-10 .71 N [facility] Erythrocytes [#/volume] in Blood by Automated count 3.92 10*6/uL 4.3-6.1 Below low normal [facility] Hemoglobin [Moles/volume] in Blood 10.5 g/dL 13-18 Below low no rmal [facility] Hematocrit [Volume Fraction] of Blood by Automated count 33.6 % 42-52 Below low normal [facility] Erythrocyte mean corpuscular volume [Ent itic volume] in Cord blood by Automated count 85.7 fL 80-96 N [facility] ital Erythrocyte mean corpuscular hemoglobin [Entitic mass] by Automated count 26.8 pg 27-31 Below low normal [facility] pital Erythrocyte mean corpuscular hemoglobin concentration [Mass/volume] in Cord blood 31.3 g/dL 33-37 Below low normal [facility] Erythrocyte distribution width [Entitic volume] by Automated count 15 % 11-15 N [facility] Platelets [#/volume] in Blood by Automated count 469 10*3/uL 130-472 N [facility] Platelet mean volume [Entitic volume] in Blood 9.5 fL 9.1-13.1 N [facility] Neutrophils/100 leukocytes in Blood by Automated count 59.4 % 41- 77 N [facility] Neutrophils [#/volume] in Blood by Automated count 5.9 U 1.7-7.6 N [facility] Lymphocytes/100 leukocytes in Blood by Automated count 28.7 % 14- 46 N [facility] Lymphocytes [#/volume] in Blood by Automated count 2.8 U 0.6-4.6 N [facility] Monocytes/100 leukocytes in Blood by Automated count 6.9 % 4-12 [facility] Monocytes [#/volume] in Blood by Automated count 0.7 U 0.2-1.2 [facility] Eosinophils/100 leukocytes in Blood by Automated count 3.5 % 0-7 [facility] Eosinophils [#/volume] in Blood by Automated count 0.4 U 0.0-0.5 [facility] Basophils/100 leukocytes in Blood by Automated count 0.6 % 0.4-1 .3 [facility] Basophils [#/volume] in Blood by Automated count 0.1 U 0.0-0.2 [facility] NUCLEATED RED BLOOD CELL 0 % [facility] NUCLEATED RED BLOOD CELL# 0 U [facility] Immature granulocytes [Presence] in Blood by Automated count 0-2 N [facility] Immature granulocytes [#/volume] in Blood by Automated count 0.1 U 0-0.1 [facility] Manual Differential panel - Blood NO [facility] ID Date Data Source [id number] 04/08/2020 01:11:00 PM EST [facility] @ Ordering doctor for CBC edited from NO PCP to [facility]@ by COMMD at 04/08/20 1225@ Ordering doctor for ESR edited from NOPCP to [facility]@ by COMMD at 04/08/20 1225@ Submitting doctor edited from NOPCP to [facility]@ by COMMD at 04/08/20 1225 @ Ordering doctor for CMP edited from NO PCP to [facility]@ by COMMD at 04/08/20 1225@ Ordering doctor for CRP edited from NOPCP to [facility]@ by COMMD at 04/08/20 1225@ Submitting doctor edited from NOPCP to [facility]@ by COMMD at 04/08/20 1225 @ Ordering doctor for CBC edited from NO PCP to [facility]@ by COMMD at 04/08/20 1225@ Ordering doctor for ESR edited from NOPCP to [facility]@ by COMMD at 04/08/20 1225@ Submitting doctor edited from NOPCP to [facility]@ by COMMD at 04/08/20 1225 @ Ordering doctor for CMP edited from NO PCP to [facility]@ by COMMD at 04/08/20 1225@ Ordering doctor for CRP edited from NOPCP to [facility]@ by COMMD at 04/08/20 1225@ Submitting doctor edited from NOPCP to [facility]@ by COMMD at 04/08/20 1225 Name Value Range Interpretation Code Description Data Steffi rce(s) Supporting Document(s) Urea nitrogen [Mass/volume] in Serum or Plasma 42 mg/dL 9-23 Above high normal [facility] Sodium [Moles/volume] in Serum or Plasma 139 mmol/L 132-146 [facility] Potassium [Moles/volume] in Serum or Plasma 3.9 mmol/L 3.5-5.5 [facility] Chloride [Moles/volume] in Serum or Plasma 105 mmol/L 99-109 [facility] Carbon dioxide, total [Moles/volume] in Serum or Plasma 28 mmol/L 20 -31 [facility] Anion gap in Serum or Plasma 10 mmol/L 8-[address] [facility] Glucose [Mass/volume] in Serum or Plasma 96 mg/dL 74-106 [facility] Creatinine 2.7 mg/dL 0.5-1.1 Above high normal [facility] Glomerular filtration rate/1.73 sq M.pre dicted [Volume Rate/Area] in Serum or Plasma 24 ml/min ABOVE 60 [facility] ital Alanine aminotransferase [Enzymatic acti vity/volume] in Serum or Plasma by With P-5'-P 23 U/L 10-49 N [facility] ital Aspartate aminotransferase [Enzymatic ac tivity/volume] in Serum or Plasma by With P-5'-P 15 U/L 0-33 N [facility] pital Alkaline phosphatase [Enzymatic activity/volume] in Serum or Plasma 123 U/L 45-129 [facility] Calcium [Mass/volume] in Serum or Plasma 8.5 mg/dL 8.5-10. 1 No range defined, or normal ranges don't apply [facility] Repeated by: Mali Menjivar 04/08/20 1311. Result Confirmation: 8.9 mg/dL Bilirubin.total [Mass/volume] in Serum or Plasma 0.2 mg/dL 0.3-1.2 Below low normal [facility] Albumin [Mass/volume] in Serum or Plasma by Bromocresol purple (BCP) dye binding method 2.5 g/dL 3.2-4.8 Below low normal [facility] Protein [Mass/volume] in Serum or Plasma 7.2 g/dL 5.7-8.2 [facility] ID Date Data Source [id number] 04/08/2020 01:01:00 PM EST [facility] @ Ordering doctor for CBC edited from NO PCP to [facility]@ by COMMD at 04/08/20 1225@ Ordering doctor for ESR edited from NOPCP to [facility]@ by COMMD at 04/08/20 1225@ Submitting doctor edited from NOPCP to [facility]@ by COMMD at 04/08/20 1225 @ Ordering doctor for CMP edited from NO PCP to [facility]@ by COMMD at 04/08/20 1225@ Ordering doctor for CRP edited from NOPCP to [facility]@ by COMMD at 04/08/20 1225@ Submitting doctor edited from NOPCP to [facility]@ by COMMD at 04/08/20 1225 @ Ordering doctor for CBC edited from NO PCP to [facility]@ by COMMD at 04/08/20 1225@ Ordering doctor for ESR edited from NOPCP to [facility]@ by COMMD at 04/08/20 1225@ Submitting doctor edited from NOPCP to [facility]@ by COMMD at 04/08/20 1225 @ Ordering doctor for CMP edited from NO PCP to [facility]@ by COMMD at 04/08/20 1225@ Ordering doctor for CRP edited from NOPCP to [facility]@ by COMMD at 04/08/20 1225@ Submitting doctor edited from NOPCP to [facility]@ by COMMD at 04/08/20 1225 Name Value Range Interpretation Code Description Data Steffi rce(s) Supporting Document(s) Erythrocyte sedimentation rate by Westergren method 105 mm/hr 0-20 Above high normal [facility] @Reenter manual test result: 105@by Raisa tyler Mali at 04/08/20 1301. ID Date Data Source [id number] 04/08/2020 01:11:00 PM EST [facility] @ Ordering doctor for CBC edited from NO PCP to [facility]@ by COMMD at 04/08/20 1225@ Ordering doctor for ESR edited from NOPCP to [facility]@ by COMMD at 04/08/20 1225@ Submitting doctor edited from NOPCP to [facility]@ by COMMD at 04/08/20 1225 @ Ordering doctor for CMP edited from NO PCP to [facility]@ by COMMD at 04/08/20 1225@ Ordering doctor for CRP edited from NOPCP to [facility]@ by COMMD at 04/08/20 1225@ Submitting doctor edited from NOPCP to [facility]@ by COMMD at 04/08/20 1225 @ Ordering doctor for CBC edited from NO PCP to [facility]@ by COMMD at 04/08/20 1225@ Ordering doctor for ESR edited from NOPCP to [facility]@ by COMMD at 04/08/20 1225@ Submitting doctor edited from NOPCP to [facility]@ by COMMD at 04/08/20 1225 @ Ordering doctor for CMP edited from NO PCP to [facility]@ by COMMD at 04/08/20 1225@ Ordering doctor for CRP edited from NOPCP to [facility]@ by COMMD at 04/08/20 1225@ Submitting doctor edited from NOPCP to [facility]@ by COMMD at 04/08/20 1225 Name Value Range Interpretation Code Description Data Steffi rce(s) Supporting Document(s) C reactive protein [Mass/volume] in Serum or Plasma 11.4 mg/L 0.0-5.0 Above high normal [facility] ID Date Data Source UA URINALYSIS 03/20/2020 03:29:40 AM EST eCW1 ([facility]) Name Value Range Interpretation Code Description Data Steffi rce(s) Supporting Document(s) UA URINALYSIS eCW1 ([facility]) ID Date Data Source [id number] 03/18/2020 10:21:00 AM EST DURAN ([facility]) Name Value Range Interpretation Code Description Data Steffi rce(s) Supporting Document(s) TSH 3.206 uIu/mL TSH D[facility] ([facility]) Note: Responsible Observer: AW ID Date Data Source [id number] 03/18/2020 10:21:00 AM EST DURAN ([facility]) Name Value Range Interpretation Code Description Data Steffi rce(s) Supporting Document(s) Dir. LDL 114 mg/dl Dir. LDL D[facility]AN ([facility]) Note: Responsible Observer: AW HDL 33 mg/dl Below low normal HDL RUSK ([facility]) Note: Responsible Observer: AW Cholesterol [Moles/volume] in Pericardial fluid 190 mg/dl Cholesterol [facility] ([facility]) Note: Responsible Observer: AW Triglycerides 176 mg/dl Above high normal Triglycerides [facility]) Note: Responsible Observer: AW ID Date Data Source [id number] 03/18/2020 10:21:00 AM EST RUSK ([facility]) Name Value Range Interpretation Code Description Data Steffi rce(s) Supporting Document(s) Alkaline Phos 115 IU/L Alkaline Phos DURAN ([facility]) Note: Responsible Observer: AW Albumin [Mass/volume] in Blood by Bromocresol purple ( BCP) dye binding method 4 g/dl Albumin [facility] ([facility]) Note: Responsible Observer: AW ALT 9 IU/L ALT [facility] ([facility]) Note: Responsible Observer: AW Urea nitrogen [Moles/volume] in Blood 43 mg/dl Abo ve high normal Urea Nitrogen [facility]K ([facility]) Note: Responsible Observer: AW Chloride [Moles/volume] in Serum, Plasma or Blood 102 mmol/L Chloride [facility] ([facility]) Note: Responsible Observer: AW AST 7 IU/L AST [facility] ([facility]) Note: Responsible Observer: AW Calcium [Moles/volume] in Urine collected for unspecified durati on 9.7 mg/dl Calcium [facility] ([facility]) Note: Responsible Observer: AW Creatinine [Moles/volume] in Vitreous fluid 2.2 mg/dl Above high normal Creatinine [facility] ([facility]) Note: Responsible Observer: AW CO2 20 mmol/L Below low normal CO2 [facility] ([facility]) Note: Responsible Observer: AW EGFR - AfricanAm 37 N/A Above high normal EGFR - Afric Su [facility]AN ([facility]) Note: Responsible Observer: AW Potassium [Mass/volume] in Blood 4.2 mmol/L Pot assium [facility]K ([facility]) Note: Responsible Observer: AW EGFR - Non AF AM 30 N/A Above high normal EGFR - Non A F AM [facility] ([facility]) Note: Responsible Observer: AW Glucose [Mass/volume] in Urine collected for unspecified duratio n 272 mg/dl Above high normal Glucose [facility] ([facility]) Note: Responsible Observer: AW Total Bilirubin 0.4 mg/dl Total Bilirubin [facility] ([facility]) Note: Responsible Observer: AW Sodium [Moles/volume] in Serum, Plasma or Blood 131 mmol/L Below low normal Sodium [facility] ([facility]) Note: Responsible Observer: AW Total Protein 7 g/dl Total Protein [facility] ([facility]) Note: Responsible Observer: AW ID Date Data Source [id number] 03/18/2020 10:21:00 AM EST RUSK ([facility]) Name Value Range Interpretation Code Description Data Steffi rce(s) Supporting Document(s) GRAN# 7.9 /mm3 Above high normal GRAN# [facility] ([facility]) Note: Responsible Observer: AW GRAN% 65.5 % GRAN% [facility] ([facility]) Note: Responsible Observer: AW HCT 37.9 % Below low normal HCT [facility] ([facility]) Note: Responsible Observer: AW LY# 3.2 /mm3 LY# [facility] ([facility]) Note: Responsible Observer: AW HGB 13.1 g/dl HGB [facility] ([facility]) Note: Responsible Observer: AW LY% 26.2 % LY% [facility] ([facility]) Note: Responsible Observer: AW MCH 29.6 pg MCH [facility] ([facility]) Note: Responsible Observer: AW MCHC 34.7 G/DL MCHC [facility] ([facility]) Note: Responsible Observer: AW MCV 85.5 um3 MCV [facility] ([facility]) Note: Responsible Observer: AW MID# 1.0 /mm3 Above high normal MID# [facility] ([facility]) Note: Responsible Observer: AW MID% 8.3 % Above high normal MID% [facility] ([facility]) Note: Responsible Observer: AW RBC 4.43 /mm3 RBC [facility] ([facility]) Note: Responsible Observer: AW MPV 10.2 um3 MPV [facility] ([facility]) Note: Responsible Observer: AW PLT 345 /mm3 PLT [facility] ([facility]) Note: Responsible Observer: AW WBC 12.1 /mm3 Above high normal WBC [facility] ([facility]) Note: Responsible Observer: AW RDW 16.4 % Above high normal RDW [facility] ([facility]) Note: Responsible Observer: AW Procedure Social History Code Duration Value Status Description Data Source(s ) Smoking 03/25/2021 12:00:00 AM EST UNK completed eCW1 ([facility]) Smoking 03/13/2021 12:00:00 AM EDT UNK completed eCW1 ([facility]) Smoking 03/06/2021 12:00:00 AM EDT UNK completed eCW1 ([facility]) Smoking 02/27/2021 12:00:00 AM EDT UNK completed eCW1 ([facility]) Smoking 02/20/2021 12:00:00 AM EDT UNK completed eCW1 ([facility]) Smoking 02/20/2021 12:00:00 AM EDT UNK completed eCW1 ([facility]) Smoking 02/04/2021 12:00:00 AM EDT UNK completed eCW1 ([facility]) Smoking 02/04/2021 12:00:00 AM EDT UNK completed eCW1 ([facility]) Smoking 01/30/2021 12:00:00 AM EDT UNK completed eCW1 ([facility]) Smoking 01/23/2021 12:00:00 AM EDT UNK completed eCW1 ([facility]) Smoking 01/16/2021 12:00:00 AM EDT UNK completed eCW1 ([facility]) Smoking 01/09/2021 12:00:00 AM EDT UNK completed eCW1 ([facility]) Smoking 01/09/2021 12:00:00 AM EDT UNK completed eCW1 ([facility]) Smoking 12/26/2020 12:00:00 AM EDT UNK completed eCW1 ([facility]) Smoking 12/26/2020 12:00:00 AM EDT UNK completed eCW1 ([facility]) Smoking 12/12/2020 12:00:00 AM EDT UNK completed eCW1 ([facility]) Smoking 12/05/2020 12:00:00 AM EDT UNK completed eCW1 ([facility]) Smoking 11/28/2020 12:00:00 AM EDT UNK completed eCW1 ([facility]) Smoking 11/28/2020 12:00:00 AM EDT UNK completed eCW1 ([facility]) Smoking 11/21/2020 12:00:00 AM EDT UNK completed eCW1 ([facility]) Smoking 11/21/2020 12:00:00 AM EDT UNK completed eCW1 ([facility]) Smoking 11/07/2020 12:00:00 AM EDT UNK completed eCW1 ([facility]) Smoking 11/07/2020 12:00:00 AM EDT UNK completed eCW1 ([facility]) Smoking 10/24/2020 12:00:00 AM EDT UNK completed eCW1 ([facility]) Smoking 10/03/2020 12:00:00 AM EDT UNK completed eCW1 ([facility]) Smoking 09/26/2020 12:00:00 AM EDT UNK completed eCW1 ([facility]) Smoking 09/26/2020 12:00:00 AM EDT UNK completed eCW1 ([facility]) Smoking 09/05/2020 12:00:00 AM EDT UNK completed eCW1 ([facility]) Smoking 08/22/2020 12:00:00 AM EDT UNK completed eCW1 ([facility]) Smoking 08/22/2020 12:00:00 AM EDT UNK completed eCW1 ([facility]) Smoking 08/22/2020 12:00:00 AM EDT UNK completed eCW1 ([facility]) Smoking 08/08/2020 12:00:00 AM EDT UNK completed eCW1 ([facility]) Smoking 08/08/2020 12:00:00 AM EDT UNK completed eCW1 ([facility]) Smoking 08/01/2020 12:00:00 AM EDT UNK completed eCW1 ([facility]) Smoking 08/01/2020 12:00:00 AM EDT UNK completed eCW1 ([facility]) Smoking 08/01/2020 12:00:00 AM EDT UNK completed eCW1 ([facility]) Smoking 07/18/2020 12:00:00 AM EST UNK completed eCW1 ([facility]) Smoking 07/11/2020 12:00:00 AM EST UNK completed eCW1 ([facility]) Smoking 07/11/2020 12:00:00 AM EST UNK completed eCW1 ([facility]) Smoking 07/11/2020 12:00:00 AM EST UNK completed eCW1 ([facility]) Smoking 07/11/2020 12:00:00 AM EST UNK completed eCW1 ([facility]) Smoking 06/20/2020 12:00:00 AM EST UNK completed eCW1 ([facility]) Smoking 06/20/2020 12:00:00 AM EST UNK completed eCW1 ([facility]) Smoking 06/13/2020 12:00:00 AM EST UNK completed eCW1 ([facility]) Smoking 06/06/2020 12:00:00 AM EST UNK completed eCW1 ([facility]) Smoking 05/23/2020 12:00:00 AM EST UNK completed eCW1 ([facility]) Smoking 05/23/2020 12:00:00 AM EST UNK completed eCW1 ([facility]) Smoking 05/15/2020 12:00:00 AM EST UNK completed eCW1 ([facility]) Smoking 05/15/2020 12:00:00 AM EST UNK completed eCW1 ([facility]) Smoking 05/15/2020 12:00:00 AM EST UNK completed eCW1 ([facility]) Smoking 05/02/2020 12:00:00 AM EST UNK completed eCW1 ([facility]) Smoking 05/02/2020 12:00:00 AM EST UNK completed eCW1 ([facility]) Smoking 05/02/2020 12:00:00 AM EST UNK completed eCW1 ([facility]) Smoking 04/28/2020 12:00:00 AM EST UNK completed eCW1 ([facility]) Smoking 04/28/2020 12:00:00 AM EST UNK completed eCW1 ([facility]) Smoking 04/28/2020 12:00:00 AM EST UNK completed eCW1 ([facility]) Smoking 04/21/2020 12:00:00 AM EST UNK completed eCW1 ([facility]) Smoking 04/14/2020 12:00:00 AM EST UNK completed eCW1 ([facility]) Smoking 04/03/2020 12:00:00 AM EST UNK completed eCW1 ([facility]) Smoking 04/03/2020 12:00:00 AM EST UNK completed eCW1 ([facility]) Smoking 04/03/2020 12:00:00 AM EST UNK completed eCW1 ([facility]) Smoking 03/28/2020 12:00:00 AM EST UNK completed eCW1 ([facility]) Smoking 03/20/2020 12:00:00 AM EST UNK completed eCW1 ([facility]) Smoking 03/20/2020 12:00:00 AM EST UNK completed eCW1 ([facility]) Smoking 03/20/2020 12:00:00 AM EST UNK completed eCW1 ([facility]) Smoking 03/20/2020 12:00:00 AM EST UNK completed eCW1 ([facility]) Smoking 03/13/2020 12:00:00 AM EDT UNK completed eCW1 ([facility]) Smoking 03/13/2020 12:00:00 AM EDT UNK completed eCW1 ([facility]) Smoking 03/13/2020 12:00:00 AM EDT UNK completed eCW1 ([facility]) Smoking 03/06/2020 12:00:00 AM EDT UNK completed eCW1 ([facility]) Smoking 03/06/2020 12:00:00 AM EDT UNK completed eCW1 ([facility]) Smoking 02/28/2020 12:00:00 AM EDT UNK completed eCW1 ([facility]) Smoking 02/21/2020 12:00:00 AM EDT UNK completed eCW1 ([facility]) Vital Signs ID Date Data Source UNK Name Value Range Interpretation Code Description Data Source(s) Body weight 222 [lb_av] 222 [lb_av] eCW1 ([facility]) Body weight 100.7 kg 100.7 kg eCW1 ([facility]) Body height 70 [in_i] 70 [in_i] eCW1 ([facility]) Body mass index (BMI) [Ratio] 31.85 kg/m2 31.85 kg/m2 eCW1 ([facility]) Heart rate 82 /min 82 /min eCW1 ([facility]) Respiratory rate 18 /min 18 /min eCW1 ([facility]) Body temperature 97.0 [degF] 97.0 [degF] eCW1 ( [facility]) Body weight 222 [lb_av] 222 [lb_av] eCW1 ([facility]) Body weight 100.7 kg 100.7 kg eCW1 ([facility]) Body height 70 [in_i] 70 [in_i] eCW1 ([facility]) Body mass index (BMI) [Ratio] 31.85 kg/m2 31.85 kg/m2 eCW1 ([facility]) Heart rate 82 /min 82 /min eCW1 ([facility]) Respiratory rate 18 /min 18 /min eCW1 ([facility]) Body temperature 98.9 [degF] 98.9 [degF] eCW1 ( [facility]) Systolic blood pressure 155 mm[Hg] 155 mm[Hg] e CW1 ([facility]) Diastolic blood pressure 76 mm[Hg] 76 mm[Hg] eCW1 ([facility]) Body weight 222 [lb_av] 222 [lb_av] eCW1 ([facility]) Body height 70 [in_i] 70 [in_i] eCW1 ([facility]) Body mass index (BMI) [Ratio] 31.85 kg/m2 31.85 kg/m2 eCW1 ([facility]) Heart rate 87 /min 87 /min eCW1 ([facility]) Respiratory rate 18 /min 18 /min eCW1 ([facility]) Body temperature 100 [degF] 100 [degF] eCW1 ([facility]) Systolic blood pressure 177 mm[Hg] 177 mm[Hg] e CW1 ([facility]) Diastolic blood pressure 82 mm[Hg] 82 mm[Hg] eCW1 ([facility]) Body weight 222 [lb_av] 222 [lb_av] eCW1 ([facility]) Body height 70 [in_i] 70 [in_i] eCW1 ([facility]) Body mass index (BMI) [Ratio] 31.85 kg/m2 31.85 kg/m2 eCW1 ([facility]) Heart rate 86 /min 86 /min eCW1 ([facility]) Respiratory rate 18 /min 18 /min eCW1 ([facility]) Body temperature 98.0 [degF] 98.0 [degF] eCW1 ( [facility]) Systolic blood pressure 180 mm[Hg] 180 mm[Hg] e CW1 ([facility]) Diastolic blood pressure 79 mm[Hg] 79 mm[Hg] eCW1 ([facility]) Body weight 222 [lb_av] 222 [lb_av] eCW1 ([facility]) Body height 70 [in_i] 70 [in_i] eCW1 ([facility]) Body mass index (BMI) [Ratio] 31.85 kg/m2 31.85 kg/m2 eCW1 ([facility]) Heart rate 81 /min 81 /min eCW1 ([facility]) Respiratory rate 16 /min 16 /min eCW1 ([facility]) Body temperature 97.7 [degF] 97.7 [degF] eCW1 ( [facility]) Systolic blood pressure 164 mm[Hg] 164 mm[Hg] e CW1 ([facility]) Diastolic blood pressure 84 mm[Hg] 84 mm[Hg] eCW1 ([facility]) Body weight 222 [lb_av] 222 [lb_av] eCW1 ([facility]) Body weight 100.7 kg 100.7 kg eCW1 ([facility]) Body height 70 [in_i] 70 [in_i] eCW1 ([facility]) Body mass index (BMI) [Ratio] 31.85 kg/m2 31.85 kg/m2 eCW1 ([facility]) Heart rate 89 /min 89 /min eCW1 ([facility]) Respiratory rate 18 /min 18 /min eCW1 ([facility]) Body temperature 96.4 [degF] 96.4 [degF] eCW1 ( [facility] [facility] Systolic blood pressure 210 mm[Hg] 210 mm[Hg] e CW1 ([facility]) Diastolic blood pressure 97 mm[Hg] 97 mm[Hg] eCW1 ([facility]) Body weight 222 [lb_av] 222 [lb_av] eCW1 ([facility]) Body height 70 [in_i] 70 [in_i] eCW1 ([facility]) Body mass index (BMI) [Ratio] 31.85 kg/m2 31.85 kg/m2 eCW1 ([facility]) Heart rate 91 /min 91 /min eCW1 ([facility]) Respiratory rate 18 /min 18 /min eCW1 ([facility]) Body temperature 96.8 [degF] 96.8 [degF] eCW1 ( [facility]) Systolic blood pressure 158 mm[Hg] 158 mm[Hg] e CW1 ([facility]) Diastolic blood pressure 94 mm[Hg] 94 mm[Hg] eCW1 ([facility]) Body weight 222 [lb_av] 222 [lb_av] eCW1 ([facility]) Body height 70 [in_i] 70 [in_i] eCW1 ([facility]) Body mass index (BMI) [Ratio] 31.85 kg/m2 31.85 kg/m2 eCW1 ([facility]) Heart rate 89 /min 89 /min eCW1 ([facility]) Respiratory rate 18 /min 18 /min eCW1 ([facility]) Body temperature 96.1 [degF] 96.1 [degF] eCW1 ( [facility]) Systolic blood pressure 175 mm[Hg] 175 mm[Hg] e CW1 ([facility]) Diastolic blood pressure 81 mm[Hg] 81 mm[Hg] eCW1 ([facility]) Body weight 222 [lb_av] 222 [lb_av] eCW1 ([facility]) Body weight 100.7 kg 100.7 kg eCW1 ([facility]) Body height 70 [in_i] 70 [in_i] eCW1 ([facility]) Body mass index (BMI) [Ratio] 31.85 kg/m2 31.85 kg/m2 W1 ([facility]) Heart rate 84 /min 84 /min eCW1 ([facility]) Respiratory rate 19 /min 19 /min eCW1 ([facility]) Body temperature 96.0 [degF] 96.0 [degF] eCW1 ( [facility]) Systolic blood pressure 175 mm[Hg] 175 mm[Hg] e CW1 ([facility]) Diastolic blood pressure 87 mm[Hg] 87 mm[Hg] eCW1 ([facility]) Body weight 222 [lb_av] 222 [lb_av] eCW1 ([facility]) Body height 70 [in_i] 70 [in_i] eCW1 ([facility]) Body mass index (BMI) [Ratio] 31.85 kg/m2 31.85 kg/m2 eCW1 ([facility]) Heart rate 83 /min 83 /min eCW1 ([facility]) Respiratory rate 18 /min 18 /min eCW1 ([facility]) Body temperature 98.5 [degF] 98.5 [degF] eCW1 ( [facility]) Systolic blood pressure 166 mm[Hg] 166 mm[Hg] e CW1 ([facility]) Diastolic blood pressure 82 mm[Hg] 82 mm[Hg] eCW1 ([facility]) Systolic blood pressure 128 mm[Hg] 128 mm[Hg] G REENWAY ([facility]) Diastolic blood pressure 74 mm[Hg] 74 mm[Hg] RUSK ([facility]) Heart rate 80 /min 80 /min RUSK ([facility]) Respiratory rate 22 /min 22 /min RUSK ([facility]) Body height 69 [in_i] 69 [in_i] RUSK ([facility]) Body weight 226 [lb_av] 226 [lb_av] RUSK ([facility]) Body mass index (BMI) [Ratio] 33.4 kg/m2 33.4 k g/m2 RUSK ([facility]) Body surface area Derived from formula 2.18 m2 2.18 m2 RUSK ([facility]) Body weight 222 [lb_av] 222 [lb_av] eCW1 ([facility]) Body height 70 [in_i] 70 [in_i] eCW1 ([facility]) Body mass index (BMI) [Ratio] 31.85 kg/m2 31.85 kg/m2 eCW1 ([facility]) Heart rate 80 /min 80 /min eCW1 ([facility]) Respiratory rate 16 /min 16 /min eCW1 ([facility]) Body temperature 96.2 [degF] 96.2 [degF] eCW1 ( [facility]) Systolic blood pressure 145 mm[Hg] 145 mm[Hg] e CW1 ([facility]) Diastolic blood pressure 78 mm[Hg] 78 mm[Hg] eCW1 ([facility]) Body weight 222 [lb_av] 222 [lb_av] eCW1 ([facility]) Body height 70 [in_i] 70 [in_i] eCW1 ([facility]) Body mass index (BMI) [Ratio] 31.85 kg/m2 31.85 kg/m2 eCW1 ([facility]) Heart rate 80 /min 80 /min eCW1 ([facility]) Respiratory rate 18 /min 18 /min eCW1 ([facility]) Body temperature 97.7 [degF] 97.7 [degF] eCW1 ( [facility]) Systolic blood pressure 181 mm[Hg] 181 mm[Hg] e CW1 ([facility]) Diastolic blood pressure 91 mm[Hg] 91 mm[Hg] eCW1 ([facility]) Body weight 222 [lb_av] 222 [lb_av] eCW1 ([facility]) Body height 70 [in_i] 70 [in_i] eCW1 ([facility]) Body mass index (BMI) [Ratio] 31.85 kg/m2 31.85 kg/m2 eCW1 ([facility]) Heart rate 85 /min 85 /min eCW1 ([facility]) Respiratory rate 16 /min 16 /min eCW1 ([facility]) Body temperature 98.7 [degF] 98.7 [degF] eCW1 ( [facility]) Systolic blood pressure 168 mm[Hg] 168 mm[Hg] e CW1 ([facility]) Diastolic blood pressure 91 mm[Hg] 91 mm[Hg] eCW1 ([facility]) Body height 70 [in_i] 70 [in_i] eCW1 ([facility]) Body mass index (BMI) [Ratio] 31.85 kg/m2 31.85 kg/m2 eCW1 ([facility]) Heart rate 98 /min 98 /min eCW1 ([facility]) Respiratory rate 16 /min 16 /min eCW1 ([facility]) Body temperature 97.1 [degF] 97.1 [degF] eCW1 ( [facility]) Systolic blood pressure 154 mm[Hg] 154 mm[Hg] e CW1 ([facility]) Diastolic blood pressure 76 mm[Hg] 76 mm[Hg] eCW1 ([facility]) Body weight 222 [lb_av] 222 [lb_av] eCW1 ([facility]) Body weight 222 [lb_av] 222 [lb_av] eCW1 ([facility]) Body weight kg eCW1 ([facility]) Body height 70 [in_i] 70 [in_i] eCW1 ([facility]) Body mass index (BMI) [Ratio] 31.85 kg/m2 31.85 kg/m2 eCW1 ([facility]) Heart rate 85 /min 85 /min eCW1 ([facility]) Respiratory rate 17 /min 17 /min eCW1 ([facility]) Body temperature 98.3 [degF] 98.3 [degF] eCW1 ( [facility]) Systolic blood pressure 163 mm[Hg] 163 mm[Hg] e CW1 ([facility]) Diastolic blood pressure 76 mm[Hg] 76 mm[Hg] eCW1 ([facility]) Body weight 222 [lb_av] 222 [lb_av] eCW1 ([facility]) Body weight kg eCW1 ([facility]) Body height 70 [in_i] 70 [in_i] eCW1 ([facility]) Body mass index (BMI) [Ratio] 31.85 kg/m2 31.85 kg/m2 eCW1 ([facility]) Heart rate 88 /min 88 /min eCW1 ([facility]) Respiratory rate 16 /min 16 /min eCW1 ([facility]) Body temperature 98.6 [degF] 98.6 [degF] eCW1 ( [facility]) Systolic blood pressure 173 mm[Hg] 173 mm[Hg] e CW1 ([facility]) Diastolic blood pressure 83 mm[Hg] 83 mm[Hg] eCW1 ([facility]) Body weight 222 [lb_av] 222 [lb_av] eCW1 ([facility]) Body weight kg eCW1 ([facility]) Body height 70 [in_i] 70 [in_i] eCW1 ([facility]) Body mass index (BMI) [Ratio] 31.85 kg/m2 31.85 kg/m2 eCW1 ([facility]) Heart rate 74 /min 74 /min eCW1 ([facility]) Respiratory rate 17 /min 17 /min eCW1 ([facility]) Body temperature 98.2 [degF] 98.2 [degF] eCW1 ( [facility]) Systolic blood pressure 174 mm[Hg] 174 mm[Hg] e CW1 ([facility]) Diastolic blood pressure 82 mm[Hg] 82 mm[Hg] eCW1 ([facility]) Body weight 222 [lb_av] 222 [lb_av] eCW1 ([facility]) Body weight kg eCW1 ([facility]) Body height 70 [in_i] 70 [in_i] eCW1 ([facility]) Body mass index (BMI) [Ratio] 31.85 kg/m2 31.85 kg/m2 eCW1 ([facility]) Heart rate 73 /min 73 /min eCW1 ([facility]) Respiratory rate 16 /min 16 /min eCW1 ([facility]) Body temperature 98.2 [degF] 98.2 [degF] eCW1 ( [facility]) Systolic blood pressure 173 mm[Hg] 173 mm[Hg] e CW1 ([facility]) Diastolic blood pressure 93 mm[Hg] 93 mm[Hg] eCW1 ([facility]) Body weight 222 [lb_av] 222 [lb_av] eCW1 ([facility]) Body weight kg eCW1 ([facility]) Body height 70 [in_i] 70 [in_i] eCW1 ([facility]) Body mass index (BMI) [Ratio] 31.85 kg/m2 31.85 kg/m2 eCW1 ([facility]) Heart rate 79 /min 79 /min eCW1 ([facility]) Respiratory rate 18 /min 18 /min eCW1 ([facility]) Body temperature 98.2 [degF] 98.2 [degF] eCW1 ( [facility]) Systolic blood pressure 162 mm[Hg] 162 mm[Hg] e CW1 ([facility]) Diastolic blood pressure 92 mm[Hg] 92 mm[Hg] eCW1 ([facility]) Body weight 240 [lb_av] 240 [lb_av] eCW1 ([facility]) Body weight kg eCW1 ([facility]) Body height 70 [in_i] 70 [in_i] eCW1 ([facility]) Body mass index (BMI) [Ratio] 34.43 kg/m2 34.43 kg/m2 eCW1 ([facility]) Heart rate 71 /min 71 /min eCW1 ([facility]) Respiratory rate 16 /min 16 /min eCW1 ([facility]) Body temperature 98.4 [degF] 98.4 [degF] eCW1 ( [facility]) Systolic blood pressure 164 mm[Hg] 164 mm[Hg] e CW1 ([facility]) Diastolic blood pressure 77 mm[Hg] 77 mm[Hg] eCW1 ([facility]) Body weight 240 [lb_av] 240 [lb_av] eCW1 ([facility]) Body weight kg eCW1 ([facility]) Body height 70 [in_i] 70 [in_i] eCW1 ([facility]) Body mass index (BMI) [Ratio] 34.43 kg/m2 34.43 kg/m2 eCW1 ([facility]) Heart rate 71 /min 71 /min eCW1 ([facility]) Respiratory rate 18 /min 18 /min eCW1 ([facility]) Body temperature 98.5 [degF] 98.5 [degF] eCW1 ( [facility]) Systolic blood pressure 146 mm[Hg] 146 mm[Hg] e CW1 ([facility]) Diastolic blood pressure 78 mm[Hg] 78 mm[Hg] eCW1 ([facility]) Body weight 220 [lb_av] 220 [lb_av] eCW1 ([facility]) Body weight kg eCW1 ([facility]) Body height 70 [in_i] 70 [in_i] eCW1 ([facility]) Body mass index (BMI) [Ratio] 31.56 kg/m2 31.56 kg/m2 eCW1 ([facility]) Heart rate 70 /min 70 /min eCW1 ([facility]) Respiratory rate 18 /min 18 /min eCW1 ([facility]) Body temperature 98.4 [degF] 98.4 [degF] eCW1 ( [facility]) Systolic blood pressure 178 mm[Hg] 178 mm[Hg] e CW1 ([facility]) Diastolic blood pressure 80 mm[Hg] 80 mm[Hg] eCW1 ([facility]) Heart rate 68 /min 68 /min DURAN ([facility]) Respiratory rate 20 /min 20 /min DURAN ([facility]) Body height 69 [in_i] 69 [in_i] DURAN ([facility]) Body weight 221 [lb_av] 221 [lb_av] RUSK ([facility]) Body mass index (BMI) [Ratio] 32.6 kg/m2 32.6 k g/m2 RUSK ([facility]) Body surface area Derived from formula 2.16 m2 2.16 m2 RUSK ([facility]) Systolic blood pressure 140 mm[Hg] 140 mm[Hg] [facility] Diastolic blood pressure 84 mm[Hg] 84 mm[Hg] RUSK ([facility]) Body weight 220 [lb_av] 220 [lb_av] eCW1 ([facility]) Body weight kg eCW1 ([facility]) Body height 70 [in_i] 70 [in_i] eCW1 ([facility]) Body mass index (BMI) [Ratio] 31.56 kg/m2 31.56 kg/m2 W1 ([facility]) Heart rate 71 /min 71 /min eCW1 ([facility]) Respiratory rate 18 /min 18 /min eCW1 ([facility]) Body temperature 98.9 [degF] 98.9 [degF] eCW1 ( [facility]) Systolic blood pressure 172 mm[Hg] 172 mm[Hg] e CW1 ([facility]) Diastolic blood pressure 83 mm[Hg] 83 mm[Hg] eCW1 ([facility]) Body weight 220 [lb_av] 220 [lb_av] eCW1 ([facility]) Body weight kg eCW1 ([facility]) Body height 70 [in_i] 70 [in_i] eCW1 ([facility]) Body mass index (BMI) [Ratio] 31.56 kg/m2 31.56 kg/m2 eCW1 ([facility]) Heart rate 73 /min 73 /min eCW1 ([facility]) Respiratory rate 18 /min 18 /min eCW1 ([facility]) Body temperature 97.8 [degF] 97.8 [degF] eCW1 ( [facility]) Systolic blood pressure 189 mm[Hg] 189 mm[Hg] e CW1 ([facility]) Diastolic blood pressure 84 mm[Hg] 84 mm[Hg] eCW1 ([facility]) Body weight 220 [lb_av] 220 [lb_av] eCW1 ([facility]) Body weight kg eCW1 ([facility]) Body height 70 [in_i] 70 [in_i] eCW1 ([facility]) Body mass index (BMI) [Ratio] 31.56 kg/m2 31.56 kg/m2 eCW1 ([facility]) Heart rate 76 /min 76 /min eCW1 ([facility]) Respiratory rate 16 /min 16 /min eCW1 ([facility]) Body temperature 98.2 [degF] 98.2 [degF] eCW1 ( [facility]) Systolic blood pressure 152 mm[Hg] 152 mm[Hg] e CW1 ([facility]) Diastolic blood pressure 82 mm[Hg] 82 mm[Hg] eCW1 ([facility]) Body weight 220 [lb_av] 220 [lb_av] eCW1 ([facility]) Body weight kg eCW1 ([facility]) Body height 70 [in_i] 70 [in_i] eCW1 ([facility]) Body mass index (BMI) [Ratio] 31.56 kg/m2 31.56 kg/m2 eCW1 ([facility]) Heart rate 74 /min 74 /min eCW1 ([facility]) Respiratory rate 16 /min 16 /min eCW1 ([facility]) Body temperature 97.8 [degF] 97.8 [degF] eCW1 ( [facility]) Systolic blood pressure 151 mm[Hg] 151 mm[Hg] e CW1 ([facility]) Diastolic blood pressure 70 mm[Hg] 70 mm[Hg] eCW1 ([facility]) Body weight 220 [lb_av] 220 [lb_av] eCW1 ([facility]) Body weight kg eCW1 ([facility]) Body height 70 [in_i] 70 [in_i] eCW1 ([facility]) Body mass index (BMI) [Ratio] 31.56 kg/m2 31.56 kg/m2 eCW1 ([facility]) Heart rate 84 /min 84 /min eCW1 ([facility]) Respiratory rate 16 /min 16 /min eCW1 ([facility]) Body temperature 98.4 [degF] 98.4 [degF] eCW1 ( [facility]) Systolic blood pressure 132 mm[Hg] 132 mm[Hg] e CW1 ([facility]) Diastolic blood pressure 63 mm[Hg] 63 mm[Hg] eCW1 ([facility]) Body weight 220 [lb_av] 220 [lb_av] eCW1 ([facility]) Body weight kg eCW1 ([facility]) Body height 70 [in_i] 70 [in_i] eCW1 ([facility]) Body mass index (BMI) [Ratio] 31.56 kg/m2 31.56 kg/m2 eCW1 ([facility]) Heart rate 80 /min 80 /min eCW1 ([facility]) Respiratory rate 16 /min 16 /min eCW1 ([facility]) Body temperature 98.4 [degF] 98.4 [degF] eCW1 ( [facility]) Systolic blood pressure 188 mm[Hg] 188 mm[Hg] e CW1 ([facility]) Diastolic blood pressure 86 mm[Hg] 86 mm[Hg] eCW1 ([facility]) Body weight 220 [lb_av] 220 [lb_av] eCW1 ([facility]) Body weight kg eCW1 ([facility]) Body height 70 [in_i] 70 [in_i] eCW1 ([facility]) Body mass index (BMI) [Ratio] 31.56 kg/m2 31.56 kg/m2 eCW1 ([facility]) Heart rate 81 /min 81 /min eCW1 ([facility]) Respiratory rate 18 /min 18 /min eCW1 ([facility]) Body temperature 98.1 [degF] 98.1 [degF] eCW1 ( [facility]) Systolic blood pressure 156 mm[Hg] 156 mm[Hg] e CW1 ([facility]) Diastolic blood pressure 74 mm[Hg] 74 mm[Hg] eCW1 ([facility]) Body weight 220 [lb_av] 220 [lb_av] eCW1 ([facility]) Body weight kg eCW1 ([facility]) Body height 70 [in_i] 70 [in_i] eCW1 ([facility]) Body mass index (BMI) [Ratio] 31.56 kg/m2 31.56 kg/m2 eCW1 ([facility]) Heart rate 95 /min 95 /min eCW1 ([facility]) Respiratory rate 16 /min 16 /min eCW1 ([facility]) Body temperature 99.5 [degF] 99.5 [degF] eCW1 ( [facility]) Systolic blood pressure 145 mm[Hg] 145 mm[Hg] e CW1 ([facility]) Diastolic blood pressure 63 mm[Hg] 63 mm[Hg] eCW1 ([facility]) Body weight 220 [lb_av] 220 [lb_av] eCW1 ([facility]) Body weight kg eCW1 ([facility]) Body height 70 [in_i] 70 [in_i] eCW1 ([facility]) Body mass index (BMI) [Ratio] 31.56 kg/m2 31.56 kg/m2 eCW1 ([facility]) Heart rate 71 /min 71 /min eCW1 ([facility]) Respiratory rate 16 /min 16 /min eCW1 ([facility]) Body temperature 98.3 [degF] 98.3 [degF] eCW1 ( [facility]) Systolic blood pressure 161 mm[Hg] 161 mm[Hg] e CW1 ([facility]) Diastolic blood pressure 81 mm[Hg] 81 mm[Hg] eCW1 ([facility]) Body weight 220 [lb_av] 220 [lb_av] eCW1 ([facility]) Body height 70 [in_i] 70 [in_i] eCW1 ([facility]) Body mass index (BMI) [Ratio] 31.56 kg/m2 31.56 kg/m2 eCW1 ([facility]) Heart rate 74 /min 74 /min eCW1 ([facility]) Respiratory rate 18 /min 18 /min eCW1 ([facility]) Body temperature 98.3 [degF] 98.3 [degF] eCW1 ( [facility]) Systolic blood pressure 198 mm[Hg] 198 mm[Hg] e CW1 ([facility]) Diastolic blood pressure 93 mm[Hg] 93 mm[Hg] eCW1 ([facility]) Body weight 220 [lb_av] 220 [lb_av] eCW1 ([facility]) Body weight kg eCW1 ([facility]) Body height 70 [in_i] 70 [in_i] eCW1 ([facility]) Body mass index (BMI) [Ratio] 31.56 kg/m2 31.56 kg/m2 eCW1 ([facility]) Heart rate 71 /min 71 /min eCW1 ([facility]) Respiratory rate 17 /min 17 /min eCW1 ([facility]) Body temperature 98.3 [degF] 98.3 [degF] eCW1 ( [facility]) Systolic blood pressure 134 mm[Hg] 134 mm[Hg] e CW1 ([facility]) Diastolic blood pressure 70 mm[Hg] 70 mm[Hg] eCW1 ([facility]) Body weight 220 [lb_av] 220 [lb_av] eCW1 ([facility]) Body height 70 [in_i] 70 [in_i] eCW1 ([facility]) Body mass index (BMI) [Ratio] 31.56 kg/m2 31.56 kg/m2 eCW1 ([facility]) Heart rate 82 /min 82 /min eCW1 ([facility]) Respiratory rate 20 /min 20 /min eCW1 ([facility]) Body temperature 98.2 [degF] 98.2 [degF] eCW1 ( [facility]) Systolic blood pressure 163 mm[Hg] 163 mm[Hg] e CW1 ([facility]) Diastolic blood pressure 82 mm[Hg] 82 mm[Hg] eCW1 ([facility]) Body weight 220 [lb_av] 220 [lb_av] eCW1 ([facility]) Body weight kg eCW1 ([facility]) Body height 70 [in_i] 70 [in_i] eCW1 ([facility]) Body mass index (BMI) [Ratio] 31.56 kg/m2 31.56 kg/m2 eCW1 ([facility]) Heart rate 77 /min 77 /min eCW1 ([facility]) Respiratory rate 18 /min 18 /min eCW1 ([facility]) Body temperature 97.9 [degF] 97.9 [degF] eCW1 ( [facility]) Body weight 220 [lb_av] 220 [lb_av] eCW1 ([facility]) Body weight kg eCW1 ([facility]) Body height 70 [in_i] 70 [in_i] eCW1 ([facility]) Body mass index (BMI) [Ratio] 31.56 kg/m2 31.56 kg/m2 eCW1 ([facility]) Heart rate 80 /min 80 /min eCW1 ([facility]) Respiratory rate 18 /min 18 /min eCW1 ([facility]) Body temperature 98.5 [degF] 98.5 [degF] eCW1 ( [facility]) Systolic blood pressure 154 mm[Hg] 154 mm[Hg] e CW1 ([facility]) Diastolic blood pressure 73 mm[Hg] 73 mm[Hg] eCW1 ([facility]) Body weight 220 [lb_av] 220 [lb_av] eCW1 ([facility]) Body height 70 [in_i] 70 [in_i] eCW1 ([facility]) Body mass index (BMI) [Ratio] 31.56 kg/m2 31.56 kg/m2 eCW1 ([facility]) Heart rate 81 /min 81 /min eCW1 ([facility]) Body temperature 98.6 [degF] 98.6 [degF] eCW1 ( [facility]) Systolic blood pressure 160 mm[Hg] 160 mm[Hg] e CW1 ([facility]) Diastolic blood pressure 70 mm[Hg] 70 mm[Hg] eCW1 ([facility]) Body weight 220 [lb_av] 220 [lb_av] eCW1 ([facility]) Body weight kg eCW1 ([facility]) Body height 70 [in_i] 70 [in_i] eCW1 ([facility]) Body mass index (BMI) [Ratio] 31.56 kg/m2 31.56 kg/m2 eCW1 ([facility]) Heart rate 82 /min 82 /min eCW1 ([facility]) Respiratory rate 18 /min 18 /min eCW1 ([facility]) Body temperature 98.7 [degF] 98.7 [degF] eCW1 ( [facility]) Systolic blood pressure 198 mm[Hg] 198 mm[Hg] e CW1 ([facility]) Diastolic blood pressure 84 mm[Hg] 84 mm[Hg] eCW1 ([facility]) Body weight 220 [lb_av] 220 [lb_av] eCW1 ([facility]) Body weight kg eCW1 ([facility]) Body height 70 [in_i] 70 [in_i] eCW1 ([facility]) Body mass index (BMI) [Ratio] 31.56 kg/m2 31.56 kg/m2 eCW1 ([facility]) Heart rate 77 /min 77 /min eCW1 ([facility]) Respiratory rate 18 /min 18 /min eCW1 ([facility]) Body temperature 98.4 [degF] 98.4 [degF] eCW1 ( [facility]) Systolic blood pressure 123 mm[Hg] 123 mm[Hg] e CW1 ([facility]) Diastolic blood pressure 60 mm[Hg] 60 mm[Hg] eCW1 ([facility]) Body weight 220 [lb_av] 220 [lb_av] eCW1 ([facility]) Body weight kg eCW1 ([facility]) Body height 70 [in_i] 70 [in_i] eCW1 ([facility]) Body mass index (BMI) [Ratio] 31.56 kg/m2 31.56 kg/m2 eCW1 ([facility]) Heart rate 86 /min 86 /min eCW1 ([facility]) Respiratory rate 19 /min 19 /min eCW1 ([facility]) Body temperature 98.6 [degF] 98.6 [degF] eCW1 ( [facility]) Systolic blood pressure 143 mm[Hg] 143 mm[Hg] e CW1 ([facility]) Diastolic blood pressure 67 mm[Hg] 67 mm[Hg] eCW1 ([facility]) Body weight 220 [lb_av] 220 [lb_av] eCW1 ([facility]) Body weight kg eCW1 ([facility]) Body height 70 [in_i] 70 [in_i] eCW1 ([facility]) Body mass index (BMI) [Ratio] 31.56 kg/m2 31.56 kg/m2 eCW1 ([facility]) Heart rate 85 /min 85 /min eCW1 ([facility]) Respiratory rate 18 /min 18 /min eCW1 ([facility]) Body temperature 97.1 [degF] 97.1 [degF] eCW1 ( [facility]) Systolic blood pressure 151 mm[Hg] 151 mm[Hg] e CW1 ([facility]) Diastolic blood pressure 70 mm[Hg] 70 mm[Hg] eCW1 ([facility]) Body weight 220 [lb_av] 220 [lb_av] eCW1 ([facility]) Body weight kg eCW1 ([facility]) Body height 70 [in_i] 70 [in_i] eCW1 ([facility]) Body mass index (BMI) [Ratio] 31.56 kg/m2 31.56 kg/m2 eCW1 ([facility]) Heart rate 68 /min 68 /min eCW1 ([facility]) Respiratory rate 18 /min 18 /min eCW1 ([facility]) Body temperature 98.3 [degF] 98.3 [degF] eCW1 ( [facility]) Systolic blood pressure 166 mm[Hg] 166 mm[Hg] e CW1 ([facility]) Diastolic blood pressure 89 mm[Hg] 89 mm[Hg] eCW1 ([facility]) Body weight 220 [lb_av] 220 [lb_av] eCW1 ([facility]) Body weight kg eCW1 ([facility]) Body height 70 [in_i] 70 [in_i] eCW1 ([facility]) Body mass index (BMI) [Ratio] 31.56 kg/m2 31.56 kg/m2 eCW1 ([facility]) Heart rate 77 /min 77 /min eCW1 ([facility]) Respiratory rate 18 /min 18 /min eCW1 ([facility]) Body temperature 96.3 [degF] 96.3 [degF] eCW1 ( [facility]) Systolic blood pressure 103 mm[Hg] 103 mm[Hg] e CW1 ([facility]) Diastolic blood pressure 58 mm[Hg] 58 mm[Hg] eCW1 ([facility]) Body weight 220 [lb_av] 220 [lb_av] eCW1 ([facility]) Body height 70 [in_i] 70 [in_i] eCW1 ([facility]) Body mass index (BMI) [Ratio] 31.56 kg/m2 31.56 kg/m2 eCW1 ([facility]) Heart rate 77 /min 77 /min eCW1 ([facility]) Respiratory rate 16 /min 16 /min eCW1 ([facility]) Body temperature 96.8 [degF] 96.8 [degF] eCW1 ( [facility]) Systolic blood pressure 130 mm[Hg] 130 mm[Hg] e CW1 ([facility]) Diastolic blood pressure 69 mm[Hg] 69 mm[Hg] eCW1 ([facility]) Body weight 220 [lb_av] 220 [lb_av] eCW1 ([facility]) Body weight kg eCW1 ([facility]) Body height 70 [in_i] 70 [in_i] eCW1 ([facility]) Body mass index (BMI) [Ratio] 31.56 kg/m2 31.56 kg/m2 eCW1 ([facility]) Heart rate 75 /min 75 /min eCW1 ([facility]) Respiratory rate 17 /min 17 /min eCW1 ([facility]) Body temperature 97.0 [degF] 97.0 [degF] eCW1 ( [facility]) Systolic blood pressure 129 mm[Hg] 129 mm[Hg] e CW1 ([facility]) Diastolic blood pressure 69 mm[Hg] 69 mm[Hg] eCW1 ([facility]) Diastolic blood pressure 75 mm[Hg] 75 mm[Hg] eCW1 ([facility]) Body weight 220 [lb_av] 220 [lb_av] eCW1 ([facility]) Body height 70 [in_i] 70 [in_i] eCW1 ([facility]) Body mass index (BMI) [Ratio] 31.56 kg/m2 31.56 kg/m2 eCW1 ([facility]) Heart rate 79 /min 79 /min eCW1 ([facility]) Respiratory rate 16 /min 16 /min eCW1 ([facility]) Body temperature 97.7 [degF] 97.7 [degF] eCW1 ( [facility]) Systolic blood pressure 122 mm[Hg] 122 mm[Hg] e CW1 ([facility]) Body weight 220 [lb_av] 220 [lb_av] eCW1 ([facility]) Body weight kg eCW1 ([facility]) Body height 70 [in_i] 70 [in_i] eCW1 ([facility]) Body mass index (BMI) [Ratio] 31.56 kg/m2 31.56 kg/m2 eCW1 ([facility]) Heart rate 75 /min 75 /min eCW1 ([facility]) Respiratory rate 17 /min 17 /min eCW1 ([facility]) Body temperature 97.0 [degF] 97.0 [degF] eCW1 ( [facility]) Systolic blood pressure 122 mm[Hg] 122 mm[Hg] e CW1 ([facility]) Diastolic blood pressure 61 mm[Hg] 61 mm[Hg] eCW1 ([facility]) Body weight 220 [lb_av] 220 [lb_av] eCW1 ([facility]) Body weight kg eCW1 ([facility]) Body height 70 [in_i] 70 [in_i] eCW1 ([facility]) Body mass index (BMI) [Ratio] 31.56 kg/m2 31.56 kg/m2 eCW1 ([facility]) Heart rate 89 /min 89 /min eCW1 ([facility]) Respiratory rate 19 /min 19 /min eCW1 ([facility]) Body temperature 97.8 [degF] 97.8 [degF] eCW1 ( [facility]) Systolic blood pressure 134 mm[Hg] 134 mm[Hg] e CW1 ([facility]) Diastolic blood pressure 63 mm[Hg] 63 mm[Hg] eCW1 ([facility]) Body weight 220 [lb_av] 220 [lb_av] eCW1 ([facility]) Body height 70 [in_i] 70 [in_i] eCW1 ([facility]) Body mass index (BMI) [Ratio] 31.56 kg/m2 31.56 kg/m2 eCW1 ([facility]) Heart rate 76 /min 76 /min eCW1 ([facility]) Respiratory rate 16 /min 16 /min eCW1 ([facility]) Body temperature 97.1 [degF] 97.1 [degF] eCW1 ( [facility]) Systolic blood pressure 142 mm[Hg] 142 mm[Hg] e CW1 ([facility]) Diastolic blood pressure 71 mm[Hg] 71 mm[Hg] eCW1 ([facility]) Diastolic blood pressure 63 mm[Hg] 63 mm[Hg] eCW1 ([facility]) Body weight 220 [lb_av] 220 [lb_av] eCW1 ([facility]) Body height 70 [in_i] 70 [in_i] eCW1 ([facility]) Body mass index (BMI) [Ratio] 31.56 kg/m2 31.56 kg/m2 eCW1 ([facility]) Heart rate 78 /min 78 /min eCW1 ([facility]) Respiratory rate 16 /min 16 /min eCW1 ([facility]) Body temperature 97.5 [degF] 97.5 [degF] eCW1 ( [facility]) Systolic blood pressure 127 mm[Hg] 127 mm[Hg] e CW1 ([facility]) Systolic blood pressure 116 mm[Hg] 116 mm[Hg] G REENWAY ([facility]) Diastolic blood pressure 60 mm[Hg] 60 mm[Hg] DURAN ([facility]) Heart rate 76 /min 76 /min DURAN ([facility]) Respiratory rate 20 /min 20 /min DURAN ([facility]) Body height 69 [in_i] 69 [in_i] DURAN ([facility]) Body weight 220 [lb_av] 220 [lb_av] RUSK ([facility]) Body mass index (BMI) [Ratio] 32.5 kg/m2 32.5 k g/m2 RUSK ([facility]) Body surface area Derived from formula 2.15 m2 2.15 m2 RUSK ([facility]) Systolic blood pressure 116 mm[Hg] 116 mm[Hg] G REENWAY ([facility]) Diastolic blood pressure 60 mm[Hg] 60 mm[Hg] RUSK ([facility]) Heart rate 76 /min 76 /min RUSK ([facility]) Respiratory rate 20 /min 20 /min RUSK ([facility]) Body height 69 [in_i] 69 [in_i] RUSK ([facility]) Body weight 220 [lb_av] 220 [lb_av] RUSK ([facility]) Body mass index (BMI) [Ratio] 32.5 kg/m2 32.5 k g/m2 RUSK ([facility]) Body surface area Derived from formula 2.15 m2 2.15 m2 RUSK ([facility]) Systolic blood pressure 155 mm[Hg] 155 mm[Hg] M EDENT ([facility]) Diastolic blood pressure 70 mm[Hg] 70 mm[Hg] MEDENT ([facility]) Heart rate 71 /min 71 /min MEDENT ([facility]) Body temperature 96.5 [degF] 96.5 [degF] MEDENT ([facility]) Body height 68.6 [in_i] 68.6 [in_i] MEDENT ([facility]) 5'8.60" Body weight 219.50 [lb_av] 219.50 [lb_av] MEDEN T ([facility]) Body mass index (BMI) [Ratio] 32.8 kg/m2 32.8 k g/m2 MEDENT ([facility]) Oxygen saturation in Arterial blood by Pulse oximetry 99 % 99 % MEDENT ([facility]) Body weight 220 [lb_av] 220 [lb_av] eCW1 ([facility]) Body weight kg eCW1 ([facility]) Body height 70 [in_i] 70 [in_i] eCW1 ([facility]) Body mass index (BMI) [Ratio] 31.56 kg/m2 31.56 kg/m2 eCW1 ([facility]) Heart rate 68 /min 68 /min eCW1 ([facility]) Respiratory rate 18 /min 18 /min eCW1 ([facility]) Body temperature 98 [degF] 98 [degF] eCW1 ([facility]) Systolic blood pressure 139 mm[Hg] 139 mm[Hg] e CW1 ([facility]) Diastolic blood pressure 63 mm[Hg] 63 mm[Hg] eCW1 ([facility]) Body weight 220 [lb_av] 220 [lb_av] eCW1 ([facility]) Body weight kg eCW1 ([facility]) Body height 70 [in_i] 70 [in_i] eCW1 ([facility]) Body mass index (BMI) [Ratio] 31.56 kg/m2 31.56 kg/m2 eCW1 ([facility]) Heart rate 72 /min 72 /min eCW1 ([facility]) Respiratory rate 16 /min 16 /min eCW1 ([facility]) Body temperature 96.0 [degF] 96.0 [degF] eCW1 ( [facility]) Systolic blood pressure 158 mm[Hg] 158 mm[Hg] e CW1 ([facility]) Diastolic blood pressure 75 mm[Hg] 75 mm[Hg] eCW1 ([facility]) Body weight 220 [lb_av] 220 [lb_av] eCW1 ([facility]) Body weight kg eCW1 ([facility]) Body height 70 [in_i] 70 [in_i] eCW1 ([facility]) Body mass index (BMI) [Ratio] 31.56 kg/m2 31.56 kg/m2 eCW1 ([facility]) Heart rate 76 /min 76 /min eCW1 ([facility]) Respiratory rate 18 /min 18 /min eCW1 ([facility]) Body temperature 97.3 [degF] 97.3 [degF] eCW1 ( [facility]) Systolic blood pressure 138 mm[Hg] 138 mm[Hg] e CW1 ([facility]) Diastolic blood pressure 74 mm[Hg] 74 mm[Hg] eCW1 ([facility]) Body weight 220 [lb_av] 220 [lb_av] eCW1 ([facility]) Body weight kg eCW1 ([facility]) Body height 70 [in_i] 70 [in_i] eCW1 ([facility]) Body mass index (BMI) [Ratio] 31.56 kg/m2 31.56 kg/m2 eCW1 ([facility]) Body temperature 97.8 [degF] 97.8 [degF] eCW1 ( [facility]) Systolic blood pressure 161 mm[Hg] 161 mm[Hg] e CW1 ([facility]) Diastolic blood pressure 73 mm[Hg] 73 mm[Hg] eCW1 ([facility]) Body weight 220 [lb_av] 220 [lb_av] eCW1 ([facility]) Body height 70 [in_i] 70 [in_i] eCW1 ([facility]) Body mass index (BMI) [Ratio] 31.56 kg/m2 31.56 kg/m2 eCW1 ([facility]) Heart rate 82 /min 82 /min eCW1 ([facility]) Respiratory rate 19 /min 19 /min eCW1 ([facility]) Body temperature 97.2 [degF] 97.2 [degF] eCW1 ( [facility]) Systolic blood pressure 135 mm[Hg] 135 mm[Hg] e CW1 ([facility]) Diastolic blood pressure 73 mm[Hg] 73 mm[Hg] eCW1 ([facility]) Body weight 220 [lb_av] 220 [lb_av] eCW1 ([facility]) Body height 70 [in_i] 70 [in_i] eCW1 ([facility]) Body mass index (BMI) [Ratio] 31.56 kg/m2 31.56 kg/m2 eCW1 ([facility]) Heart rate 69 /min 69 /min eCW1 ([facility]) Respiratory rate 18 /min 18 /min eCW1 ([facility]) Body temperature 96.9 [degF] 96.9 [degF] eCW1 ( [facility]) Systolic blood pressure 142 mm[Hg] 142 mm[Hg] e CW1 ([facility]) Diastolic blood pressure 84 mm[Hg] 84 mm[Hg] eCW1 ([facility]) Patient Treatment Plan of Care Planned Activity Planned Date Details Description Data Source (s) doxycycline hyclate 100 MG Oral Tablet 02/04/2021 12:00:00 AM EDT eCW1 ([facility]) doxycycline hyclate 100 MG Oral Tablet 02/04/2021 12:00:00 AM EDT eCW1 ([facility]) doxycycline hyclate 100 MG Oral Tablet 02/04/2021 12:00:00 AM EDT eCW1 ([facility]) doxycycline hyclate 100 MG Oral Tablet 02/04/2021 12:00:00 AM EDT eCW1 ([facility]) Rosuvastatin calcium 20 MG Oral Tablet 01/12/2021 12:00:00 AM EDT RUSK ([facility]) Tresiba FlexTouch 200 UNIT/ML Subcutaneous Solution Pe n-injector 10/09/2020 12:00:00 AM EDT DURAN ([facility]) clopidogrel 75 MG Oral Tablet 09/17/2020 12:00:00 AM EDT RUSK ([facility]) Loratadine 10 MG Oral Capsule 09/17/2020 12:00:00 AM EDT RUSK ([facility]) Rosuvastatin calcium 10 MG Oral Tablet [Crestor] 08/04/2020 12:00:0 0 AM EDT RUSK ([facility]) doxycycline hyclate 100 MG Oral Tablet 08/01/2020 12:00:00 AM EDT eCW1 ([facility]) doxycycline hyclate 100 MG Oral Tablet 08/01/2020 12:00:00 AM EDT eCW1 ([facility]) doxycycline hyclate 100 MG Oral Tablet 08/01/2020 12:00:00 AM EDT eCW1 ([facility]) Tresiba FlexTouch 200 UNIT/ML Subcutaneous Solution Pe n-injector 07/25/2020 12:00:00 AM [facility] ([facility]) Tresiba FlexTouch 200 UNIT/ML Subcutaneous Solution Pe n-injector 07/22/2020 12:00:00 AM [facility] ([facility]) 24 HR metoprolol succinate 50 MG Extended Release Oral Tablet 06/02/2020 12:00:00 AM [facility] ([facility]) 3 ML Insulin, Aspart, Human 100 UNT/ML Pen Injector [N ovoLog] 06/02/2020 12:00:00 AM [facility] ([facility]) 3 ML Insulin, Aspart, Human 100 UNT/ML Pen Injector [N ovoLog] 05/30/2020 12:00:00 AM [facility] ([facility]) Fluconazole 200 MG Oral Tablet [Diflucan] 03/20/2020 12:00:00 AM ES T eCW1 ([facility]) NITROFURANTOIN, MACROCRYSTALS 25 MG / Ni trofurantoin, Monohydrate 75 MG Oral Capsule [Macrobid] 03/20/2020 12:00:00 AM EST eC W1 ([facility]) NITROFURANTOIN, MACROCRYSTALS 25 MG / Ni trofurantoin, Monohydrate 75 MG Oral Capsule [Macrobid] 03/20/2020 12:00:00 AM EST eC W1 ([facility]) Phenazopyridine hydrochloride 200 MG Oral Tablet [Pyri dium] 03/20/2020 12:00:00 AM EST eCW1 (Count includes the [facility]) Fluconazole 200 MG Oral Tablet [Diflucan] 03/20/2020 12:00:00 AM ES T eCW1 ([facility]) NITROFURANTOIN, MACROCRYSTALS 25 MG / Ni trofurantoin, Monohydrate 75 MG Oral Capsule [Macrobid] 03/20/2020 12:00:00 AM EST eC W1 ([facility]) Phenazopyridine hydrochloride 200 MG Oral Tablet [Pyri dium] 03/20/2020 12:00:00 AM EST eCW1 (Count includes the [facility]) Fluconazole 200 MG Oral Tablet [Diflucan] 03/20/2020 12:00:00 AM ES T eCW1 ([facility]) NITROFURANTOIN, MACROCRYSTALS 25 MG / Ni trofurantoin, Monohydrate 75 MG Oral Capsule [Macrobid] 03/20/2020 12:00:00 AM EST eC W1 ([facility]) Phenazopyridine hydrochloride 200 MG Oral Tablet [Pyri dium] 03/20/2020 12:00:00 AM EST eCW1 (Count includes the [facility]) Phenazopyridine hydrochloride 200 MG Oral Tablet [Pyri dium] 03/20/2020 12:00:00 AM EST eCW1 (Count includes the [facility]) Fluconazole 200 MG Oral Tablet [Diflucan] 03/20/2020 12:00:00 AM ES T eCW1 ([facility]) Hydrocortisone 10 MG/ML / Neomycin 3.5 M G/ML / Polymyxin B [id number] UNT/ML Otic Suspension 03/19/2020 12:00:00 AM [facility] ([facility]) Loratadine 10 MG Oral Capsule 03/18/2020 12:00:00 AM [facility]) Colistin 3 MG/ML / Hydrocortisone 10 MG/ ML / Neomycin 3.3 MG/ML / THONZONIUM BROMIDE 0.5 MG/ML Otic Suspension [Cortisporin-TC] 03/18/2020 12:00:00 AM [facility] ([facility]) benzonatate 100 MG Oral Capsule [Tessalon Perles] 03/18/2020 12: 00:00 AM [facility]) 24 HR metoprolol succinate 50 MG Extended Release Oral Tablet 11/27/2019 12:00:00 AM [facility] ([facility]) clopidogrel 75 MG Oral Tablet 10/17/2019 12:00:00 AM [facility] ([facility]) Rosuvastatin calcium 10 MG Oral Tablet [Crestor] 07/24/2019 12:00:0 0 AM [facility] ([facility]) 3 ML Insulin, Aspart, Human 100 UNT/ML Pen Injector [N ovoLog] 05/21/2019 12:00:00 AM [facility] ([facility]) Tresiba FlexTouch 200 UNIT/ML Subcutaneous Solution Pe n-injector 05/21/2019 12:00:00 AM [facility] ([facility]) Tresiba FlexTouch 200UNIT/ML Subcutaneous Solution Pen -injector 05/17/2018 12:00:00 AM [facility] ([facility])
[2021-04-13 12:00] VITALS: BP 146/77
[2021-04-13 14:00] VITALS: BP 145/71
[2021-04-13] MEDS ORDERED: GLUCAGON INJ 1MG VIAL SC PRN (14:25)
[2021-04-13] MEDS ORDERED: DEXTROSE 50% 50 ML SYRINGE IV PRN (14:25)
[2021-04-13] MEDS ORDERED: oxyCODONE 5MG TAB PO PRN (14:25)
[2021-04-13] MEDS ORDERED: MAALOX 30 ML SUSP *UDC PO PRN (14:25)
[2021-04-13] MEDS ORDERED: GLUCOSE 4GM CHEW TABLET PO PRN (14:25)
[2021-04-13] MEDS ORDERED: amLODIPine 5 MG TAB PO SCH (15:15)
[2021-04-13] MEDS: HumaLOG INSULIN (NovoLOG) PER UNIT SC SCH ×2 (17:52→21:00)
[2021-04-13] MEDS: LACTOBACILLUS ACIDOPHILUS CAP (BACID) PO SCH (17:57)
[2021-04-13 20:00] VITALS: BP 130/65
[2021-04-13] MEDS: REMEDY PHYTOPLEX Z-GUARD PASTE 113GM TUBE (FROM STOREROOM PRODUCT) TOP SCH (21:00)
[2021-04-13] MEDS: SENNA 8.6 MG TAB (SENOKOT) PO SCH (21:12)
[2021-04-13] MEDS: ACETAMINOPHEN 500 MG TAB PO SCH (21:12)
[2021-04-13] MEDS: ROSUVASTATIN 10 MG TAB (CRESTOR) PO SCH (21:12)
[2021-04-13] MEDS: DOCUSATE SODIUM 100MG CAPSULE PO SCH (21:12)
[2021-04-13] MEDS: LEVEMIR (INSULIN DETEMIR) 1 UNITS/0.01ML SC SCH (21:13)
[2021-04-13] MEDS: HEPARIN SOD (PORCINE) 5000UNITS/ML 1ML VIAL/SYRINGE SC SCH (21:13)
[2021-04-13] MEDS: METOPROLOL SUCC (TopROL XL) 50MG **XL** TAB PO SCH (21:13)
[2021-04-14] MEDS ORDERED: SODIUM CHLORIDE 0.9% INJ 10 ML SYR IV PRN (05:55)
[2021-04-14 06:00] VITALS: BP 144/80
[2021-04-14] MEDS: SODIUM CHLORIDE 0.9% INJ 10 ML SYR IV SCH ×2 (06:08→17:04)
[2021-04-14] MEDS: LACTOBACILLUS ACIDOPHILUS CAP (BACID) PO SCH (08:00)
[2021-04-14] MEDS: HEPARIN SOD (PORCINE) 5000UNITS/ML 1ML VIAL/SYRINGE SC SCH ×2 (08:37→20:48)
[2021-04-14] MEDS: PANTOPRAZOLE 40MG TAB (PROTONIX) PO SCH (08:37)
[2021-04-14] MEDS: DOCUSATE SODIUM 100MG CAPSULE PO SCH ×2 (08:37→20:47)
[2021-04-14] MEDS: amLODIPine 5 MG TAB PO SCH (08:37)
[2021-04-14] MEDS: ACETAMINOPHEN 500 MG TAB PO SCH ×3 (08:37→20:48)
[2021-04-14] MEDS: HumaLOG INSULIN (NovoLOG) PER UNIT SC SCH ×4 (08:38→20:49)
[2021-04-14] MEDS: REMEDY PHYTOPLEX Z-GUARD PASTE 113GM TUBE (FROM STOREROOM PRODUCT) TOP SCH ×3 (08:38→19:40)
[2021-04-14] MEDS: LEVEMIR (INSULIN DETEMIR) 1 UNITS/0.01ML SC SCH ×2 (08:38→20:49)
[2021-04-14] MEDS: MIRALAX *UNIT DOSE* 17GM PACKET PO PRN (08:43)
[2021-04-14] MEDS: FLUTICASONE PROP 0.05% NASAL SPRAY 16 GM (FLONASE) NARES SCH ×2 (09:00→19:40)
--- NOTE | 2021-04-14 09:05 | HPEPDOC ---
[employer] Manager Note DATE OF ADMISSION: 04-13-21 DATE OF SERVICE: 04-14-21 TIME OF ADMISSION: Please refer to physician's admission order. SOURCE OF ADMISSION INFORMATION: [facility] record and patient CHIEF COMPLAINT: right BKA HISTORY OF PRESENT ILLNESS: 65M pmh DM with peripheral polyneuropathy, bilat Charcots foot, chronic left plantar ulcer, CKD IV, HTN, HLD PAD who presented to [facility] ED on 03-25-21 from wound care clinic for worsening right foot ulcer s/p bone debridement with drainage and foul odor. He was diagnosed with osteomyelitis and evaluated by Dr. Gatica who performed a right mid- foot removal on 03-25-21. He was started on IV Vanco and Zosyn with plan for BKA after his infection improved. 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 Li. He was transitioned to Ceftriaxone, had persistent leukocytosis thought to be inflammatory and improved gradually with no concerns regarding his incision site. He had anemia of chronic disease, iron deficiency, and post-op blood loss anemia which was treated with Aranesp and Venofer by renal. He had new mobility and ADL impairments and was deemed medically appropriate for discharge to ARU on 04-13-21. REVIEW OF SYSTEMS: The following is a completed review of systems and has been reviewed. Review of systems otherwise unremarkable. PAIN: Patient self reports no pain EYES: No recent vision changes EARS, NOSE, & THROAT: [No throat pain, or dysphagia, or rhinorrhea CARDIOVASCULAR: Denies chest pain or palpitations PULMONARY: Denies shortness of breath GASTROINTESTINAL: Denies constipation/diarrhea GENITOURINARY: denies dysuria MUSCULOSKELETAL: s/p right BKA NEUROLOGICAL:+ peripheral polyneuropathy HEMATOLOGICAL: denies easy bruising, +anemia SKIN:right BKA incision, left foot plantar ulcer PSYCHIATRIC: Unremarkable All other review of systems found to be negative. PAST MEDICAL HISTORY: as per HPI PAST SURGICAL HISTORY: Right TMA in 2010 and 2014, left foot all toe amputation 2013, bilat cataract surgery, tonsillectomy, chest wall lipoma removal, TURP, angioplasty bilat LE ALLERGIES: Please see below. MEDICATIONS: Please see below. FAMILY HISTORY: DM, cancer, and kidney disorder SOCIAL HISTORY: +chewing tobacco, no smoking/etoh/illict drugs DIET: consistent carb PHYSICAL EXAMINATION: VITAL SIGNS: Please see below. GENERAL: Pleasant and cooperative. No acute distress. HEENT: PERRL. Extraocular movements intact. Clear conjunctiva CARDIOVASCULAR: [Regular rate and rhythm. No murmurs, rubs, or gallops LUNGS: Clear to auscultation bilaterally. scattered wheeze. No rhonchi ABDOMEN: Soft, nontender, nondistended. Positive bowel sounds. Normal active bowel sounds NEUROLOGICAL: Alert and oriented times three. Cranial nerves II through XII grossly intact. Sensation decresed to light touch in stocking pattern EXTREMITIES: 5\5 strength bilateral upper extremities. 5/5 right hip flexion, knee extension and flexion, 5/5 left hip flexor, knee extension, DF/PF SKIN: right BKA incision c/d/i scant erythema at staple line, no drainage, or induration LABORATORY DATA: Please see below. IMAGING: Imaging documentation personally reviewed by record FUNCTIONAL STATUS: Premorbid: Mod-Independent with all activities of daily life as well as mobility On Admission: Min-Mod for bed mobility, functional transfers, toileting, standby for upper body dressing GOALS: Mod-I from wheelchair level for bed mobility, functional transfers, dressing, toileting, bathing ASSESSMENT:65-year-old M with past medical history of DM with peripheral polyneuropathy who presents status post right BKA due to osteomyelitis PLAN: 1. Rehab- PT/OT advance mobility and ADLs, strengthen/stretch/maintain ROM all 4 limbs 2. neuro- peripheral polyneuropathy due to longstanding DM contributing to wounds, mobility impairments, and bka 3. vasc- s/p right bka 04-03 and 04-07, monitor surgical site -f/u vasc surgeon on d/c 4.Cardiac- hx of HTN cont BP meds -HLD cont statin -medicine consulted to assist with overall management 5. resp -monitor for infection -patient reporting mild cough with nasal congestion, +wheeze on exam, will add combivent, flonase and nasal saline 6. gu- monitor pvrs 7. dvt- cont heparin 8. pain- tylenol and oxycodone 9. endo- hx of DM cont Levemir, ISS, and consistent carb diet 10. Dispo- TBD DME: Patient will require a wheelchair in order to complete his MRADLs in a timely and safe manner. He is unable to complete his MRADLs with a walker or cane. His home is wheelchair accessible, he agrees to use one and his family can help him. POST ADMISSION PHYSICIAN EVALUATION: Medical and functional status: Description of medical status, medical assessment: As above. Rehabilitation diagnosis and current and prior cold morbid medical conditions as above. Risk of complications and plans to mitigate them as above. Description of functional status current status is as above. Prior status as above. Status compared to preadmission: There are no clinically significant differences between the patient's current status and the information described on the preadmission screening document. Treatment plan anticipated: Treatment plan is as described above. Required disciplines including physical therapy, occupational therapy, others as noted above Intensity of services: 3 hours a day, 6 days a week. Special considerations: There are no specific special or safety considerations that would likely preclude immediate implementation of an intensive rehabilitation program or subsequently influence the plan of care. ATTESTATION: Considering all the information above, it is my best judgment that this patient requires intensive rehabilitation therapy as described above and an inpatient hospital environment due to the complexity of nursing, medical, and rehabilitation needs required by the patient. Furthermore, this patient can reasonably be expected to participate in an benefit from an inpatient r ehabilitation stay with an interdisciplinary team approach to the delivery of rehabilitation care under the direction and supervision of rehabilitation physician. PROGNOSIS:good ESTIMATED LENGTH OF STAY:7-10 days. PROJECTED DISCHARGE DESTINATION: Home with family support and any durable medical equipment required to increase functional safety and mobility. TIME SPENT COUNSELING AND COORDINATING INITIAL CARE: Greater than 70 minutes. Vital Signs Vital Sign - Last 24 Hours 04/13/21 04/13/21 04/13/21 04/13/21 12:00 14:00 20:00 21:13 Temp 97.3 97.2 98.6 Pulse 73 75 82 82 Resp 19 18 20 B/P (MAP) 146/77 (100) 145/71 (95) 130/65 (86) 130/65 Pulse Ox 98 97 96 O2 Delivery Room Air Room Air Room Air 04/14/21 04/14/21 06:00 08:37 Temp 98.4 Pulse 76 76 Resp 20 B/P (MAP) 144/80 (101) 144/80 Pulse Ox 97 O2 Delivery Room Air Laboratory Data Labs 24H Laboratory Tests 2 04/13/21 11:47: Bedside Glucose (Misc Panel) 173H 04/13/21 21:06: Bedside Glucose (Misc Panel) 235H 04/14/21 05:14: Bedside Glucose (Misc Panel) 129H FSBS Laboratory Tests Test 04/13/21 11:47 04/13/21 21:06 04/14/21 05:14 Range/Units Bedside Glucose (Misc Panel) 173 235 129 80-115 MG/DL Home Medications Scheduled Amlodipine Besylate (Amlodipine Besylate) 5 Mg Tablet, 5 MG PO DAILY, (Reported) Insulin Degludec (Tresiba Flextouch U-200) 200 Unit/1 Ml Insuln.pen, 78 UNITS SQ QHS, (Reported) Insulin Human Lispro (Novolog) 100 Unit/1 Ml Vial, 1 DOSE SC AC, (Reported) PER SLIDING SCALE Metoprolol Succinate (Metoprolol Succinate) 50 Mg Tab, 50 MG PO QHS, (Reported) Rosuvastatin Calcium (Rosuvastatin Calcium) 20 Mg Tablet, 20 MG PO QHS, (Reported) Allergies Coded Allergies: Contrast Media (Unverified Adverse Reaction, Intermediate, poor kidney function-can't have, 01/24/20) A-FIB/CHADSVASC A-FIB History Current/History of A-Fib/PAF?: No Current PO Anticoag Therapy: No NICOLE SIMS MD Apr 14, 2021 09:05
--- NOTE | 2021-04-14 13:29 | CR.PDOC ---
General Date of Consultation: Apr 14, 2021 Attending Physician: MICHAEL MEDEIROS DO Consultation NEPHROLOGY CONSULTATION DATE: 05/14/21 REQUESTING PHYSICIAN: Yesy Vega MD REASON FOR CONSULTATION: CKD stage 4 and Anemia HISTORY OF PRESENT ILLNESS: This is a 65-year-old male who initially presented to [facility] ER for osteomyelitis of his R foot, a sequelae of his uncontrolled diabetics with polyneuropathy. He also has a significant history of PVD, as well has stage 4 CKD and diabetic nepropathy. His wound was initially attempted with debridments at the wound care center outpatient; however, started to experience systemic symptoms of fever, chills, malaise. During his hospital course, he underwent incision and drainage per podiatry and was started on IV antibiotics. Due to poor limb salvage, vascular surgery was consulted and recommended that he have a two-stage below-knee amputation performed. Patient also had an JELANI on CKD (with a creatinine of 4.0) but with fluid resuscitation his kidney function did return closer to his baseline which is around 2.8-3.0. Patient had his first stage surgery completed on 04/03/2021 and second stage performed on 04/07/2021. Patient tolerated the procedure without any complications. He was monitored for 3 days postop before being discharged to acute rehab unit after completing a 15-day course of Rocephin. Rehab unit consulted nephrology for further management of his CKD as well as anemia. PAST MEDICAL HISTORY: 1. 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 2. History of stage 4 of chronic kidney disease. 3. Bilateral Charcot foot deformity. 4. History of chronic osteomyelitis right foot. 5. History of hypertension. 6. History of hyperlipidemia. 7. Peripheral vascular disease. 8. History of benign prostatic hypertrophy. PAST SURGICAL HISTORY: 1. Right foot transmetatarsal amputation. 2. Left foot amputation of all toes. 3. Bilateral cataract surgery. 4. Tonsillectomy. 5. Bilateral lower extremity angioplasties and femoral artery bypass. 6. History of lipoma removed from the chest wall. 7. History of cystoscopy and prostate biopsy. 8. History of transurethral resection of the prostate. FAMILY HISTORY: Father: alive. Has cancer (unspecified). Mother: significant for diabetes. Other family members with diabetes and kidney problems. SOCIAL HISTORY: The patient chews tobacco. Denies ETOH or illicit drug use. MEDICATIONS: Reviewed. See chart. ALLERGIES: He has allergy to contrast media REVIEW OF SYSTEMS GENERAL: No fever or chills. A bit frustrated now that he has to re-learn ADLs with his new BKA. NEURO: Denies seizures, headaches or vision changes or blurry vision. HEENT: Denies lumps and bumps in neck region. Denies sore throat. CARDIO: Denies heart palpitations, chest pain or lower extr edema that deviates from his baseline. RESPIRATORY: No cough or hemoptysis or sob ABDOMEN: No nausea, vomiting, diarrhea, abdominal blood, or blood in stool. : No dysuria or hematuria. MSK: Recent R BKA. Wheelchair bound working currently with acute rehab. EXTREMITIES/SKIN: Denies lower extremity edema. No rashes, bruising, petechia, or clubbing. pain from R BKA currently controlled. hematology: reports anemia, denies easy bleeding / bruising Endocrine: reports diabetes psych- reports frustration but no anxiety or depression OBJECTIVE: VS: see below GENERAL: Patient is seen in the rehab unit this morning, awake, alert. He's working on ADLs with PT. A bit frustrated due to having to relearn how to use his leg. NEUROLOGIC: Alert and Oriented x3, interactive and conversational. HEENT: Extraocular muscles are intact. Tongue is moist. HEART: Sounds are regular, NS1, S2. No pedal edema or dependent edema. LUNGS: Diminished breath sounds at lung bases. No wheezing, rhonci or rales appreciated. ABDOMEN: Soft and obese. No signs of positive fluid wave/ascites. Normal bowel sounds. No guarding on palpation. Unable to appreciate organomegaly secondary to body habitus and fluid overload. EXTREMITIES/SKIN: No bruising,cyanosis, petechia, clubbing appreciated. R sided BKA stump is noted. IMPRESSION AND PLAN: 1. JELANI superimposed on CKD Stage IV. Patient's acute kidney injury is very mild and has been very stable over the course of his last admission. His creatinine has been around 2.8 to 3.0. Pending labs from today however his creatinine on 04/13/2021 was 2.96. Based on his labs from yesterday, his electrolytes are acceptable. Volume status is compensated He is currently not on any diuretics and currently does not have a fluid restriction. 2. Hypertension. Blood pressures are acceptably controlled with the current regimen of amlodipine and metoprolol. SBP has been in the 130s to 140s. 3. Anemia secondary to chronic kidney disease and iron deficiency. Patient was given Injectafer x2 over his last admission and is also on once weekly Aranesp. His last Aranesp was given on 04/08/2021. We will schedule for the next dose for 04/15/21. 4. Hyponatremia (resolved). Patient had mild and intermittent hyponatremia during his last admission. His sodium on 04/13/2021 was 136. Pending labs from today. There is no fluid restrictions at this time. There is no need for any diuretics at this time. We will continue to monitor. 5. Status post BKA. He has a right BKA stump, currently wheelchair-bound working with PT/OT in the acute rehab unit. Patient appears a bit frustrated now that he has to relearn ADLs. However he does seem motivated. Thank you for this consultation. We will continue to follow alongside acute rehab service. Vital Signs/I&O Vital Signs Date Time Temp Pulse Resp B/P (MAP) Pulse Ox O2 Delivery O2 Flow Rate FiO2 04/14/21 08:37 76 144/80 04/14/21 06:00 98.4 20 97 Room Air I&O- Last 24 Hours up to 6 AM 04/14/21 06:00 Intake Total 1770 ml Output Total 2275 ml Balance -505 ml Laboratory Data Labs 24H Laboratory Tests 2 04/13/21 21:06: Bedside Glucose (Misc Panel) 235H 04/14/21 05:14: Bedside Glucose (Misc Panel) 129H 04/14/21 11:53: Bedside Glucose (Misc Panel) 126H Allergies Coded Allergies: Contrast Media (Unverified Adverse Reaction, Intermediate, poor kidney function-can't have, 01/24/20) Home Medications Scheduled Amlodipine Besylate (Amlodipine Besylate) 5 Mg Tablet, 5 MG PO DAILY, #30 Insulin Degludec (Tresiba Flextouch U-200) 200 Unit/1 Ml Insuln.pen, 25 UNITS SQ BID, #1 Insulin Human Lispro (Novolog) 100 Unit/1 Ml Vial, 1 DOSE SC AC, (Reported) PER SLIDING SCALE Metoprolol Succinate (Metoprolol Succinate) 50 Mg Tab, 50 MG PO QHS, #30 Rosuvastatin Calcium (Rosuvastatin Calcium) 20 Mg Tablet, 20 MG PO QHS, #30 GME ATTESTATION GME ATTESTATION My faculty preceptor for this patient encounter was physically present during the encounter and was fully available. All aspects of the patient interview, examination, medical decision making process, and medical care plan development were reviewed and approved by the faculty preceptor. The faculty preceptor is aware and concurs with the plan as stated in the body of this note and will attest to such by his/her cosignature. ATTENDING NOTE Pt seen and examined w/ resident. I agree w/ above. Jimbo Uribe DO Apr 14, 2021 13:29 MICHAEL MEDEIROS DO Apr 29, 2021 11:50
[2021-04-14 14:00] VITALS: BP 133/79
[2021-04-14] MEDS: COMBIVENT RESPIMAT 100-20MCG INHALER 4GM INH SCH ×2 (14:00→20:00)
[2021-04-14] MEDS ORDERED: HOME MED LIST COMPLETE! XX SCH (14:40)
--- NOTE | 2021-04-14 15:44 | IPNPDOC ---
Text Note Date of Service The patient was seen on 04/14/21. NOTE Subjective: Patient is a 65-year-old male wiht a PMHx of HTN, DLP, PVD, DM, Neuropathy, Bilateral Charcot's foot, Chronic R foot ulcer, CKD5, BPH, who presented to the ER on 03/25 with worsening right foot ulceration, discharge and foul odor. Patient initially had incision and drainage completed by podiatry, however, ultimately required amputation below the knee. This is completed on 04/03 and subsequently followed by second stage on 04/07. Patient was medically optimized transitioned to acute rehabilitation unit on 04/13. Patient is currently under the service of correspondence dictator and hospitalist service has been consulted for medical comanagement. Patient was seen and examined at the bedside. Currently patient denies any nausea, vomiting, chest pain, short of breath, palpitations, abdominal pain, diarrhea, or urinary discomfort. Objective: Vitals (See below) General: Lying in bed, appears comfortable, AAOx3 HEENT: NC, AT CVS: RRR, +S1S2 Lungs: Fair air entry b/l, -w/r/r Abdomen: Soft, ND, NT Extremities: R BKA, - Edema at LLE, - Calf tenderness Imaging: No new images Assessment and plan: Right foot diabetic ulcer with osteomyelitis; s/p I&D and R BKA - Patient's wound appears to be clean dressing intact - Hemodynamically stable and afebrile - Leukocytosis has been trending down - Has completed antibiotic therapy - Continue dressing changes as ordered JELANI on CKD - Nephrology on consultation; appreciate their input IDDM2 - c/w ISS and Levemir HTN - BP well controlled - c/w Metoprolol / Amlodipine DLP - c/w Rosuvastatin BPH - Currently not on medications Peripheral vascular disease - c/w Rosuvastatin s/p Hyponatremia GERD - c/w Protonix DVT prophylaxis - c/w Heparin Disposition: - As per ARU Oswald ATKINSON, I+O VS, Oswald, I+O Vital Signs Date Time Temp Pulse Resp B/P (MAP) Pulse Ox O2 Delivery O2 Flow Rate FiO2 04/14/21 14:00 96.9 79 19 133/79 (97) 98 Room Air I&O- Last 24 Hours up to 6 AM 04/14/21 06:00 Intake Total 1770 ml Output Total 2275 ml Balance -505 ml PAMELA BENOIT MD Apr 14, 2021 15:44
[2021-04-14] MEDS: SODIUM CHLORIDE NASAL 0.65% SPRAY BTL (OCEAN) SCH ×2 (16:00→19:39)
[2021-04-14 20:00] VITALS: BP 132/65
[2021-04-14] MEDS: SENNA 8.6 MG TAB (SENOKOT) PO SCH (20:47)
[2021-04-14] MEDS: ROSUVASTATIN 10 MG TAB (CRESTOR) PO SCH (20:48)
[2021-04-14] MEDS: METOPROLOL SUCC (TopROL XL) 50MG **XL** TAB PO SCH (20:48)
[2021-04-15] MEDS: SODIUM CHLORIDE 0.9% INJ 10 ML SYR IV SCH ×2 (05:28→18:07)
[2021-04-15 05:35] LABS: BASO # 0.1 10^3/uL (0.0-0.2); EOS # 0.6 10^3/uL (0.0-0.5); EOS % 6.4 % (0.0-3.0); HEMATOCRIT 27.1 % (42.0-52.0); HEMOGLOBIN 8.9 g/dl (13.5-17.5); LYMPH # 2.4 10^3/uL (1.5-5.0); LYMPH % 26.1 % (24.0-44.0); MEAN CORPUSCULAR HEMOGLOBIN 29.4 pg (27.0-33.0); MEAN CORPUSCULAR HGB CONC 32.8 g/dl (32.0-36.5); MEAN CORPUSCULAR VOLUME 89.4 fl (80.0-96.0); MONO # 0.8 10^3/uL (0.0-0.8); MONO % 8.7 % (2.0-8.0); NEUTROPHILS # 5.1 10^3/uL (1.5-8.5); NEUTROPHILS % 55.1 % (36.0-66.0); PLATELET COUNT, AUTOMATED 368 10^3/uL (150-450); RED BLOOD COUNT 3.03 10^6/uL (4.30-6.10); WHITE BLOOD COUNT 9.3 10^3/uL (4.0-10.0)
[2021-04-15 06:00] VITALS: BP 139/73
[2021-04-15 06:05] LABS: CALCIUM LEVEL 8.6 MG/DL (8.8-10.2); CREATININE FOR GFR 3.27 MG/DL (0.70-1.30); GLOMERULAR FILTRATION RATE 20.3 (>49); POTASSIUM SERUM 4.4 MEQ/L (3.5-5.1)
[2021-04-15] MEDS: COMBIVENT RESPIMAT 100-20MCG INHALER 4GM INH SCH ×3 (08:00→19:58)
[2021-04-15] MEDS: amLODIPine 5 MG TAB PO SCH (08:21)
[2021-04-15] MEDS: ACETAMINOPHEN 500 MG TAB PO SCH ×3 (08:21→21:39)
[2021-04-15] MEDS: PANTOPRAZOLE 40MG TAB (PROTONIX) PO SCH (08:21)
[2021-04-15] MEDS: DOCUSATE SODIUM 100MG CAPSULE PO SCH ×2 (08:22→21:00)
[2021-04-15] MEDS: HumaLOG INSULIN (NovoLOG) PER UNIT SC SCH ×4 (08:24→21:00)
[2021-04-15] MEDS: LEVEMIR (INSULIN DETEMIR) 1 UNITS/0.01ML SC SCH ×2 (08:24→21:40)
[2021-04-15] MEDS: HEPARIN SOD (PORCINE) 5000UNITS/ML 1ML VIAL/SYRINGE SC SCH ×2 (08:26→21:40)
[2021-04-15] MEDS: MIRALAX *UNIT DOSE* 17GM PACKET PO PRN (08:37)
[2021-04-15] MEDS ORDERED: DARBEPOETIN 100 MCG/0.5 ML *NON-DIALYSIS* SYRINGE (J0881) SC SCH (09:00)
[2021-04-15] MEDS: SODIUM CHLORIDE NASAL 0.65% SPRAY BTL (OCEAN) SCH ×3 (09:00→21:00)
[2021-04-15] MEDS: FLUTICASONE PROP 0.05% NASAL SPRAY 16 GM (FLONASE) NARES SCH ×2 (09:00→21:00)
[2021-04-15] MEDS: REMEDY PHYTOPLEX Z-GUARD PASTE 113GM TUBE (FROM STOREROOM PRODUCT) TOP SCH ×3 (09:00→21:00)
--- NOTE | 2021-04-15 12:01 | IPNPDOC ---
Subjective Date Seen The patient was seen on 04/15/21. Subjective Chief Complaint/HPI SUBJECTIVE: Patient was seen in the acute rehab gym this morning. He seems to be in better spirits and is exercising on a stationary bike pedaling with his left foot. His right BKA stump is wrapped with Adam bandage without any obvious bleeding. He received his Aranesp this morning reports feeling less fatigued and have more energy. He seems to be in better spirits today than yesterday. He looks forward to going home possibly this Tuesday. OBJECTIVE: VS: see below GENERAL: Patient is seen in the rehab unit this morning, awake, alert. He's working on his sitting stationary bike pedaling with his left foot. His right BKA is wrapped in Adam bandage and there is no obvious bleeding. Seems to be in better spirits today. NEUROLOGIC: Alert and Oriented x3, interactive and conversational. HEENT: Extraocular muscles are intact. Tongue is moist. HEART: Sounds are regular, NS1, S2. No pedal edema or dependent edema. LUNGS: Diminished breath sounds at lung bases. No wheezing, rhonchi or rales appreciated. ABDOMEN: Soft and nontender EXTREMITIES/SKIN: No bruising,cyanosis, petechia, clubbing appreciated. R sided BKA stump is noted. IMPRESSION AND PLAN: 1. CKD Stage IV w/ mild JELANI. Patient's acute kidney injury is very mild and has been very stable over the course of his last admission. His creatinine has been around 2.8 to 3.0. His creatinine is 3.27 on the latest labs based on his labs. His electrolytes are acceptable. No need for any diuretic, no fluid restriction. He can drink ad marcus. 2. Hypertension. Blood pressures are acceptably controlled with the current re gimen of amlodipine and metoprolol. SBP has been in the 130s to 140s. Continue to monitor. 3. Anemia secondary to chronic kidney disease and iron deficiency. Patient was given Injectafer x2 over his last admission and is also on once weekly Aranesp. Goal Hgb 10-11. 4. Hyponatremia (resolved). Patient had mild and intermittent hyponatremia d uring his last admission. His sodium on 04/13/2021 was 136. Pending labs from today. There is no fluid restrictions at this time. There is no need for any diuretics at this time. We will continue to monitor. 5. Debility. Patient is status post BKA and has a right BKA stump.he was seen today more motivated and exercising on a stationary bike. Continue with acute rehab for strengthening VS, I&O, 24H, Fishbone Vital Signs/I&O Vital Signs Date Time Temp Pulse Resp B/P (MAP) Pulse Ox O2 Delivery O2 Flow Rate FiO2 04/15/21 06:00 97.6 69 19 139/73 (95) 99 Room Air I&O- Last 24 Hours up to 6 AM 04/15/21 06:00 Intake Total 1740 ml Output Total 2250 ml Balance -510 ml Laboratory Data 24H LABS Laboratory Tests 2 04/14/21 16:53: Bedside Glucose (Misc Panel) 114 04/14/21 20:33: Bedside Glucose (Misc Panel) 219H 04/15/21 05:15: Immature Granulocyte % (Auto) 2.7, Neutrophils (%) (Auto) 55.1, Lymphocytes (%) (Auto) 26.1, Monocytes (%) (Auto) 8.7H, Eosinophils (%) (Auto) 6.4H, Basophils (%) (Auto) 1.0, Neutrophils # (Auto) 5.1, Lymphocytes # (Auto) 2.4, Monocytes # (Auto) 0.8, Eosinophils # (Auto) 0.6H, Basophils # (Auto) 0.1, Nucleated Red Blood Cells % (auto) 0.0, Anion Gap 9, Glomerular Filtration Rate 20.3L, Calcium Level 8.6L CBC/BMP Laboratory Tests 04/15/21 05:15 GME ATTESTATION GME ATTESTATION My faculty preceptor for this patient encounter was physically present during the encounter and was fully available. All aspects of the patient interview, examination, medical decision making process, and medical care plan development were reviewed and approved by the faculty preceptor. The faculty preceptor is aware and concurs with the plan as stated in the body of this note and will attest to such by his/her cosignature. ATTENDING NOTE CKD with minor fluctuation in serum Creatinine. No electrolyte nor volume issues. No need for diuretic nor fluid restriction. s/p injectafer and continues on aranesp No changes made today. Jimbo Uribe DO Apr 15, 2021 12:01 MICHAEL MEDEIROS DO Apr 29, 2021 11:53
[2021-04-15 14:00] VITALS: BP 129/70
[2021-04-15 21:00] VITALS: BP 153/73
[2021-04-15] MEDS: SENNA 8.6 MG TAB (SENOKOT) PO SCH (21:00)
[2021-04-15] MEDS: ROSUVASTATIN 10 MG TAB (CRESTOR) PO SCH (21:39)
[2021-04-15] MEDS: METOPROLOL SUCC (TopROL XL) 50MG **XL** TAB PO SCH (21:39)
[2021-04-16] MEDS: SODIUM CHLORIDE 0.9% INJ 10 ML SYR IV SCH ×2 (05:47→17:25)
[2021-04-16 06:00] VITALS: BP 144/73
[2021-04-16] MEDS: COMBIVENT RESPIMAT 100-20MCG INHALER 4GM INH SCH ×3 (07:59→17:52)
[2021-04-16] MEDS: SODIUM CHLORIDE NASAL 0.65% SPRAY BTL (OCEAN) SCH ×3 (09:00→20:55)
[2021-04-16] MEDS: REMEDY PHYTOPLEX Z-GUARD PASTE 113GM TUBE (FROM STOREROOM PRODUCT) TOP SCH ×3 (09:00→20:56)
[2021-04-16] MEDS: FLUTICASONE PROP 0.05% NASAL SPRAY 16 GM (FLONASE) NARES SCH ×2 (09:00→20:56)
[2021-04-16] MEDS: DOCUSATE SODIUM 100MG CAPSULE PO SCH ×2 (09:18→20:55)
[2021-04-16] MEDS: amLODIPine 5 MG TAB PO SCH (09:18)
[2021-04-16] MEDS: PANTOPRAZOLE 40MG TAB (PROTONIX) PO SCH (09:18)
[2021-04-16] MEDS: ACETAMINOPHEN 500 MG TAB PO SCH ×3 (09:19→20:54)
[2021-04-16] MEDS: HumaLOG INSULIN (NovoLOG) PER UNIT SC SCH ×4 (09:21→21:00)
[2021-04-16] MEDS: LEVEMIR (INSULIN DETEMIR) 1 UNITS/0.01ML SC SCH ×2 (09:21→20:54)
[2021-04-16] MEDS: MIRALAX *UNIT DOSE* 17GM PACKET PO PRN (09:22)
[2021-04-16] MEDS: HEPARIN SOD (PORCINE) 5000UNITS/ML 1ML VIAL/SYRINGE SC SCH ×2 (09:22→20:54)
--- NOTE | 2021-04-16 10:50 | IPNPDOC ---
PM&R Progress Note DATE OF SERVICE: Apr 15, 2021 [employer] Progress Note Subjective: Patient reporting he feels ready to go home on Tuesday and is concerned because he wants to have his plantar ulcer shaved down soon by Dr. Rico. REVIEW OF SYSTEMS: The following is a completed review of systems and has been reviewed. Review of systems otherwise unremarkable. PAIN: Patient self reports no pain EYES: No recent vision changes EARS, NOSE, & THROAT: [No throat pain, or dysphagia, or rhinorrhea CARDIOVASCULAR: Denies chest pain or palpitations PULMONARY: Denies shortness of breath GASTROINTESTINAL: Denies constipation/diarrhea GENITOURINARY: denies dysuria MUSCULOSKELETAL: s/p right BKA NEUROLOGICAL:+ peripheral polyneuropathy HEMATOLOGICAL: denies easy bruising, +anemia SKIN:right BKA incision, left foot plantar ulcer PSYCHIATRIC: Unremarkable All other review of systems found to be negative. PHYSICAL EXAMINATION: VITAL SIGNS: Please see below. GENERAL: Pleasant and cooperative. No acute distress. HEENT: PERRL. Extraocular movements intact. Clear conjunctiva CARDIOVASCULAR: Regular rate and rhythm. No murmurs, rubs, or gallops LUNGS: Clear to auscultation bilaterally. no wheeze. No rhonchi ABDOMEN: Soft, nontender, nondistended. Positive bowel sounds. Normal active bowel sounds NEUROLOGICAL: Alert and oriented times three. Cranial nerves II through XII grossly intact. Sensation decresed to light touch in stocking pattern EXTREMITIES: 5\5 strength bilateral upper extremities. 5/5 right hip flexion, knee extension and flexion, 5/5 left hip flexor, knee extension, DF/PF SKIN: right BKA incision c/d/i scant erythema at staple line, no drainage, or induration -left foot plantar surface, calloused ulcer, no erythema (present on admission) ASSESSMENT:65-year-old M with past medical history of DM with peripheral polyneuropathy who presents status post right BKA due to osteomyelitis PLAN: 1. Rehab- PT/OT advance mobility and ADLs, strengthen/stretch/maintain ROM all 4 limbs 2. neuro- peripheral polyneuropathy due to longstanding DM contributing to wounds, mobility impairments, and bka 3. vasc- s/p right bka 04-03 and 04-07, monitor surgical site -f/u vasc surgeon on d/c 4.Cardiac- hx of HTN cont BP meds -HLD cont statin -medicine consulted to assist with overall management 5. resp -monitor for infection -patient reporting improvement in mild cough/ nasal congestion,cont combivent, flonase and nasal saline 6. gu- monitor pvrs 7. dvt- cont heparin 8. pain- tylenol and oxycodone 9. endo- hx of DM cont Levemir, ISS, and consistent carb diet 10. Skin- patient has longstanding ulcer left foot plantar surface, cont to cover, appears dry, can f/u with Dr. Rico who shaves it down periodically 10. Dispo- will aim for 04-17-21 to home once patient has room privileges Barriers to d/c: patient approaching Mod-I and will benefit from room privileges prior to d/c Functional status- Mod-I from wheelchair level with most mobility, still needing stand-by assist for bathing and lower body dressing Allergies Coded Allergies: Contrast Media (Unverified Adverse Reaction, Intermediate, poor kidney function-can't have, 01/24/20) Vital Signs Vital Signs Date Time Temp Pulse Resp B/P (MAP) Pulse Ox O2 Delivery O2 Flow Rate FiO2 04/16/21 06:00 97.5 61 17 144/73 (96) 99 Room Air Laboratory Data Labs 24H Laboratory Tests 2 04/15/21 11:58: Bedside Glucose (Misc Panel) 105 04/15/21 16:48: Bedside Glucose (Misc Panel) 148H 04/15/21 20:03: Bedside Glucose (Misc Panel) 237H 04/16/21 06:44: Bedside Glucose (Misc Panel) 114 Current Medications Current Medications Current Medications Medications (Trade) Dose Ordered Sig/Ernestina Route PRN Reason Start Time Stop Time Status Last Admin Dose Admin Acetaminophen (Tylenol Tab) 1,000 mg TID PO 04/13/21 21:00 04/16/21 09:19 Al Hydrox/Mg Hydrox/Simethicone (Mylanta) 30 ml Q4HP PRN PO DYSPEPSIA 04/13/21 14:25 Albuterol/ Ipratropium (Combivent Respimat 100-20mcg) 1 puff RTID INH 04/14/21 14:00 Amlodipine Besylate (Norvasc) 5 mg DAILY PO 04/13/21 15:15 Cancel Amlodipine Besylate (Norvasc) 5 mg DAILY PO 04/14/21 09:00 04/16/21 09:18 Darbepoetin David (Aranesp) 100 mcg We@09 SC 04/15/21 09:00 04/15/21 08:25 Dextrose (Dextrose 50%) 25 ml ASDIRECTED PRN IV SEE LABEL COMMENTS 04/13/21 14:25 Docusate Sodium (Colace) 100 mg BID PO 04/13/21 21:00 04/16/21 09:18 Fluticasone Propionate (Flonase 0.05% Nasal [place]) 1 spray BID NARES 04/14/21 09:00 Glucagon (Glucagon) 1 mg ASDIRECTED PRN SC SEE LABEL COMMENTS 04/13/21 14:25 Glucose (Glucose) 16 GM ASDIRECTED PRN PO SEE LABEL COMMENTS 04/13/21 14:25 Heparin Sodium (Heparin (Flush)) 200 units ASDIRECTED PRN IV SEE LABEL COMMENTS 04/14/21 05:55 Heparin Sodium (Heparin (Flush)) 200 units PICC IV 04/14/21 06:00 04/16/21 05:47 Heparin Sodium (Porcine) (Heparin) 5,000 units Q12H SC 04/13/21 21:00 04/16/21 09:22 Home Med (Home Med List Complete!) ASDIRECTED XX 04/14/21 14:40 04/14/21 14:44 DC Insulin Detemir (Levemir Insulin) 25 units BID SC 04/13/21 21:00 04/16/21 09:21 Insulin Human Lispro (HumaLOG INSULIN) SEE PROTOCOL TABLE AC SC 04/13/21 17:30 04/16/21 09:21 Insulin Human Lispro (HumaLOG INSULIN) SEE PROTOCOL TABLE QHS SC 04/13/21 21:00 Lactobacillus Acidophilus (Bacid) 1 ea BIDWM PO 04/13/21 18:00 04/14/21 15:50 DC Metoprolol Succinate (TopROL XL) 50 mg QHS PO 04/13/21 21:00 04/15/21 21:39 Oxycodone HCl (Roxicodone, Oxyir) 5 mg Q4HP PRN PO MODERATE PAIN (PS 5-7) 04/13/21 14:25 Pantoprazole Sodium (Protonix) 40 mg DAILY PO 04/14/21 09:00 04/16/21 09:18 Polyethylene Glycol (Miralax) 1 pkt DAILY PRN PO CONSTIPATION 04/13/21 14:25 04/16/21 09:22 Rosuvastatin Calcium (Crestor) 20 mg QHS PO 04/13/21 21:00 04/15/21 21:39 Senna (Senokot) 1 tab QHS PO 04/13/21 21:00 04/14/21 20:47 Sodium Chloride ([place] Nasal [place]) 2 spray TID NA 04/14/21 16:00 Sodium Chloride (Saline Lock Flush) 10 ml ASDIRECTED PRN IV SEE LABEL COMMENTS 04/14/21 05:55 Sodium Chloride (Saline Lock Flush) 10 ml PICC IV 04/14/21 06:00 04/16/21 05:47 NICOLE SIMS MD Apr 16, 2021 10:49
--- NOTE | 2021-04-16 10:50 | IPNPDOC ---
PM&R Progress Note DATE OF SERVICE: Apr 16, 2021 [employer] Progress Note Subjective: Patient seen in his room stating he feels ready to go home tomorrow. He states he feels comfortable changing his BKA dressing. REVIEW OF SYSTEMS: The following is a completed review of systems and has been reviewed. Review of systems otherwise unremarkable. PAIN: Patient self reports no pain EYES: No recent vision changes EARS, NOSE, & THROAT: [No throat pain, or dysphagia, or rhinorrhea CARDIOVASCULAR: Denies chest pain or palpitations PULMONARY: Denies shortness of breath GASTROINTESTINAL: Denies constipation/diarrhea GENITOURINARY: denies dysuria MUSCULOSKELETAL: s/p right BKA NEUROLOGICAL:+ peripheral polyneuropathy HEMATOLOGICAL: denies easy bruising, +anemia SKIN:right BKA incision, left foot plantar ulcer PSYCHIATRIC: Unremarkable All other review of systems found to be negative. PHYSICAL EXAMINATION: VITAL SIGNS: Please see below. GENERAL: Pleasant and cooperative. No acute distress. HEENT: PERRL. Extraocular movements intact. Clear conjunctiva CARDIOVASCULAR: Regular rate and rhythm. No murmurs, rubs, or gallops LUNGS: Clear to auscultation bilaterally. no wheeze. No rhonchi ABDOMEN: Soft, nontender, nondistended. Positive bowel sounds. Normal active bowel sounds NEUROLOGICAL: Alert and oriented times three. Cranial nerves II through XII grossly intact. Sensation decresed to light touch in stocking pattern EXTREMITIES: 5\5 strength bilateral upper extremities. 5/5 right hip flexion, knee extension and flexion, 5/5 left hip flexor, knee extension, DF/PF SKIN: right BKA incision not examined -left foot plantar surface, calloused ulcer, no erythema (present on admission) ASSESSMENT:65-year-old M with past medical history of DM with peripheral polyneuropathy who presents status post right BKA due to osteomyelitis PLAN: 1. Rehab- PT/OT advance mobility and ADLs, strengthen/stretch/maintain ROM all 4 limbs- room privileges from wheelchair level 2. neuro- peripheral polyneuropathy due to longstanding DM contributing to wounds, mobility impairments, and bka 3. vasc- s/p right bka 04-03 and 04-07, monitor surgical site -f/u vasc surgeon on d/c 4.Cardiac- hx of HTN cont BP meds -HLD cont statin -medicine consulted to assist with overall management 5. resp -monitor for infection -patient reporting improvement in mild cough/ nasal congestion,cont combivent, flonase and nasal saline 6. gu- monitor pvrs 7. dvt- cont heparin 8. pain- tylenol and oxycodone 9. endo- hx of DM cont Levemir, ISS, and consistent carb diet 10. Skin- patient has longstanding ulcer left foot plantar surface, cont to cover, appears dry, can f/u with Dr. Rico who shaves it down periodically 10. Dispo- will aim for 04-17-21 to home once patient has room privileges Barriers to d/c: patient approaching Mod-I and will benefit from room privileges prior to d/c Functional status- Mod-I from wheelchair level with most mobility and ADLs- DME: Patient will require a wheelchair in order to complete his MRADLs in a timely and safe manner. He is unable to complete his MRADLs with a walker or cane. His home is wheelchair accessible, he agrees to use one and his family can help him. He will require elevating leg rests for his wheelchair to help prop up his right limb and help prevent knee flexion contracture in setting of recent BKA. Allergies Coded Allergies: Contrast Media (Unverified Adverse Reaction, Intermediate, poor kidney function-can't have, 01/24/20) Vital Signs Vital Signs Date Time Temp Pulse Resp B/P (MAP) Pulse Ox O2 Delivery O2 Flow Rate FiO2 04/16/21 06:00 97.5 61 17 144/73 (96) 99 Room Air Laboratory Data Labs 24H Laboratory Tests 2 04/15/21 11:58: Bedside Glucose (Misc Panel) 105 04/15/21 16:48: Bedside Glucose (Misc Panel) 148H 04/15/21 20:03: Bedside Glucose (Misc Panel) 237H 04/16/21 06:44: Bedside Glucose (Misc Panel) 114 Current Medications Current Medications Current Medications Medications (Trade) Dose Ordered Sig/Ernestina Route PRN Reason Start Time Stop Time Status Last Admin Dose Admin Acetaminophen (Tylenol Tab) 1,000 mg TID PO 04/13/21 21:00 04/16/21 09:19 Al Hydrox/Mg Hydrox/Simethicone (Mylanta) 30 ml Q4HP PRN PO DYSPEPSIA 04/13/21 14:25 Albuterol/ Ipratropium (Combivent Respimat 100-20mcg) 1 puff RTID INH 04/14/21 14:00 Amlodipine Besylate (Norvasc) 5 mg DAILY PO 04/13/21 15:15 Cancel Amlodipine Besylate (Norvasc) 5 mg DAILY PO 04/14/21 09:00 04/16/21 09:18 Darbepoetin David (Aranesp) 100 mcg We@09 SC 04/15/21 09:00 04/15/21 08:25 Dextrose (Dextrose 50%) 25 ml ASDIRECTED PRN IV SEE LABEL COMMENTS 04/13/21 14:25 Docusate Sodium (Colace) 100 mg BID PO 04/13/21 21:00 04/16/21 09:18 Fluticasone Propionate (Flonase 0.05% Nasal [place]) 1 spray BID NARES 04/14/21 09:00 Glucagon (Glucagon) 1 mg ASDIRECTED PRN SC SEE LABEL COMMENTS 04/13/21 14:25 Glucose (Glucose) 16 GM ASDIRECTED PRN PO SEE LABEL COMMENTS 04/13/21 14:25 Heparin Sodium (Heparin (Flush)) 200 units ASDIRECTED PRN IV SEE LABEL COMMENTS 04/14/21 05:55 Heparin Sodium (Heparin (Flush)) 200 units PICC IV 04/14/21 06:00 04/16/21 05:47 Heparin Sodium (Porcine) (Heparin) 5,000 units Q12H SC 04/13/21 21:00 04/16/21 09:22 Home Med (Home Med List Complete!) ASDIRECTED XX 04/14/21 14:40 04/14/21 14:44 DC Insulin Detemir (Levemir Insulin) 25 units BID SC 04/13/21 21:00 04/16/21 09:21 Insulin Human Lispro (HumaLOG INSULIN) SEE PROTOCOL TABLE AC SC 04/13/21 17:30 04/16/21 09:21 Insulin Human Lispro (HumaLOG INSULIN) SEE PROTOCOL TABLE QHS SC 04/13/21 21:00 Lactobacillus Acidophilus (Bacid) 1 ea BIDWM PO 04/13/21 18:00 04/14/21 15:50 DC Metoprolol Succinate (TopROL XL) 50 mg QHS PO 04/13/21 21:00 04/15/21 21:39 Oxycodone HCl (Roxicodone, Oxyir) 5 mg Q4HP PRN PO MODERATE PAIN (PS 5-7) 04/13/21 14:25 Pantoprazole Sodium (Protonix) 40 mg DAILY PO 04/14/21 09:00 04/16/21 09:18 Polyethylene Glycol (Miralax) 1 pkt DAILY PRN PO CONSTIPATION 04/13/21 14:25 04/16/21 09:22 Rosuvastatin Calcium (Crestor) 20 mg QHS PO 04/13/21 21:00 04/15/21 21:39 Senna (Senokot) 1 tab QHS PO 04/13/21 21:00 04/14/21 20:47 Sodium Chloride ([place] Nasal [place]) 2 spray TID NA 04/14/21 16:00 Sodium Chloride (Saline Lock Flush) 10 ml ASDIRECTED PRN IV SEE LABEL COMMENTS 04/14/21 05:55 Sodium Chloride (Saline Lock Flush) 10 ml PICC IV 04/14/21 06:00 04/16/21 05:47 NICOLE SIMS MD Apr 16, 2021 10:50
[2021-04-16 14:00] VITALS: BP 143/70
[2021-04-16 19:32] VITALS: BP 159/70
[2021-04-16] MEDS: METOPROLOL SUCC (TopROL XL) 50MG **XL** TAB PO SCH (20:55)
[2021-04-16] MEDS: SENNA 8.6 MG TAB (SENOKOT) PO SCH (20:55)
[2021-04-16] MEDS: ROSUVASTATIN 10 MG TAB (CRESTOR) PO SCH (20:55)
[2021-04-17] MEDS: SODIUM CHLORIDE 0.9% INJ 10 ML SYR IV SCH (05:41)
[2021-04-17 05:55] VITALS: BP 162/74
[2021-04-17 06:37] LABS: CALCIUM LEVEL 9.3 MG/DL (8.8-10.2); CREATININE FOR GFR 3.06 MG/DL (0.70-1.30); POTASSIUM SERUM 4.1 MEQ/L (3.5-5.1)
[2021-04-17] MEDS: COMBIVENT RESPIMAT 100-20MCG INHALER 4GM INH SCH ×2 (08:00→13:45)
[2021-04-17] MEDS: SODIUM CHLORIDE NASAL 0.65% SPRAY BTL (OCEAN) SCH (09:00)
[2021-04-17] MEDS: HEPARIN SOD (PORCINE) 5000UNITS/ML 1ML VIAL/SYRINGE SC SCH (09:00)
[2021-04-17] MEDS: REMEDY PHYTOPLEX Z-GUARD PASTE 113GM TUBE (FROM STOREROOM PRODUCT) TOP SCH (09:00)
[2021-04-17] MEDS: DOCUSATE SODIUM 100MG CAPSULE PO SCH (09:00)
[2021-04-17] MEDS: FLUTICASONE PROP 0.05% NASAL SPRAY 16 GM (FLONASE) NARES SCH (09:00)
[2021-04-17] MEDS: HumaLOG INSULIN (NovoLOG) PER UNIT SC SCH ×2 (09:20→12:00)
[2021-04-17] MEDS: ACETAMINOPHEN 500 MG TAB PO SCH (09:20)
[2021-04-17 09:21] VITALS: BP 162/74
[2021-04-17] MEDS: PANTOPRAZOLE 40MG TAB (PROTONIX) PO SCH (09:21)
[2021-04-17] MEDS: amLODIPine 5 MG TAB PO SCH (09:21)
[2021-04-17] MEDS: LEVEMIR (INSULIN DETEMIR) 1 UNITS/0.01ML SC SCH (09:22)
[2021-04-17] MEDS ORDERED: AMLO1TAB24 PO (09:51)
[2021-04-17] MEDS ORDERED: METO1TAB7 PO (09:51)
[2021-04-17] MEDS ORDERED: ROSU20TA5 PO (09:51)
[2021-04-17] MEDS ORDERED: TRES1INJ SQ (09:51)
--- NOTE | 2021-04-17 12:43 | IPN ---
NEPHROLOGY PROGRESS NOTE DATE: 04/17/2021 SUBJECTIVE: Mr. Kirby is seen and examined this morning. He is discharge pending. He has no complaints. Renal function today is stable, where it has been over the course of his admission. PHYSICAL EXAMINATION: VITAL SIGNS: Temperature 97.4, pulse 69, respiratory rate 20, blood pressure 162/74, saturating 98% INTAKE AND OUTPUT: Intake yesterday was 2.1 liters. Urine output was 2.4 liters. GENERAL: Patient is awake, alert, oriented, comfortable, in no distress. HEENT: Extraocular muscles are intact. Tongue is moist. NECK: Supple. Jugular veins are not elevated. HEART SOUNDS: Regular. S1, S2. There is no peripheral edema. LUNGS: Clear to auscultation. No crackle, rale, rhonchus or wheeze. ABDOMEN: Soft and nontender. EXTREMITIES: No edema is present in the left lower extremity nor in the right thigh. NEUROLOGIC: Oriented times three. Conversational and cooperative. LABORATORY STUDIES: Sodium 136, potassium 4.1, bicarbonate 24, BUN 41, creatinine 3.0, GFR 22, magnesium 2.0. Hemoglobin 8.9. INPATIENT MEDICATIONS: Reviewed by myself and no changes noted from prior. He received a dose of Aranesp on Tuesday. PROBLEMS: 1. Chronic kidney disease (CKD) stage IV. Patient's renal function is stable. Creatinine has been ranging from 2.8 to 3.0 these past couple of weeks. His electrolytes and volume status are acceptable. He will follow up in the outpatient nephrology office. 2. Hypertension with hypertensive heart disease. Blood pressures are acceptable on metoprolol and amlodipine and blood pressure medications will be further titrated outpatient. 3. Anemia secondary to iron deficiency and chronic kidney disease. He received Injectafer times two doses recently and he has also received Aranesp, with the most recent dose being on Tuesday, April 15, 2021. He will follow up for further management in the nephrology office. DISPOSITION: Patient is stable for discharge from my point of view when he is deemed acceptable by rehabilitation.
--- NOTE | 2021-04-20 19:40 | PMRDS ---
NAME: DON GUEVARA [facility] WT ID#: [id number] JOB: [id number] VERO: 04/17/2021 ACCT: [id number] DOCTOR: NICOLE SIMS MD PMR DISCHARGE SUMMARY DATE OF ADMISSION: 04/13/2021 DATE OF DISCHARGE: 04/17/2021 CHIEF COMPLAINT/DISCHARGE DIAGNOSIS: Right below knee amputation. HISTORY OF PRESENT ILLNESS: A 65-year-old man with a past medical history of diabetes with peripheral polyneuropathy, bilateral Charcot's foot, chronic left plantar ulcer, chronic kidney disease IV, hypertension, hyperlipidemia, peripheral arterial disease who presented to [facility] 03[facility] for worsening right foot ulcer status post bone debridement and foul odor. He was diagnosed with osteomyelitis and evaluated by Dr. Gatica who performed a right mid foot removal on 03/25/2021. He was started on IV Vancomycin and Zosyn with plan for BKA after his infection improved. He underwent guillotine BKA on 04/03/2021 followed by BKA revision on 04/07/[address] Li. He was transitioned to ceftriaxone and had persistent leukocytosis thought to be inflammatory and improved gradually with no concerns regarding his incision site. He had anemia of chronic disease, iron deficiency, and postop blood loss anemia which was treated with Aranesp and Venofer by Renal. He had new mobility and ADL impairments and was deemed medically appropriate for discharge to ARU on 04/13/2021. PAST MEDICAL HISTORY: As per HPI. HOSPITAL COURSE: The patient was admitted and enrolled in a comprehensive PT/OT program. He received 24 hour nursing supervision, and weekly team meetings were held to discuss his progress. The patient received frequent dressing changes and his incision site appeared to be healing quite well. His diabetes was controlled with Levemir and Insulin sliding scale in addition to a consistent carb diet. The patient reported mild nasal congestion which improved with Flonase, nasal saline, and Combivent. He overall made meraz gains in therapy and was deemed medically and functionally stable to return home at a wheelchair level. DISCHARGE MEDICATIONS: As per instructions. FUNCTONAL HISTORY: On discharge the patient was modified independent for all mobility and ADLs from a wheelchair level. Thank you for this referral.
== END 2021-04-17 14:02 | disposition home health service (06) | DRG 74 ==
LOC: M PM&R 04-13 11:40
PROVIDERS: ADMIT Physical Medicine & Rehabilitation; ATTEND Physical Medicine & Rehabilitation
DX: E11.42 Type 2 diabetes mellitus with diabetic polyneuropathy (principal); N18.4 Chronic kidney disease, stage 4 (severe); E11.22 Type 2 diabetes mellitus with diabetic chronic kidney disease; I12.9 Hypertensive chronic kidney disease with stage 1 through stage 4 chronic kidney disease, or unspecified chronic kidney disease; E78.5 Hyperlipidemia, unspecified; E11.51 Type 2 diabetes mellitus with diabetic peripheral angiopathy without gangrene; Z89.511 Acquired absence of right leg below knee; Z74.09 Other reduced mobility; Z74.1 Need for assistance with personal care; Z79.4 Long term (current) use of insulin; Z79.899 Other long term (current) drug therapy; Z91.041 Radiographic dye allergy status; D63.1 Anemia in chronic kidney disease; Z98.41 Cataract extraction status, right eye; Z98.42 Cataract extraction status, left eye; Z90.49 Acquired absence of other specified parts of digestive tract

== ENCOUNTER → 2022-05-13 | Outpatient (REF) | payer MEDICARE ==
[~2022-05-13] MED LIST changes: -DOXY150C PO; +DOXY150C3 PO; +LEVO1TAB38 PO; +LEVO1TAB39 PO; -LEVO250T12 PO; -LEVO500T3 PO; +LOSA25TA13 PO; -LOSA25TA14 PO; +LOSA50TA28 PO; -LOSA50TA88 PO
[2022-05-13 19:43] LABS: CREATININE,RANDOM URINE 64.2 MG/DL
[2022-05-13 19:50] LABS: TOTAL PROTEIN,RANDOM URINE 543.6 MG/DL (0.0-14.0)
== END ==
LOC: M LAB REF 17:23
PROVIDERS: ATTEND Nurse Practitioner Family
DX: R80.9 Proteinuria, unspecified (principal)

== ENCOUNTER → 2022-06-25 | Outpatient (CLI) | payer MEDICARE | LOC: M RAD 12:40 | PROVIDERS: ATTEND Surgery Vascular Surgery | DX: N18.6 End stage renal disease (principal) ==

== ENCOUNTER 2022-07-03 19:07 | Inpatient (IN) | payer MEDICARE ==
[~2022-07-03] VITALS: Ht 175.3 cm; Wt 100.4 kg
[2022-07-03] MEDS ORDERED: TRES100I SC (19:18)
[2022-07-03] MEDS ORDERED: CALC1CAP31 PO (19:18)
[2022-07-03] MEDS ORDERED: AMLO1TAB25 PO (19:18)
[2022-07-03 20:18] LABS: BASO # 0.1 10^3/uL (0.0-0.2); BASO % 0.4 % (0.0-1.0); EOS # 0.2 10^3/uL (0.0-0.5); EOS % 1.9 % (0.0-3.0); HEMATOCRIT 35.1 % (42.0-52.0); HEMOGLOBIN 11.7 g/dl (13.5-17.5); LYMPH # 1.8 10^3/uL (1.5-5.0); LYMPH % 15.7 % (24.0-44.0); MEAN CORPUSCULAR HEMOGLOBIN 29.3 pg (27.0-33.0); MEAN CORPUSCULAR HGB CONC 33.3 g/dl (32.0-36.5); MEAN CORPUSCULAR VOLUME 87.8 fl (80.0-96.0); MONO # 0.9 10^3/uL (0.0-0.8); MONO % 7.8 % (2.0-8.0); NEUTROPHILS # 8.4 10^3/uL (1.5-8.5); NEUTROPHILS % 73.7 % (36.0-66.0); PLATELET COUNT, AUTOMATED 323 10^3/uL (150-450); WHITE BLOOD COUNT 11.4 10^3/uL (4.0-10.0)
[2022-07-03 20:52] LABS: THYROXINE (T4) 9.7 UG/DL (4.5-10.9)
[2022-07-03 20:53] LABS: THYROID STIMULATING HORMONE 4.115 uIU/ML (0.55-4.78)
[2022-07-03 20:54] LABS: ALBUMIN 3.2 G/DL (3.2-5.2); ALKALINE PHOSPHATASE 96 U/L (46-116); ALT/SGPT 21 U/L (7.0-40); AST/SGOT 26 U/L (<34); BILIRUBIN,DIRECT < 0.1 MG/DL (<0.4); BILIRUBIN,TOTAL 0.3 MG/DL (0.3-1.2); BLOOD UREA NITROGEN 82 MG/DL (9-23); CALCIUM LEVEL 8.9 MG/DL (8.3-10.6); CARBON DIOXIDE LEVEL 20 MMOL/L (20-31); CHLORIDE LEVEL 104 MMOL/L (98-107); CREATININE FOR GFR 6.52 MG/DL (0.70-1.30); GLOMERULAR FILTRATION RATE 9.1 (>49); GLUCOSE, FASTING 129 MG/DL (74-106); PHOSPHORUS LEVEL 5.4 MG/DL (2.4-5.1); POTASSIUM SERUM 4.5 MMOL/L (3.5-5.1); SODIUM LEVEL 135 MMOL/L (136-145); TOTAL PROTEIN 7.1 G/DL (5.7-8.2)
[2022-07-03 21:28] LABS: CK-MB VALUE MASS 1.8 NG/ML (<3.6)
[2022-07-03] MEDS ORDERED: cefTRIAXone SOD 1 GM in D5W MINI-BAG PLUS 50 ML IV ONE (21:30)
[2022-07-03 21:31] LABS: MB/CK RELATIVE INDEX 1.63 (< OR =4)
[2022-07-03 21:56] LABS: MB/CK RELATIVE INDEX 1.94 (< OR =4)
[2022-07-03] MEDS ORDERED: FUROSEMIDE 100MG/10ML VIAL IV ONE (22:10)
[2022-07-03] MEDS ORDERED: HOME MED LIST COMPLETE! XX SCH (22:35)
[2022-07-04] VITALS (7 sets, daily range): BP systolic 136–186; BP diastolic 73–88
[2022-07-04] MEDS ORDERED: MOM 30ML SUSPENSION UDC PO PRN
[2022-07-04] MEDS ORDERED: DEXTROSE 50% 50ML SYRINGE IV PRN
[2022-07-04] MEDS ORDERED: MAALOX 30 ML SUSP *UDC PO PRN
[2022-07-04] MEDS ORDERED: GLUCAGON INJ 1MG VIAL SC PRN
[2022-07-04] MEDS ORDERED: GLUCOSE 4GM CHEW TABLET PO PRN
[2022-07-04] MEDS ORDERED: ACETAMINOPHEN TAB 650MG DOSE (2X325MG) PO PRN
[2022-07-04] MEDS: HEPARIN SOD (PORCINE) 5000UNITS/ML 1ML VIAL/SYRINGE SC SCH ×3 (06:03→21:09)
[2022-07-04 06:59] LABS: BASO # 0.1 10^3/uL (0.0-0.2); BASO % 0.6 % (0.0-1.0); EOS # 0.3 10^3/uL (0.0-0.5); EOS % 2.9 % (0.0-3.0); HEMATOCRIT 35.4 % (42.0-52.0); HEMOGLOBIN 11.1 g/dl (13.5-17.5); LYMPH # 1.7 10^3/uL (1.5-5.0); LYMPH % 19.4 % (24.0-44.0); MEAN CORPUSCULAR HEMOGLOBIN 29.1 pg (27.0-33.0); MEAN CORPUSCULAR HGB CONC 31.4 g/dl (32.0-36.5); MEAN CORPUSCULAR VOLUME 92.9 fl (80.0-96.0); MONO # 0.9 10^3/uL (0.0-0.8); MONO % 9.9 % (2.0-8.0); NEUTROPHILS # 5.8 10^3/uL (1.5-8.5); NEUTROPHILS % 66.9 % (36.0-66.0); RED BLOOD COUNT 3.81 10^6/uL (4.30-6.10); WHITE BLOOD COUNT 8.7 10^3/uL (4.0-10.0)
[2022-07-04 07:29] LABS: CALCIUM LEVEL 8.8 MG/DL (8.3-10.6); CREATININE FOR GFR 6.69 MG/DL (0.70-1.30); GLOMERULAR FILTRATION RATE 8.9 (>49); POTASSIUM SERUM 3.9 MMOL/L (3.5-5.1)
[2022-07-04] MEDS: INSULIN LISPRO (NovoLOG) PER UNIT SC SCH ×4 (07:30→20:28)
[2022-07-04 08:41] LABS: PLATELET COUNT, AUTOMATED 141 10^3/uL (150-450)
[2022-07-04] MEDS: LEVEMIR (INSULIN DETEMIR) 1 UNITS/0.01ML SC SCH ×2 (09:14→20:28)
[2022-07-04] MEDS: FUROSEMIDE 100MG/10ML VIAL IV SCH ×2 (10:51→17:12)
[2022-07-04] MEDS: cefTRIAXone SOD 1 GM in D5W MINI-BAG PLUS 50 ML IV SCH (20:27)
[2022-07-05] VITALS (7 sets, daily range): BP systolic 127–149; BP diastolic 59–84
[2022-07-05 05:00] LABS: FERRITIN 210.5 NG/ML (10.5-307.3)
[2022-07-05] MEDS: HEPARIN SOD (PORCINE) 5000UNITS/ML 1ML VIAL/SYRINGE SC SCH ×3 (05:30→20:41)
[2022-07-05 07:47] LABS: BASO # 0.1 10^3/uL (0.0-0.2); BASO % 0.6 % (0.0-1.0); EOS # 0.3 10^3/uL (0.0-0.5); EOS % 3.9 % (0.0-3.0); HEMATOCRIT 33.4 % (42.0-52.0); HEMOGLOBIN 11.1 g/dl (13.5-17.5); LYMPH # 1.7 10^3/uL (1.5-5.0); LYMPH % 19.5 % (24.0-44.0); MEAN CORPUSCULAR HEMOGLOBIN 29.5 pg (27.0-33.0); MEAN CORPUSCULAR HGB CONC 33.2 g/dl (32.0-36.5); MEAN CORPUSCULAR VOLUME 88.8 fl (80.0-96.0); MONO # 0.9 10^3/uL (0.0-0.8); MONO % 10.8 % (2.0-8.0); NEUTROPHILS # 5.5 10^3/uL (1.5-8.5); NEUTROPHILS % 64.8 % (36.0-66.0); RED BLOOD COUNT 3.76 10^6/uL (4.30-6.10); WHITE BLOOD COUNT 8.5 10^3/uL (4.0-10.0)
[2022-07-05 07:49] LABS: PLATELET COUNT, AUTOMATED 289 10^3/uL (150-450)
[2022-07-05 08:11] LABS: ALBUMIN 2.8 G/DL (3.2-5.2); BILIRUBIN,TOTAL 0.2 MG/DL (0.3-1.2); CALCIUM LEVEL 8.7 MG/DL (8.3-10.6); CREATININE FOR GFR 7.15 MG/DL (0.70-1.30); GLOMERULAR FILTRATION RATE 8.2 (>49); POTASSIUM SERUM 3.8 MMOL/L (3.5-5.1); TOTAL PROTEIN 6.1 G/DL (5.7-8.2)
[2022-07-05] MEDS: INSULIN LISPRO (NovoLOG) PER UNIT SC SCH ×4 (08:54→19:20)
[2022-07-05] MEDS: LEVEMIR (INSULIN DETEMIR) 1 UNITS/0.01ML SC SCH ×3 (09:00→19:20)
[2022-07-05] MEDS: FUROSEMIDE 100MG/10ML VIAL IV SCH ×2 (09:36→16:14)
[2022-07-05] MEDS ORDERED: POTASSIUM CHLORIDE 10MEQ SR TABLET PO ONE (09:55)
[2022-07-05] MEDS ORDERED: FERRIC CARBOXYMALTOSE INJ 750 MG, VIAL MATE ADAPTER 1 EACH in NS 250 ML IV ONE (11:00)
[2022-07-05] MEDS: (RENVELA) SEVELAMER **CARBONate** 800 MG TAB PO SCH ×2 (12:38→18:25)
[2022-07-05] MEDS: cefTRIAXone SOD 1 GM in D5W MINI-BAG PLUS 50 ML IV SCH (20:41)
[2022-07-06] VITALS (7 sets, daily range): BP systolic 116–134; BP diastolic 55–87
[2022-07-06] MEDS: HEPARIN SOD (PORCINE) 5000UNITS/ML 1ML VIAL/SYRINGE SC SCH ×3 (05:16→20:38)
[2022-07-06 05:33] LABS: HEMATOCRIT 32.8 % (42.0-52.0); MEAN CORPUSCULAR HEMOGLOBIN 29.2 pg (27.0-33.0); MEAN CORPUSCULAR HGB CONC 33.5 g/dl (32.0-36.5); PLATELET COUNT, AUTOMATED 304 10^3/uL (150-450); RED BLOOD COUNT 3.77 10^6/uL (4.30-6.10); WHITE BLOOD COUNT 9.9 10^3/uL (4.0-10.0)
[2022-07-06 05:46] LABS: CALCIUM LEVEL 8.6 MG/DL (8.3-10.6); CREATININE FOR GFR 7.14 MG/DL (0.70-1.30); GLOMERULAR FILTRATION RATE 8.2 (>49); POTASSIUM SERUM 3.8 MMOL/L (3.5-5.1)
[2022-07-06] MEDS: INSULIN LISPRO (NovoLOG) PER UNIT SC SCH ×4 (07:30→20:01)
[2022-07-06] MEDS: (RENVELA) SEVELAMER **CARBONate** 800 MG TAB PO SCH ×3 (08:00→17:17)
[2022-07-06] MEDS ORDERED: FLEET ENEMA PR PRN (08:25)
[2022-07-06] MEDS: MOM 30ML SUSPENSION UDC PO SCH (08:48)
[2022-07-06] MEDS: LEVEMIR (INSULIN DETEMIR) 1 UNITS/0.01ML SC SCH ×2 (08:49→20:38)
[2022-07-06] MEDS: FUROSEMIDE 100MG/10ML VIAL IV SCH ×2 (08:59→17:14)
[2022-07-06] MEDS ORDERED: MIDAZOLAM INJ 2MG/2ML VIAL As Ordered ONE (12:02)
[2022-07-06] MEDS ORDERED: fentaNYL 100 MCG/2 ML INJECTION As Ordered ONE (12:02)
[2022-07-06] MEDS ORDERED: ONDANSETRON 4MG 2ML VIAL As Ordered ONE (12:04)
[2022-07-06] MEDS ORDERED: ACETAMINOPHEN 1000MG 100ML IV BAG As Ordered ONE (12:04)
[2022-07-06] MEDS ORDERED: LIDOCAINE 2% 100MG/5ML SDV (FOR ANES.) As Ordered ONE (12:04)
[2022-07-06] MEDS ORDERED: propofoL 200 MG/20 ML VIAL As Ordered ONE (12:04)
[2022-07-06] MEDS ORDERED: ROCURONIUM BROMIDE 50MG/5ML VIAL As Ordered ONE (12:04)
[2022-07-06] MEDS ORDERED: SUGAMMADEX SODIUM 500 MG/5 ML VIAL (BRIDION) As Ordered ONE (12:07)
[2022-07-06] MEDS ORDERED: HEPARIN SOD (PORCINE) 5000UNITS/ML 1ML VIAL/SYRINGE As Ordered ONE ×2 (12:30→12:31)
[2022-07-06] MEDS ORDERED: BUPIVACAINE HCL 0.25% 30ML VIAL As Ordered ONE (12:30)
[2022-07-06] MEDS: MIRALAX *UNIT DOSE* 17GM PACKET PO SCH (13:08)
[2022-07-06] MEDS: SODIUM BICARBONATE 325 MG TAB PO SCH ×2 (13:08→20:37)
[2022-07-06] MEDS ORDERED: ceFAZolin 2 GM/D5W 50 ML IV BAG As Ordered ONE (13:19)
[2022-07-06] MEDS ORDERED: FLEET OIL RETENTION ENEMA PR PRN (13:30)
[2022-07-06] MEDS ORDERED: MIRALAX *UNIT DOSE* 17GM PACKET PO PRN (13:30)
[2022-07-06] MEDS ORDERED: ONDANSETRON 4MG 2ML VIAL IV PRN (14:00)
[2022-07-06] MEDS ORDERED: LR 1,000 ML IV SCH (14:00)
[2022-07-06] MEDS ORDERED: fentaNYL 100 MCG/2 ML INJECTION IV PRN (14:00)
[2022-07-06] MEDS ORDERED: oxyCODONE 5MG TAB PO PRN (14:00)
[2022-07-06] MEDS: SENNA 8.6 MG TAB (SENOKOT) PO SCH (20:37)
[2022-07-06] MEDS: cefTRIAXone SOD 1 GM in D5W MINI-BAG PLUS 50 ML IV SCH (20:37)
[2022-07-06] MEDS: DOCUSATE SODIUM 100MG CAPSULE PO SCH (20:37)
[2022-07-07 04:06] VITALS: BP 117/68
[2022-07-07 04:50] LABS: HEMATOCRIT 33.2 % (42.0-52.0); HEMOGLOBIN 10.8 g/dl (13.5-17.5); MEAN CORPUSCULAR HEMOGLOBIN 28.9 pg (27.0-33.0); MEAN CORPUSCULAR HGB CONC 32.5 g/dl (32.0-36.5); MEAN CORPUSCULAR VOLUME 88.8 fl (80.0-96.0); PLATELET COUNT, AUTOMATED 329 10^3/uL (150-450); RED BLOOD COUNT 3.74 10^6/uL (4.30-6.10); WHITE BLOOD COUNT 11.1 10^3/uL (4.0-10.0)
[2022-07-07] MEDS: HEPARIN SOD (PORCINE) 5000UNITS/ML 1ML VIAL/SYRINGE SC SCH ×3 (05:06→20:32)
[2022-07-07 05:12] LABS: CALCIUM LEVEL 8.6 MG/DL (8.3-10.6); CREATININE FOR GFR 7.59 MG/DL (0.70-1.30); GLOMERULAR FILTRATION RATE 7.7 (>49); POTASSIUM SERUM 4.4 MMOL/L (3.5-5.1)
[2022-07-07 07:45] VITALS: BP 116/65
[2022-07-07] MEDS: SODIUM BICARBONATE 325 MG TAB PO SCH ×2 (08:28→20:32)
[2022-07-07] MEDS: (RENVELA) SEVELAMER **CARBONate** 800 MG TAB PO SCH ×3 (08:28→17:39)
[2022-07-07] MEDS: DOCUSATE SODIUM 100MG CAPSULE PO SCH ×2 (08:30→20:33)
[2022-07-07] MEDS: LEVEMIR (INSULIN DETEMIR) 1 UNITS/0.01ML SC SCH ×2 (08:31→20:32)
[2022-07-07] MEDS: FUROSEMIDE 100MG/10ML VIAL IV SCH (08:32)
[2022-07-07] MEDS: MOM 30ML SUSPENSION UDC PO SCH (08:32)
[2022-07-07] MEDS: MIRALAX *UNIT DOSE* 17GM PACKET PO SCH (08:32)
[2022-07-07] MEDS: INSULIN LISPRO (NovoLOG) PER UNIT SC SCH ×4 (08:32→20:07)
[2022-07-07 11:55] VITALS: BP 124/72
[2022-07-07 15:24] VITALS: BP 114/64
[2022-07-07 20:07] VITALS: BP 129/69
[2022-07-07] MEDS: cefTRIAXone SOD 1 GM in D5W MINI-BAG PLUS 50 ML IV SCH (20:31)
[2022-07-07] MEDS: SENNA 8.6 MG TAB (SENOKOT) PO SCH (20:33)
[2022-07-08 04:29] VITALS: BP 160/83
[2022-07-08] MEDS: HEPARIN SOD (PORCINE) 5000UNITS/ML 1ML VIAL/SYRINGE SC SCH (04:55)
[2022-07-08 04:56] LABS: HEMATOCRIT 33.8 % (42.0-52.0); MEAN CORPUSCULAR HEMOGLOBIN 28.7 pg (27.0-33.0); MEAN CORPUSCULAR HGB CONC 32.5 g/dl (32.0-36.5); MEAN CORPUSCULAR VOLUME 88.3 fl (80.0-96.0); PLATELET COUNT, AUTOMATED 297 10^3/uL (150-450); RED BLOOD COUNT 3.83 10^6/uL (4.30-6.10); WHITE BLOOD COUNT 11.5 10^3/uL (4.0-10.0)
[2022-07-08 05:32] LABS: HEPATITIS B SURFACE ANTIBODY POSITIVE (POSITIVE)
[2022-07-08 05:44] LABS: HEPATITIS B SURFACE ANTIGEN NEGATIVE (NEGATIVE)
[2022-07-08 06:04] LABS: HEPATITIS B CORE ANTIBODY IGM NEGATIVE (NEGATIVE)
[2022-07-08 06:26] LABS: BLOOD UREA NITROGEN 111 MG/DL (9-23); CALCIUM LEVEL 8.5 MG/DL (8.3-10.6); CARBON DIOXIDE LEVEL 21 MMOL/L (20-31); CHLORIDE LEVEL 98 MMOL/L (98-107); CREATININE FOR GFR 8.55 MG/DL (0.70-1.30); GLOMERULAR FILTRATION RATE 6.7 (>49); GLUCOSE, FASTING 75 MG/DL (74-106); POTASSIUM SERUM 3.8 MMOL/L (3.5-5.1); SODIUM LEVEL 134 MMOL/L (136-145)
[2022-07-08] MEDS ORDERED: TORS100T PO (07:18)
[2022-07-08] MEDS ORDERED: RENV2TAB PO (07:18)
[2022-07-08] MEDS ORDERED: TRES100I SC (07:18)
[2022-07-08] MEDS ORDERED: SODI325T9 PO (07:18)
[2022-07-08] MEDS ORDERED: MIRA1POW3 PO (07:18)
[2022-07-08] MEDS ORDERED: SENN18TA PO (07:18)
[2022-07-08] MEDS ORDERED: COLA100C5 PO (07:18)
[2022-07-08] MEDS ORDERED: CEFU50TA PO (07:21)
[2022-07-08] MEDS: INSULIN LISPRO (NovoLOG) PER UNIT SC SCH (07:30)
[2022-07-08 07:38] VITALS: BP 129/71
[2022-07-08 07:46] VITALS: BP 117/58
[2022-07-08] MEDS: MOM 30ML SUSPENSION UDC PO SCH (08:31)
[2022-07-08] MEDS: MIRALAX *UNIT DOSE* 17GM PACKET PO SCH (08:31)
[2022-07-08 08:32] VITALS: BP 129/71
[2022-07-08] MEDS: (RENVELA) SEVELAMER **CARBONate** 800 MG TAB PO SCH (08:32)
[2022-07-08] MEDS: DOCUSATE SODIUM 100MG CAPSULE PO SCH (08:32)
[2022-07-08] MEDS: LEVEMIR (INSULIN DETEMIR) 1 UNITS/0.01ML SC SCH (08:32)
[2022-07-08] MEDS: SODIUM BICARBONATE 325 MG TAB PO SCH (08:33)
[2022-07-08] MEDS ORDERED: ASPI81CH33 PO (08:52)
[2022-07-08] MEDS ORDERED: TORSEMIDE 100 MG TAB PO SCH (09:00)
== END 2022-07-08 12:17 | disposition home health service (06) | DRG 673 ==
LOC: M ED 19:07 → M ED INP 23:26 → M PCU 07-04 00:51
PROVIDERS: ADMIT Family Medicine; ATTEND Family Medicine
PROC: B246ZZZ Ultrasonography of Right and Left Heart (ICD-10-PCS; 2022-07-06)
PROC: 0WHG43Z Insertion of Infusion Device into Peritoneal Cavity, Percutaneous Endoscopic Approach (ICD-10-PCS; principal; 2022-07-06 11:15)
DX: N18.6 End stage renal disease (principal); J18.9 Pneumonia, unspecified organism; I13.2 Hypertensive heart and chronic kidney disease with heart failure and with stage 5 chronic kidney disease, or end stage renal disease; L97.229 Non-pressure chronic ulcer of left calf with unspecified severity; I50.32 Chronic diastolic (congestive) heart failure; E87.20 Acidosis, unspecified; A52.16 Charcot's arthropathy (tabetic); I24.8 Other forms of acute ischemic heart disease; Z89.512 Acquired absence of left leg below knee; N17.9 Acute kidney failure, unspecified; E11.51 Type 2 diabetes mellitus with diabetic peripheral angiopathy without gangrene; E11.42 Type 2 diabetes mellitus with diabetic polyneuropathy; E11.22 Type 2 diabetes mellitus with diabetic chronic kidney disease; E66.9 Obesity, unspecified; E78.5 Hyperlipidemia, unspecified; E11.622 Type 2 diabetes mellitus with other skin ulcer; I25.10 Atherosclerotic heart disease of native coronary artery without angina pectoris; D50.9 Iron deficiency anemia, unspecified; F32.A Depression, unspecified; Z90.49 Acquired absence of other specified parts of digestive tract; F17.220 Nicotine dependence, chewing tobacco, uncomplicated; Z20.822 Contact with and (suspected) exposure to COVID-19; Z79.4 Long term (current) use of insulin; Z79.899 Other long term (current) drug therapy; Z88.5 Allergy status to narcotic agent; Z91.048 Other nonmedicinal substance allergy status; Z98.49 Cataract extraction status, unspecified eye

== ENCOUNTER 2022-07-16 19:49 | Inpatient (IN) | payer MEDICARE ==
[~2022-07-16] VITALS: Ht 177.8 cm; Wt 100.2 kg
[~2022-07-16 19:49] MED LIST changes: +AMLO1TAB25 PO; +ASPI81CH33 PO; +CALC1CAP31 PO; +CEFU50TA PO; +MIRA1POW3 PO; +RENV2TAB PO; +SENN18TA PO; +SODI325T9 PO; +TORS100T PO; +TRES100I SC
[2022-07-16] MEDS ORDERED: (RENVELA) SEVELAMER **CARBONate** 800 MG TAB PO SCH (21:00)
[2022-07-16 21:05] LABS: VENOUS BASE EXCESS 0.8 (-2.0-2.0); VENOUS HCO3 25.2 MEQ/L (23.0-27.0); VENOUS O2 SATURATION 72.8 % (60.0-80.0); VENOUS PARTIAL PRESSURE CO2 39.5 mmHg (38.0-50.0); VENOUS PARTIAL PRESSURE O2 38.9 mmHg (30.0-50.0); VENOUS PH 7.423 UNITS (7.330-7.430); VENOUS STANDARD HCO3 24.7 MEQ/L; VENOUS TOTAL CO2 26.4 MEQ/L (24.0-28.0)
[2022-07-16 21:09] LABS: BASO % 0.4 % (0.0-1.0); EOS # 0.2 10^3/uL (0.0-0.5); EOS % 2.2 % (0.0-3.0); HEMATOCRIT 32.5 % (42.0-52.0); HEMOGLOBIN 10.7 g/dl (13.5-17.5); LYMPH # 1.8 10^3/uL (1.5-5.0); LYMPH % 16.9 % (24.0-44.0); MEAN CORPUSCULAR HGB CONC 32.9 g/dl (32.0-36.5); MEAN CORPUSCULAR VOLUME 88.1 fl (80.0-96.0); MONO # 1.1 10^3/uL (0.0-0.8); MONO % 9.8 % (2.0-8.0); NEUTROPHILS # 7.6 10^3/uL (1.5-8.5); NEUTROPHILS % 70.2 % (36.0-66.0); PLATELET COUNT, AUTOMATED 327 10^3/uL (150-450); RED BLOOD COUNT 3.69 10^6/uL (4.30-6.10); WHITE BLOOD COUNT 10.8 10^3/uL (4.0-10.0)
[2022-07-16] MEDS ORDERED: FUROSEMIDE 100MG/10ML VIAL IV ONE (21:15)
[2022-07-16 21:35] LABS: THYROID STIMULATING HORMONE 4.683 uIU/ML (0.55-4.78); THYROXINE (T4) 8.4 UG/DL (4.5-10.9)
[2022-07-16 21:56] LABS: ALKALINE PHOSPHATASE 142 U/L (46-116); ALT/SGPT 17 U/L (7.0-40); AST/SGOT 36 U/L (<34); BILIRUBIN,DIRECT 0.1 MG/DL (<0.4); BILIRUBIN,TOTAL 0.3 MG/DL (0.3-1.2); BLOOD UREA NITROGEN 107 MG/DL (9-23); CALCIUM LEVEL 8.6 MG/DL (8.3-10.6); CARBON DIOXIDE LEVEL 28 MMOL/L (20-31); CHLORIDE LEVEL 90 MMOL/L (98-107); CK-MB VALUE MASS < 1.0 NG/ML (<3.6); CPK CREATINE PHOSPHOKINASE 79 U/L (46-171); CREATININE FOR GFR 8.59 MG/DL (0.70-1.30); GLOMERULAR FILTRATION RATE 6.6 (>49); GLUCOSE, FASTING 216 MG/DL (74-106); MB/CK RELATIVE INDEX 1.26 (< OR =4); POTASSIUM SERUM 4.3 MMOL/L (3.5-5.1); SODIUM LEVEL 132 MMOL/L (136-145); TOTAL PROTEIN 6.9 G/DL (5.7-8.2)
[2022-07-16] MEDS ORDERED: DOCU100C16 PO (22:43)
[2022-07-16] MEDS ORDERED: SEVE800T3 PO (22:43)
[2022-07-16] MEDS ORDERED: ASPI81CH33 PO (22:43)
[2022-07-16] MEDS ORDERED: TORS100T PO (22:43)
[2022-07-16] MEDS ORDERED: MIRA3350 PO (22:43)
[2022-07-16] MEDS ORDERED: SENN-80 PO (22:43)
[2022-07-16] MEDS ORDERED: SODI650T PO (22:43)
[2022-07-16] MEDS ORDERED: HOME MED LIST COMPLETE! XX SCH (22:45)
[2022-07-16] MEDS ORDERED: DEXTROSE 50% 50ML SYRINGE IV PRN (23:20)
[2022-07-16] MEDS ORDERED: GLUCOSE 4GM CHEW TABLET PO PRN (23:20)
[2022-07-16] MEDS ORDERED: ACETAMINOPHEN TAB 650MG DOSE (2X325MG) PO PRN (23:20)
[2022-07-16] MEDS ORDERED: GLUCAGON INJ 1MG VIAL SC PRN (23:20)
[2022-07-17] VITALS: BP 156/74
[2022-07-17 03:56] VITALS: BP 138/75
[2022-07-17] MEDS: HEPARIN SOD (PORCINE) 5000UNITS/ML 1ML VIAL/SYRINGE SC SCH ×3 (05:01→21:26)
[2022-07-17 05:24] LABS: CALCIUM LEVEL 8.5 MG/DL (8.3-10.6); CREATININE FOR GFR 8.88 MG/DL (0.70-1.30); GLOMERULAR FILTRATION RATE 6.4 (>49); MAGNESIUM LEVEL 2.1 MG/DL (1.8-2.4); PHOSPHORUS LEVEL 7.2 MG/DL (2.4-5.1); POTASSIUM SERUM 3.8 MMOL/L (3.5-5.1)
[2022-07-17] MEDS: INSULIN LISPRO (NovoLOG) PER UNIT SC SCH ×4 (07:30→20:49)
[2022-07-17 08:15] VITALS: BP 144/71
[2022-07-17] MEDS ORDERED: FUROSEMIDE 40MG/4ML VIAL IV SCH ×2 (09:00)
[2022-07-17] MEDS ORDERED: LEVEMIR (INSULIN DETEMIR) 1 UNITS/0.01ML SC SCH (09:00)
[2022-07-17] MEDS ORDERED: SODIUM BICARBONATE 325 MG TAB PO SCH (09:00)
[2022-07-17] MEDS: ASPIRIN 81MG CHEW TABLET PO SCH (09:23)
[2022-07-17] MEDS: DOCUSATE SODIUM 100MG CAPSULE PO SCH ×2 (09:24→21:26)
[2022-07-17] MEDS: (RENVELA) SEVELAMER **CARBONate** 800 MG TAB PO SCH ×3 (09:28→18:41)
[2022-07-17 11:06] LABS: BASO # 0.1 10^3/uL (0.0-0.2); BASO % 0.5 % (0.0-1.0); EOS # 0.2 10^3/uL (0.0-0.5); EOS % 2.3 % (0.0-3.0); HEMATOCRIT 31.3 % (42.0-52.0); HEMOGLOBIN 10.1 g/dl (13.5-17.5); LYMPH # 1.7 10^3/uL (1.5-5.0); LYMPH % 17.9 % (24.0-44.0); MEAN CORPUSCULAR HEMOGLOBIN 28.9 pg (27.0-33.0); MEAN CORPUSCULAR HGB CONC 32.3 g/dl (32.0-36.5); MEAN CORPUSCULAR VOLUME 89.4 fl (80.0-96.0); MONO # 1.1 10^3/uL (0.0-0.8); NEUTROPHILS # 6.5 10^3/uL (1.5-8.5); NEUTROPHILS % 67.9 % (36.0-66.0); PLATELET COUNT, AUTOMATED 305 10^3/uL (150-450); WHITE BLOOD COUNT 9.6 10^3/uL (4.0-10.0)
[2022-07-17 12:00] VITALS: BP 168/76
[2022-07-17 14:14] LABS: HEMOGLOBIN A1c 6.8 % (4.0-6.0)
[2022-07-17 16:00] VITALS: BP_SYST 123; BP_SYST 158; BP_DIAS 58; BP_DIAS 80
[2022-07-17 20:20] VITALS: BP 135/75
[2022-07-18 00:10] VITALS: BP 147/81
[2022-07-18 04:08] VITALS: BP 134/76
[2022-07-18] MEDS: HEPARIN SOD (PORCINE) 5000UNITS/ML 1ML VIAL/SYRINGE SC SCH ×3 (05:19→21:34)
[2022-07-18 07:27] LABS: BASO # 0.1 10^3/uL (0.0-0.2); BASO % 0.5 % (0.0-1.0); EOS # 0.1 10^3/uL (0.0-0.5); EOS % 1.3 % (0.0-3.0); HEMATOCRIT 31.1 % (42.0-52.0); HEMOGLOBIN 10.2 g/dl (13.5-17.5); LYMPH # 1.4 10^3/uL (1.5-5.0); LYMPH % 14.9 % (24.0-44.0); MEAN CORPUSCULAR HEMOGLOBIN 29.1 pg (27.0-33.0); MEAN CORPUSCULAR HGB CONC 32.8 g/dl (32.0-36.5); MEAN CORPUSCULAR VOLUME 88.9 fl (80.0-96.0); MONO % 10.1 % (2.0-8.0); NEUTROPHILS # 6.9 10^3/uL (1.5-8.5); NEUTROPHILS % 72.7 % (36.0-66.0); PLATELET COUNT, AUTOMATED 278 10^3/uL (150-450); WHITE BLOOD COUNT 9.5 10^3/uL (4.0-10.0)
[2022-07-18 07:48] LABS: CALCIUM LEVEL 8.3 MG/DL (8.3-10.6); CREATININE FOR GFR 8.69 MG/DL (0.70-1.30); GLOMERULAR FILTRATION RATE 6.5 (>49); POTASSIUM SERUM 4.9 MMOL/L (3.5-5.1)
[2022-07-18 08:00] VITALS: BP 133/75
[2022-07-18] MEDS: LEVEMIR (INSULIN DETEMIR) 1 UNITS/0.01ML SC SCH (08:08)
[2022-07-18] MEDS: ASPIRIN 81MG CHEW TABLET PO SCH (08:09)
[2022-07-18] MEDS: INSULIN LISPRO (NovoLOG) PER UNIT SC SCH ×4 (08:09→21:00)
[2022-07-18] MEDS: (RENVELA) SEVELAMER **CARBONate** 800 MG TAB PO SCH ×2 (08:09→12:30)
[2022-07-18] MEDS: DOCUSATE SODIUM 100MG CAPSULE PO SCH ×2 (08:10→21:34)
[2022-07-18] MEDS ORDERED: FUROSEMIDE 100MG/10ML VIAL IV SCH (09:00)
[2022-07-18 12:00] VITALS: BP 145/82
[2022-07-18] MEDS ORDERED: SIMETHICONE 80MG CHEW TAB PO PRN (12:40)
[2022-07-18] MEDS: MIRALAX *UNIT DOSE* 17GM PACKET PO SCH (12:50)
[2022-07-18 14:00] VITALS: BP 124/81
[2022-07-18] MEDS ORDERED: BENZONATATE 100MG CAPSULE PO PRN (15:40)
[2022-07-18] MEDS: SUCROFERRIC OXYHYDROXIDE 500MG CHEW TAB (VELPHORO) PO SCH (18:00)
[2022-07-18 19:47] VITALS: BP 126/79
[2022-07-18] MEDS ORDERED: RAMELTEON 8 MG TAB (ROZEREM) PO SCH (21:00)
[2022-07-19] MEDS: HEPARIN SOD (PORCINE) 5000UNITS/ML 1ML VIAL/SYRINGE SC SCH ×2 (05:34→13:43)
[2022-07-19 06:00] VITALS: BP 124/78
[2022-07-19 06:11] LABS: BASO % 0.4 % (0.0-1.0); EOS # 0.1 10^3/uL (0.0-0.5); EOS % 0.9 % (0.0-3.0); HEMATOCRIT 32.7 % (42.0-52.0); HEMOGLOBIN 10.7 g/dl (13.5-17.5); LYMPH # 1.4 10^3/uL (1.5-5.0); LYMPH % 14.5 % (24.0-44.0); MEAN CORPUSCULAR HEMOGLOBIN 29.2 pg (27.0-33.0); MEAN CORPUSCULAR HGB CONC 32.7 g/dl (32.0-36.5); MEAN CORPUSCULAR VOLUME 89.1 fl (80.0-96.0); MONO # 1.1 10^3/uL (0.0-0.8); MONO % 10.9 % (2.0-8.0); NEUTROPHILS # 7.2 10^3/uL (1.5-8.5); NEUTROPHILS % 72.9 % (36.0-66.0); PLATELET COUNT, AUTOMATED 320 10^3/uL (150-450); RED BLOOD COUNT 3.67 10^6/uL (4.30-6.10); WHITE BLOOD COUNT 9.9 10^3/uL (4.0-10.0)
[2022-07-19 06:41] LABS: CALCIUM LEVEL 8.8 MG/DL (8.3-10.6); CREATININE FOR GFR 9.02 MG/DL (0.70-1.30); GLOMERULAR FILTRATION RATE 6.3 (>49); POTASSIUM SERUM 3.9 MMOL/L (3.5-5.1)
[2022-07-19] MEDS: INSULIN LISPRO (NovoLOG) PER UNIT SC SCH ×2 (07:30→12:00)
[2022-07-19] MEDS: SUCROFERRIC OXYHYDROXIDE 500MG CHEW TAB (VELPHORO) PO SCH ×2 (08:00→12:27)
[2022-07-19] MEDS ORDERED: CALCITRIOL 0.25 MCG CAP (S0169) PO SCH (09:00)
[2022-07-19] MEDS: ASPIRIN 81MG CHEW TABLET PO SCH (09:59)
[2022-07-19] MEDS: DOCUSATE SODIUM 100MG CAPSULE PO SCH (09:59)
[2022-07-19] MEDS: LEVEMIR (INSULIN DETEMIR) 1 UNITS/0.01ML SC SCH (09:59)
[2022-07-19 10:01] VITALS: BP 121/77
[2022-07-19] MEDS ORDERED: VELP5CHW PO (10:01)
[2022-07-19] MEDS: MIRALAX *UNIT DOSE* 17GM PACKET PO SCH (10:01)
[2022-07-19] MEDS ORDERED: MIRA3350 PO (10:04)
[2022-07-19] MEDS ORDERED: DOCU100C16 PO (10:04)
[2022-07-19 14:00] VITALS: BP 122/76
[2022-07-19] MEDS ORDERED: SEVE800T3 PO (14:32)
== END 2022-07-19 15:12 | disposition home or self-care (01) | DRG 291 ==
LOC: M ED 19:49 → M ED INP 22:28 → M PCU 23:58 → M MSPAV 07-18 13:31
PROVIDERS: ADMIT Internal Medicine; ATTEND Internal Medicine
PROC: 5A1D70Z Performance of Urinary Filtration, Intermittent, Less than 6 Hours Per Day (ICD-10-PCS; principal; 2022-07-18)
DX: I13.2 Hypertensive heart and chronic kidney disease with heart failure and with stage 5 chronic kidney disease, or end stage renal disease (principal); N18.6 End stage renal disease; I50.43 Acute on chronic combined systolic (congestive) and diastolic (congestive) heart failure; N25.81 Secondary hyperparathyroidism of renal origin; E87.20 Acidosis, unspecified; E87.1 Hypo-osmolality and hyponatremia; E11.22 Type 2 diabetes mellitus with diabetic chronic kidney disease; E83.39 Other disorders of phosphorus metabolism; Z99.2 Dependence on renal dialysis; E11.51 Type 2 diabetes mellitus with diabetic peripheral angiopathy without gangrene; I73.9 Peripheral vascular disease, unspecified; D63.1 Anemia in chronic kidney disease; Z89.511 Acquired absence of right leg below knee; Z89.432 Acquired absence of left foot; Z79.82 Long term (current) use of aspirin; Z79.4 Long term (current) use of insulin; Z79.899 Other long term (current) drug therapy; Z91.041 Radiographic dye allergy status; Z87.891 Personal history of nicotine dependence; Z20.822 Contact with and (suspected) exposure to COVID-19

== ENCOUNTER → 2022-07-20 | Outpatient (CLI) | payer MEDICARE ==
[~2022-07-20] MED LIST changes: +DOCU100C16 PO; +SENN-80 PO; +SEVE800T3 PO; +VELP5CHW PO
== END ==
LOC: M PLAIMG 12:27
PROVIDERS: ATTEND Internal Medicine Nephrology
DX: K59.00 Constipation, unspecified (principal)

== ENCOUNTER → 2022-10-06 | Outpatient (CLI) | payer MEDICARE ==
[~2022-10-06] MED LIST changes: +SENN-186 PO; -SENN-80 PO
== END ==
LOC: M PLAIMG 08:04
PROVIDERS: ATTEND Internal Medicine Nephrology
DX: Z49.02 Encounter for fitting and adjustment of peritoneal dialysis catheter (principal); M47.9 Spondylosis, unspecified; M16.0 Bilateral primary osteoarthritis of hip

== ENCOUNTER → 2022-10-13 | Outpatient (CLI) | payer MEDICARE | LOC: M PLAIMG 09:27 | PROVIDERS: ATTEND Nurse Practitioner Family | DX: Z01.818 Encounter for other preprocedural examination (principal); N18.6 End stage renal disease; J90 Pleural effusion, not elsewhere classified; R91.8 Other nonspecific abnormal finding of lung field; N20.0 Calculus of kidney; R18.8 Other ascites; Z96.89 Presence of other specified functional implants ==

== ENCOUNTER → 2022-11-19 | Outpatient (CLI) | payer MEDICARE ==
[~2022-11-19] MED LIST changes: -ROSU20TA5 PO; +ROSU20TA61 PO; +SENN-111 PO; -SENN18TA PO
== END ==
LOC: M RAD 10:08
PROVIDERS: ATTEND Transplant Surgery
DX: Z01.818 Encounter for other preprocedural examination (principal)

== ENCOUNTER → 2023-01-25 | Outpatient (CLI) | payer MEDICARE ==
[2023-01-25 14:46] LABS: BASO # 0.1 10^3/uL (0.0-0.2); BASO % 0.7 % (0.0-1.0); EOS # 0.2 10^3/uL (0.0-0.5); EOS % 2.3 % (0.0-3.0); HEMATOCRIT 44.1 % (42.0-52.0); LYMPH # 1.2 10^3/uL (1.5-5.0); LYMPH % 13.5 % (24.0-44.0); MEAN CORPUSCULAR HEMOGLOBIN 32.6 pg (27.0-33.0); MEAN CORPUSCULAR HGB CONC 31.7 g/dl (32.0-36.5); MEAN CORPUSCULAR VOLUME 102.6 fl (80.0-96.0); MONO # 0.9 10^3/uL (0.0-0.8); MONO % 10.2 % (2.0-8.0); NEUTROPHILS # 6.2 10^3/uL (1.5-8.5); NEUTROPHILS % 72.7 % (36.0-66.0); PLATELET COUNT, AUTOMATED 160 10^3/uL (150-450); WHITE BLOOD COUNT 8.5 10^3/uL (4.0-10.0)
[2023-01-25 14:58] LABS: INR 1.1; PARTIAL THROMBOPLASTIN TIME 27.3 SECONDS (24.8-34.2); PROTHROMBIN TIME 13.9 SECONDS (12.5-14.5)
[2023-01-25 15:10] LABS: ALKALINE PHOSPHATASE 90 U/L (46-116); ALT/SGPT 20 U/L (7.0-40); AST/SGOT < 8 U/L (<34); BILIRUBIN,DIRECT 0.2 MG/DL (<0.4); BILIRUBIN,TOTAL 0.4 MG/DL (0.3-1.2); BLOOD UREA NITROGEN 66 MG/DL (9-23); CALCIUM LEVEL 8.8 MG/DL (8.3-10.6); CARBON DIOXIDE LEVEL 27 MMOL/L (20-31); CHLORIDE LEVEL 97 MMOL/L (98-107); CHOLESTEROL LEVEL 132 MG/DL (<200); CHOLESTEROL RISK RATIO 5.09 (<5); GLOMERULAR FILTRATION RATE 7.6 (>49); GLUCOSE, FASTING 195 MG/DL (74-106); HDL CHOLESTEROL 25.9 MG/DL (>40); LDL CHOLESTEROL 85.5 MG/DL (<100); NON-HDL-C 106.1 MG/DL; POTASSIUM SERUM 4.1 MMOL/L (3.5-5.1); SODIUM LEVEL 137 MMOL/L (136-145); TRIGLYCERIDES LEVEL 103 MG/DL (<150)
== END ==
LOC: M PLALAB 10:01
DX: I10 Essential (primary) hypertension (principal); I73.9 Peripheral vascular disease, unspecified; E78.2 Mixed hyperlipidemia; R26.2 Difficulty in walking, not elsewhere classified; R91.8 Other nonspecific abnormal finding of lung field; I70.0 Atherosclerosis of aorta; M48.14 Ankylosing hyperostosis [Forestier], thoracic region

== ENCOUNTER → 2023-12-14 | Outpatient (CLI) | payer MEDICARE ==
[~2023-12-14] MED LIST changes: -DOXY150C3 PO; +DOXY150C5 PO; -MIRA1POW3 PO; +MIRA33506 PO; -ROSU10TA6 PO; +ROSU10TA61 PO
== END ==
LOC: M PLAIMG 10:32
PROVIDERS: ATTEND Psychiatry & Neurology Neurology
DX: R42 Dizziness and giddiness (principal); R26.81 Unsteadiness on feet; I95.1 Orthostatic hypotension